=== PATIENT | female | born 1985 | race Caucasian/White ===

== ENCOUNTER → 2018-08-30 08:35 | Outpatient (CLI) | payer OTHER, MEDICAID, SELFPAY ==
--- NOTE | 2018-08-30 | DI.MRI.S_ITS ---
PROCEDURE: MR CERVICAL SPINE WO/W CON INDICATIONS: MULTIPLE SCLEROSIS TECHNIQUE: Noncontrast sagittal T1 spin echo and T2 fast spin echo, sagittal STIR, sagittal PD fast spin echo, foraminal oblique sagittal T2 fast spin echo, axial gradient echo or T2 fast spin echo through the cervical spine. After the administration of contrast, sagittal and axial T1 spin echo with fat saturation through the cervical spine. COMPARISON: [facility], MR, C-SPINE WITHOUT CONTRAST, 02/15/2013, 8:10. [facility], MR, MR THORACIC SPINE WO/W CON, 08/30/2018, 9:34. [facility], MR, MR HEAD/BRAIN WO/W CON, 08/30/2018, 8:52. [facility], MR, C-SPINE WITH&WITHOUT CONTRAST, 01/24/2009, 16:28. FINDINGS: Image quality: Excellent. Alignment and curvature: There is normal bony alignment. Marrow: Marrow demonstrates normal overall signal. Spinal cord: Visualized spinal cord is normal in size, without white matter lesions. No suspicious intramedullary enhancement. No cerebellar tonsillar herniation. Paraspinous soft tissues: No paravertebral masses or suspicious enhancement. No significant disc pathology, central canal narrowing, or neural foraminal narrowing can be seen. IMPRESSION: No white matter lesions are seen. Normal appearing cervical spine. Stable from prior. Dictated by: Jeffrey Saeed M.D. on 08/30/2018 at 9:56 Approved by: Jeffrey Saeed M.D. on 08/30/2018 at 9:57
--- NOTE | 2018-08-30 | DI.MRI.S_ITS ---
PROCEDURE: MR HEAD/BRAIN WO/W CON INDICATIONS: MULTIPLE SCLEROSIS TECHNIQUE: Noncontrast sagittal and axial FLAIR, axial and coronal T2 fast spin echo, axial VIBE, axial gradient echo, axial diffusion and ADC through the brain. After the administration of contrast, axial and coronal VIBE with fat saturation through the brain. COMPARISON: [facility], MR, BRAIN (PITUITARY) W&WO CONTRAS, 01/16/2010, 6:50. [facility], MR, BRAIN WITH AND WITHOUT CONTRAS, 08/24/2011, 7:06. [facility], MR, BRAIN WITH AND WITHOUT CONTRAS, 03/11/2011, 18:27. [facility], MR, MR THORACIC SPINE WO/W CON, 08/30/2018, 9:34. [facility], MR, MR CERVICAL SPINE WO/W CON, 08/30/2018, 9:17. [facility], MR, BRAIN W&WO CONTRAST, 02/15/2013, 8:36. FINDINGS: Image quality: Excellent. CSF spaces: Ventricles are normal in size and shape. Basal cisterns are patent. No extra-axial fluid collections. Brain: Several foci of abnormal T2-weighted hyperintensity can be seen within the periventricular and deep white matter. A few of the periventricular lesions demonstrate a perpendicular orientation to the lateral ventricles, as seen on series 5 image 10 and on series 9 image 15. Juxtacortical white matter lesions are also seen. There is mild involvement of the corpus callosum seen. No definite brainstem lesions are detected. No definite involvement of the posterior fossa can be seen. Compared to 2013, the size and number of the abnormal white matter lesions has clearly increased. On noncontrast T1-weighted imaging, a few of the larger lesions are decreased T1 weighted signal. On postcontrast imaging, no abnormal enhancement can be seen to suggest acute demyelination. No abnormal intracranial enhancement can be seen elsewhere. No intracranial bleeds or mass effects. Hernandez-white matter interface appears intact. Diffusion weighted images show no acute ischemic insults. Brainstem appears normal. Normal intravascular flow voids are present. Skull and face: Calvarial marrow signal is normal. Orbits appear normal. Sinuses: There is focal opacification seen of an air cell within the medial aspect of the left frontal sinus, which is stable compared to the prior examination. The visualized paranasal sinuses otherwise appear clear. No abnormal mastoid air cell fluid can be seen. IMPRESSION: Progression of white matter lesions compared to 2013, which is highly suggestive of progression of multiple sclerosis. No abnormal enhancement can be seen suggest active demyelination at this time, however. Dictated by: Jeffrey Saeed M.D. on 08/30/2018 at 9:46 Approved by: Jeffrey Saeed M.D. on 08/30/2018 at 9:56
--- NOTE | 2018-08-30 | DI.MRI.S_ITS ---
PROCEDURE: MR THORACIC SPINE WO/W CON INDICATIONS: MULTIPLE SCLEROSIS TECHNIQUE: Noncontrast sagittal T1 spin echo and T2 fast spin echo, sagittal STIR, axial T1 and T2 fast spin echo through the thoracic spine. After the administration of contrast, axial and sagittal T1 spin echo with fat saturation through the thoracic spine. COMPARISON: [facility], MR, T-SPINE WITHOUT CONTRAST, 01/18/2008, 19:33. [facility], MR, T-SPINE WITHOUT CONTRAST, 02/15/2013, 7:43. [facility], MR, MR CERVICAL SPINE WO/W CON, 08/30/2018, 9:17. [facility], MR, MR HEAD/BRAIN WO/W CON, 08/30/2018, 8:52. FINDINGS: Image quality: Excellent. Alignment and curvature: There is normal bony alignment. Marrow: Marrow is of normal overall signal. No acute vertebral body compression fractures. Spinal cord: In this patient with this given history, scrutiny is given to white matter lesions in the thoracic spinal cord. None can be seen. Visualized spinal cord is of normal signal and size, without abnormal enhancement. Paraspinous soft tissues: No paravertebral masses or abnormal enhancement. Miscellaneous: Central canal and foramina appear widely patent at all scanned levels. IMPRESSION: No thoracic spinal cord white matter lesions are seen. Normal appearing thoracic spine. Stable from prior. Dictated by: Jeffrey Saeed M.D. on 08/30/2018 at 9:58 Approved by: Jeffrey Saeed M.D. on 08/30/2018 at 9:59
== END ==
PROVIDERS: PCP Ophthalmology; Visit Provider Physician Assistant
DX: G35 Multiple sclerosis (principal)
CPT/HCPCS: 70553; 72156; 72157; A9579

== ENCOUNTER 2018-11-01 12:25 | Emergency (ER) | payer OTHER, MEDICAID, SELFPAY ==
[2018-11-01] VITALS (12 sets, daily range): BP systolic 100–130; BP diastolic 55–79; PULSE 49–70; RESP 12–18; TEMP 37.4; O2SAT 98–100; BMI 19.7
[2018-11-01] MEDS: SODIUM CHLORIDE 0.9% 1,000 ML 1000 ML IV ×2 (12:49→13:51)
[2018-11-01] MEDS: ONDANSETRON 4 MG/2 ML INJ IV ×2 (12:49→17:59)
[2018-11-01 13:07] LABS: Add Manual Diff / Slide Review NO; Basophils Percent Auto 0.1 % (0-2); Hematocrit 43.7 % (36-46); Hemoglobin 14.9 g/dL (12.0-16.0); Lymphocytes Percent Auto 6.7 % (25-40); Mean Corpuscular Hemoglobin 29.7 PG (26-34); Mean Corpuscular Volume 87.3 fL (80-100); Monocytes Percent Auto 0.9 % (3-14); Neutrophils Absolute Auto 6100 /uL (1500-7000); Neutrophils Percent Auto 92.3 % (50-75); Platelet Count 270 X10^3/uL (150-400); Red Blood Cell Count 5.01 X10^6/uL (4.0-5.2); Red Cell Distribution Width 14.2 % (11.6-14.8); White Blood Cell Count 6.6 X10^3/uL (4.5-11.0)
[2018-11-01 13:13] LABS: INR 1.1 (0.9-1.3); Prothrombin Time 13.1 SECONDS (10.1-12.7)
[2018-11-01 13:16] LABS: PTT Partial Thromboplastin Tim 28 SECONDS (26.4-36.2)
[2018-11-01 13:30] LABS: Alanine Aminotransferase 21 IU/L (9-52); Albumin 4.8 g/dL (3.5-5.0); Albumin Globulin Ratio 1.5 (1.0-2.8); Alkaline Phosphatase 55 U/L (38-126); Aspartate Aminotransferase 19 IU/L (14-36); BUN Creatinine Ratio 23.3 (6-22); Bilirubin Total 0.6 mg/dL (0.2-1.3); Blood Urea Nitrogen 14 mg/dL (7-17); Calcium 9.9 mg/dL (8.4-10.2); Carbon Dioxide 21 mmol/L (22-32); Chloride 106 mmol/L (98-107); Estimated Glomerular Filt Rate > 60.0 mL/min (>60); Globulin 3.1 g/dL (1.7-4.1); Glucose 124 mg/dL (70-100); HEMOLYSIS < 15 (0-50); Lipase 47 U/L (23-300); Potassium 3.1 mmol/L (3.4-5.1); Sodium 141 mmol/L (137-145); Total Protein 7.9 g/dL (6.3-8.2)
--- NOTE | 2018-11-01 14:11 | ED_ITS ---
HPI - Nausea/Vomiting/Diarrhea <MARTI Jj - Last Filed: 11/01/18 22:06> General Chief complaint: Nausea/Vomiting/Diarrhea Stated complaint: vomiting x2+ wks, lost 15lbs Time Seen by Provider: 11/01/18 12:40 Source: patient Mode of arrival: ambulatory Limitations: no limitations History of Present Illness HPI Narrative: 33-year-old female with history of MS and celiac disease along with chronic cyclic vomiting that is a former smoker here for complaint of nausea vomiting and generalized abdominal pain, she reports she has had nausea vomiting that has been continuous over the past several weeks. She also reports she has had abdominal pain for the last 3 months. She was seen by surgery for this and was placed on a propane all however she was told to stop the propanolol by her primary care provider. She has also been seen for this by multiple gastroenterologists who she states have not been able to figure out what is wrong with her. She denies any fevers or chills. No urinary symptoms. She does not remember her last bowel movement. Related Data Home Medications Medication Instructions Recorded Confirmed carisoprodol 350 mg PO BID PRN #0 02/16/17 11/01/18 alprazolam 0.25 mg PO BID PRN 11/01/18 11/01/18 eszopiclone 1 mg PO BEDTIME 11/01/18 11/01/18 fluconazole 150 mg PO .ONCE PRN 11/01/18 11/01/18 hydrocodone-acetaminophen 1 tab PO Q4H PRN 11/01/18 11/01/18 propranolol 10 mg PO BID 11/01/18 11/01/18 sertraline 100 mg PO BEDTIME 11/01/18 11/01/18 trazodone 300 mg PO BEDTIME 11/01/18 11/01/18 Previous Rx's Medication Instructions Recorded promethazine 25 mg PO Q4-6H PRN #20 tab 11/01/18 Allergies Allergy/AdvReac Type Severity Reaction Status Date / Time aspirin [ASPIRIN] Allergy Severe THROAT Verified 11/01/18 12:31 SWELLING metoclopramide [From REGLAN] AdvReac Mild AGGITATION/ Verified 11/01/18 12:31 RESTLESSNES S Review of Systems <MARTI Jj - Last Filed: 11/01/18 22:06> Constitutional Denies chills, Denies fever(s), Denies lethargy and Denies weakness Eyes Denies change in vision, Denies eye discharge, Denies irritation and Denies loss of vision ENT Ears, Nose, Mouth, and Throat: Denies change in voice, Denies neck pain and Denies sore throat Cardiovascular Denies chest pain, Denies irregular heart rhythm, Denies lightheadedness, Denies palpitations, Denies dyspnea, Denies dyspnea on exertion and Denies orthopnea Respiratory Denies cough, Denies dyspnea, Denies dyspnea on exertion and Denies wheezing Gastrointestinal Comments: Abdominal pain nausea vomiting Genitourinary Denies hematuria, Denies flank pain, Denies urinary incontinence and Denies urinary urgency Musculoskeletal Denies neck pain Integumentary/Breasts Denies pruritus, Denies erythema, Denies rash and Denies wounds Neurologic Denies confusion, Denies loss of vision and Denies weakness Psychiatric Denies anxiety, Denies confusion, Denies depression, Denies homicidal ideation and Denies suicidal ideation Endocrine Denies palpitations Hematologic/Lymphatic Denies easy bruising Allergic/Immunologic Denies wheezing Exam <MARTI Jj - Last Filed: 11/01/18 22:06> Initial Vital Signs Initial Vital Signs: Vital Signs Temperature 99.3 F 11/01/18 12:28 Pulse Rate 53 L 11/01/18 12:28 Respiratory Rate 14 11/01/18 12:28 Blood Pressure 130/75 11/01/18 12:28 Pulse Oximetry 100 11/01/18 12:28 Const General: cooperative and well developed Nutritional Appearance: well nourished Orientation: alert, awake, oriented x3 and not confused [facility] Mouth: oral mucosae normal and moist mucous membranes Eyes Conjunctivae: conjunctivae normal Sclera: sclerae normal Pupils: PERRL EOM: EOM intact bilaterally Chest Chest: normal inspection of the chest Resp Effort & Inspection: normal respiratory effort, able to speak in complete sentences, no respiratory distress and no use of accessory muscles Auscultation: clear to auscultation bilaterally, no rales, no rhonchi and no wheezes Cardio Rate: regular rate Rhythm: regular rhythm Heart Sounds: no click, no gallops, no murmurs and no rubs GI Inspection: non-distended Palpation: soft, no hepatosplenomegaly, No guarding, No pulsatile mass and tender (Generalized discomfort) Auscultation: normal bowel sounds General: No CVA tenderness Skin General: no rashes or lesions noted, No jaundice and No petechiae Neuro General: alert, oriented x3, gait normal and no focal motor deficits Speech: speech normal <Monse Mendoza DO - Last Filed: 11/02/18 19:48> Initial Vital Signs Initial Vital Signs: Vital Signs Temperature 99.3 F 11/01/18 12:28 Pulse Rate 53 L 11/01/18 12:28 Respiratory Rate 14 11/01/18 12:28 Blood Pressure 130/75 11/01/18 12:28 Pulse Oximetry 100 11/01/18 12:28 Course <MARTI Jj - Last Filed: 11/01/18 22:06> Orders Ordered: Discontinued Medications Diphenhydramine HCl (Benadryl) 25 mg IV NOW ONE Stop: 11/01/18 14:28 Last Admin: 11/01/18 14:44 Dose: 25 mg Hydromorphone HCl (Dilaudid) 0.5 mg IV NOW ONE Stop: 11/01/18 14:28 Last Admin: 11/01/18 14:44 Dose: 0.5 mg Hydromorphone HCl (Dilaudid) 0.5 mg IV NOW ONE Stop: 11/01/18 18:07 Last Admin: 11/01/18 18:11 Dose: 0.5 mg Sodium Chloride (Normal Saline 0.9%) 1,000 mls @ 1,000 mls/hr IV BOLUS ONE Stop: 11/01/18 13:38 Last Infusion: 11/01/18 13:48 Dose: 0 mls/hr Admin: 11/01/18 12:49 Dose: 1,000 mls/hr Sodium Chloride (Normal Saline 0.9%) 1,000 mls @ 1,000 mls/hr IV BOLUS ONE Stop: 11/01/18 14:48 Last Infusion: 11/01/18 15:17 Dose: 0 mls/hr Admin: 11/01/18 13:51 Dose: 1,000 mls/hr Ondansetron HCl (Zofran) 4 mg IV NOW ONE Stop: 11/01/18 12:39 Last Admin: 11/01/18 12:49 Dose: 4 mg Ondansetron HCl (Zofran) 4 mg IV NOW ONE Stop: 11/01/18 17:31 Last Admin: 11/01/18 17:59 Dose: 4 mg Potassium Chloride (Klor-Con M20) 40 meq PO NOW ONE Stop: 11/01/18 14:10 Last Admin: 11/01/18 14:33 Dose: Not Given Potassium Chloride (Klor-Con M20) 20 meq PO NOW ONE Stop: 11/01/18 14:30 Last Admin: 11/01/18 15:11 Dose: 20 meq Prochlorperazine (Compazine) 10 mg IV NOW ONE Stop: 11/01/18 14:28 Last Admin: 11/01/18 14:44 Dose: 10 mg Vital Signs - 8 hr 11/01/18 14:30 11/01/18 15:00 11/01/18 16:00 Pulse Rate 59 L 53 L 54 L Respiratory Rate 13 14 18 Blood Pressure Blood Pressure [Left Arm] 118/72 112/75 105/68 Pulse Oximetry 100 98 99 11/01/18 16:44 11/01/18 17:30 11/01/18 18:23 Pulse Rate 50 L 49 L 58 L Respiratory Rate 17 16 14 Blood Pressure Blood Pressure [Left Arm] 113/75 115/79 100/55 L Pulse Oximetry 100 100 100 11/01/18 18:26 Pulse Rate 70 Respiratory Rate 16 Blood Pressure 115/65 Blood Pressure [Left Arm] Pulse Oximetry 100 <Monse Mendoza DO - Last Filed: 11/02/18 19:48> Orders Ordered: Discontinued Medications Diphenhydramine HCl (Benadryl) 25 mg IV NOW ONE Stop: 11/01/18 14:28 Last Admin: 11/01/18 14:44 Dose: 25 mg Hydromorphone HCl (Dilaudid) 0.5 mg IV NOW ONE Stop: 11/01/18 14:28 Last Admin: 11/01/18 14:44 Dose: 0.5 mg Hydromorphone HCl (Dilaudid) 0.5 mg IV NOW ONE Stop: 11/01/18 18:07 Last Admin: 11/01/18 18:11 Dose: 0.5 mg Sodium Chloride (Normal Saline 0.9%) 1,000 mls @ 1,000 mls/hr IV BOLUS ONE Stop: 11/01/18 13:38 Last Infusion: 11/01/18 13:48 Dose: 0 mls/hr Admin: 11/01/18 12:49 Dose: 1,000 mls/hr Sodium Chloride (Normal Saline 0.9%) 1,000 mls @ 1,000 mls/hr IV BOLUS ONE Stop: 11/01/18 14:48 Last Infusion: 11/01/18 15:17 Dose: 0 mls/hr Admin: 11/01/18 13:51 Dose: 1,000 mls/hr Ondansetron HCl (Zofran) 4 mg IV NOW ONE Stop: 11/01/18 12:39 Last Admin: 11/01/18 12:49 Dose: 4 mg Ondansetron HCl (Zofran) 4 mg IV NOW ONE Stop: 11/01/18 17:31 Last Admin: 11/01/18 17:59 Dose: 4 mg Potassium Chloride (Klor-Con M20) 40 meq PO NOW ONE Stop: 11/01/18 14:10 Last Admin: 11/01/18 14:33 Dose: Not Given Potassium Chloride (Klor-Con M20) 20 meq PO NOW ONE Stop: 11/01/18 14:30 Last Admin: 11/01/18 15:11 Dose: 20 meq Prochlorperazine (Compazine) 10 mg IV NOW ONE Stop: 11/01/18 14:28 Last Admin: 11/01/18 14:44 Dose: 10 mg Vital Signs - 8 hr 11/01/18 14:30 11/01/18 15:00 11/01/18 16:00 Pulse Rate 59 L 53 L 54 L Respiratory Rate 13 14 18 Blood Pressure Blood Pressure [Left Arm] 118/72 112/75 105/68 Pulse Oximetry 100 98 99 11/01/18 16:44 11/01/18 17:30 11/01/18 18:23 Pulse Rate 50 L 49 L 58 L Respiratory Rate 17 16 14 Blood Pressure Blood Pressure [Left Arm] 113/75 115/79 100/55 L Pulse Oximetry 100 100 100 11/01/18 18:26 Pulse Rate 70 Respiratory Rate 16 Blood Pressure 115/65 Blood Pressure [Left Arm] Pulse Oximetry 100 MDM - Nausea/Vomiting/Diarrhea <MARTI Jj - Last Filed: 11/01/18 22:06> Lab Data Result diagrams: 11/01/18 12:58 11/01/18 12:58 Lab Results 11/01/18 11/01/18 11/01/18 Range/Units 12:58 12:58 12:58 WBC 6.6 (4.5-11.0) X10^3/uL RBC 5.01 (4.0-5.2) X10^6/uL Hgb 14.9 (12.0-16.0) g/dL Hct 43.7 (36-46) % MCV 87.3 (80-100) fL MCH 29.7 (26-34) PG MCHC 34.0 (30-36) % RDW 14.2 (11.6-14.8) % Plt Count 270 (150-400) X10^3/uL Neut % (Auto) 92.3 H (50-75) % Lymph % (Auto) 6.7 L (25-40) % [place] % (Auto) 0.9 L (3-14) % Eos % (Auto) 0.0 L (2-4) % Baso % (Auto) 0.1 (0-2) % Neut # (Auto) 6100 (3389-5513) /uL PT 13.1 H (10.1-12.7) SECONDS INR 1.1 (0.9-1.3) APTT 28 (26.4-36.2) SECONDS Sodium 141 (137-145) mmol/L Potassium 3.1 L (3.4-5.1) mmol/L Chloride 106 (98-107) mmol/L Carbon Dioxide 21 L (22-32) mmol/L BUN 14 (7-17) mg/dL Creatinine 0.60 (0.52-1.04) mg/dL Estimated GFR > 60.0 (>60) mL/min BUN/Creatinine Ratio 23.3 H (6-22) Glucose 124 H (70-100) mg/dL Calcium 9.9 (8.4-10.2) mg/dL Total Bilirubin 0.6 (0.2-1.3) mg/dL AST 19 (14-36) IU/L ALT 21 (9-52) IU/L Alkaline Phosphatase 55 (38-126) U/L Total Protein 7.9 (6.3-8.2) g/dL Albumin 4.8 (3.5-5.0) g/dL Globulin 3.1 (1.7-4.1) g/dL Albumin/Globulin Ratio 1.5 (1.0-2.8) Lipase 47 (23-300) U/L Urine RBC (0-5/HPF) Urine WBC (0-5/HPF) Ur Squamous Epith Cells Urine Bacteria (None) Urine Mucus (Negative) Ur Culture Indicated? 11/01/18 Range/Units 14:35 WBC (4.5-11.0) X10^3/uL RBC (4.0-5.2) X10^6/uL Hgb (12.0-16.0) g/dL Hct (36-46) % MCV (80-100) fL MCH (26-34) PG MCHC (30-36) % RDW (11.6-14.8) % Plt Count (150-400) X10^3/uL Neut % (Auto) (50-75) % Lymph % (Auto) (25-40) % [place] % (Auto) (3-14) % Eos % (Auto) (2-4) % Baso % (Auto) (0-2) % Neut # (Auto) (9751-0399) /uL PT (10.1-12.7) SECONDS INR (0.9-1.3) APTT (26.4-36.2) SECONDS Sodium (137-145) mmol/L Potassium (3.4-5.1) mmol/L Chloride (98-107) mmol/L Carbon Dioxide (22-32) mmol/L BUN (7-17) mg/dL Creatinine (0.52-1.04) mg/dL Estimated GFR (>60) mL/min BUN/Creatinine Ratio (6-22) Glucose (70-100) mg/dL Calcium (8.4-10.2) mg/dL Total Bilirubin (0.2-1.3) mg/dL AST (14-36) IU/L ALT (9-52) IU/L Alkaline Phosphatase (38-126) U/L Total Protein (6.3-8.2) g/dL Albumin (3.5-5.0) g/dL Globulin (1.7-4.1) g/dL Albumin/Globulin Ratio (1.0-2.8) Lipase (23-300) U/L Urine RBC 1-5/hpf (0-5/HPF) Urine WBC 0-1/hpf (0-5/HPF) Ur Squamous Epith Cells 5-10 /hpf H Urine Bacteria None seen (None) Urine Mucus 2+ H (Negative) Ur Culture Indicated? Cult not indicated Point of Care Testing Test Results Negative Urine Dip Bedside Urine Glucose Negative Bedside Urine Bilirubin - Negative Bedside Urine Ketone +++ 80 Urine Specific [place] 1.020 Bedside Urine Occult Blood - Negative Bedside Urine pH 7.0 Bedside Urine Protein + 30 Bedside Urine Urobilinogen +/- 1mg Bedside Urine Nitrite - Negative Bedside Urine Leukocytes +/- [address] scan - abdomen: Radiologist's impression: [address] [address] [address] Scan Report Signed Patient: Imani Bowen MR#: [id number] : 1985 Acct:[id number] Age/Sex: 33 / F Date of Service: 11/01/18 Loc: ED Accession Number: [id number] Procedure: CT abdomen pelvis w con Ordering Provider: Vicente Lira PROCEDURE: CT ABDOMEN PELVIS W CON INDICATIONS: Left lower quadrant pain TECHNIQUE: After the administration of oral and intravenous contrast, 5 mm thick sections acquired from the diaphragms to the symphysis. 5 mm thick coronal and sagittal reformats were performed. For radiation dose reduction, the following was used: automated exposure control, adjustment of mA and/or kV according to patient size. COMPARISON: [facility], CT, ABDOMEN/PELVIS WITH CONTRAST, 10/15/2017, 12: 44. [facility], CT, ABDOMEN/PELVIS WITH CONTRAST, 06/14/2017, 8:35. [facility], CT, ABDOMEN/PELVIS WITH CONTRAST, 10/19/2011, 13:59. FINDINGS: Image quality: Diagnostic. ABDOMEN: Lung bases: Lung bases are clear. Heart size is normal. Solid organs: The liver is noted to be prominently hypodense when compared to the spleen. No definite liver lesions are evident. The patient has had a prior cholecystectomy. The spleen, adrenals, and pancreas appear to be within normal limits. The kidneys are unremarkable with the exception of nonobstructing 6 mm calculus within the mid right kidney. Previously seen inferior left renal calculus no longer as evident. No definite left ureteral calculi are evident. No hydronephrosis is appreciated. Peritoneum and bowel: The stomach and duodenum are within normal limits. A few borderline prominent fluid-filled small bowel loops involving the jejunum are present. However, the majority of the small bowel is within normal limits. Moderate thickening of the wall the colon is identified diffusely with relative paucity of stool. The appendix is not clearly seen. There is mild edema within the mesentery surrounding the colon. No free fluid, loculated fluid collection or free air is identified. Nodes and vessels: No retroperitoneal or mesenteric adenopathy. Aorta and inferior vena cava are normal in caliber. Bones: No acute fractures or suspicious osseous lesions are identified. PELVIS: Genitourinary: Bladder wall thickness is normal. The uterus is normal in size. The ovaries also appear to be within normal limits for size. Miscellaneous: No inguinal hernias or adenopathy. No free fluid or loculated fluid collection is evident. Bones: No suspicious bony lesions. No acute pelvic fractures are evident. There mild degenerative changes of the bilateral hips. IMPRESSION: 1. Diffuse thickening of the medial wall of the colon with mild adjacent mesenteric edema. Please correlate clinically for possible colitis. 2. Probable mild jejunal ileus. No bowel obstruction. 3. Hepatic steatosis. 4. Nonobstructing right calculus. No hydronephrosis of either kidney. Dictated by: Suman Peters M.D. on 11/01/2018 at 16:05 Approved by: Suman Peters M.D. on 11/01/2018 at 16:09 [facility] Narrative Medical decision making narrative: CBC was obtained was unremarkable. Chem panel shows mild hypokalemia at 3.1. She was given 20 mEq of potassium chloride orally in the emergency room. CT scan of the abdomen shows some mild thickening of the mesentery and also of the colon wall. Do not appreciate signs of infection at this time as vital signs are stable and white count was negative. I believe this may be more due to chronic issues. She was given Zofran along with Benadryl and Compazine in the emergency room. She was able to tolerate p.o. fluids. Discussed case with Dr. Quintanilla surgery who has seen patient for this in the past and Dr Quintanilla will see patient for this outpatient . Patient is instructed to call her office and schedule follow-up appointment. She is prescribed Phenergan to add to the Zofran that she is taking. Advanced diet as tolerated. Plenty of fluids. For any worsening symptoms return emergency room. Use currently prescribed pain management regimen as needed for discomfort <Monse Terrell Mendoza, - Last Filed: 11/02/18 19:48> Lab Data Lab Results 11/01/18 11/01/18 11/01/18 Range/Units 12:58 12:58 12:58 WBC 6.6 (4.5-11.0) X10^3/uL RBC 5.01 (4.0-5.2) X10^6/uL Hgb 14.9 (12.0-16.0) g/dL Hct 43.7 (36-46) % MCV 87.3 (80-100) fL MCH 29.7 (26-34) PG MCHC 34.0 (30-36) % RDW 14.2 (11.6-14.8) % Plt Count 270 (150-400) X10^3/uL Neut % (Auto) 92.3 H (50-75) % Lymph % (Auto) 6.7 L (25-40) % [place] % (Auto) 0.9 L (3-14) % Eos % (Auto) 0.0 L (2-4) % Baso % (Auto) 0.1 (0-2) % Neut # (Auto) 6100 (0617-9601) /uL PT 13.1 H (10.1-12.7) SECONDS INR 1.1 (0.9-1.3) APTT 28 (26.4-36.2) SECONDS Sodium 141 (137-145) mmol/L Potassium 3.1 L (3.4-5.1) mmol/L Chloride 106 (98-107) mmol/L Carbon Dioxide 21 L (22-32) mmol/L BUN 14 (7-17) mg/dL Creatinine 0.60 (0.52-1.04) mg/dL Estimated GFR > 60.0 (>60) mL/min BUN/Creatinine Ratio 23.3 H (6-22) Glucose 124 H (70-100) mg/dL Calcium 9.9 (8.4-10.2) mg/dL Total Bilirubin 0.6 (0.2-1.3) mg/dL AST 19 (14-36) IU/L ALT 21 (9-52) IU/L Alkaline Phosphatase 55 (38-126) U/L Total Protein 7.9 (6.3-8.2) g/dL Albumin 4.8 (3.5-5.0) g/dL Globulin 3.1 (1.7-4.1) g/dL Albumin/Globulin Ratio 1.5 (1.0-2.8) Lipase 47 (23-300) U/L Urine RBC (0-5/HPF) Urine WBC (0-5/HPF) Ur Squamous Epith Cells Urine Bacteria (None) Urine Mucus (Negative) Ur Culture Indicated? 11/01/18 Range/Units 14:35 WBC (4.5-11.0) X10^3/uL RBC (4.0-5.2) X10^6/uL Hgb (12.0-16.0) g/dL Hct (36-46) % MCV (80-100) fL MCH (26-34) PG MCHC (30-36) % RDW (11.6-14.8) % Plt Count (150-400) X10^3/uL Neut % (Auto) (50-75) % Lymph % (Auto) (25-40) % [place] % (Auto) (3-14) % Eos % (Auto) (2-4) % Baso % (Auto) (0-2) % Neut # (Auto) (5646-3264) /uL PT (10.1-12.7) SECONDS INR (0.9-1.3) APTT (26.4-36.2) SECONDS Sodium (137-145) mmol/L Potassium (3.4-5.1) mmol/L Chloride (98-107) mmol/L Carbon Dioxide (22-32) mmol/L BUN (7-17) mg/dL Creatinine (0.52-1.04) mg/dL Estimated GFR (>60) mL/min BUN/Creatinine Ratio (6-22) Glucose (70-100) mg/dL Calcium (8.4-10.2) mg/dL Total Bilirubin (0.2-1.3) mg/dL AST (14-36) IU/L ALT (9-52) IU/L Alkaline Phosphatase (38-126) U/L Total Protein (6.3-8.2) g/dL Albumin (3.5-5.0) g/dL Globulin (1.7-4.1) g/dL Albumin/Globulin Ratio (1.0-2.8) Lipase (23-300) U/L Urine RBC 1-5/hpf (0-5/HPF) Urine WBC 0-1/hpf (0-5/HPF) Ur Squamous Epith Cells 5-10 /hpf H Urine Bacteria None seen (None) Urine Mucus 2+ H (Negative) Ur Culture Indicated? Cult not indicated Point of Care Testing Test Results Negative Urine Dip Bedside Urine Glucose Negative Bedside Urine Bilirubin - Negative Bedside Urine Ketone +++ 80 Urine Specific [place] 1.020 Bedside Urine Occult Blood - Negative Bedside Urine pH 7.0 Bedside Urine Protein + 30 Bedside Urine Urobilinogen +/- 1mg Bedside Urine Nitrite - Negative Bedside Urine Leukocytes +/- 15 Esterase Discharge Plan Departure Patient Disposition: Home Clinical Impression: Cyclical vomiting syndrome Discharge Date/Time: 11/01/18 18:26 Interventions: ED Discharge Assessment Last Done: 11/01/18 18:26 Instructions: Nausea and Vomiting-Adult Activity Restrictions/Additional Instructions: Laboratory results as show hypokalemia otherwise laboratory results were unremarkable. CT of the abdomen was obtained was negative for any acute findings. Signs and symptoms presents as secondary to cyclic vomiting. Use Zofran as prescribed along with the Phenergan for the nausea vomiting. Advanced diet as tolerated. Use currently prescribed pain management regimen as needed for any discomfort. Call Dr. Quintanilla at her office number to schedule follow-up appointment next week. Follow-up with your primary. For any worsening symptoms return to the emergency room. Prescriptions: New promethazine 25 mg tablet 25 mg PO Q4-6H PRN (Reason: nausea and vomiting) Qty: 20 RF: 0 No Action carisoprodol 350 MG tablet 350 mg PO BID PRN (Reason: spasm) Qty: 0 RF: 0 sertraline 100 mg tablet 100 mg PO BEDTIME RF: 0 hydrocodone-acetaminophen 10-325 mg tablet 1 tab PO Q4H PRN (Reason: pain) RF: 0 alprazolam 0.5 mg tablet 0.25 mg PO BID PRN (Reason: Anxiety) RF: 0 eszopiclone 1 mg tablet 1 mg PO BEDTIME RF: 0 trazodone 100 MG tablet 300 mg PO BEDTIME RF: 0 propranolol 10 mg tablet 10 mg PO BID RF: 0 fluconazole 150 mg tablet 150 mg PO .ONCE PRN (Reason: unknown) RF: 0 Referrals: Sheryl Quintanilla MD [Physician] - Baudilio Bejarano [Primary Care Provider] - <Monse Mendoza DO - Last Filed: 11/02/18 19:48> Cosign ED Attending Cosignature Attestation: I was immediately available in the department for consultation. This documentation has been reviewed and I agree with assessment and plan. Supervised by Monse Mendoza DO
--- NOTE | 2018-11-01 14:28 | DI.CT.S_ITS ---
PROCEDURE: CT ABDOMEN PELVIS W CON INDICATIONS: Left lower quadrant pain TECHNIQUE: After the administration of oral and intravenous contrast, 5 mm thick sections acquired from the diaphragms to the symphysis. 5 mm thick coronal and sagittal reformats were performed. For radiation dose reduction, the following was used: automated exposure control, adjustment of mA and/or kV according to patient size. COMPARISON: [facility], CT, ABDOMEN/PELVIS WITH CONTRAST, 10/15/2017, 12:44. [facility], CT, ABDOMEN/PELVIS WITH CONTRAST, 06/14/2017, 8:35. [facility], CT, ABDOMEN/PELVIS WITH CONTRAST, 10/19/2011, 13:59. FINDINGS: Image quality: Diagnostic. ABDOMEN: Lung bases: Lung bases are clear. Heart size is normal. Solid organs: The liver is noted to be prominently hypodense when compared to the spleen. No definite liver lesions are evident. The patient has had a prior cholecystectomy. The spleen, adrenals, and pancreas appear to be within normal limits. The kidneys are unremarkable with the exception of nonobstructing 6 mm calculus within the mid right kidney. Previously seen inferior left renal calculus no longer as evident. No definite left ureteral calculi are evident. No hydronephrosis is appreciated. Peritoneum and bowel: The stomach and duodenum are within normal limits. A few borderline prominent fluid-filled small bowel loops involving the jejunum are present. However, the majority of the small bowel is within normal limits. Moderate thickening of the wall the colon is identified diffusely with relative paucity of stool. The appendix is not clearly seen. There is mild edema within the mesentery surrounding the colon. No free fluid, loculated fluid collection or free air is identified. Nodes and vessels: No retroperitoneal or mesenteric adenopathy. Aorta and inferior vena cava are normal in caliber. Bones: No acute fractures or suspicious osseous lesions are identified. PELVIS: Genitourinary: Bladder wall thickness is normal. The uterus is normal in size. The ovaries also appear to be within normal limits for size. Miscellaneous: No inguinal hernias or adenopathy. No free fluid or loculated fluid collection is evident. Bones: No suspicious bony lesions. No acute pelvic fractures are evident. There mild degenerative changes of the bilateral hips. IMPRESSION: 1. Diffuse thickening of the medial wall of the colon with mild adjacent mesenteric edema. Please correlate clinically for possible colitis. 2. Probable mild jejunal ileus. No bowel obstruction. 3. Hepatic steatosis. 4. Nonobstructing right calculus. No hydronephrosis of either kidney. Dictated by: Suman Peters M.D. on 11/01/2018 at 16:05 Approved by: Suman Peters M.D. on 11/01/2018 at 16:09
[2018-11-01] MEDS: HYDROMORPHONE 1 MG INJ 0.5 MG IV ×2 (14:44→18:11)
[2018-11-01] MEDS: diphenhydrAMINE 50 MG/ML VIAL 25 MG IV (14:44)
[2018-11-01] MEDS: PROCHLORPERAZINE 10 MG/2 ML VIAL IV (14:44)
[2018-11-01 14:50] LABS: Bacteria Urine None Seen
[2018-11-01 15:01] LABS: Culture Indicated Urine Cult Not Indicated; Mucus Urine 2+ (Negative); RBC Urine 1-5/HPF (0-5/HPF); Squamous Epithelial Cell Urine 5-10 /HPF; WBC Urine 0-1/HPF (0-5/HPF)
[2018-11-01] MEDS: POTASSIUM CHLORIDE 20 MEQ TAB PO (15:11)
== END 2018-11-01 18:26 | disposition home or self-care (01) ==
PROVIDERS: Emergency Medicine; Emergency Provider Nurse Practitioner Family; PCP Ophthalmology
DX: G43.A0 Cyclical vomiting, in migraine, not intractable (principal)
CPT/HCPCS: 74177; 80053; 81003; 81015; 81025; 83690; 85025; 85610; 85730; 96361; 96374; 96375; 96376; 99285; J0780; J1170; J1200; J2405; Q9967

== ENCOUNTER → 2018-11-20 08:10 | Outpatient (CLI) | payer OTHER, MEDICAID, SELFPAY ==
--- NOTE | 2018-11-20 08:12 | DI.RAD.S_ITS ---
PROCEDURE: FL UPPER GI SMALL BOWEL INDICATIONS: Recurrent vomiting COMPARISON: [facility], CT, CT ABDOMEN PELVIS W CON, 11/01/2018, 16:23. [facility], [place], GASTRIC EMPTYING STUDY, 02/07/2018, 8:26. [facility], , UPPER GI AIR CONTRAST WITH KUB, 08/18/2012, 8:08. FINDINGS: KUB: Preprocedural crop ranch hand film shows a normal small bowel gas pattern with generalized moderate colonic obstipation. No suspicious abdominal calcifications. Visualized solid organ contours appear normal in size. No suspicious bony abnormalities. Esophagus: Air-contrast views demonstrate a normal mucosal pattern. On single-contrast views, there is normal peristalsis. No fixed strictures, extrinsic mass effects, or diverticula. No hiatal hernias or elicited gastroesophageal reflux. There is normal transit of a calibrated barium tablet through the esophagus. Stomach: The gastric lumen is normally distensible, and has normal rugal fold thickness. There is debris within the gastric lumen, the patient reported having not eaten after late last night. A recent nuclear medicine gastric emptying study had shown normal gastric emptying. No mucosal masses or ulcers. The pylorus and duodenal bulb have a normal morphology. Small bowel: Duodenal folds appear normal in thickness. There is normal transit time of barium through the small intestine. Small bowel loops appear normal in caliber throughout. Jejunal and ileal folds are smooth and normal in thickness. No strictures, intraluminal masses, or extrinsic mass effects. The terminal ileum is identified and appears normal. IMPRESSION: Gastric debris present, uncertain clinical significance given the report of having eaten late last night. There is a normal gastric emptying study utilizing nuclear medicine technique dated . Esophageal and gastric portion of the study otherwise appear normal. Small bowel follow-through appears normal. Dictated by: Eric Oconnell M.D. on 11/20/2018 at 12:06 Approved by: Eric Oconnell M.D. on 11/20/2018 at 12:08
== END ==
PROVIDERS: PCP Ophthalmology; Visit Provider Surgery
DX: R11.10 Vomiting, unspecified (principal)
CPT/HCPCS: 74245

== ENCOUNTER 2018-12-10 17:02 | Emergency (ER) | payer OTHER, MEDICAID, SELFPAY ==
[2018-12-10 17:25] VITALS: BP 115/74; PULSE 53; RESP 18; TEMP 36.2; O2SAT 100; BMI 21.4
[2018-12-10] MEDS: SODIUM CHLORIDE 0.9% 1,000 ML 1000 ML IV ×2 (17:48→19:02)
[2018-12-10] MEDS: ONDANSETRON 4 MG/2 ML INJ IV (17:48)
--- NOTE | 2018-12-10 18:01 | ED_ITS ---
HPI - Nausea/Vomiting/Diarrhea General Chief complaint: Nausea/Vomiting/Diarrhea Stated complaint: infusion of medication, adverse reactions Time Seen by Provider: 12/10/18 18:00 Source: patient Mode of arrival: ambulatory Limitations: no limitations History of Present Illness HPI Narrative: The patient received an initial injection of Ocrelizumab yesterday for the treatment of MS. She was premedicated with a steroid injection as well as antihistamine injection. She arrives now with multiple emesis over the past day. She has no diarrhea. She has myalgia and arthralgia through the shoulders, and upper extremities. She has severe low back pain. She has abdominal cramps. She has no headache, visual changes or confusion. She denies chest pain or difficulty breathing. I reviewed the medication, the medication is expected to have side effects similar to much of what she has experienced. Side effects were supposed to be diminished by the premedication process. However the patient also has anxiety and cyclic vomiting syndrome. She already has multiple anti medic medications at home, as well as medications for anxiety. She has no fever, chills or dysuria. Related Data Home Medications Medication Instructions Recorded Confirmed carisoprodol 350 mg PO BID PRN #0 02/16/17 11/01/18 alprazolam 0.25 mg PO BID PRN 11/01/18 11/01/18 eszopiclone 1 mg PO BEDTIME 11/01/18 11/01/18 fluconazole 150 mg PO .ONCE PRN 11/01/18 11/01/18 hydrocodone-acetaminophen 1 tab PO Q4H PRN 11/01/18 11/01/18 propranolol 10 mg PO BID 11/01/18 11/01/18 sertraline 100 mg PO BEDTIME 11/01/18 11/01/18 trazodone 300 mg PO BEDTIME 11/01/18 11/01/18 Previous Rx's Medication Instructions Recorded promethazine 25 mg PO Q4-6H PRN #20 tab 11/01/18 Allergies Allergy/AdvReac Type Severity Reaction Status Date / Time aspirin [ASPIRIN] Allergy Severe THROAT Verified 12/10/18 17:24 SWELLING metoclopramide [From REGLAN] AdvReac Mild AGGITATION/ Verified 12/10/18 17:24 RESTLESSNES S Review of Systems Review of Systems ROS Unobtainable: All systems reviewed & are unremarkable except as noted in HPI and below Constitutional Denies chills, Denies fever(s), Denies headache(s), Denies lethargy and Denies weakness Eyes Denies change in vision, Denies eye discharge, Denies irritation and Denies loss of vision ENT Ears, Nose, Mouth, and Throat: Denies change in voice, Denies headache(s), Reports neck pain and Denies sore throat Cardiovascular Denies chest pain, Denies irregular heart rhythm, Denies lightheadedness, Denies palpitations, Denies dyspnea on exertion and Denies orthopnea Respiratory Denies cough, Denies dyspnea on exertion and Denies wheezing Gastrointestinal Gastrointestinal: Reports abdominal pain, Denies change in bowel habits, Denies diarrhea, Reports nausea and Reports vomiting Genitourinary Denies dysuria, Denies flank pain and Denies urinary urgency Musculoskeletal Reports as per HPI, Reports back pain, Reports myalgias, Reports arthralgias, Denies limited range of motion, Reports muscle cramps and Reports neck pain Integumentary/Breasts Denies pruritus, Denies erythema and Denies rash Neurologic Denies confusion, Denies headache(s), Denies loss of vision and Denies weakness Psychiatric Reports anxiety, Denies confusion and Denies depression Endocrine Denies palpitations Hematologic/Lymphatic Denies lymphadenopathy Allergic/Immunologic Denies wheezing PFSH Medical History Anxiety (Acute) Cyclic vomiting syndrome (Acute) Multiple sclerosis (Acute) Surgical History Status post tubal ligation Social History Smoking Status: Former smoker Social History Smoking Status: Former smoker substance use type: marijuana Exam Initial Vital Signs Initial Vital Signs: Vital Signs Temperature 97.1 F L 12/10/18 17:25 Pulse Rate 53 L 12/10/18 17:25 Respiratory Rate 18 12/10/18 17:25 Blood Pressure 115/74 12/10/18 17:25 Pulse Oximetry 100 12/10/18 17:25 Const General: cooperative, well developed, anxious, No ill appearing, No intoxicated appearing and No lethargic Nutritional Appearance: well nourished Orientation: alert, awake, oriented x3 and not confused [facility] Head: normocephalic and atraumatic Face and sinus: sinuses nontender and face symmetric Mouth: oral mucosae normal and moist mucous membranes Throat: tonsils normal and uvula midline Eyes General: appearance normal, both eyes and all related structures Eyelids: eyelids normal Conjunctivae: conjunctivae normal Sclera: sclerae normal Pupils: PERRL EOM: EOM intact bilaterally Neck Neck: normal visual inspection, trachea midline and No lymphadenopathy Lymphatic: No lymphedema Chest Chest: normal inspection of the chest Resp Effort & Inspection: normal respiratory effort, able to speak in complete sentences, no respiratory distress and no use of accessory muscles Auscultation: clear to auscultation bilaterally, no rales, no rhonchi and no wheezes Cardio Rate: regular rate Rhythm: regular rhythm Heart Sounds: no click, no gallops, no murmurs and no rubs Pulses: normal peripheral pulses GI Palpation: soft, no hepatosplenomegaly, No pulsatile mass and tender ( p eriumbilical and epigastric tenderness without guarding or rebound) Auscultation: normal bowel sounds Back/Spine/Pelvis Back: No CVA tenderness and other Thoracic/Lumbar Spine: thoracic and lumbar spine normal to inspection, thoraco- lumbar spasm and lumbar spinal tenderness Sacroiliac Joints: nontender Sacrum: no tenderness Skin General: no rashes or lesions noted, No jaundice and No petechiae Neuro General: alert, oriented x3, gait normal and no focal motor deficits Speech: speech normal Extrem General: full ROM, no clubbing, cyanosis or edema, no pedal edema and no calf tenderness Course Course Narrative: she is improved after hydration. She was given Toradol for the myalgias and back pain, she still complains of back pain. She is sipping water. She is discharged with a 2nd dose of the Zofran. Lorazepam significantly helped her nausea. Her 1st reaction is to never take the medication again. However, there is a lot of emphasis on the initial side effects, and the need to premedicate. The information I have reviewed indicates the side effects should lessen. I asked her to discuss the situation with her doctor, the help of future benefit should be evaluated. It should also be recognize that she has the confusing my read of cyclic vomiting and anxiety along with the listed side effects of this medication. She is discharged home with [place] for back pain times 24 hr. She has an ample supply of antiemetics at home. Orders Ordered: Discontinued Medications Hydrocodone Bitart/Acetaminophen (Vicodin Prepack) 1 bottle MISC SEEINSTR ONE Stop: 12/10/18 20:01 Last Admin: 12/10/18 20:35 Dose: 1 bottle Sodium Chloride (Normal Saline 0.9%) 1,000 mls @ 1,000 mls/hr IV BOLUS ONE Stop: 12/10/18 18:42 Last Infusion: 12/10/18 19:02 Dose: 0 mls/hr Admin: 12/10/18 17:48 Dose: 1,000 mls/hr Sodium Chloride (Normal Saline 0.9%) 1,000 mls @ 1,000 mls/hr IV BOLUS ONE Stop: 12/10/18 19:49 Last Infusion: 12/10/18 20:45 Dose: 0 mls/hr Admin: 12/10/18 19:02 Dose: 1,000 mls/hr Ketorolac Tromethamine (Toradol) 30 mg IV NOW ONE Stop: 12/10/18 18:25 Last Admin: 12/10/18 18:34 Dose: 30 mg Lorazepam (Ativan) 2 mg IV NOW ONE Stop: 12/10/18 18:52 Last Admin: 12/10/18 19:02 Dose: 2 mg Ondansetron HCl (Zofran) 4 mg IV NOW ONE Stop: 12/10/18 17:44 Last Admin: 12/10/18 17:48 Dose: 4 mg Ondansetron HCl (Zofran Odt) 4 mg SL NOW ONE Stop: 12/10/18 20:01 Last Admin: 12/10/18 20:34 Dose: 4 mg Vital Signs - 8 hr 12/10/18 17:25 12/10/18 19:13 Temperature 97.1 F L Pulse Rate 53 L 54 L Respiratory Rate 18 20 Blood Pressure 115/74 Blood Pressure [Left Arm] 119/79 Pulse Oximetry 100 98 MDM - Nausea/Vomiting/Diarrhea Lab Data Result diagrams: 12/10/18 17:35 12/10/18 17:35 Lab Results 12/10/18 12/10/18 12/10/18 Range/Units 17:35 17:35 19:44 WBC 9.4 (4.5-11.0) X10^3/uL RBC 4.87 (4.0-5.2) X10^6/uL Hgb 14.6 (12.0-16.0) g/dL Hct 44.2 (36-46) % MCV 90.7 (80-100) fL MCH 29.9 (26-34) PG MCHC 33.0 (30-36) % RDW 14.6 (11.6-14.8) % Plt Count 175 (150-400) X10^3/uL Neut % (Auto) 94.7 H (50-75) % Lymph % (Auto) 2.8 L (25-40) % [place] % (Auto) 2.2 L (3-14) % Eos % (Auto) 0.0 L (2-4) % Baso % (Auto) 0.3 (0-2) % Neut # (Auto) 8900 H (0892-3605) /uL Lymph # (Auto) 300 L (3085-7170) /uL [place] # (Auto) 200 (0-900) /uL Eos # (Auto) 0 (0-450) /uL Baso # (Auto) 0 (0-100) /uL Sodium 140 (137-145) mmol/L Potassium 3.8 (3.4-5.1) mmol/L Chloride 103 (98-107) mmol/L Carbon Dioxide 24 (22-32) mmol/L BUN 15 (7-17) mg/dL Creatinine 0.60 (0.52-1.04) mg/dL Estimated GFR > 60.0 (>60) mL/min BUN/Creatinine Ratio 25.0 H (6-22) Glucose 124 H (70-100) mg/dL Calcium 9.9 (8.4-10.2) mg/dL Total Bilirubin 0.3 (0.2-1.3) mg/dL AST 24 (14-36) IU/L ALT 11 (9-52) IU/L Alkaline Phosphatase 46 (38-126) U/L Total Protein 8.0 (6.3-8.2) g/dL Albumin 4.8 (3.5-5.0) g/dL Globulin 3.2 (1.7-4.1) g/dL Albumin/Globulin Ratio 1.5 (1.0-2.8) Urine RBC None seen (0-5/HPF) Urine WBC 0-1/hpf (0-5/HPF) Ur Squamous Epith Cells 5-10 /hpf H Amorphous Sediment 1+ Urine Bacteria Occasional (0-1) (None) Urine Mucus 2+ H (Negative) Ur Culture Indicated? Cult not indicated Point of Care Testing Test Results Negative Urine Dip Bedside Urine Glucose Negative Bedside Urine Bilirubin - Negative Bedside Urine Ketone - Negative Urine Specific [place] 1.010 Bedside Urine Occult Blood - Negative Bedside Urine pH 8.5 Bedside Urine Protein +/- 15 Bedside Urine Urobilinogen 1+ 2mg Bedside Urine Nitrite - Negative Bedside Urine Leukocytes - Negative Esterase Discharge Plan Departure Patient Disposition: Home Clinical Impression: Adverse drug reaction Qualifiers: Encounter type: initial encounter Qualified Code(s): T50.905A - Adverse effect of unspecified drugs, medicaments and biological substances, initial encounter Nausea & vomiting Qualifiers: Vomiting type: cyclical vomiting Vomiting Intractability: intractable Qualified Code(s): G43.A1 - Cyclical vomiting, intractable Discharge Date/Time: 12/10/18 20:48 Interventions: ED Discharge Assessment Last Done: 12/10/18 20:48 Instructions: DI for Nausea -- Adult Activity Restrictions/Additional Instructions: used and nausea medications as necessary. Be sure you are drinking plenty of fluids. Use Tylenol or Advil as necessary for pain management, [place] every 6 hr as needed for added pain control. Contact her doctor to arrange follow-up this week. Return to the ER as necessary. Prescriptions: No Action carisoprodol 350 MG tablet 350 mg PO BID PRN (Reason: spasm) Qty: 0 RF: 0 sertraline 100 mg tablet 100 mg PO BEDTIME RF: 0 hydrocodone-acetaminophen 10-325 mg tablet 1 tab PO Q4H PRN (Reason: pain) RF: 0 alprazolam 0.5 mg tablet 0.25 mg PO BID PRN (Reason: Anxiety) RF: 0 eszopiclone 1 mg tablet 1 mg PO BEDTIME RF: 0 trazodone 100 MG tablet 300 mg PO BEDTIME RF: 0 propranolol 10 mg tablet 10 mg PO BID RF: 0 fluconazole 150 mg tablet 150 mg PO .ONCE PRN (Reason: unknown) RF: 0 promethazine 25 mg tablet 25 mg PO Q4-6H PRN (Reason: nausea and vomiting) Qty: 20 RF: 0 Referrals: Baudilio Bejarano [Primary Care Provider] -
[2018-12-10 18:02] LABS: Add Manual Diff / Slide Review NO; Alanine Aminotransferase 11 IU/L (9-52); Albumin 4.8 g/dL (3.5-5.0); Albumin Globulin Ratio 1.5 (1.0-2.8); Alkaline Phosphatase 46 U/L (38-126); Aspartate Aminotransferase 24 IU/L (14-36); Basophils Absolute Auto 0 /uL (0-100); Basophils Percent Auto 0.3 % (0-2); Bilirubin Total 0.3 mg/dL (0.2-1.3); Blood Urea Nitrogen 15 mg/dL (7-17); Calcium 9.9 mg/dL (8.4-10.2); Carbon Dioxide 24 mmol/L (22-32); Chloride 103 mmol/L (98-107); Eosinophils Absolute Auto 0 /uL (0-450); Estimated Glomerular Filt Rate > 60.0 mL/min (>60); Globulin 3.2 g/dL (1.7-4.1); Glucose 124 mg/dL (70-100); HEMOLYSIS 21 (0-50); Hematocrit 44.2 % (36-46); Hemoglobin 14.6 g/dL (12.0-16.0); Lymphocytes Absolute Auto 300 /uL (1100-4500); Lymphocytes Percent Auto 2.8 % (25-40); Mean Corpuscular Hemoglobin 29.9 PG (26-34); Mean Corpuscular Volume 90.7 fL (80-100); Monocytes Absolute Auto 200 /uL (0-900); Monocytes Percent Auto 2.2 % (3-14); Neutrophils Absolute Auto 8900 /uL (1500-7000); Neutrophils Percent Auto 94.7 % (50-75); Platelet Count 175 X10^3/uL (150-400); Potassium 3.8 mmol/L (3.4-5.1); Red Blood Cell Count 4.87 X10^6/uL (4.0-5.2); Red Cell Distribution Width 14.6 % (11.6-14.8); Sodium 140 mmol/L (137-145); White Blood Cell Count 9.4 X10^3/uL (4.5-11.0)
[2018-12-10] MEDS: KETOROLAC 60 MG/2 ML VIAL 30 MG IV (18:34)
[2018-12-10] MEDS: LORazepam 2 MG/ML SYRINGE IV (19:02)
[2018-12-10 19:13] VITALS: BP 119/79; PULSE 54; RESP 20; O2SAT 98
[2018-12-10 19:57] LABS: RBC Urine None Seen (0-5/HPF)
[2018-12-10 20:04] LABS: Amorphous Sediment Urine 1+; Bacteria Urine Occasional (0-1); Culture Indicated Urine Cult Not Indicated; Mucus Urine 2+ (Negative); Squamous Epithelial Cell Urine 5-10 /HPF; WBC Urine 0-1/HPF (0-5/HPF)
[2018-12-10] MEDS: ONDANSETRON 4 MG ODT SL (20:34)
[2018-12-10] MEDS: HYDROCODONE/ACET 5/325 PREPACK 1 BOTTLE MISC (20:35)
[2018-12-10 20:46] VITALS: BP 116/72; PULSE 52; RESP 18; O2SAT 100
== END 2018-12-10 20:48 | disposition home or self-care (01) ==
PROVIDERS: Emergency Medicine; Emergency Provider Emergency Medicine; PCP Ophthalmology
DX: R11.2 Nausea with vomiting, unspecified (principal); T50.905A Adverse effect of unspecified drugs, medicaments and biological substances, initial encounter
CPT/HCPCS: 36591; 80053; 81003; 81015; 81025; 85025; 93005; 96361; 96374; 96375; 96376; 99283; 99284; J1885; J2060; J2405

== ENCOUNTER 2018-12-12 07:46 | Emergency (ER) | payer OTHER, MEDICAID, SELFPAY ==
[2018-12-12 07:56] VITALS: BP 122/83; PULSE 52; RESP 18; TEMP 36.8; O2SAT 97
--- NOTE | 2018-12-12 08:03 | ED_ITS ---
HPI - General Adult General Chief complaint: Abdominal Pain Stated complaint: ALLERGIC REACTION TO MEDS Time Seen by Provider: 12/12/18 07:47 Source: patient Mode of arrival: ambulatory Limitations: no limitations History of Present Illness HPI narrative: Patient is a 33-year-old female who [facility] a couple days ago after having vomiting and lower back pain. She does have a history of MS. She received a new medication through an infusion and thought that she was having an allergic reaction. It was reported by the emergency provider at that time that the symptoms that she was having could be consistent with potential reactions to this medication. The patient also has a history of cyclic vomiting syndrome and also anxiety. It appears she was treated with Toradol and Ativan and was able to hold down fluids. She states that after discharge she has been taking her nausea medications at home. She states that yesterday she did not urinate all day and this morning she woke up with different back pain which she normally does. She also has abdominal pain. Related Data Home Medications Medication Instructions Recorded Confirmed carisoprodol 350 mg PO BID PRN #0 02/16/17 11/01/18 alprazolam 0.25 mg PO BID PRN 11/01/18 11/01/18 eszopiclone 1 mg PO BEDTIME 11/01/18 11/01/18 fluconazole 150 mg PO .ONCE PRN 11/01/18 11/01/18 hydrocodone-acetaminophen 1 tab PO Q4H PRN 11/01/18 11/01/18 propranolol 10 mg PO BID 11/01/18 11/01/18 sertraline 100 mg PO BEDTIME 11/01/18 11/01/18 trazodone 300 mg PO BEDTIME 11/01/18 11/01/18 Previous Rx's Medication Instructions Recorded promethazine 25 mg PO Q4-6H PRN #20 tab 11/01/18 lorazepam [Ativan] 0.5 mg PO BID-TID PRN #7 tab 12/12/18 Allergies Allergy/AdvReac Type Severity Reaction Status Date / Time aspirin [ASPIRIN] Allergy Severe THROAT Verified 12/12/18 07:56 SWELLING metoclopramide [From REGLAN] AdvReac Mild AGGITATION/ Verified 12/12/18 07:56 RESTLESSNES S Review of Systems Constitutional Denies fever(s) and Denies headache(s) ENT Ears, Nose, Mouth, and Throat: Denies dizziness and Denies headache(s) Cardiovascular Denies chest pain and Denies dyspnea Respiratory Denies dyspnea Gastrointestinal Gastrointestinal: Reports abdominal pain, Denies change in stool character, Reports nausea and Reports vomiting Genitourinary Reports dysuria and Denies urinary incontinence Comments: No dysuria but has had decreased urine output Musculoskeletal Denies myalgias and Denies arthralgias Integumentary/Breasts Denies rash Neurologic Denies dizziness and Denies headache(s) Hematologic/Lymphatic Denies easy bleeding and Denies easy bruising PFS Medical History Anxiety (Acute) Cyclic vomiting syndrome (Acute) Multiple sclerosis (Acute) Social History Smoking Status: Former smoker substance use type: marijuana Exam Initial Vital Signs Initial Vital Signs: Vital Signs Temperature 98.2 F 12/12/18 07:56 Pulse Rate 52 L 12/12/18 07:56 Respiratory Rate 18 12/12/18 07:56 Blood Pressure 122/83 12/12/18 07:56 Pulse Oximetry 97 12/12/18 07:56 Const General: cooperative, well developed, well groomed and No acute distress Orientation: alert and awake HENMT Head: normal to inspection and normocephalic Resp Effort & Inspection: normal respiratory effort Auscultation: clear to auscultation bilaterally Cardio Rate: regular rate Rhythm: regular rhythm Pulses: radial pulses present GI Inspection: non-distended Palpation: soft, No firm and tender (Left side abdomen) Back/Spine/Pelvis Back: CVA tenderness (Bilateral) Skin Lesions: no lesions Rashes: no rashes Neuro General: alert, awake and oriented x3 Cognition: normal cognition Speech: speech normal Extrem General: normal to inspection and capillary refill normal Course Orders Ordered: ED Orders 12/12/18 08:15 Complete Blood Count AUTO DIFF Stat Comprehensive Metabolic Panel Stat Lipase Stat 12/12/18 09:00 Urine Microscopic Stat 12/12/18 09:50 Urine Microscopic Stat Discontinued Medications Hydromorphone HCl (Dilaudid) 1 mg IM NOW ONE Stop: 12/12/18 08:46 Last Admin: 12/12/18 08:52 Dose: 1 mg Sodium Chloride (Normal Saline 0.9%) 1,000 mls @ 1,000 mls/hr IV BOLUS ONE Stop: 12/12/18 09:02 Last Admin: 12/12/18 08:34 Dose: 1,000 mls/hr Lorazepam (Ativan) 1 mg IV NOW ONE Stop: 12/12/18 08:04 Last Admin: 12/12/18 08:34 Dose: 1 mg Vital Signs - 8 hr 12/12/18 07:56 12/12/18 08:54 Temperature 98.2 F Pulse Rate 52 L 48 L Respiratory Rate 18 19 Blood Pressure 122/83 Blood Pressure [Right Arm] 144/82 H Pulse Oximetry 97 98 Medical Decision Making Lab Data Lab results reviewed: Yes I reviewed the patient's lab results. Result diagrams: 12/12/18 08:15 12/12/18 08:15 Lab Results 12/12/18 12/12/18 12/12/18 Range/Units 08:15 08:15 09:00 WBC 6.4 (4.5-11.0) X10^3/uL RBC 4.51 (4.0-5.2) X10^6/uL Hgb 13.4 (12.0-16.0) g/dL Hct 40.4 (36-46) % MCV 89.4 (80-100) fL MCH 29.8 (26-34) PG MCHC 33.3 (30-36) % RDW 14.4 (11.6-14.8) % Plt Count 149 L (150-400) X10^3/uL Neut % (Auto) 82.5 H (50-75) % Lymph % (Auto) 9.1 L (25-40) % [place] % (Auto) 8.0 (3-14) % Eos % (Auto) 0.1 L (2-4) % Baso % (Auto) 0.3 (0-2) % Neut # (Auto) 5300 (5224-1665) /uL Lymph # (Auto) 600 L (2187-0304) /uL [place] # (Auto) 500 (0-900) /uL Eos # (Auto) 0 (0-450) /uL Baso # (Auto) 0 (0-100) /uL Sodium 139 (137-145) mmol/L Potassium 3.3 L (3.4-5.1) mmol/L Chloride 106 (98-107) mmol/L Carbon Dioxide 23 (22-32) mmol/L BUN 15 (7-17) mg/dL Creatinine 0.60 (0.52-1.04) mg/dL Estimated GFR > 60.0 (>60) mL/min BUN/Creatinine Ratio 25.0 H (6-22) Glucose 104 H (70-100) mg/dL Calcium 9.5 (8.4-10.2) mg/dL Total Bilirubin 0.8 (0.2-1.3) mg/dL AST 36 (14-36) IU/L ALT 45 (9-52) IU/L Alkaline Phosphatase 44 (38-126) U/L Total Protein 7.1 (6.3-8.2) g/dL Albumin 4.3 (3.5-5.0) g/dL Globulin 2.8 (1.7-4.1) g/dL Albumin/Globulin Ratio 1.5 (1.0-2.8) Lipase 76 (23-300) U/L Urine RBC None seen (0-5/HPF) Urine WBC 1-5/hpf (0-5/HPF) Ur Squamous Epith Cells 5-10 /hpf H Urine Bacteria Few (2-10) H (None) Urine Mucus 2+ H (Negative) Ur Culture Indicated? Culture not indicate Micro UA Comment . Point of Care Testing Test Results Negative Urine Dip Bedside Urine Glucose Negative Bedside Urine Bilirubin - Negative Bedside Urine Ketone - Negative Urine Specific [place] 1.020 Bedside Urine Occult Blood - Negative Bedside Urine pH 6.0 Bedside Urine Protein +/- 15 Bedside Urine Urobilinogen +/- 1mg Bedside Urine Nitrite - Negative Bedside Urine Leukocytes +/- 15 Esterase Point of care testing: Point of Care Testing Test Results Negative Urine Dip Bedside Urine Glucose Negative Bedside Urine Bilirubin - Negative Bedside Urine Ketone - Negative Urine Specific [place] 1.020 Bedside Urine Occult Blood - Negative Bedside Urine pH 6.0 Bedside Urine Protein +/- 15 Bedside Urine Urobilinogen +/- 1mg Bedside Urine Nitrite - Negative Bedside Urine Leukocytes +/- 15 Esterase [facility] Narrative Medical decision making narrative: Patient states she feels better after the medications here in the emergency department. Her labs are unremarkable. Urine shows no signs of infection. She did ask for another dose of Ativan and pain medication. I informed her that I would not provide any more IV pain medication for her. She has an ample amount of nausea medication at home. Will send home with a small amount of Ativan. She has a follow-up with her neurologist tomorrow. Will hold on further workup for now. Patient states that her prescription for Xanax and Klonopin were discontinued. Discharge Plan Departure Patient Disposition: Home Clinical Impression: Nausea & vomiting Qualifiers: Vomiting type: unspecified Vomiting Intractability: non-intractable Qualified Code(s): R11.2 - Nausea with vomiting, unspecified Back pain Qualifiers: Back pain location: back pain in other location Chronicity: acute Qualified Code(s): M54.9 - Dorsalgia, unspecified Instructions: DI for Vomiting -- Adult Activity Restrictions/Additional Instructions: You need to keep your appointment that you have scheduled with your neurologist tomorrow. Continue your nausea medication. Prescriptions: New lorazepam [Ativan] 0.5 mg tablet 0.5 mg PO BID-TID PRN (Reason: anxiety) Qty: 7 RF: 0 No Action carisoprodol 350 MG tablet 350 mg PO BID PRN (Reason: spasm) Qty: 0 RF: 0 sertraline 100 mg tablet 100 mg PO BEDTIME RF: 0 hydrocodone-acetaminophen 10-325 mg tablet 1 tab PO Q4H PRN (Reason: pain) RF: 0 alprazolam 0.5 mg tablet 0.25 mg PO BID PRN (Reason: Anxiety) RF: 0 eszopiclone 1 mg tablet 1 mg PO BEDTIME RF: 0 trazodone 100 MG tablet 300 mg PO BEDTIME RF: 0 propranolol 10 mg tablet 10 mg PO BID RF: 0 fluconazole 150 mg tablet 150 mg PO .ONCE PRN (Reason: unknown) RF: 0 promethazine 25 mg tablet 25 mg PO Q4-6H PRN (Reason: nausea and vomiting) Qty: 20 RF: 0 Referrals: Baudilio Bejarano [Primary Care Provider] -
[2018-12-12 08:29] LABS: Add Manual Diff / Slide Review NO; Basophils Absolute Auto 0 /uL (0-100); Basophils Percent Auto 0.3 % (0-2); Eosinophils Absolute Auto 0 /uL (0-450); Eosinophils Percent Auto 0.1 % (2-4); Hematocrit 40.4 % (36-46); Hemoglobin 13.4 g/dL (12.0-16.0); Lymphocytes Absolute Auto 600 /uL (1100-4500); Lymphocytes Percent Auto 9.1 % (25-40); Mean Corpuscular HGB Conc 33.3 % (30-36); Mean Corpuscular Hemoglobin 29.8 PG (26-34); Mean Corpuscular Volume 89.4 fL (80-100); Monocytes Absolute Auto 500 /uL (0-900); Neutrophils Absolute Auto 5300 /uL (1500-7000); Neutrophils Percent Auto 82.5 % (50-75); Platelet Count 149 X10^3/uL (150-400); Red Blood Cell Count 4.51 X10^6/uL (4.0-5.2); Red Cell Distribution Width 14.4 % (11.6-14.8); White Blood Cell Count 6.4 X10^3/uL (4.5-11.0)
[2018-12-12] MEDS: LORazepam 2 MG/ML SYRINGE 1 MG IV (08:34)
[2018-12-12] MEDS: SODIUM CHLORIDE 0.9% 1,000 ML 1000 ML IV (08:34)
[2018-12-12 08:39] LABS: Alanine Aminotransferase 45 IU/L (9-52); Albumin 4.3 g/dL (3.5-5.0); Albumin Globulin Ratio 1.5 (1.0-2.8); Alkaline Phosphatase 44 U/L (38-126); Aspartate Aminotransferase 36 IU/L (14-36); Bilirubin Total 0.8 mg/dL (0.2-1.3); Blood Urea Nitrogen 15 mg/dL (7-17); Calcium 9.5 mg/dL (8.4-10.2); Carbon Dioxide 23 mmol/L (22-32); Chloride 106 mmol/L (98-107); Estimated Glomerular Filt Rate > 60.0 mL/min (>60); Globulin 2.8 g/dL (1.7-4.1); Glucose 104 mg/dL (70-100); HEMOLYSIS < 15 (0-50); Lipase 76 U/L (23-300); Potassium 3.3 mmol/L (3.4-5.1); Sodium 139 mmol/L (137-145); Total Protein 7.1 g/dL (6.3-8.2)
[2018-12-12] MEDS: HYDROMORPHONE 2 MG INJ 1 MG IM (08:52)
[2018-12-12 08:54] VITALS: BP 144/82; PULSE 48; RESP 19; O2SAT 98
[2018-12-12 09:29] LABS: RBC Urine None Seen (0-5/HPF)
[2018-12-12 09:39] LABS: Bacteria Urine Few (2-10); Mucus Urine 2+ (Negative); Squamous Epithelial Cell Urine 5-10 /HPF; WBC Urine 1-5/HPF (0-5/HPF)
[2018-12-12 10:25] VITALS: BP 125/78; PULSE 55; RESP 18; O2SAT 99
[2018-12-12 10:36] VITALS: BP 125/64; PULSE 52; RESP 16; TEMP 36.3; O2SAT 98
== END 2018-12-12 10:35 | disposition home or self-care (01) ==
PROVIDERS: Emergency Provider Emergency Medicine; PCP Ophthalmology
DX: M54.9 Dorsalgia, unspecified (principal); R11.2 Nausea with vomiting, unspecified
CPT/HCPCS: 36591; 80053; 81003; 81015; 81025; 83690; 85025; 96361; 96372; 96374; 99283; 99284; J1170; J2060

== ENCOUNTER 2019-01-27 11:38 | Emergency (ER) | payer OTHER, MEDICAID, SELFPAY ==
[2019-01-27 11:45] VITALS: BP 107/64; PULSE 60; RESP 18; TEMP 36.4; O2SAT 96
[2019-01-27] MEDS: SODIUM CHLORIDE 0.9% 1,000 ML 1000 ML IV ×2 (11:55→14:07)
[2019-01-27] MEDS: ONDANSETRON 4 MG/2 ML INJ IV ×2 (12:06→12:49)
[2019-01-27] MEDS: KETOROLAC 60 MG/2 ML VIAL 30 MG IV (12:06)
[2019-01-27 12:15] LABS: Add Manual Diff / Slide Review NO; Basophils Absolute Auto 0 /uL (0-100); Basophils Percent Auto 0.2 % (0-2); Eosinophils Absolute Auto 0 /uL (0-450); Eosinophils Percent Auto 0.1 % (2-4); Hematocrit 43.6 % (36-46); Hemoglobin 14.7 g/dL (12.0-16.0); Lymphocytes Absolute Auto 600 /uL (1100-4500); Mean Corpuscular HGB Conc 33.6 % (30-36); Mean Corpuscular Hemoglobin 30.9 PG (26-34); Mean Corpuscular Volume 91.9 fL (80-100); Monocytes Absolute Auto 100 /uL (0-900); Monocytes Percent Auto 1.3 % (3-14); Neutrophils Absolute Auto 7300 /uL (1500-7000); Neutrophils Percent Auto 91.4 % (50-75); Platelet Count 246 X10^3/uL (150-400); Prothrombin Time 12.1 SECONDS (10.1-12.7); Red Blood Cell Count 4.75 X10^6/uL (4.0-5.2); Red Cell Distribution Width 14.3 % (11.6-14.8)
[2019-01-27 12:18] LABS: PTT Partial Thromboplastin Tim 25 SECONDS (26.4-36.2)
[2019-01-27 12:21] LABS: Alanine Aminotransferase 16 IU/L (9-52); Albumin 4.7 g/dL (3.5-5.0); Albumin Globulin Ratio 1.8 (1.0-2.8); Alkaline Phosphatase 59 U/L (38-126); Aspartate Aminotransferase 16 IU/L (14-36); Bilirubin Total 0.3 mg/dL (0.2-1.3); Blood Urea Nitrogen 14 mg/dL (7-17); Calcium 9.8 mg/dL (8.4-10.2); Carbon Dioxide 21 mmol/L (22-32); Chloride 107 mmol/L (98-107); Estimated Glomerular Filt Rate > 60.0 mL/min (>60); Globulin 2.6 g/dL (1.7-4.1); Glucose 180 mg/dL (70-100); HEMOLYSIS < 15 (0-50); Lipase 82 U/L (23-300); Potassium 3.8 mmol/L (3.4-5.1); Sodium 139 mmol/L (137-145); Total Protein 7.3 g/dL (6.3-8.2)
[2019-01-27] MEDS: HYDROMORPHONE 1 MG INJ 0.5 MG IV (12:48)
--- NOTE | 2019-01-27 12:58 | PC.NURSE ---
pt requested pain and nausea meds, reported, noted. pt also requested blankets and oral swab. 4 blankets provided with green swab.
[2019-01-27 13:17] LABS: Lactate (Lactic Acid) 1.3 mmol/L (0.7-2.1)
--- NOTE | 2019-01-27 13:39 | ED.NAVMDI ---
HPI - Nausea/Vomiting/Diarrhea <Monse Cannon, CONTINUOUS IMPROVEMENT DIRECTOR-BC - Last Filed: 01/27/19 16:11> General Chief complaint: Nausea/Vomiting/Diarrhea Stated complaint: VOMITING & NAUSEA Time Seen by Provider: 01/27/19 12:18 Source: patient Mode of arrival: ambulatory Limitations: no limitations History of Present Illness HPI Narrative: Patient is a 33-year-old female who presents with her for chief complaint of back pain, nausea vomiting. she states that she was seen at office that she is unsure of, but knows it is [facility] yesterday and diagnosed with a UTI. She states she has had back pain for several days, since last week. She states that the vomiting started this morning. She was not able to start antibiotics for her UTI and does not know what antibiotic was started. Nursing called the pharmacy, where she states her prescription is waiting to be filled. They do not have any prescriptions on follow-up for the patient. Given her diagnosis of cyclic vomiting syndrome, she has multiple medications at home for nausea and vomiting including Zofran, Phenergan, Ativan. She has not taken anything this morning. She denies any fever. Related Data Home Medications Medication Instructions Recorded Confirmed carisoprodol 350 mg PO BID PRN #0 02/16/17 11/01/18 alprazolam 0.25 mg PO BID PRN 11/01/18 11/01/18 eszopiclone 1 mg PO BEDTIME 11/01/18 11/01/18 fluconazole 150 mg PO .ONCE PRN 11/01/18 11/01/18 hydrocodone-acetaminophen 1 tab PO Q4H PRN 11/01/18 11/01/18 propranolol 10 mg PO BID 11/01/18 11/01/18 sertraline 100 mg PO BEDTIME 11/01/18 11/01/18 trazodone 300 mg PO BEDTIME 11/01/18 11/01/18 Previous Rx's Medication Instructions Recorded promethazine 25 mg PO Q4-6H PRN #20 tab 11/01/18 lorazepam [Ativan] 0.5 mg PO BID-TID PRN #7 tab 12/12/18 Allergies Allergy/AdvReac Type Severity Reaction Status Date / Time aspirin [ASPIRIN] Allergy Severe THROAT Verified 01/27/19 11:49 SWELLING metoclopramide [From REGLAN] AdvReac Mild AGGITATION/ Verified 01/27/19 11:49 RESTLESSNES S Review of Systems <ILAN Blackman - Last Filed: 01/27/19 16:11> Review of Systems GENERAL: Denies chills, fatigue, malaise, fever, sweats. HEENT: Denies sinus pain, ear pain, sore throat, difficulty swallowing, dizziness. RESPIRATORY: Denies dyspnea, cough, wheezing, hemoptysis, sputum. CARDIOVASCULAR: Denies chest pain, palpitations, orthopnea, edema, GASTROINTESTINAL: See HPI : See HPI MUSCULOSKELETAL: denies weakness, joint pain, or bony pain SKIN: Denies rash, skin lesions, or other NEUROLOGIC: Denies weakness, headache, numbness, change in speech, confusion, seizures, incoordination. PSYCHIATRIC: No concerning psychosocial issues. 12 point review of systems is negative except for those stated above PFSH <ILAN Blackman - Last Filed: 01/27/19 16:11> Medical History Celiac disease (Acute) Anxiety (Acute) Cyclic vomiting syndrome (Acute) Multiple sclerosis (Acute) Surgical History Status post tubal ligation Social History (Updated 12/10/18 @ 20:07 by Juan Jose Norwood MD) Smoking Status: Former smoker substance use type: marijuana Social History Smoking Status: Former smoker substance use type: marijuana Exam <ILAN Blackman - Last Filed: 01/27/19 16:11> Narrative Exam Narrative: GENERAL: Chronically ill-appearing female lying on stretcher HEAD: Atraumatic. Normocephalic. No temporal or scalp tenderness. EYES: Pupils equal round and reactive. Extraocular motions intact. No scleral icterus. No injection or drainage. ENT: Nose without bleeding, purulent drainage or septal hematoma. Throat without erythema, tonsillar hypertrophy or exudate. Uvula midline. Airway patent. NECK: Trachea midline. No JVD or lymphadenopathy. Supple, nontender, no meningeal signs. CARDIOVASCULAR: Regular rate and rhythm without murmurs, gallops, or rubs. RESPIRATORY: Clear to auscultation. Breath sounds equal bilaterally. No wheezes, rales, or rhonchi. No cough. No accessory muscle use. No increased respiratory effort. GASTROINTESTINAL: Abdomen soft, non-tender, nondistended. No hepato-splenomegaly, or palpable masses. No guarding. EXTREMITIES: No clubbing, cyanosis, or edema. No joint tenderness, effusion, or edema noted. BACK: Nontender without deformity or crepitance. Flank tenderness on right side. No flank tenderness on left side. NEURO: AOx3. SKIN: No rash or erythema. Initial Vital Signs Initial Vital Signs: Vital Signs Temperature 97.6 F 01/27/19 11:45 Pulse Rate 60 01/27/19 11:45 Respiratory Rate 18 01/27/19 11:45 Blood Pressure 107/64 01/27/19 11:45 Pulse Oximetry 96 01/27/19 11:45 <Monse Mendoza DO - Last Filed: 01/27/19 18:10> Initial Vital Signs Initial Vital Signs: Vital Signs Temperature 97.6 F 01/27/19 11:45 Pulse Rate 60 01/27/19 11:45 Respiratory Rate 18 01/27/19 11:45 Blood Pressure 107/64 01/27/19 11:45 Pulse Oximetry 96 01/27/19 11:45 Course <FRED Blackman-BC - Last Filed: 01/27/19 16:11> Course Narrative: I checked on the patient several times throughout her stay in the emergency department. Orders Ordered: ED Orders 01/27/19 11:56 Complete Blood Count AUTO DIFF Stat Comprehensive Metabolic Panel Stat Lactate (Lactic Acid) Stat Lipase Stat Partial Thromboplastin Time Stat Prothrombin Time INR Stat 01/27/19 13:45 Urine Microscopic Stat Discontinued Medications Diphenhydramine HCl (Benadryl) 25 mg IV NOW ONE Stop: 01/27/19 13:46 Last Admin: 01/27/19 14:07 Dose: 25 mg Hydromorphone HCl (Dilaudid) 0.5 mg IV NOW ONE Stop: 01/27/19 12:41 Last Admin: 01/27/19 12:48 Dose: 0.5 mg Hydromorphone HCl (Dilaudid) 1 mg IV NOW ONE Stop: 01/27/19 14:48 Last Admin: 01/27/19 14:57 Dose: 1 mg Sodium Chloride (Normal Saline 0.9%) 1,000 mls @ 1,000 mls/hr IV BOLUS ONE Stop: 01/27/19 13:01 Last Infusion: 01/27/19 14:06 Dose: 0 mls/hr Admin: 01/27/19 11:55 Dose: 1,000 mls/hr Sodium Chloride (Normal Saline 0.9%) 1,000 mls @ 1,000 mls/hr IV BOLUS ONE Stop: 01/27/19 13:39 Last Infusion: 01/27/19 16:00 Dose: 0 mls/hr Admin: 01/27/19 14:07 Dose: 1,000 mls/hr Ketorolac Tromethamine (Toradol) 30 mg IV NOW ONE Stop: 01/27/19 12:03 Last Admin: 01/27/19 12:06 Dose: 30 mg Lorazepam (Ativan) 1 mg IV PRN PRN PRN Reason: Vomiting Ondansetron HCl (Zofran) 4 mg IV NOW ONE Stop: 01/27/19 11:50 Last Admin: 01/27/19 12:06 Dose: 4 mg Ondansetron HCl (Zofran) 4 mg IV NOW ONE Stop: 01/27/19 12:38 Last Admin: 01/27/19 12:49 Dose: 4 mg Promethazine HCl (Phenadoz) 25 mg [place] NOW ONE Stop: 01/27/19 13:39 Last Admin: 01/27/19 14:14 Dose: Not Given Promethazine HCl (Phenadoz) 25 mg [place] NOW ONE Stop: 01/27/19 14:58 Last Admin: 01/27/19 14:58 Dose: 25 mg Vital Signs - 8 hr 01/27/19 11:45 01/27/19 14:20 01/27/19 14:30 Temperature 97.6 F 98.8 F Pulse Rate 60 51 L Respiratory Rate 18 15 Blood Pressure 107/64 Blood Pressure [Left Arm] 131/77 Pulse Oximetry 96 100 01/27/19 15:45 Temperature Pulse Rate 62 Respiratory Rate 18 Blood Pressure Blood Pressure [Left Arm] 118/72 Pulse Oximetry 98 <Monse Mendoza DO - Last Filed: 01/27/19 18:10> Orders Ordered: ED Orders 01/27/19 11:56 Complete Blood Count AUTO DIFF Stat Comprehensive Metabolic Panel Stat Lactate (Lactic Acid) Stat Lipase Stat Partial Thromboplastin Time Stat Prothrombin Time INR Stat 01/27/19 13:45 Urine Microscopic Stat Discontinued Medications Diphenhydramine HCl (Benadryl) 25 mg IV NOW ONE Stop: 01/27/19 13:46 Last Admin: 01/27/19 14:07 Dose: 25 mg Hydromorphone HCl (Dilaudid) 0.5 mg IV NOW ONE Stop: 01/27/19 12:41 Last Admin: 01/27/19 12:48 Dose: 0.5 mg Hydromorphone HCl (Dilaudid) 1 mg IV NOW ONE Stop: 01/27/19 14:48 Last Admin: 01/27/19 14:57 Dose: 1 mg Sodium Chloride (Normal Saline 0.9%) 1,000 mls @ 1,000 mls/hr IV BOLUS ONE Stop: 01/27/19 13:01 Last Infusion: 01/27/19 14:06 Dose: 0 mls/hr Admin: 01/27/19 11:55 Dose: 1,000 mls/hr Sodium Chloride (Normal Saline 0.9%) 1,000 mls @ 1,000 mls/hr IV BOLUS ONE Stop: 01/27/19 13:39 Last Infusion: 01/27/19 16:00 Dose: 0 mls/hr Admin: 01/27/19 14:07 Dose: 1,000 mls/hr Ketorolac Tromethamine (Toradol) 30 mg IV NOW ONE Stop: 01/27/19 12:03 Last Admin: 01/27/19 12:06 Dose: 30 mg Lorazepam (Ativan) 1 mg IV PRN PRN PRN Reason: Vomiting Ondansetron HCl (Zofran) 4 mg IV NOW ONE Stop: 01/27/19 11:50 Last Admin: 01/27/19 12:06 Dose: 4 mg Ondansetron HCl (Zofran) 4 mg IV NOW ONE Stop: 01/27/19 12:38 Last Admin: 01/27/19 12:49 Dose: 4 mg Promethazine HCl (Phenadoz) 25 mg [place] NOW ONE Stop: 01/27/19 13:39 Last Admin: 01/27/19 14:14 Dose: Not Given Promethazine HCl (Phenadoz) 25 mg [place] NOW ONE Stop: 01/27/19 14:58 Last Admin: 01/27/19 14:58 Dose: 25 mg Vital Signs - 8 hr 01/27/19 11:45 01/27/19 14:20 01/27/19 14:30 Temperature 97.6 F 98.8 F Pulse Rate 60 51 L Respiratory Rate 18 15 Blood Pressure 107/64 Blood Pressure [Left Arm] 131/77 Pulse Oximetry 96 100 01/27/19 15:45 Temperature Pulse Rate 62 Respiratory Rate 18 Blood Pressure Blood Pressure [Left Arm] 118/72 Pulse Oximetry 98 MDM - Nausea/Vomiting/Diarrhea <FRED Blackman- - Last Filed: 01/27/19 16:11> Lab Data Result diagrams: 01/27/19 11:56 01/27/19 11:56 Lab Results 01/27/19 01/27/19 01/27/19 Range/Units 11:56 11:56 11:56 WBC 8.0 (4.5-11.0) X10^3/uL RBC 4.75 (4.0-5.2) X10^6/uL Hgb 14.7 (12.0-16.0) g/dL Hct 43.6 (36-46) % MCV 91.9 (80-100) fL MCH 30.9 (26-34) PG MCHC 33.6 (30-36) % RDW 14.3 (11.6-14.8) % Plt Count 246 (150-400) X10^3/uL Neut % (Auto) 91.4 H (50-75) % Lymph % (Auto) 7.0 L (25-40) % Elmore % (Auto) 1.3 L (3-14) % Eos % (Auto) 0.1 L (2-4) % Baso % (Auto) 0.2 (0-2) % Neut # (Auto) 7300 H (6956-9828) /uL Lymph # (Auto) 600 L (7196-2134) /uL El[place] # (Auto) 100 (0-900) /uL Eos # (Auto) 0 (0-450) /uL Baso # (Auto) 0 (0-100) /uL PT 12.1 (10.1-12.7) SECONDS INR 1.0 (0.9-1.3) APTT 25 L D (26.4-36.2) SECONDS Sodium 139 (137-145) mmol/L Potassium 3.8 (3.4-5.1) mmol/L Chloride 107 (98-107) mmol/L Carbon Dioxide 21 L (22-32) mmol/L BUN 14 (7-17) mg/dL Creatinine 0.70 (0.52-1.04) mg/dL Estimated GFR > 60.0 (>60) mL/min BUN/Creatinine Ratio 20.0 (6-22) Glucose 180 H (70-100) mg/dL Lactate (0.7-2.1) mmol/L Calcium 9.8 (8.4-10.2) mg/dL Total Bilirubin 0.3 (0.2-1.3) mg/dL AST 16 (14-36) IU/L ALT 16 (9-52) IU/L Alkaline Phosphatase 59 (38-126) U/L Total Protein 7.3 (6.3-8.2) g/dL Albumin 4.7 (3.5-5.0) g/dL Globulin 2.6 (1.7-4.1) g/dL Albumin/Globulin Ratio 1.8 (1.0-2.8) Lipase 82 (23-300) U/L Urine RBC (0-5/HPF) Urine WBC (0-5/HPF) Ur Squamous Epith Cells Ur Transition Epith Cell (0-5/HPF) Ur Renal Epithelial Cell Calcium Oxalate Crystal Uric Acid Crystals Triple Phos Crystals Other Crystals Amorphous Sediment Urine Bacteria (None) Hyaline Casts Granular Casts RBC Casts WBC Casts Other Casts Urine Mucus (Negative) Urine Trichomonas Urine Yeast Urine Sperm Ur Culture Indicated? Micro UA Comment 01/27/19 01/27/19 01/27/19 Range/Units 11:56 13:45 13:45 WBC (4.5-11.0) X10^3/uL RBC (4.0-5.2) X10^6/uL Hgb (12.0-16.0) g/dL Hct (36-46) % MCV (80-100) fL MCH (26-34) PG MCHC (30-36) % RDW (11.6-14.8) % Plt Count (150-400) X10^3/uL Neut % (Auto) (50-75) % Lymph % (Auto) (25-40) % [place]more % (Auto) (3-14) % Eos % (Auto) (2-4) % Baso % (Auto) (0-2) % Neut # (Auto) (5602-6531) /uL Lymph # (Auto) (0502-6682) /uL Elmore # (Auto) (0-900) /uL Eos # (Auto) (0-450) /uL Baso # (Auto) (0-100) /uL PT (10.1-12.7) SECONDS INR (0.9-1.3) APTT (26.4-36.2) SECONDS Sodium (137-145) mmol/L Potassium (3.4-5.1) mmol/L Chloride (98-107) mmol/L Carbon Dioxide (22-32) mmol/L BUN (7-17) mg/dL Creatinine (0.52-1.04) mg/dL Estimated GFR (>60) mL/min BUN/Creatinine Ratio (6-22) Glucose (70-100) mg/dL Lactate 1.3 (0.7-2.1) mmol/L Calcium (8.4-10.2) mg/dL Total Bilirubin (0.2-1.3) mg/dL AST (14-36) IU/L ALT (9-52) IU/L Alkaline Phosphatase (38-126) U/L Total Protein (6.3-8.2) g/dL Albumin (3.5-5.0) g/dL Globulin (1.7-4.1) g/dL Albumin/Globulin Ratio (1.0-2.8) Lipase (23-300) U/L Urine RBC 0-1/hpf Cancelled (0-5/HPF) Urine WBC 0-1/hpf Cancelled (0-5/HPF) Ur Squamous Epith Cells Cancelled Ur Transition Epith Cell 0-1/hpf Cancelled (0-5/HPF) Ur Renal Epithelial Cell Cancelled Calcium Oxalate Crystal Cancelled Uric Acid Crystals Cancelled Triple Phos Crystals Cancelled Other Crystals Cancelled Amorphous Sediment Cancelled Urine Bacteria None seen Cancelled (None) Hyaline Casts Cancelled Granular Casts Cancelled RBC Casts Cancelled WBC Casts Cancelled Other Casts Cancelled Urine Mucus 1+ H Cancelled (Negative) Urine Trichomonas Cancelled Urine Yeast Cancelled Urine Sperm Cancelled Ur Culture Indicated? Culture not indicate Cancelled Micro UA Comment Cancelled Urine Dip Bedside Urine Glucose Negative Bedside Urine Bilirubin - Negative Bedside Urine Ketone ++ 40 Urine Specific [place] 1.020 Bedside Urine Occult Blood - Negative Bedside Urine pH 7.0 Bedside Urine Protein - Negative Bedside Urine Urobilinogen +/- 1mg Bedside Urine Nitrite - Negative Bedside Urine Leukocytes - Negative Esterase MDM Narrative Medical decision making narrative: The patient is a 33-year-old female who presents with a chief complaint of back pain, vomiting and nausea. She was diagnosed with a UTI yesterday, but not started on antibiotics as she cannot pick them up. Her UA here illustrate no UTI, which is interesting as she has not had any of her antibiotics. She does not have an elevated white blood cell count has a normal lactate. I believe that her nausea vomiting is related to her chronic cyclic vomiting rather than pyelonephritis as she feared. She was treated with antiemetics as well as pain medication the emergency department. She was received 2 L of IV fluid was able to tolerate a p.o. challenge. I discussed with her that she needs to follow up with primary care provider soon as possible. I offered her further antiemetic prescriptions, but the patient declined stating she has everything at home. Discussed coming back to emergency department for any acute concerns including inability keep down fluids. Patient and have no questions or concerns upon discharge. <Monse Mendoza, DO - Last Filed: 01/27/19 18:10> Lab Data Lab Results 01/27/19 01/27/19 01/27/19 Range/Units 11:56 11:56 11:56 WBC 8.0 (4.5-11.0) X10^3/uL RBC 4.75 (4.0-5.2) X10^6/uL Hgb 14.7 (12.0-16.0) g/dL Hct 43.6 (36-46) % MCV 91.9 (80-100) fL MCH 30.9 (26-34) PG MCHC 33.6 (30-36) % RDW 14.3 (11.6-14.8) % Plt Count 246 (150-400) X10^3/uL Neut % (Auto) 91.4 H (50-75) % Lymph % (Auto) 7.0 L (25-40) % [place] % (Auto) 1.3 L (3-14) % Eos % (Auto) 0.1 L (2-4) % Baso % (Auto) 0.2 (0-2) % Neut # (Auto) 7300 H (7403-0854) /uL Lymph # (Auto) 600 L (5405-5066) /uL [place] # (Auto) 100 (0-900) /uL Eos # (Auto) 0 (0-450) /uL Baso # (Auto) 0 (0-100) /uL PT 12.1 (10.1-12.7) SECONDS INR 1.0 (0.9-1.3) APTT 25 L D (26.4-36.2) SECONDS Sodium 139 (137-145) mmol/L Potassium 3.8 (3.4-5.1) mmol/L Chloride 107 (98-107) mmol/L Carbon Dioxide 21 L (22-32) mmol/L BUN 14 (7-17) mg/dL Creatinine 0.70 (0.52-1.04) mg/dL Estimated GFR > 60.0 (>60) mL/min BUN/Creatinine Ratio 20.0 (6-22) Glucose 180 H (70-100) mg/dL Lactate (0.7-2.1) mmol/L Calcium 9.8 (8.4-10.2) mg/dL Total Bilirubin 0.3 (0.2-1.3) mg/dL AST 16 (14-36) IU/L ALT 16 (9-52) IU/L Alkaline Phosphatase 59 (38-126) U/L Total Protein 7.3 (6.3-8.2) g/dL Albumin 4.7 (3.5-5.0) g/dL Globulin 2.6 (1.7-4.1) g/dL Albumin/Globulin Ratio 1.8 (1.0-2.8) Lipase 82 (23-300) U/L Urine RBC (0-5/HPF) Urine WBC (0-5/HPF) Ur Squamous Epith Cells Ur Transition Epith Cell (0-5/HPF) Ur Renal Epithelial Cell Calcium Oxalate Crystal Uric Acid Crystals Triple Phos Crystals Other Crystals Amorphous Sediment Urine Bacteria (None) Hyaline Casts Granular Casts RBC Casts WBC Casts Other Casts Urine Mucus (Negative) Urine Trichomonas Urine Yeast Urine Sperm Ur Culture Indicated? Micro UA Comment 01/27/19 01/27/19 01/27/19 Range/Units 11:56 13:45 13:45 WBC (4.5-11.0) X10^3/uL RBC (4.0-5.2) X10^6/uL Hgb (12.0-16.0) g/dL Hct (36-46) % MCV (80-100) fL MCH (26-34) PG MCHC (30-36) % RDW (11.6-14.8) % Plt Count (150-400) X10^3/uL Neut % (Auto) (50-75) % Lymph % (Auto) (25-40) % [place] % (Auto) (3-14) % Eos % (Auto) (2-4) % Baso % (Auto) (0-2) % Neut # (Auto) (3054-6255) /uL Lymph # (Auto) (8638-4592) /uL [place] # (Auto) (0-900) /uL Eos # (Auto) (0-450) /uL Baso # (Auto) (0-100) /uL PT (10.1-12.7) SECONDS INR (0.9-1.3) APTT (26.4-36.2) SECONDS Sodium (137-145) mmol/L Potassium (3.4-5.1) mmol/L Chloride (98-107) mmol/L Carbon Dioxide (22-32) mmol/L BUN (7-17) mg/dL Creatinine (0.52-1.04) mg/dL Estimated GFR (>60) mL/min BUN/Creatinine Ratio (6-22) Glucose (70-100) mg/dL Lactate 1.3 (0.7-2.1) mmol/L Calcium (8.4-10.2) mg/dL Total Bilirubin (0.2-1.3) mg/dL AST (14-36) IU/L ALT (9-52) IU/L Alkaline Phosphatase (38-126) U/L Total Protein (6.3-8.2) g/dL Albumin (3.5-5.0) g/dL Globulin (1.7-4.1) g/dL Albumin/Globulin Ratio (1.0-2.8) Lipase (23-300) U/L Urine RBC 0-1/hpf Cancelled (0-5/HPF) Urine WBC 0-1/hpf Cancelled (0-5/HPF) Ur Squamous Epith Cells Cancelled Ur Transition Epith Cell 0-1/hpf Cancelled (0-5/HPF) Ur Renal Epithelial Cell Cancelled Calcium Oxalate Crystal Cancelled Uric Acid Crystals Cancelled Triple Phos Crystals Cancelled Other Crystals Cancelled Amorphous Sediment Cancelled Urine Bacteria None seen Cancelled (None) Hyaline Casts Cancelled Granular Casts Cancelled RBC Casts Cancelled WBC Casts Cancelled Other Casts Cancelled Urine Mucus 1+ H Cancelled (Negative) Urine Trichomonas Cancelled Urine Yeast Cancelled Urine Sperm Cancelled Ur Culture Indicated? Culture not indicate Cancelled Micro UA Comment Cancelled Urine Dip Bedside Urine Glucose Negative Bedside Urine Bilirubin - Negative Bedside Urine Ketone ++ 40 Urine Specific [place] 1.020 Bedside Urine Occult Blood - Negative Bedside Urine pH 7.0 Bedside Urine Protein - Negative Bedside Urine Urobilinogen +/- 1mg Bedside Urine Nitrite - Negative Bedside Urine Leukocytes - Negative Esterase Discharge Plan Departure Patient Disposition: Home Clinical Impression: Nausea & vomiting Qualifiers: Vomiting type: cyclical vomiting Vomiting Intractability: non-intractable Qualified Code(s): G43.A0 - Cyclical vomiting, not intractable Discharge Date/Time: 01/27/19 16:12 Interventions: ED Discharge Assessment Last Done: 01/27/19 16:11 Instructions: DI for Nausea -- Adult, DI for Vomiting -- Adult Activity Restrictions/Additional Instructions: Today we gave you 2 L of IV fluid in the emergency department as well as several doses of Zofran, a few doses of pain medication and rectal Phenergan. The rest Phenergan suppository seemed to work well when given with Benadryl. Please put fluids and rest. Please follow up with her primary care provider the next few days. Please come back to department for any acute concerns including inability keep down fluids despite nausea medications. Prescriptions: No Action carisoprodol 350 MG tablet 350 mg PO BID PRN (Reason: spasm) Qty: 0 RF: 0 sertraline 100 mg tablet 100 mg PO BEDTIME RF: 0 hydrocodone-acetaminophen 10-325 mg tablet 1 tab PO Q4H PRN (Reason: pain) RF: 0 alprazolam 0.5 mg tablet 0.25 mg PO BID PRN (Reason: Anxiety) RF: 0 eszopiclone 1 mg tablet 1 mg PO BEDTIME RF: 0 trazodone 100 MG tablet 300 mg PO BEDTIME RF: 0 propranolol 10 mg tablet 10 mg PO BID RF: 0 fluconazole 150 mg tablet 150 mg PO .ONCE PRN (Reason: unknown) RF: 0 promethazine 25 mg tablet 25 mg PO Q4-6H PRN (Reason: nausea and vomiting) Qty: 20 RF: 0 lorazepam [Ativan] 0.5 mg tablet 0.5 mg PO BID-TID PRN (Reason: anxiety) Qty: 7 RF: 0 Referrals: Baudilio Bejarano [Primary Care Provider] - <Monse Mendoza DO - Last Filed: 01/27/19 18:10> Cosign ED Attending Cosignature Attestation: I was immediately available in the department for consultation. This documentation has been reviewed and I agree with assessment and plan. Supervised by Monse Mendoza DO
--- NOTE | 2019-01-27 13:43 | ED_ITS ---
HPI - Nausea/Vomiting/Diarrhea <Monse Cannon, PROFESSOR OF JOURNALISM-BC - Last Filed: 01/27/19 16:11> General Chief complaint: Nausea/Vomiting/Diarrhea Stated complaint: VOMITING & NAUSEA Time Seen by Provider: 01/27/19 12:18 Source: patient Mode of arrival: ambulatory Limitations: no limitations History of Present Illness HPI Narrative: Patient is a 33-year-old female who presents with her for chief complaint of back pain, nausea vomiting. she states that she was seen at office that she is unsure of, but knows it is [facility] yesterday and diagnosed with a UTI. She states she has had back pain for several days, since last week. She states that the vomiting started this morning. She was not able to start antibiotics for her UTI and does not know what antibiotic was started. Nursing called the pharmacy, where she states her prescription is waiting to be filled. They do not have any prescriptions on follow-up for the patient. Given her diagnosis of cyclic vomiting syndrome, she has multiple medications at home for nausea and vomiting including Zofran, Phenergan, Ativan. She has not taken anything this morning. She denies any fever. Related Data Home Medications Medication Instructions Recorded Confirmed carisoprodol 350 mg PO BID PRN #0 02/16/17 11/01/18 alprazolam 0.25 mg PO BID PRN 11/01/18 11/01/18 eszopiclone 1 mg PO BEDTIME 11/01/18 11/01/18 fluconazole 150 mg PO .ONCE PRN 11/01/18 11/01/18 hydrocodone-acetaminophen 1 tab PO Q4H PRN 11/01/18 11/01/18 propranolol 10 mg PO BID 11/01/18 11/01/18 sertraline 100 mg PO BEDTIME 11/01/18 11/01/18 trazodone 300 mg PO BEDTIME 11/01/18 11/01/18 Previous Rx's Medication Instructions Recorded promethazine 25 mg PO Q4-6H PRN #20 tab 11/01/18 lorazepam [Ativan] 0.5 mg PO BID-TID PRN #7 tab 12/12/18 Allergies Allergy/AdvReac Type Severity Reaction Status Date / Time aspirin [ASPIRIN] Allergy Severe THROAT Verified 01/27/19 11:49 SWELLING metoclopramide [From REGLAN] AdvReac Mild AGGITATION/ Verified 01/27/19 11:49 RESTLESSNES S Review of Systems <ILAN Blackman - Last Filed: 01/27/19 16:11> Review of Systems GENERAL: Denies chills, fatigue, malaise, fever, sweats. HEENT: Denies sinus pain, ear pain, sore throat, difficulty swallowing, di zziness. RESPIRATORY: Denies dyspnea, cough, wheezing, hemoptysis, sputum. CARDIOVASCULAR: Denies chest pain, palpitations, orthopnea, edema, GASTROINTESTINAL: See HPI : See HPI MUSCULOSKELETAL: denies weakness, joint pain, or bony pain SKIN: Denies rash, skin lesions, or other NEUROLOGIC: Denies weakness, headache, numbness, change in speech, confusion, seizures, incoordination. PSYCHIATRIC: No concerning psychosocial issues. 12 point review of systems is negative except for those stated above PFSH <ILAN Blackman - Last Filed: 01/27/19 16:11> Medical History Celiac disease (Acute) Anxiety (Acute) Cyclic vomiting syndrome (Acute) Multiple sclerosis (Acute) Surgical History Status post tubal ligation Social History (Updated 12/10/18 @ 20:07 by Juan Jose Norwood MD) Smoking Status: Former smoker substance use type: marijuana Social History Smoking Status: Former smoker substance use type: marijuana Exam <ILAN Blackman - Last Filed: 01/27/19 16:11> Narrative Exam Narrative: GENERAL: Chronically ill-appearing female lying on stretcher HEAD: Atraumatic. Normocephalic. No temporal or scalp tenderness. EYES: Pupils equal round and reactive. Extraocular motions intact. No scleral icterus. No injection or drainage. ENT: Nose without bleeding, purulent drainage or septal hematoma. Throat without erythema, tonsillar hypertrophy or exudate. Uvula midline. Airway patent. NECK: Trachea midline. No JVD or lymphadenopathy. Supple, nontender, no meningeal signs. CARDIOVASCULAR: Regular rate and rhythm without murmurs, gallops, or rubs. RESPIRATORY: Clear to auscultation. Breath sounds equal bilaterally. No wheezes, rales, or rhonchi. No cough. No accessory muscle use. No increased respiratory effort. GASTROINTESTINAL: Abdomen soft, non-tender, nondistended. No hepato- splenomegaly, or palpable masses. No guarding. EXTREMITIES: No clubbing, cyanosis, or edema. No joint tenderness, effusion, or edema noted. BACK: Nontender without deformity or crepitance. Flank tenderness on right side. No flank tenderness on left side. NEURO: AOx3. SKIN: No rash or erythema. Initial Vital Signs Initial Vital Signs: Vital Signs Temperature 97.6 F 01/27/19 11:45 Pulse Rate 60 01/27/19 11:45 Respiratory Rate 18 01/27/19 11:45 Blood Pressure 107/64 01/27/19 11:45 Pulse Oximetry 96 01/27/19 11:45 <Monse Mendoza DO - Last Filed: 01/27/19 18:10> Initial Vital Signs Initial Vital Signs: Vital Signs Temperature 97.6 F 01/27/19 11:45 Pulse Rate 60 01/27/19 11:45 Respiratory Rate 18 01/27/19 11:45 Blood Pressure 107/64 01/27/19 11:45 Pulse Oximetry 96 01/27/19 11:45 Course <FRED Blackman-BC - Last Filed: 01/27/19 16:11> Course Narrative: I checked on the patient several times throughout her stay in the emergency department. Orders Ordered: ED Orders 01/27/19 11:56 Complete Blood Count AUTO DIFF Stat Comprehensive Metabolic Panel Stat Lactate (Lactic Acid) Stat Lipase Stat Partial Thromboplastin Time Stat Prothrombin Time INR Stat 01/27/19 13:45 Urine Microscopic Stat Discontinued Medications Diphenhydramine HCl (Benadryl) 25 mg IV NOW ONE Stop: 01/27/19 13:46 Last Admin: 01/27/19 14:07 Dose: 25 mg Hydromorphone HCl (Dilaudid) 0.5 mg IV NOW ONE Stop: 01/27/19 12:41 Last Admin: 01/27/19 12:48 Dose: 0.5 mg Hydromorphone HCl (Dilaudid) 1 mg IV NOW ONE Stop: 01/27/19 14:48 Last Admin: 01/27/19 14:57 Dose: 1 mg Sodium Chloride (Normal Saline 0.9%) 1,000 mls @ 1,000 mls/hr IV BOLUS ONE Stop: 01/27/19 13:01 Last Infusion: 01/27/19 14:06 Dose: 0 mls/hr Admin: 01/27/19 11:55 Dose: 1,000 mls/hr Sodium Chloride (Normal Saline 0.9%) 1,000 mls @ 1,000 mls/hr IV BOLUS ONE Stop: 01/27/19 13:39 Last Infusion: 01/27/19 16:00 Dose: 0 mls/hr Admin: 01/27/19 14:07 Dose: 1,000 mls/hr Ketorolac Tromethamine (Toradol) 30 mg IV NOW ONE Stop: 01/27/19 12:03 Last Admin: 01/27/19 12:06 Dose: 30 mg Lorazepam (Ativan) 1 mg IV PRN PRN PRN Reason: Vomiting Ondansetron HCl (Zofran) 4 mg IV NOW ONE Stop: 01/27/19 11:50 Last Admin: 01/27/19 12:06 Dose: 4 mg Ondansetron HCl (Zofran) 4 mg IV NOW ONE Stop: 01/27/19 12:38 Last Admin: 01/27/19 12:49 Dose: 4 mg Promethazine HCl (Phenadoz) 25 mg [place] NOW ONE Stop: 01/27/19 13:39 Last Admin: 01/27/19 14:14 Dose: Not Given Promethazine HCl (Phenadoz) 25 mg [place] NOW ONE Stop: 01/27/19 14:58 Last Admin: 01/27/19 14:58 Dose: 25 mg Vital Signs - 8 hr 01/27/19 11:45 01/27/19 14:20 01/27/19 14:30 Temperature 97.6 F 98.8 F Pulse Rate 60 51 L Respiratory Rate 18 15 Blood Pressure 107/64 Blood Pressure [Left Arm] 131/77 Pulse Oximetry 96 100 01/27/19 15:45 Temperature Pulse Rate 62 Respiratory Rate 18 Blood Pressure Blood Pressure [Left Arm] 118/72 Pulse Oximetry 98 <Monse Mendoza DO - Last Filed: 01/27/19 18:10> Orders Ordered: ED Orders 01/27/19 11:56 Complete Blood Count AUTO DIFF Stat Comprehensive Metabolic Panel Stat Lactate (Lactic Acid) Stat Lipase Stat Partial Thromboplastin Time Stat Prothrombin Time INR Stat 01/27/19 13:45 Urine Microscopic Stat Discontinued Medications Diphenhydramine HCl (Benadryl) 25 mg IV NOW ONE Stop: 01/27/19 13:46 Last Admin: 01/27/19 14:07 Dose: 25 mg Hydromorphone HCl (Dilaudid) 0.5 mg IV NOW ONE Stop: 01/27/19 12:41 Last Admin: 01/27/19 12:48 Dose: 0.5 mg Hydromorphone HCl (Dilaudid) 1 mg IV NOW ONE Stop: 01/27/19 14:48 Last Admin: 01/27/19 14:57 Dose: 1 mg Sodium Chloride (Normal Saline 0.9%) 1,000 mls @ 1,000 mls/hr IV BOLUS ONE Stop: 01/27/19 13:01 Last Infusion: 01/27/19 14:06 Dose: 0 mls/hr Admin: 01/27/19 11:55 Dose: 1,000 mls/hr Sodium Chloride (Normal Saline 0.9%) 1,000 mls @ 1,000 mls/hr IV BOLUS ONE Stop: 01/27/19 13:39 Last Infusion: 01/27/19 16:00 Dose: 0 mls/hr Admin: 01/27/19 14:07 Dose: 1,000 mls/hr Ketorolac Tromethamine (Toradol) 30 mg IV NOW ONE Stop: 01/27/19 12:03 Last Admin: 01/27/19 12:06 Dose: 30 mg Lorazepam (Ativan) 1 mg IV PRN PRN PRN Reason: Vomiting Ondansetron HCl (Zofran) 4 mg IV NOW ONE Stop: 01/27/19 11:50 Last Admin: 01/27/19 12:06 Dose: 4 mg Ondansetron HCl (Zofran) 4 mg IV NOW ONE Stop: 01/27/19 12:38 Last Admin: 01/27/19 12:49 Dose: 4 mg Promethazine HCl (Phenadoz) 25 mg [place] NOW ONE Stop: 01/27/19 13:39 Last Admin: 01/27/19 14:14 Dose: Not Given Promethazine HCl (Phenadoz) 25 mg [place] NOW ONE Stop: 01/27/19 14:58 Last Admin: 01/27/19 14:58 Dose: 25 mg Vital Signs - 8 hr 01/27/19 11:45 01/27/19 14:20 01/27/19 14:30 Temperature 97.6 F 98.8 F Pulse Rate 60 51 L Respiratory Rate 18 15 Blood Pressure 107/64 Blood Pressure [Left Arm] 131/77 Pulse Oximetry 96 100 01/27/19 15:45 Temperature Pulse Rate 62 Respiratory Rate 18 Blood Pressure Blood Pressure [Left Arm] 118/72 Pulse Oximetry 98 MDM - Nausea/Vomiting/Diarrhea <FRED Blackman- - Last Filed: 01/27/19 16:11> Lab Data Result diagrams: 01/27/19 11:56 01/27/19 11:56 Lab Results 01/27/19 01/27/19 01/27/19 Range/Units 11:56 11:56 11:56 WBC 8.0 (4.5-11.0) X10^3/uL RBC 4.75 (4.0-5.2) X10^6/uL Hgb 14.7 (12.0-16.0) g/dL Hct 43.6 (36-46) % MCV 91.9 (80-100) fL MCH 30.9 (26-34) PG MCHC 33.6 (30-36) % RDW 14.3 (11.6-14.8) % Plt Count 246 (150-400) X10^3/uL Neut % (Auto) 91.4 H (50-75) % Lymph % (Auto) 7.0 L (25-40) % [place] % (Auto) 1.3 L (3-14) % Eos % (Auto) 0.1 L (2-4) % Baso % (Auto) 0.2 (0-2) % Neut # (Auto) 7300 H (7818-0759) /uL Lymph # (Auto) 600 L (9606-9988) /uL [place] # (Auto) 100 (0-900) /uL Eos # (Auto) 0 (0-450) /uL Baso # (Auto) 0 (0-100) /uL PT 12.1 (10.1-12.7) SECONDS INR 1.0 (0.9-1.3) APTT 25 L D (26.4-36.2) SECONDS Sodium 139 (137-145) mmol/L Potassium 3.8 (3.4-5.1) mmol/L Chloride 107 (98-107) mmol/L Carbon Dioxide 21 L (22-32) mmol/L BUN 14 (7-17) mg/dL Creatinine 0.70 (0.52-1.04) mg/dL Estimated GFR > 60.0 (>60) mL/min BUN/Creatinine Ratio 20.0 (6-22) Glucose 180 H (70-100) mg/dL Lactate (0.7-2.1) mmol/L Calcium 9.8 (8.4-10.2) mg/dL Total Bilirubin 0.3 (0.2-1.3) mg/dL AST 16 (14-36) IU/L ALT 16 (9-52) IU/L Alkaline Phosphatase 59 (38-126) U/L Total Protein 7.3 (6.3-8.2) g/dL Albumin 4.7 (3.5-5.0) g/dL Globulin 2.6 (1.7-4.1) g/dL Albumin/Globulin Ratio 1.8 (1.0-2.8) Lipase 82 (23-300) U/L Urine RBC (0-5/HPF) Urine WBC (0-5/HPF) Ur Squamous Epith Cells Ur Transition Epith Cell (0-5/HPF) Ur Renal Epithelial Cell Calcium Oxalate Crystal Uric Acid Crystals Triple Phos Crystals Other Crystals Amorphous Sediment Urine Bacteria (None) Hyaline Casts Granular Casts RBC Casts WBC Casts Other Casts Urine Mucus (Negative) Urine Trichomonas Urine Yeast Urine Sperm Ur Culture Indicated? Micro UA Comment 01/27/19 01/27/19 01/27/19 Range/Units 11:56 13:45 13:45 WBC (4.5-11.0) X10^3/uL RBC (4.0-5.2) X10^6/uL Hgb (12.0-16.0) g/dL Hct (36-46) % MCV (80-100) fL MCH (26-34) PG MCHC (30-36) % RDW (11.6-14.8) % Plt Count (150-400) X10^3/uL Neut % (Auto) (50-75) % Lymph % (Auto) (25-40) % Seminole % (Auto) (3-14) % Eos % (Auto) (2-4) % Baso % (Auto) (0-2) % Neut # (Auto) (8824-1953) /uL Lymph # (Auto) (1081-8939) /uL [place]inole # (Auto) (0-900) /uL Eos # (Auto) (0-450) /uL Baso # (Auto) (0-100) /uL PT (10.1-12.7) SECONDS INR (0.9-1.3) APTT (26.4-36.2) SECONDS Sodium (137-145) mmol/L Potassium (3.4-5.1) mmol/L Chloride (98-107) mmol/L Carbon Dioxide (22-32) mmol/L BUN (7-17) mg/dL Creatinine (0.52-1.04) mg/dL Estimated GFR (>60) mL/min BUN/Creatinine Ratio (6-22) Glucose (70-100) mg/dL Lactate 1.3 (0.7-2.1) mmol/L Calcium (8.4-10.2) mg/dL Total Bilirubin (0.2-1.3) mg/dL AST (14-36) IU/L ALT (9-52) IU/L Alkaline Phosphatase (38-126) U/L Total Protein (6.3-8.2) g/dL Albumin (3.5-5.0) g/dL Globulin (1.7-4.1) g/dL Albumin/Globulin Ratio (1.0-2.8) Lipase (23-300) U/L Urine RBC 0-1/hpf Cancelled (0-5/HPF) Urine WBC 0-1/hpf Cancelled (0-5/HPF) Ur Squamous Epith Cells Cancelled Ur Transition Epith Cell 0-1/hpf Cancelled (0-5/HPF) Ur Renal Epithelial Cell Cancelled Calcium Oxalate Crystal Cancelled Uric Acid Crystals Cancelled Triple Phos Crystals Cancelled Other Crystals Cancelled Amorphous Sediment Cancelled Urine Bacteria None seen Cancelled (None) Hyaline Casts Cancelled Granular Casts Cancelled RBC Casts Cancelled WBC Casts Cancelled Other Casts Cancelled Urine Mucus 1+ H Cancelled (Negative) Urine Trichomonas Cancelled Urine Yeast Cancelled Urine Sperm Cancelled Ur Culture Indicated? Culture not indicate Cancelled Micro UA Comment Cancelled Urine Dip Bedside Urine Glucose Negative Bedside Urine Bilirubin - Negative Bedside Urine Ketone ++ 40 Urine Specific Varney 1.020 Bedside Urine Occult Blood - Negative Bedside Urine pH 7.0 Bedside Urine Protein - Negative Bedside Urine Urobilinogen +/- 1mg Bedside Urine Nitrite - Negative Bedside Urine Leukocytes - Negative Esterase MDM Narrative Medical decision making narrative: The patient is a 33-year-old female who presents with a chief complaint of back pain, vomiting and nausea. She was diagnosed with a UTI yesterday, but not started on antibiotics as she cannot pick them up. Her UA here illustrate no UTI, which is interesting as she has not had any of her antibiotics. She does not have an elevated white blood cell count has a normal lactate. I believe that her nausea vomiting is related to her chronic cyclic vomiting rather than pyelonephritis as she feared. She was treated with antiemetics as well as pain medication the emergency department. She was received 2 L of IV fluid was able to tolerate a p.o. challenge. I discussed with her that she needs to follow up with primary care provider soon as possible. I offered her further antiemetic prescriptions, but the patient de clined stating she has everything at home. Discussed coming back to emergency department for any acute concerns including inability keep down fluids. Patient and have no questions or concerns upon discharge. <Monse Mendoza, DO - Last Filed: 01/27/19 18:10> Lab Data Lab Results 01/27/19 01/27/19 01/27/19 Range/Units 11:56 11:56 11:56 WBC 8.0 (4.5-11.0) X10^3/uL RBC 4.75 (4.0-5.2) X10^6/uL Hgb 14.7 (12.0-16.0) g/dL Hct 43.6 (36-46) % MCV 91.9 (80-100) fL MCH 30.9 (26-34) PG MCHC 33.6 (30-36) % RDW 14.3 (11.6-14.8) % Plt Count 246 (150-400) X10^3/uL Neut % (Auto) 91.4 H (50-75) % Lymph % (Auto) 7.0 L (25-40) % [place] % (Auto) 1.3 L (3-14) % Eos % (Auto) 0.1 L (2-4) % Baso % (Auto) 0.2 (0-2) % Neut # (Auto) 7300 H (1783-7333) /uL Lymph # (Auto) 600 L (0392-0817) /uL [place] # (Auto) 100 (0-900) /uL Eos # (Auto) 0 (0-450) /uL Baso # (Auto) 0 (0-100) /uL PT 12.1 (10.1-12.7) SECONDS INR 1.0 (0.9-1.3) APTT 25 L D (26.4-36.2) SECONDS Sodium 139 (137-145) mmol/L Potassium 3.8 (3.4-5.1) mmol/L Chloride 107 (98-107) mmol/L Carbon Dioxide 21 L (22-32) mmol/L BUN 14 (7-17) mg/dL Creatinine 0.70 (0.52-1.04) mg/dL Estimated GFR > 60.0 (>60) mL/min BUN/Creatinine Ratio 20.0 (6-22) Glucose 180 H (70-100) mg/dL Lactate (0.7-2.1) mmol/L Calcium 9.8 (8.4-10.2) mg/dL Total Bilirubin 0.3 (0.2-1.3) mg/dL AST 16 (14-36) IU/L ALT 16 (9-52) IU/L Alkaline Phosphatase 59 (38-126) U/L Total Protein 7.3 (6.3-8.2) g/dL Albumin 4.7 (3.5-5.0) g/dL Globulin 2.6 (1.7-4.1) g/dL Albumin/Globulin Ratio 1.8 (1.0-2.8) Lipase 82 (23-300) U/L Urine RBC (0-5/HPF) Urine WBC (0-5/HPF) Ur Squamous Epith Cells Ur Transition Epith Cell (0-5/HPF) Ur Renal Epithelial Cell Calcium Oxalate Crystal Uric Acid Crystals Triple Phos Crystals Other Crystals Amorphous Sediment Urine Bacteria (None) Hyaline Casts Granular Casts RBC Casts WBC Casts Other Casts Urine Mucus (Negative) Urine Trichomonas Urine Yeast Urine Sperm Ur Culture Indicated? Micro UA Comment 01/27/19 01/27/19 01/27/19 Range/Units 11:56 13:45 13:45 WBC (4.5-11.0) X10^3/uL RBC (4.0-5.2) X10^6/uL Hgb (12.0-16.0) g/dL Hct (36-46) % MCV (80-100) fL MCH (26-34) PG MCHC (30-36) % RDW (11.6-14.8) % Plt Count (150-400) X10^3/uL Neut % (Auto) (50-75) % Lymph % (Auto) (25-40) % [place] % (Auto) (3-14) % Eos % (Auto) (2-4) % Baso % (Auto) (0-2) % Neut # (Auto) (5544-2703) /uL Lymph # (Auto) (8364-4794) /uL [place] # (Auto) (0-900) /uL Eos # (Auto) (0-450) /uL Baso # (Auto) (0-100) /uL PT (10.1-12.7) SECONDS INR (0.9-1.3) APTT (26.4-36.2) SECONDS Sodium (137-145) mmol/L Potassium (3.4-5.1) mmol/L Chloride (98-107) mmol/L Carbon Dioxide (22-32) mmol/L BUN (7-17) mg/dL Creatinine (0.52-1.04) mg/dL Estimated GFR (>60) mL/min BUN/Creatinine Ratio (6-22) Glucose (70-100) mg/dL Lactate 1.3 (0.7-2.1) mmol/L Calcium (8.4-10.2) mg/dL Total Bilirubin (0.2-1.3) mg/dL AST (14-36) IU/L ALT (9-52) IU/L Alkaline Phosphatase (38-126) U/L Total Protein (6.3-8.2) g/dL Albumin (3.5-5.0) g/dL Globulin (1.7-4.1) g/dL Albumin/Globulin Ratio (1.0-2.8) Lipase (23-300) U/L Urine RBC 0-1/hpf Cancelled (0-5/HPF) Urine WBC 0-1/hpf Cancelled (0-5/HPF) Ur Squamous Epith Cells Cancelled Ur Transition Epith Cell 0-1/hpf Cancelled (0-5/HPF) Ur Renal Epithelial Cell Cancelled Calcium Oxalate Crystal Cancelled Uric Acid Crystals Cancelled Triple Phos Crystals Cancelled Other Crystals Cancelled Amorphous Sediment Cancelled Urine Bacteria None seen Cancelled (None) Hyaline Casts Cancelled Granular Casts Cancelled RBC Casts Cancelled WBC Casts Cancelled Other Casts Cancelled Urine Mucus 1+ H Cancelled (Negative) Urine Trichomonas Cancelled Urine Yeast Cancelled Urine Sperm Cancelled Ur Culture Indicated? Culture not indicate Cancelled Micro UA Comment Cancelled Urine Dip Bedside Urine Glucose Negative Bedside Urine Bilirubin - Negative Bedside Urine Ketone ++ 40 Urine Specific Varney 1.020 Bedside Urine Occult Blood - Negative Bedside Urine pH 7.0 Bedside Urine Protein - Negative Bedside Urine Urobilinogen +/- 1mg Bedside Urine Nitrite - Negative Bedside Urine Leukocytes - Negative Esterase Discharge Plan Departure Patient Disposition: Home Clinical Impression: Nausea & vomiting Qualifiers: Vomiting type: cyclical vomiting Vomiting Intractability: non-intractable Qualified Code(s): G43.A0 - Cyclical vomiting, not intractable Discharge Date/Time: 01/27/19 16:12 Interventions: ED Discharge Assessment Last Done: 01/27/19 16:11 Instructions: DI for Nausea -- Adult, DI for Vomiting -- Adult Activity Restrictions/Additional Instructions: Today we gave you 2 L of IV fluid in the emergency department as well as several doses of Zofran, a few doses of pain medication and rectal Phenergan. The rest Phenergan suppository seemed to work well when given with Benadryl. Please put fluids and rest. Please follow up with her primary care provider the next few days. Please come back to department for any acute concerns including inability keep down fluids despite nausea medications. Prescriptions: No Action carisoprodol 350 MG tablet 350 mg PO BID PRN (Reason: spasm) Qty: 0 RF: 0 sertraline 100 mg tablet 100 mg PO BEDTIME RF: 0 hydrocodone-acetaminophen 10-325 mg tablet 1 tab PO Q4H PRN (Reason: pain) RF: 0 alprazolam 0.5 mg tablet 0.25 mg PO BID PRN (Reason: Anxiety) RF: 0 eszopiclone 1 mg tablet 1 mg PO BEDTIME RF: 0 trazodone 100 MG tablet 300 mg PO BEDTIME RF: 0 propranolol 10 mg tablet 10 mg PO BID RF: 0 fluconazole 150 mg tablet 150 mg PO .ONCE PRN (Reason: unknown) RF: 0 promethazine 25 mg tablet 25 mg PO Q4-6H PRN (Reason: nausea and vomiting) Qty: 20 RF: 0 lorazepam [Ativan] 0.5 mg tablet 0.5 mg PO BID-TID PRN (Reason: anxiety) Qty: 7 RF: 0 Referrals: Baudilio Bejarano [Primary Care Provider] - <Monse Mendoza DO - Last Filed: 01/27/19 18:10> Cosign ED Attending Cosignature Attestation: I was immediately available in the department for consultation. This documentation has been reviewed and I agree with assessment and plan. Supervised by Monse Mendoza DO
[2019-01-27 14:07] LABS: Bacteria Urine None Seen
[2019-01-27] MEDS: diphenhydrAMINE 50 MG/ML VIAL 25 MG IV (14:07)
[2019-01-27 14:20] VITALS: BP 131/77; PULSE 51; RESP 15; O2SAT 100
[2019-01-27 14:30] VITALS: TEMP 37.1
[2019-01-27 14:35] LABS: Mucus Urine 1+ (Negative); RBC Urine 0-1/HPF (0-5/HPF); Transitional Epi Cells Urine 0-1/HPF (0-5/HPF); WBC Urine 0-1/HPF (0-5/HPF)
[2019-01-27] MEDS: HYDROMORPHONE 1 MG INJ IV (14:57)
[2019-01-27] MEDS: PROMETHAZINE 25 MG SUPP PR (14:58)
--- NOTE | 2019-01-27 15:41 | PC.NURSE ---
pt states feeling better requesting ice chips, provided.
[2019-01-27 15:45] VITALS: BP 118/72; PULSE 62; RESP 18; O2SAT 98
== END 2019-01-27 16:12 | disposition home or self-care (01) ==
PROVIDERS: Emergency Medicine; Emergency Provider Nurse Practitioner Family; PCP Ophthalmology
DX: G43.A0 Cyclical vomiting, in migraine, not intractable (principal)
CPT/HCPCS: 36591; 80053; 81003; 81015; 83605; 83690; 85025; 85610; 85730; 96361; 96374; 96375; 96376; 99283; 99284; J1170; J1200; J1885; J2405

== ENCOUNTER 2019-01-29 17:38 | Emergency (ER) | payer OTHER, MEDICAID, SELFPAY ==
[2019-01-29 17:46] VITALS: BP 140/79; PULSE 46; RESP 22; O2SAT 96
--- NOTE | 2019-01-29 17:46 | DI.CT.S_ITS ---
PROCEDURE: CT HEAD/BRAIN WO CON INDICATIONS: Right-sided weakness TECHNIQUE: Noncontrast 4.5 mm thick angled axial sections acquired from the foramen magnum to the vertex, with coronal and sagittal reformats. For radiation dose reduction, the following was used: automated exposure control, adjustment of mA and/or kV according to patient size. COMPARISON: [facility], CR, XR CHEST 1V, 01/29/2019, 17:51. [facility], CT, HEAD WITHOUT CONTRAST, 09/12/2009, 7:01. [facility], MR, BRAIN (PITUITARY) W&WO CONTRAS, 01/16/2010, 6:50. [facility], MR, MR HEAD/BRAIN WO/W CON, 08/30/2018, 8:52. FINDINGS: Image quality: Excellent. CSF spaces: Basal cisterns are patent. No extra-axial fluid collections. Ventricles are normal in size and shape. Brain: No midline shift. No intracranial masses or hemorrhage. Hernandez-white matter interface is normal. Skull and face: Calvarium and visualized facial bones are intact, without suspicious lesions. Sinuses: Visualized sinuses and mastoids are clear. IMPRESSION: No acute intracranial hemorrhage. Note: Case discussed by telephone with Dr. Hurt at 1804 hrs. [place] time on January 29, 2019. Dictated by: Jeffrey Saeed M.D. on 01/29/2019 at 17:03 Approved by: Jeffrey Saeed M.D. on 01/29/2019 at 17:05
--- NOTE | 2019-01-29 17:46 | DI.RAD.S_ITS ---
PROCEDURE: XR CHEST 1V INDICATIONS: Right-sided chest pain TECHNIQUE: One view of the chest was acquired. COMPARISON: [facility], CT, PE STUDY (CTA CHEST), 02/12/2017, 9:13. [facility], CR, CHEST 2 VIEW, 03/20/2009, 11:36. [facility], CR, CHEST 1 VIEW, 11/04/2010, 10:27. [facility], , CHEST 1 VIEW, 02/12/2017, 8:37. FINDINGS: Surgical changes and devices: Cholecystectomy clips are seen. Lungs and pleura: Lungs are clear. No pleural effusions or pneumothorax. Mediastinum: Mediastinal contours appear normal. Heart size is normal. Bones and chest wall: No suspicious bony lesions. Overlying soft tissues appear unremarkable. IMPRESSION: Portable chest within normal limits. Dictated by: Jeffrey Saeed M.D. on 01/29/2019 at 17:05 Approved by: Jeffrey Saeed M.D. on 01/29/2019 at 17:06
[2019-01-29 18:00] VITALS: BP 132/87; PULSE 53; RESP 15; O2SAT 99
[2019-01-29 18:01] LABS: Add Manual Diff / Slide Review NO; Basophils Absolute Auto 0 /uL (0-100); Basophils Percent Auto 0.3 % (0-2); Eosinophils Absolute Auto 0 /uL (0-450); Eosinophils Percent Auto 0.1 % (2-4); Hematocrit 42.3 % (36-46); Lymphocytes Absolute Auto 1000 /uL (1100-4500); Lymphocytes Percent Auto 13.2 % (25-40); Mean Corpuscular Hemoglobin 30.1 PG (26-34); Mean Corpuscular Volume 91.2 fL (80-100); Monocytes Absolute Auto 600 /uL (0-900); Monocytes Percent Auto 7.6 % (3-14); Neutrophils Absolute Auto 6000 /uL (1500-7000); Neutrophils Percent Auto 78.8 % (50-75); Platelet Count 175 X10^3/uL (150-400); Red Blood Cell Count 4.64 X10^6/uL (4.0-5.2); Red Cell Distribution Width 14.3 % (11.6-14.8); White Blood Cell Count 7.5 X10^3/uL (4.5-11.0)
[2019-01-29 18:06] LABS: INR 1.1 (0.9-1.3); Prothrombin Time 12.3 SECONDS (10.1-12.7)
[2019-01-29 18:09] LABS: PTT Partial Thromboplastin Tim 30 SECONDS (26.4-36.2)
[2019-01-29 18:12] LABS: BUN Creatinine Ratio 21.7 (6-22); Blood Urea Nitrogen 13 mg/dL (7-17); Calcium 9.6 mg/dL (8.4-10.2); Carbon Dioxide 24 mmol/L (22-32); Chloride 103 mmol/L (98-107); Estimated Glomerular Filt Rate > 60.0 mL/min (>60); Glucose 91 mg/dL (70-100); HEMOLYSIS < 15 (0-50); Potassium 3.2 mmol/L (3.4-5.1); Sodium 137 mmol/L (137-145)
[2019-01-29 18:23] LABS: Pregnancy Test Serum,Qual Negative (Negative)
[2019-01-29] MEDS: KETOROLAC 60 MG/2 ML VIAL 15 MG IV (18:28)
[2019-01-29] MEDS: methylPREDNISolone 125 MG/2 ML VIAL IV (18:29)
[2019-01-29 19:12] VITALS: BP 136/85; PULSE 43; RESP 12; O2SAT 96
--- NOTE | 2019-01-29 20:29 | ED.NEUROSD ---
HPI - Neuro Symptoms/Deficit General Chief Complaint: Neuro Symptoms/Deficit Stated Complaint: numbness all over Time Seen by Provider: 01/29/19 17:44 Source: patient and family Mode of arrival: ambulatory Limitations: no limitations History of Present Illness HPI Narrative: 33-year-old female former smoker with history of multiple sclerosis presents with a chief complaint severe right-sided rib pain after a chiropractic procedure earlier today. She had a manipulation for rib and went home feeling much better but not long after getting home patient developed severe, worsening right-sided rib pain and some numbness and tingling in her right arm. She was evaluated immediately upon arrival and due to BEFAST and lee scoring the patient was activated as a code stroke. Her pain is worse when she moves and improves with rest. She denies any other focal neurologic findings such as blurred vision, trouble with speech or extremity weakness Onset (ago): minute(s) Severity: moderate Quality: tingling Relieving factors: none Related Data Home Medications Medication Instructions Recorded Confirmed carisoprodol 350 mg PO BID PRN #0 02/16/17 01/29/19 alprazolam 0.25 mg PO BID PRN 11/01/18 11/01/18 eszopiclone 1 mg PO BEDTIME 11/01/18 01/29/19 fluconazole 150 mg PO .ONCE PRN 11/01/18 01/29/19 hydrocodone-acetaminophen 1 tab PO Q4H PRN 11/01/18 01/29/19 propranolol 10 mg PO BID 11/01/18 11/01/18 sertraline mg PO BEDTIME 11/01/18 11/01/18 trazodone 300 mg PO BEDTIME 11/01/18 01/29/19 clonidine HCl 0.1 mg PO DAILY 01/29/19 01/29/19 lactulose [Constulose] 01/29/19 rizatriptan 01/29/19 Previous Rx's Medication Instructions Recorded promethazine 25 mg PO Q4-6H PRN #20 tab 11/01/18 lorazepam [Ativan] 0.5 mg PO BID-TID PRN #7 tab 12/12/18 Allergies Allergy/AdvReac Type Severity Reaction Status Date / Time aspirin [ASPIRIN] Allergy Severe THROAT Verified 01/27/19 11:49 SWELLING metoclopramide [From REGLAN] AdvReac Mild AGGITATION/ Verified 01/27/19 11:49 RESTLESSNES S Review of Systems Constitutional Denies chills, Denies fever(s), Denies lethargy and Denies weakness Eyes Denies change in vision, Denies eye discharge, Denies irritation and Denies loss of vision ENT Ears, Nose, Mouth, and Throat: Denies change in voice, Denies neck pain and Denies sore throat Cardiovascular Reports chest pain, Denies irregular heart rhythm, Denies lightheadedness, Denies palpitations, Denies dyspnea, Denies dyspnea on exertion and Denies orthopnea Respiratory Denies cough, Denies dyspnea, Denies dyspnea on exertion and Denies wheezing Gastrointestinal Gastrointestinal: Denies abdominal pain, Denies change in bowel habits, Denies diarrhea, Denies nausea and Denies vomiting Genitourinary Denies hematuria, Denies flank pain, Denies urinary incontinence and Denies urinary urgency Musculoskeletal Denies neck pain and Reports tingling Integumentary/Breasts Denies pruritus, Denies erythema, Denies rash and Denies wounds Neurologic Denies confusion, Denies loss of vision, Reports tingling, Reports paresthesias and Denies weakness Psychiatric Denies anxiety, Denies confusion, Denies depression, Denies homicidal ideation and Denies suicidal ideation Endocrine Denies palpitations Hematologic/Lymphatic Denies easy bruising Allergic/Immunologic Denies wheezing PFSH Medical History Anxiety (Acute) Celiac disease (Acute) Cyclic vomiting syndrome (Acute) Multiple sclerosis (Acute) Surgical History Status post tubal ligation Social History Smoking Status: Former smoker substance use type: marijuana Social History Smoking Status: Former smoker substance use type: marijuana Exam Narrative Exam Narrative: GENERAL: 33-year-old female appears chronically ill, she is quite thin, obviously uncomfortable and clutching her right-sided ribs. HEAD: Atraumatic. Normocephalic. No temporal or scalp tenderness. EYES: Pupils equal round and reactive. Extraocular motions intact. No scleral icterus. No injection or drainage. ENT: Nose without bleeding, purulent drainage or septal hematoma. Throat without erythema, tonsillar hypertrophy or exudate. Uvula midline. Airway patent. NECK: Trachea midline. No JVD or lymphadenopathy. Supple, nontender, no meningeal signs. CARDIOVASCULAR: Regular rate and rhythm without murmurs, gallops, or rubs. right-sided mid level ribs, quite tender to palpation, no crepitance RESPIRATORY: Clear to auscultation. Breath sounds equal bilaterally. No wheezes, rales, or rhonchi. GASTROINTESTINAL: Abdomen soft, non-tender, nondistended. No hepato-splenomegaly, or palpable masses. No guarding. EXTREMITIES: No clubbing, cyanosis, or edema. No joint tenderness, effusion, or edema noted. BACK: Nontender without deformity or crepitance. No flank tenderness. NEURO: AOx3. SKIN: No rash or erythema. Initial Vital Signs Initial Vital Signs: Vital Signs Pulse Rate 46 L 01/29/19 17:46 Respiratory Rate 22 01/29/19 17:46 Blood Pressure 140/79 01/29/19 17:46 Pulse Oximetry 96 01/29/19 17:46 Scores NIH Stroke Scale Level of Conciousness: Alert, keenly responsive Ask month/age: Answers both questions correctly. Open/close eyes, close hand: Performs both tasks correctly Best gaze horizontal: Normal Visual miller: No visual loss Facial palsy: Normal symetrical movement Left arm drift: No drift for full 10 sec Right arm drift: No drift for full 10 sec Left leg drift: No drift for full 10 sec Right leg drift: No drift for full 10 sec Limb ataxia: Absent Sensory on face/arms/legs: Mild to moderate sensory loss, can tell touch Best language: No aphasia, normal Dysarthria: Normal Extinction or inattention: No abnormality Total NIH Stroke scale score: 1 Course Orders Ordered: Discontinued Medications Ketorolac Tromethamine (Toradol) 15 mg IV NOW ONE Stop: 01/29/19 18:16 Last Admin: 01/29/19 18:28 Dose: 15 mg Methylprednisolone (Solu-Medrol 125 Mg Vial) 125 mg IV NOW ONE Stop: 01/29/19 18:16 Last Admin: 01/29/19 18:29 Dose: 125 mg Vital Signs - 8 hr 01/29/19 17:46 01/29/19 18:00 04/08/19 19:12 Pulse Rate 46 L 53 L 43 L Respiratory Rate 22 15 12 Blood Pressure [Right Arm] 140/79 132/87 136/85 Pulse Oximetry 96 99 96 MDM - Neuro Symptoms/Deficit Medical Records Attestation: I reviewed the patient's medical records. Lab Data Attestation: I reviewed the patient's lab results. Result diagrams: 01/29/19 17:58 01/29/19 17:58 Lab Results 01/29/19 01/29/19 01/29/19 Range/Units 17:58 17:58 17:58 WBC 7.5 (4.5-11.0) X10^3/uL RBC 4.64 (4.0-5.2) X10^6/uL Hgb 14.0 (12.0-16.0) g/dL Hct 42.3 (36-46) % MCV 91.2 (80-100) fL MCH 30.1 (26-34) PG MCHC 33.0 (30-36) % RDW 14.3 (11.6-14.8) % Plt Count 175 (150-400) X10^3/uL Neut % (Auto) 78.8 H (50-75) % Lymph % (Auto) 13.2 L (25-40) % [place] % (Auto) 7.6 (3-14) % Eos % (Auto) 0.1 L (2-4) % Baso % (Auto) 0.3 (0-2) % Neut # (Auto) 6000 (9637-0423) /uL Lymph # (Auto) 1000 L (0275-8778) /uL [place] # (Auto) 600 (0-900) /uL Eos # (Auto) 0 (0-450) /uL Baso # (Auto) 0 (0-100) /uL PT 12.3 (10.1-12.7) SECONDS INR 1.1 (0.9-1.3) APTT 30 D (26.4-36.2) SECONDS Sodium 137 (137-145) mmol/L Potassium 3.2 L (3.4-5.1) mmol/L Chloride 103 (98-107) mmol/L Carbon Dioxide 24 (22-32) mmol/L BUN 13 (7-17) mg/dL Creatinine 0.60 (0.52-1.04) mg/dL Estimated GFR > 60.0 (>60) mL/min BUN/Creatinine Ratio 21.7 (6-22) Glucose 91 (70-100) mg/dL Calcium 9.6 (8.4-10.2) mg/dL Serum , Qual (Negative) 01/29/19 Range/Units 17:58 WBC (4.5-11.0) X10^3/uL RBC (4.0-5.2) X10^6/uL Hgb (12.0-16.0) g/dL Hct (36-46) % MCV (80-100) fL MCH (26-34) PG MCHC (30-36) % RDW (11.6-14.8) % Plt Count (150-400) X10^3/uL Neut % (Auto) (50-75) % Lymph % (Auto) (25-40) % [place] % (Auto) (3-14) % Eos % (Auto) (2-4) % Baso % (Auto) (0-2) % Neut # (Auto) (8465-3085) /uL Lymph # (Auto) (2094-2844) /uL [place] # (Auto) (0-900) /uL Eos # (Auto) (0-450) /uL Baso # (Auto) (0-100) /uL PT (10.1-12.7) SECONDS INR (0.9-1.3) APTT (26.4-36.2) SECONDS Sodium (137-145) mmol/L Potassium (3.4-5.1) mmol/L Chloride (98-107) mmol/L Carbon Dioxide (22-32) mmol/L BUN (7-17) mg/dL Creatinine (0.52-1.04) mg/dL Estimated GFR (>60) mL/min BUN/Creatinine Ratio (6-22) Glucose (70-100) mg/dL Calcium (8.4-10.2) mg/dL Serum , Qual Negative (Negative) Imaging Data CT scan - head: Radiologist's impression: Chart Viewer Diagnostics DATE TYPE STATUS AUTHOR Hx 01/29/19 17:46 Jeffrey Saeed 01/29/19 17:46 Jeffrey Saeed 11/20/18 08:12 Anish,Eric 11/01/18 14:28 Suman Peters 11/01/18 12:25 08/30/18 00:00 Katja Saeede 08/30/18 00:00 Jeffrey Saeed 08/30/18 00:00 Jeffrey Saeed Karol L 33, F0 1985 DEP ER, ED.LOC - Main ED Neuro Symptoms/Deficit Search Chart THROAT SWELLING AGGITATION/RESTLESSNESS ONSET 06/10/11 01/14/14 01/14/14 01/15/15 01/15/15 03/01/16 03/24/16 01/29/19 19:12 Imani Bowen 33 F 1985 [place] [address] CT Scan Report Signed Patient: Imani Bowen LMR#: [id number] : 1985Acct:[id number] Age/Sex: 33 / FDate of Service: 01/29/19 Loc: ED Accession Number: [id number] Procedure: CT head/brain wo con Ordering Provider: Dorian Hurt D.O. PROCEDURE: CT HEAD/BRAIN WO CON INDICATIONS: Right-sided weakness TECHNIQUE: Noncontrast 4.5 mm thick angled axial sections acquired from the foramen magnum to the vertex, with coronal and sagittal reformats. For radiation dose reduction, the following was used: automated exposure control, adjustment of mA and/or kV according to patient size. COMPARISON: [facility], CR, XR CHEST 1V, 01/29/2019, 17:51. [facility], CT, HEAD WITHOUT CONTRAST, 09/12/2009, 7:01. [facility], MR, BRAIN (PITUITARY) W&WO CONTRAS, 01/16/2010, 6:50. [facility], MR, MR HEAD/BRAIN WO/W CON, 08/30/2018, 8:52. FINDINGS: Image quality: Excellent. CSF spaces: Basal cisterns are patent. No extra-axial fluid collections. Ventricles are normal in size and shape. Brain: No midline shift. No intracranial masses or hemorrhage. Hernandez-white matter interface is normal. Skull and face: Calvarium and visualized facial bones are intact, without suspicious lesions. Sinuses: Visualized sinuses and mastoids are clear. IMPRESSION: No acute intracranial hemorrhage. Note: Case discussed by telephone with Dr. Hurt at 1804 hrs. [place] time on January 29, 2019. Dictated by: Jeffrey Saeed M.D. on 01/29/2019 at 17:03 Approved by: Jeffrey Saeed M.D. on 01/29/2019 at 17:05 [facility] Narrative Medical decision making narrative: Multiple etiologies for patient's symptoms considered including: [Musculoskeletal pain, spasming verses stroke versus dissection] Patient's symptoms improved or duration of stay with above-stated therapies. Findings and discharge diagnosis discussed with patient/family followed by verbalization of understanding Return precautions discussed with patient/family whom verbalize understanding. Discharge Plan Departure Patient Disposition: Left Against Medical Advice Clinical Impression: Left against medical advice Discharge Date/Time: 01/29/19 20:30 Interventions: ED Discharge Assessment Last Done: 01/29/19 21:21 Prescriptions: No Action carisoprodol 350 MG tablet 350 mg PO BID PRN (Reason: spasm) Qty: 0 RF: 0 sertraline 100 mg tablet PO BEDTIME RF: 0 hydrocodone-acetaminophen 10-325 mg tablet 1 tab PO Q4H PRN (Reason: pain) RF: 0 alprazolam 0.5 mg tablet 0.25 mg PO BID PRN (Reason: Anxiety) RF: 0 eszopiclone 1 mg tablet 1 mg PO BEDTIME RF: 0 trazodone 100 MG tablet 300 mg PO BEDTIME RF: 0 propranolol 10 mg tablet 10 mg PO BID RF: 0 fluconazole 150 mg tablet 150 mg PO .ONCE PRN (Reason: unknown) RF: 0 promethazine 25 mg tablet 25 mg PO Q4-6H PRN (Reason: nausea and vomiting) Qty: 20 RF: 0 lorazepam [Ativan] 0.5 mg tablet 0.5 mg PO BID-TID PRN (Reason: anxiety) Qty: 7 RF: 0 clonidine HCl 0.1 mg tablet 0.1 mg PO DAILY RF: 0 rizatriptan 5 mg tablet RF: 0 lactulose [Constulose] 10 gram/15 mL solution RF: 0 Stand Alone Forms: Against Medical Advice
== END 2019-01-29 20:30 | disposition left against medical advice (07) ==
PROVIDERS: Emergency Medicine; Emergency Provider Emergency Medicine; PCP Ophthalmology
DX: R07.81 Pleurodynia (principal); R20.0 Anesthesia of skin
CPT/HCPCS: 36415; 36591; 70450; 71045; 80048; 84703; 85025; 85610; 85730; 93005; 93010; 96374; 96375; 99283; 99284; J1885; J2930

== ENCOUNTER → 2019-03-19 10:01 | Outpatient (CLI) | payer OTHER, MEDICAID, SELFPAY ==
[2019-03-19 10:23] LABS: Add Manual Diff / Slide Review NO; Basophils Absolute Auto 0 /uL (0-100); Basophils Percent Auto 0.2 % (0-2); Eosinophils Absolute Auto 100 /uL (0-450); Hemoglobin 15.1 g/dL (12.0-16.0); Lymphocytes Absolute Auto 600 /uL (1100-4500); Lymphocytes Percent Auto 7.8 % (25-40); Mean Corpuscular HGB Conc 33.5 % (30-36); Mean Corpuscular Hemoglobin 30.6 PG (26-34); Mean Corpuscular Volume 91.4 fL (80-100); Monocytes Absolute Auto 300 /uL (0-900); Monocytes Percent Auto 3.4 % (3-14); Neutrophils Absolute Auto 6600 /uL (1500-7000); Neutrophils Percent Auto 87.6 % (50-75); Platelet Count 181 X10^3/uL (150-400); Red Blood Cell Count 4.92 X10^6/uL (4.0-5.2); White Blood Cell Count 7.5 X10^3/uL (4.5-11.0)
[2019-03-19 10:57] LABS: Albumin 4.3 g/dL (3.5-5.0); Albumin Globulin Ratio 1.5 (1.0-2.8); Alkaline Phosphatase 58 U/L (38-126); Aspartate Aminotransferase 17 IU/L (14-36); BUN Creatinine Ratio 18.3 (6-22); Bilirubin Total 0.4 mg/dL (0.2-1.3); Blood Urea Nitrogen 11 mg/dL (7-17); Calcium 9.5 mg/dL (8.4-10.2); Carbon Dioxide 26 mmol/L (22-32); Chloride 104 mmol/L (98-107); Cholesterol 194 mg/dL (140-199); Estimated Glomerular Filt Rate > 60.0 mL/min (>60); Globulin 2.9 g/dL (1.7-4.1); Glucose 128 mg/dL (70-100); HDL Cholesterol 71 mg/dL (40-60); HEMOLYSIS < 15 (0-50); LDL Cholesterol Calculated 108 mg/dL (<100); Lipase 89 U/L (23-300); Potassium 4.7 mmol/L (3.4-5.1); Sodium 137 mmol/L (137-145); Total Protein 7.2 g/dL (6.3-8.2); Triglycerides 74 mg/dL (35-150)
[2019-03-19 11:03] LABS: Alanine Aminotransferase < 6 IU/L (9-52)
[2019-03-19 11:46] LABS: HEMOLYSIS < 15 (0-50); Iron 37 ug/dL (37-170)
[2019-03-19 11:57] LABS: Percent Iron Saturation 13 % (15-50); Total Iron Binding Capacity 293 ug/dL (265-497); Transferrin 238 mg/dL (206-381)
[2019-03-19 12:18] LABS: TSH w/ Reflex to FT4 0.92 uIU/mL (0.47-4.68)
== END ==
PROVIDERS: PCP Ophthalmology; Visit Provider Ophthalmology
DX: G43.A0 Cyclical vomiting, in migraine, not intractable (principal); Z13.220 Encounter for screening for lipoid disorders
CPT/HCPCS: 36415; 80053; 80061; 83540; 83550; 83690; 84443; 85025

== ENCOUNTER → 2019-04-16 12:02 | Outpatient (CLI) | payer OTHER, MEDICAID, SELFPAY ==
--- NOTE | 2019-04-16 | DI.MRI.S_ITS ---
PROCEDURE: MR HEAD/BRAIN WO/W CON INDICATIONS: Multiple sclerosis TECHNIQUE: Noncontrast sagittal and axial FLAIR, axial and coronal T2 fast spin echo, axial VIBE, axial gradient echo, axial diffusion and ADC through the brain. After the administration of contrast, axial and coronal VIBE with fat saturation through the brain. COMPARISON: [facility], MR, MR HEAD/BRAIN WO/W CON, 08/30/2018, 8:52. [facility], MR, BRAIN W&WO CONTRAST, 02/15/2013, 8:36. FINDINGS: Image quality: Excellent. CSF spaces: Ventricles are normal in size and shape. Basal cisterns are patent. No extra-axial fluid collections. Brain: No intracranial bleeds or mass effects. Hernandez-white matter interface appears intact. No suspicious white matter lesions. No abnormal intracranial enhancement. Diffusion weighted images show no acute ischemic insults. Brainstem appears normal. Normal intravascular flow voids are present. There are several scattered small foci of elevated flair signal as has been previously the case best seen in the centrum semiovale on the right. No new lesions have developed, no contrast enhancement is associated. Skull and face: Calvarial marrow signal is normal. Orbits appear normal. Sinuses: Sinuses and mastoids are clear. IMPRESSION: Stable several small foci of elevated flair signal consistent with underlying multiple sclerosis, slightly greater on the right than the left and without waistline joiner overlock time. Dictated by: Eric Oconnell M.D. on 04/16/2019 at 14:00 Approved by: Eric Oconnell M.D. on 04/16/2019 at 14:02
== END ==
PROVIDERS: PCP Ophthalmology; Visit Provider Psychiatry & Neurology Neurology
DX: G35 Multiple sclerosis (principal)
CPT/HCPCS: 70553; A9579

== ENCOUNTER → 2019-06-01 16:39 | Outpatient (CLI) | payer OTHER, MEDICAID, SELFPAY ==
--- NOTE | 2019-06-01 16:41 | DI.MRI.S_ITS ---
PROCEDURE: MR CERVICAL SPINE WO CON INDICATIONS: MULTIPLE SCLEROSIS. BILATERAL HAND WEAKNESS LEFT GREATER THAN RIGHT TECHNIQUE: Noncontrast sagittal T1 spin echo and T2 fast spin echo, sagittal STIR, sagittal proton density foraminal oblique sagittal T2 fast spin echo, and axial gradient echo or T2 fast spin echo through the cervical spine. COMPARISON: [facility], MR, C-SPINE WITH&WITHOUT CONTRAST, 01/24/2009, 16:28. [facility], MR, MR CERVICAL SPINE WO/W CON, 08/30/2018, 9:17. [facility], MR, C-SPINE WITHOUT CONTRAST, 02/15/2013, 8:10. FINDINGS: Image quality: Excellent. Alignment and Curvature: There is straightening of the normal cervical lordosis. Bone Marrow: Marrow demonstrates normal overall signal. Spinal Cord: Visualized spinal cord has normal size and signal. No cerebellar tonsillar herniation. Paraspinous Soft Tissues: No paravertebral masses. Prevertebral soft tissues are normal in thickness. C2-C3: Normal appearance. C3-C4: Normal appearance. C4-C5: Normal appearance. C5-C6: The disc height and disk signal are well-preserved. A mild degree of generalized disc osteophyte complex is seen. No significant neural foraminal or central canal narrowing can be seen. C6-C7: The disc height and disk signal are well-preserved. A mild degree of generalized disc osteophyte complex is seen. No significant neural foraminal or central canal narrowing can be seen. C7-T1: Normal appearance. IMPRESSION: No white matter lesions are seen. Mild degenerative changes are seen at C5-C6 and C6-C7. Dictated by: Jeffrey Saeed M.D. on 06/01/2019 at 17:14 Approved by: Jeffrey Saeed M.D. on 06/01/2019 at 17:17
== END ==
PROVIDERS: PCP Ophthalmology; Visit Provider Psychiatry & Neurology Neurology
DX: M47.812 Spondylosis without myelopathy or radiculopathy, cervical region (principal); G35 Multiple sclerosis; R53.1 Weakness
CPT/HCPCS: 72141

== ENCOUNTER 2019-07-24 08:15 | Outpatient (RCR) | payer MEDICARE, OTHER, MEDICAID, SELFPAY ==
--- NOTE | 2019-06-07 11:03 | PT.OIE ---
Current Diagnoses Multiple sclerosis (06/07/19) Past Medical History (Last Reviewed 01/30/19 @ 06:21 by Rakan Duenas DO) Anxiety (Acute) Celiac disease (Acute) Cyclic vomiting syndrome (Acute) Multiple sclerosis (Acute) Past Surgical History (Last Reviewed 01/30/19 @ 06:21 by Rakan Duenas DO) Status post tubal ligation Provider Visit Care Team Role Provider Type Baudilio Bejarano Primary Care Provider Non-Staff Specialty: Medical Address: [facility], [address], [address] Email: Priscilla Amaral MD Attending Provider Non-Staff Specialty: Neurology Address: [address] [place] [address], [id number] Email: Physical Therapy Initial Evaluation PT-OP-A Visit Information Start: 06/07/19 08:50 Freq: Status: Active Protocol: Document 06/07/19 08:10 (Rec: 06/07/19 09:00 [email or web address]) Out-Patient Physical Therapy Visit Information Visit Information Visit Type Initial Evaluation Visit Start Time 08:10 Visit Stop Time 08:50 Total Visit Minutes 40 Visit Number 1 Number of STUDENT SERVICES REP Visits 0 Evaluation Information Evaluation Date 06/07/19 Precautions Precautions Pt has MS PT-OP-B Current Condition Start: 06/07/19 08:50 Freq: Status: Active Protocol: Document 06/07/19 08:10 HH (Rec: 06/07/19 09:00 [email or web address]) Current Condition History of Current Condition Onset Date 18 years ago Current Complaints Multiple Sclerosis, generalized weakness, decreased balance, falls History of Current Condition Pt presents to clinic with dx of MS since 18 years ago. Pt c /o worsening weakness on her hands and legs for the past 2 years. She tends to drop things from her hands around 2 times /day and buckling episodes on her legs 2 times a week, along with thobbing pain in both hands and sharp pain on upper thighs. Pt reports there's no warning signs/ triggers for these symptoms. But these impairments limit her ability to work and cause safety issues. Pt used to fall very often due to her leg weakness during stairs so she has to avoid them if possible. Pt is currently unable to sit/ stand >10 mins and lift >10 lbs due to her ongoing pain and weakness. She explained heat pad/ hot tub tends to manage her thigh pain pretty well. Pt also had MRI recently which showed negative findings for spinal lesion. She also stated her activity level is not that high with just daily walking. Prior Treatments and Tests MRI on T/S and L/S negative for spnial lesion. Treatment Goals Patient/Caregiver Goals 1. Be able to sit/ stand 10 mins without discomfort 2. Able to lift >10 lbs objects 3. To strengthen her legs so she could negotiate stairs again. 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 PT-OP-C Subjective Start: 06/07/19 08:50 Freq: Status: Active Protocol: Document 06/07/19 08:10 HH (Rec: 06/07/19 11:02 [email or web address]) OP-PT Subjective Patient Comments Patient Comments I want to get stronger with proper guidelines OP-PT Pain Assessment Location B upper thigh Pain Location Details 9 Scale Used Numeric (1 - 10) Description Burning Sharp Frequency Occasional Other Pain Aggravating Factors unknown Pain Alleviating Factors Heat PT-OP-D Balance Start: 06/07/19 08:50 Freq: Status: Active Protocol: Document 06/07/19 08:10 HH (Rec: 06/07/19 11:02 [email or web address]) Balance Tests Single Limb Standing Single Limb- Right >30 s Single Limb- Left > 30s PT-OP-H Neuro Start: 06/07/19 08:50 Freq: Status: Active Protocol: Document 06/07/19 08:10 HH (Rec: 06/07/19 11:02 HH [email or web address]) Deep Tendon Reflex & Clonus Assessment Deep Tendon Reflex Bilateral Achilles Deep Tendon Reflex 2+ Normal Bilateral Patellar Deep Tendon Reflex 2+ Normal PT-OP-K Range of Motion Start: 06/07/19 08:50 Freq: Status: Active Protocol: Document 06/07/19 08:10 HH (Rec: 06/07/19 11:02 [email or web address]) Shoulder Goniometric Range of Motion Shoulder Right Active Shoulder ROM WFL Yes Left Active Shoulder ROM WFL Yes Hip Goniometric Range of Motion Hip Right Active Hip ROM WFL Yes Left Active Hip ROM WFL Yes Knee Goniometric Range of Motion Knee Right Knee ROM WFL Yes Left Knee ROM WFL Yes PT-OP-L Special Tests Start: 06/07/19 08:50 Freq: Status: Active Protocol: Document 06/07/19 08:10 HH (Rec: 06/07/19 11:03 [email or web address]) Special Tests Other Special Tests Special Tests single leg squat R = from 19 inches table; L = from 19 inches table PT-OP-M Strength Start: 06/07/19 08:50 Freq: Status: Active Protocol: Document 06/07/19 08:10 HH (Rec: 06/07/19 11:02 [email or web address]) Shoulder Strength Shoulder Manual Muscle Testing Left Flexion 5 Normal Extension 5 Normal Abduction (C5) 5 Normal Adduction 5 Normal Right Flexion 4- Good- Extension 4 Good Abduction (C5) 4- Good- Adduction 4 Good Hand Activities Leader/Pinch Strength Hand Dominance Hand Dominance Right Hand Strength Right Activities Leader (lbs) 30 Left Activities Leader (lbs) 60 Hip Strength Hip Manual Muscle Testing Right Flexion (L2) 4+ Good+ Extension (S1) 4+ Good+ Abduction 4 Good Adduction 4+ Good+ Left Flexion (L2) 5 Normal Extension (S1) 5 Normal Abduction 5 Normal Adduction 5 Normal Knee Strength Knee Manual Muscle Testing Left Flexion (S2) 5 Normal Extension (L3) 5 Normal Right Flexion (S2) 4 Good Extension (L3) 4 Good PT-OP-T Assessment and Plan Start: 06/07/19 08:50 Freq: Status: Active Protocol: Document 06/07/19 08:10 HH (Rec: 06/07/19 11:02 [email or web address]) Physical Therapy Assessment Rehab Potential Rehabilitation Potential Excellent Evaluation Complexity Number of Personal Factors/Comorbidities 3 or More Number of Body Systems Impaired 3 Clinical Presentation at Evaluation Stable Impairments Impairments Activity Tolerance Balance Functional Activities Functional Mobility Pain Posture ROM Sensation Soft Tissue Mobility Strength Transfers Goals HEP Impairment pt does not have an exercise routine Book Salesman Goal (LTG) Pt will actively comply to HEP 4x/week to improve overall her functional mobility and strength. LTG Duration 10 weeks stair climbing Impairment Pt is unable to climb stair due to weakness Book Salesman Goal (LTG) Pt will be able to climb stairs at her house in a daily basis to improve home mobility. 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 to hand picker 5 lbs of weight without discomfort on her back STG Duration 5 weeks Senior Care Goal (LTG) Pt will be improve her overall R shoulder and RLE strength by 1 MMT grade to be able to hand picker 5 lbs of weight without discomfort on her back LTG Duration 10 weeks activity tolerance Impairment pt is unable to stand/ sit >10 mins without discomfort Short Term Goal (STG) pt will be able to stand/ sit > 10 mins in one position without discomfort to improve quality of life STG Duration 5 weeks Senior Care Goal (LTG) pt will be able to stand/ sit > 20 mins in one position without discomfort to improve quality of life LTG Duration 10 weeks Assessment Summary Assessment Pt is a low complexity with dx of MS since 18 years ago. Upon assessment, pt does not present any mobility deficits for both UEs and LEs but there 's noticeable decreased strength on R side of the body . Her strength of R UE and R LE are generally 4-/5 (MMT) and her R investigator welfare strength (30 lbs) is almost half of her L ( 60lbs). Pt also demonstrates excessive lateral movements during single leg stance on either side which indicates her limited static and dynamic trunk stability. Due to her MS, pt will benefit from skilled therapy to maintainence program for strength and mobility, balance and trunk stability training for falls prevention, and overall endurance training program to improve her functional strength and quality of life. Physical Therapy Plan Frequency and Duration Frequency of Treatment 2x/Week Duration of Treatment 10 Plan of Care Start Date 06/07/19 Plan of Care End Date 08/22/19 Therapeutic Interventions Therapeutic Interventions Balance Training Coordination Training Gait Training Home Exercise Program Joint Mobilizations Manual Therapy Neuromuscular Re-education Patient/Caregiver Education Self-Care/Home Management Soft Tissue Mobilization Taping Therapeutic Activities Therapeutic Exercises Modalities Cold Pack/Ice Massage Electric Stimulation Hot Packs Infrared Therapy Traction- Mechanical Ultrasound Next Visit Focus/Plan Next Note Type Treatment Note Next Visit Plan Provide HEP with images start gentle strengthening for B UEs and LEs static and dynamic balance for trunk stability single leg stance heat pad for B upper thighs.
--- NOTE | 2019-06-07 11:03 | PT.OPPOC ---
Current Diagnoses Multiple sclerosis (06/07/19) Provider Visit Care Team Role Provider Type Baudilio Bejarano Primary Care Provider Non-Staff Specialty: Medical Address: [address], [place], [address] Email: Priscilla Amaral MD Attending Provider Non-Staff Specialty: Neurology Address: [address] [place] [address], [id number] Email: Plan Of Care PT-OP-T Assessment and Plan Start: 06/07/19 08:50 Freq: Status: Active Protocol: Document 06/07/19 08:10 (Rec: 06/07/19 11:02 [email or web address]) Physical Therapy Assessment Rehab Potential Rehabilitation Potential Excellent Evaluation Complexity Number of Personal Factors/Comorbidities 3 or More Number of Body Systems Impaired 3 Clinical Presentation at Evaluation Stable Impairments Impairments Activity Tolerance Balance Functional Activities Functional Mobility Pain Posture ROM Sensation Soft Tissue Mobility Strength Transfers Goals HEP Impairment pt does not have an exercise routine Care Home Goal (LTG) Pt will actively comply to HEP 4x/week to improve overall her functional mobility and strength. LTG Duration 10 weeks stair climbing Impairment Pt is unable to climb stair due to weakness Equipment Washer Goal (LTG) Pt will be able to climb stairs at her house in a daily basis to improve home mobility. 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 to hot die picker 5 lbs of weight without discomfort on her back STG Duration 5 weeks Equipment Washer Goal (LTG) Pt will be improve her overall R shoulder and RLE strength by 1 MMT grade to be able to hot die picker 5 lbs of weight without discomfort on her back LTG Duration 10 weeks activity tolerance Impairment pt is unable to stand/ sit >10 mins without discomfort Short Term Goal (STG) pt will be able to stand/ sit > 10 mins in one position without discomfort to improve quality of life STG Duration 5 weeks Care Home Goal (LTG) pt will be able to stand/ sit > 20 mins in one position without discomfort to improve quality of life LTG Duration 10 weeks Assessment Summary Assessment Pt is a low complexity with dx of MS since 18 years ago. Upon assessment, pt does not present any mobility deficits for both UEs and LEs but there 's noticeable decreased strength on R side of the body . Her strength of R UE and R LE are generally 4-/5 (MMT) and her R manager part strength (30 lbs) is almost half of her L ( 60lbs). Pt also demonstrates excessive lateral movements during single leg stance on either side which indicates her limited static and dynamic trunk stability. Due to her MS, pt will benefit from skilled therapy to maintainence program for strength and mobility, balance and trunk stability training for falls prevention, and overall endurance training program to improve her functional strength and quality of life. Physical Therapy Plan Frequency and Duration Frequency of Treatment 2x/Week Duration of Treatment 10 Plan of Care Start Date 06/07/19 Plan of Care End Date 08/22/19 Therapeutic Interventions Therapeutic Interventions Balance Training Coordination Training Gait Training Home Exercise Program Joint Mobilizations Manual Therapy Neuromuscular Re-education Patient/Caregiver Education Self-Care/Home Management Soft Tissue Mobilization Taping Therapeutic Activities Therapeutic Exercises Modalities Cold Pack/Ice Massage Electric Stimulation Hot Packs Infrared Therapy Traction- Mechanical Ultrasound Next Visit Focus/Plan Next Note Type Treatment Note Next Visit Plan Provide HEP with images start gentle strengthening for B UEs and LEs static and dynamic balance for trunk stability single leg stance heat pad for B upper thighs. Plan of Care Dates Plan of Care Start Date 06/07/19 Plan of Care End Date 08/22/19 Please Sign and Return: I have reviewed this Plan of Care and certify that the skilled therapy services above are required to meet the patient?s needs. Physician Signature Date Printed Name and Credentials Clinical Instructor Signature Printed Name and Credentials
--- NOTE | 2019-06-13 17:43 | PT.OTN ---
Current Diagnoses Multiple sclerosis (06/13/19) Physical Therapy Treatment Note PT-OP-A Visit Information Start: 06/07/19 08:50 Freq: Status: Active Protocol: Document 06/13/19 13:00 HH (Rec: 06/13/19 17:43 HH [email or web address]) Out-Patient Physical Therapy Visit Information Visit Information Visit Type Treatment Note Visit Start Time 13:00 Visit Stop Time 13:45 Total Visit Minutes 45 Visit Number 1 Number of BICYCLE DESIGNER Visits 0 PT-OP-B Current Condition Start: 06/07/19 08:50 Freq: Status: Active Protocol: Document 06/07/19 08:10 HH (Rec: 06/07/19 09:00 HH [email or web address]) Current Condition History of Current Condition Onset Date 18 years ago Current Complaints Multiple Sclerosis, generalized weakness, decreased balance, falls History of Current Condition Pt presents to clinic with dx of MS since 18 years ago. Pt c /o worsening weakness on her hands and legs for the past 2 years. She tends to drop things from her hands around 2 times /day and buckling episodes on her legs 2 times a week, along with thobbing pain in both hands and sharp pain on upper thighs. Pt reports there's no warning signs/ triggers for these symptoms. But these impairments limit her ability to work and cause safety issues. Pt used to fall very often due to her leg weakness during stairs so she has to avoid them if possible. Pt is currently unable to sit/ stand >10 mins and lift >10 lbs due to her ongoing pain and weakness. She explained heat pad/ hot tub tends to manage her thigh pain pretty well. Pt also had MRI recently which showed negative findings for spinal lesion. She also stated her activity level is not that high with just daily walking. Prior Treatments and Tests MRI on T/S and L/S negative for spnial lesion. Treatment Goals Patient/Caregiver Goals 1. Be able to sit/ stand 10 mins without discomfort 2. Able to lift >10 lbs objects 3. To strengthen her legs so she could negotiate stairs again. 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 Im quite tired and has poor balance that i almost fell at home. PT-OP-D Balance Start: 06/07/19 08:50 Freq: Status: Active Protocol: Document 06/07/19 08:10 HH (Rec: 06/07/19 11:02 HH [email or web address]) Balance Tests Single Limb Standing Single Limb- Right >30 s Single Limb- Left > 30s PT-OP-H Neuro Start: 06/07/19 08:50 Freq: Status: Active Protocol: Document 06/07/19 08:10 HH (Rec: 06/07/19 11:02 HH [email or web address]) Deep Tendon Reflex & Clonus Assessment Deep Tendon Reflex Bilateral Achilles Deep Tendon Reflex 2+ Normal Bilateral Patellar Deep Tendon Reflex 2+ Normal PT-OP-K Range of Motion Start: 06/07/19 08:50 Freq: Status: Active Protocol: Document 06/07/19 08:10 HH (Rec: 06/07/19 11:02 HH [email or web address]) Shoulder Goniometric Range of Motion Shoulder Right Active Shoulder ROM WFL Yes Left Active Shoulder ROM WFL Yes Hip Goniometric Range of Motion Hip Right Active Hip ROM WFL Yes Left Active Hip ROM WFL Yes Knee Goniometric Range of Motion Knee Right Knee ROM WFL Yes Left Knee ROM WFL Yes PT-OP-L Special Tests Start: 06/07/19 08:50 Freq: Status: Active Protocol: Document 06/07/19 08:10 HH (Rec: 06/07/19 11:03 HH [email or web address]) Special Tests Other Special Tests Special Tests single leg squat R = from 19 inches table; L = from 19 inches table PT-OP-M Strength Start: 06/07/19 08:50 Freq: Status: Active Protocol: Document 06/07/19 08:10 HH (Rec: 06/07/19 11:02 HH [email or web address]) Shoulder Strength Shoulder Manual Muscle Testing Left Flexion 5 Normal Extension 5 Normal Abduction (C5) 5 Normal Adduction 5 Normal Right Flexion 4- Good- Extension 4 Good Abduction (C5) 4- Good- Adduction 4 Good Hand Programming Equipment Operator/Pinch Strength Hand Dominance Hand Dominance Right Hand Strength Right Programming Equipment Operator (lbs) 30 Left Programming Equipment Operator (lbs) 60 Hip Strength Hip Manual Muscle Testing Right Flexion (L2) 4+ Good+ Extension (S1) 4+ Good+ Abduction 4 Good Adduction 4+ Good+ Left Flexion (L2) 5 Normal Extension (S1) 5 Normal Abduction 5 Normal Adduction 5 Normal Knee Strength Knee Manual Muscle Testing Left Flexion (S2) 5 Normal Extension (L3) 5 Normal Right Flexion (S2) 4 Good Extension (L3) 4 Good PT-OP-Q Treatments Start: 06/07/19 08:50 Freq: Status: Active Protocol: Document 06/13/19 13:00 (Rec: 06/13/19 17:43 [email or web address]) Cardio Equipment Upper Body Ergometer (UBE) Duration (Minutes) 5 Seat Position 5 Other 30 secs forward and backward Bicycle (Upright) Duration (Minutes) 5 Resistance 2 Seat Position 5 Gym Equipment Shuttle Recovery squat Details bilateral squat Resistance 50# Shuttle Recovery Platform Stable unilateral squat Details cues on eccentric control Resistance 25# Shuttle Recovery Platform Stable Therapeutic Exercises Standing Exercises squat Side bilateral Equipment Used with 4 inch box underneath L foot Reps/Minutes 8 x3 Comments cues on WB through R LE Neuro Re-Education Treatment Balance Activities ball catch and throw Details with 1 lateral step alternatively Reps/Duration 11 mins single leg stance Details with ball catch and throw Surface GL Reps/Duration 10 mins Comments ground level > green foam > blue foam PT-OP-T Assessment and Plan Start: 06/07/19 08:50 Freq: Status: Active Protocol: Document 06/13/19 13:00 (Rec: 06/13/19 17:43 [email or web address]) Physical Therapy Assessment Goals HEP Impairment pt does not have an exercise routine Marketer Goal (LTG) Pt will actively comply to HEP 4x/week to improve overall her functional mobility and strength. LTG Duration 10 weeks stair climbing Impairment Pt is unable to climb stair due to weakness Marketer Goal (LTG) Pt will be able to climb stairs at her house in a daily basis to improve home mobility. 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 to pickler helper 5 lbs of weight without discomfort on her back STG Duration 5 weeks Intermediate Goal (LTG) Pt will be improve her overall R shoulder and RLE strength by 1 MMT grade to be able to pickler helper 5 lbs of weight without discomfort on her back LTG Duration 10 weeks activity tolerance Impairment pt is unable to stand/ sit >10 mins without discomfort Short Term Goal (STG) pt will be able to stand/ sit > 10 mins in one position without discomfort to improve quality of life STG Duration 5 weeks Intermediate Goal (LTG) pt will be able to stand/ sit > 20 mins in one position without discomfort to improve quality of life LTG Duration 10 weeks Assessment Summary Assessment First tx session for PT. Focused on finding her baseline for activity tolerance. Noticeable decreased single leg dynamic balance on R and decreased fine motor control for ball catching. Pt did get slight fatigue after leg press and sit to stand. Denies discomfort. Physical Therapy Plan Next Visit Focus/Plan Next Note Type Treatment Note Next Visit Plan assess pt's tolerance after last visit. cont ROM as supa static and dynamic balance with single leg leg press single leg/ double leg strengthening
--- NOTE | 2019-06-28 09:03 | PT.OTN ---
Current Diagnoses Multiple sclerosis (06/28/19) Physical Therapy Treatment Note PT-OP-A Visit Information Start: 06/07/19 08:50 Freq: Status: Active Protocol: Document 06/28/19 08:18 HH (Rec: 06/28/19 09:03 HH [email or web address]) Out-Patient Physical Therapy Visit Information Visit Information Visit Type Treatment Note Visit Start Time 08:18 Visit Stop Time 09:00 Total Visit Minutes 42 Visit Number 2 Number of MANAGEMENT AIDE Visits 0 PT-OP-B Current Condition Start: 06/07/19 08:50 Freq: Status: Active Protocol: Document 06/07/19 08:10 HH (Rec: 06/07/19 09:00 HH [email or web address]) Current Condition History of Current Condition Onset Date 18 years ago Current Complaints Multiple Sclerosis, generalized weakness, decreased balance, falls History of Current Condition Pt presents to clinic with dx of MS since 18 years ago. Pt c /o worsening weakness on her hands and legs for the past 2 years. She tends to drop things from her hands around 2 times /day and buckling episodes on her legs 2 times a week, along with thobbing pain in both hands and sharp pain on upper thighs. Pt reports there's no warning signs/ triggers for these symptoms. But these impairments limit her ability to work and cause safety issues. Pt used to fall very often due to her leg weakness during stairs so she has to avoid them if possible. Pt is currently unable to sit/ stand >10 mins and lift >10 lbs due to her ongoing pain and weakness. She explained heat pad/ hot tub tends to manage her thigh pain pretty well. Pt also had MRI recently which showed negative findings for spinal lesion. She also stated her activity level is not that high with just daily walking. Prior Treatments and Tests MRI on T/S and L/S negative for spnial lesion. Treatment Goals Patient/Caregiver Goals 1. Be able to sit/ stand 10 mins without discomfort 2. Able to lift >10 lbs objects 3. To strengthen her legs so she could negotiate stairs again. 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 It was very hot out there and my legs were very painful and i was not able to walk. But i am recovered now. PT-OP-D Balance Start: 06/07/19 08:50 Freq: Status: Active Protocol: Document 06/07/19 08:10 HH (Rec: 06/07/19 11:02 [email or web address]) Balance Tests Single Limb Standing Single Limb- Right >30 s Single Limb- Left > 30s PT-OP-H Neuro Start: 06/07/19 08:50 Freq: Status: Active Protocol: Document 06/07/19 08:10 HH (Rec: 06/07/19 11:02 [email or web address]) Deep Tendon Reflex & Clonus Assessment Deep Tendon Reflex Bilateral Achilles Deep Tendon Reflex 2+ Normal Bilateral Patellar Deep Tendon Reflex 2+ Normal PT-OP-K Range of Motion Start: 06/07/19 08:50 Freq: Status: Active Protocol: Document 06/07/19 08:10 HH (Rec: 06/07/19 11:02 [email or web address]) Shoulder Goniometric Range of Motion Shoulder Right Active Shoulder ROM WFL Yes Left Active Shoulder ROM WFL Yes Hip Goniometric Range of Motion Hip Right Active Hip ROM WFL Yes Left Active Hip ROM WFL Yes Knee Goniometric Range of Motion Knee Right Knee ROM WFL Yes Left Knee ROM WFL Yes PT-OP-L Special Tests Start: 06/07/19 08:50 Freq: Status: Active Protocol: Document 06/07/19 08:10 HH (Rec: 06/07/19 11:03 [email or web address]) Special Tests Other Special Tests Special Tests single leg squat R = from 19 inches table; L = from 19 inches table PT-OP-M Strength Start: 06/07/19 08:50 Freq: Status: Active Protocol: Document 06/07/19 08:10 HH (Rec: 06/07/19 11:02 [email or web address]) Shoulder Strength Shoulder Manual Muscle Testing Left Flexion 5 Normal Extension 5 Normal Abduction (C5) 5 Normal Adduction 5 Normal Right Flexion 4- Good- Extension 4 Good Abduction (C5) 4- Good- Adduction 4 Good Hand Maintenance Mechanic Supervisor/Pinch Strength Hand Dominance Hand Dominance Right Hand Strength Right Maintenance Mechanic Supervisor (lbs) 30 Left Maintenance Mechanic Supervisor (lbs) 60 Hip Strength Hip Manual Muscle Testing Right Flexion (L2) 4+ Good+ Extension (S1) 4+ Good+ Abduction 4 Good Adduction 4+ Good+ Left Flexion (L2) 5 Normal Extension (S1) 5 Normal Abduction 5 Normal Adduction 5 Normal Knee Strength Knee Manual Muscle Testing Left Flexion (S2) 5 Normal Extension (L3) 5 Normal Right Flexion (S2) 4 Good Extension (L3) 4 Good PT-OP-Q Treatments Start: 06/07/19 08:50 Freq: Status: Active Protocol: Document 06/28/19 08:18 (Rec: 06/28/19 09:03 [email or web address]) Cardio Equipment Upper Body Ergometer (UBE) Duration (Minutes) 5 Seat Position 5 Other 30 secs forward and backward Bicycle (Upright) Duration (Minutes) 5 Resistance 2 Seat Position 5 Gym Equipment Shuttle Recovery squat Details bilateral squat Resistance #75 Shuttle Recovery Platform Stable Reps/Time 8 x2 unilateral squat Details cues on eccentric control Resistance # 50 Shuttle Recovery Platform Stable Reps/Time 8 x2 Shuttle Balance red Details WBOS and stagger stance Reps/Duration 8 mins Therapeutic Exercises Standing Exercises squat Standing Exercise Name stagger stance Side bilateral Reps/Minutes 8 x3 Comments cues on WB through R LE Neuro Re-Education Treatment Balance Activities stagger stance Details with ball catch and throw Reps/Duration 4 mins ball catch and throw Details with 1 lateral step alternatively Reps/Duration 4 mins single leg stance Details with ball catch and throw Surface GL Reps/Duration 6 mins Comments ground level > green foam > blue foam PT-OP-T Assessment and Plan Start: 06/07/19 08:50 Freq: Status: Active Protocol: Document 06/28/19 08:18 (Rec: 06/28/19 09:03 [email or web address]) Physical Therapy Assessment Goals HEP Impairment pt does not have an exercise routine Flowers Salesperson Goal (LTG) Pt will actively comply to HEP 4x/week to improve overall her functional mobility and strength. LTG Duration 10 weeks stair climbing Impairment Pt is unable to climb stair due to weakness Fpc Goal (LTG) Pt will be able to climb stairs at her house in a daily basis to improve home mobility. 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 to cotton picker 5 lbs of weight without discomfort on her back STG Duration 5 weeks Flowers Salesperson Goal (LTG) Pt will be improve her overall R shoulder and RLE strength by 1 MMT grade to be able to cotton picker 5 lbs of weight without discomfort on her back LTG Duration 10 weeks activity tolerance Impairment pt is unable to stand/ sit >10 mins without discomfort Short Term Goal (STG) pt will be able to stand/ sit > 10 mins in one position without discomfort to improve quality of life STG Duration 5 weeks Flowers Salesperson Goal (LTG) pt will be able to stand/ sit > 20 mins in one position without discomfort to improve quality of life LTG Duration 10 weeks Assessment Summary Assessment Focused on general LE strengthening and balance training. Pt has difficulty balancing in stagger stance position. Educated her to do stagger stance squat at home 50x a day. Physical Therapy Plan Next Visit Focus/Plan Next Note Type Treatment Note Next Visit Plan assess pt's tolerance after last visit. cont ROM as supa static and dynamic balance with single leg leg press single leg/ double leg strengthening
--- NOTE | 2019-07-03 09:08 | PT.OTN ---
Current Diagnoses Multiple sclerosis (07/03/19) Physical Therapy Treatment Note PT-OP-A Visit Information Start: 06/07/19 08:50 Freq: Status: Active Protocol: Document 07/03/19 08:17 HH (Rec: 07/03/19 09:08 HH [email or web address]) Out-Patient Physical Therapy Visit Information Visit Information Visit Type Treatment Note Visit Start Time 08:17 Visit Stop Time 09:00 Total Visit Minutes 43 Visit Number 01/07 Number of DINING ROOM BUSSER Visits 0 PT-OP-B Current Condition Start: 06/07/19 08:50 Freq: Status: Active Protocol: Document 06/07/19 08:10 HH (Rec: 06/07/19 09:00 HH [email or web address]) Current Condition History of Current Condition Onset Date 18 years ago Current Complaints Multiple Sclerosis, generalized weakness, decreased balance, falls History of Current Condition Pt presents to clinic with dx of MS since 18 years ago. Pt c /o worsening weakness on her hands and legs for the past 2 years. She tends to drop things from her hands around 2 times /day and buckling episodes on her legs 2 times a week, along with thobbing pain in both hands and sharp pain on upper thighs. Pt reports there's no warning signs/ triggers for these symptoms. But these impairments limit her ability to work and cause safety issues. Pt used to fall very often due to her leg weakness during stairs so she has to avoid them if possible. Pt is currently unable to sit/ stand >10 mins and lift >10 lbs due to her ongoing pain and weakness. She explained heat pad/ hot tub tends to manage her thigh pain pretty well. Pt also had MRI recently which showed negative findings for spinal lesion. She also stated her activity level is not that high with just daily walking. Prior Treatments and Tests MRI on T/S and L/S negative for spnial lesion. Treatment Goals Patient/Caregiver Goals 1. Be able to sit/ stand 10 mins without discomfort 2. Able to lift >10 lbs objects 3. To strengthen her legs so she could negotiate stairs again. 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 Char been doing my squats and single leg stance. PT-OP-D Balance Start: 06/07/19 08:50 Freq: Status: Active Protocol: Document 06/07/19 08:10 HH (Rec: 06/07/19 11:02 [email or web address]) Balance Tests Single Limb Standing Single Limb- Right >30 s Single Limb- Left > 30s PT-OP-H Neuro Start: 06/07/19 08:50 Freq: Status: Active Protocol: Document 06/07/19 08:10 HH (Rec: 06/07/19 11:02 [email or web address]) Deep Tendon Reflex & Clonus Assessment Deep Tendon Reflex Bilateral Achilles Deep Tendon Reflex 2+ Normal Bilateral Patellar Deep Tendon Reflex 2+ Normal PT-OP-K Range of Motion Start: 06/07/19 08:50 Freq: Status: Active Protocol: Document 06/07/19 08:10 HH (Rec: 06/07/19 11:02 [email or web address]) Shoulder Goniometric Range of Motion Shoulder Right Active Shoulder ROM WFL Yes Left Active Shoulder ROM WFL Yes Hip Goniometric Range of Motion Hip Right Active Hip ROM WFL Yes Left Active Hip ROM WFL Yes Knee Goniometric Range of Motion Knee Right Knee ROM WFL Yes Left Knee ROM WFL Yes PT-OP-L Special Tests Start: 06/07/19 08:50 Freq: Status: Active Protocol: Document 06/07/19 08:10 HH (Rec: 06/07/19 11:03 HH [email or web address]) Special Tests Other Special Tests Special Tests single leg squat R = from 19 inches table; L = from 19 inches table PT-OP-M Strength Start: 06/07/19 08:50 Freq: Status: Active Protocol: Document 06/07/19 08:10 HH (Rec: 06/07/19 11:02 HH [email or web address]) Shoulder Strength Shoulder Manual Muscle Testing Left Flexion 5 Normal Extension 5 Normal Abduction (C5) 5 Normal Adduction 5 Normal Right Flexion 4- Good- Extension 4 Good Abduction (C5) 4- Good- Adduction 4 Good Hand Cash Application Representative/Pinch Strength Hand Dominance Hand Dominance Right Hand Strength Right Cash Application Representative (lbs) 30 Left Cash Application Representative (lbs) 60 Hip Strength Hip Manual Muscle Testing Right Flexion (L2) 4+ Good+ Extension (S1) 4+ Good+ Abduction 4 Good Adduction 4+ Good+ Left Flexion (L2) 5 Normal Extension (S1) 5 Normal Abduction 5 Normal Adduction 5 Normal Knee Strength Knee Manual Muscle Testing Left Flexion (S2) 5 Normal Extension (L3) 5 Normal Right Flexion (S2) 4 Good Extension (L3) 4 Good PT-OP-Q Treatments Start: 06/07/19 08:50 Freq: Status: Active Protocol: Document 07/03/19 08:17 (Rec: 07/03/19 09:08 [email or web address]) Cardio Equipment Upper Body Ergometer (UBE) Duration (Minutes) 5 Seat Position 5 Other 30 secs forward and backward Recumbent Stepper (Sci-Fit) Duration (Minutes) 5 Resistance 1 Gym Equipment Shuttle Recovery squat Details bilateral squat Resistance #75 Shuttle Recovery Platform Stable Reps/Time 12 x2 unilateral squat Details cues on eccentric control Resistance # 50 Shuttle Recovery Platform Stable Reps/Time #50 on L, #75 on R, 8-12 reps Therapeutic Exercises Standing Exercises side walk Side bilateral Reps/Minutes =4 lbs weight Comments 4 rounds within bars crab walk Side bilateral Equipment Used yellow band Reps/Minutes 4 rounds within bars high knee walk Side bilateral Equipment Used =4 lbs weight Reps/Minutes 5 rounds within bars Neuro Re-Education Treatment Balance Activities star excursion Equipment cones, 4lbs ankle weight Reps/Duration 5 mins stagger stance Details with ball catch and throw Reps/Duration 4 mins single leg stance Details with ball catch and throw Surface GL Reps/Duration 6 mins Comments with 4 lbs weight PT-OP-T Assessment and Plan Start: 06/07/19 08:50 Freq: Status: Active Protocol: Document 07/03/19 08:17 (Rec: 07/03/19 09:08 [email or web address]) Physical Therapy Assessment Goals HEP Impairment pt does not have an exercise routine Manager Front Office Goal (LTG) Pt will actively comply to HEP 4x/week to improve overall her functional mobility and strength. LTG Duration 10 weeks stair climbing Impairment Pt is unable to climb stair due to weakness Manager Front Office Goal (LTG) Pt will be able to climb stairs at her house in a daily basis to improve home mobility. 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 to pickle pumper 5 lbs of weight without discomfort on her back STG Duration 5 weeks Snf Goal (LTG) Pt will be improve her overall R shoulder and RLE strength by 1 MMT grade to be able to pickle pumper 5 lbs of weight without discomfort on her back LTG Duration 10 weeks activity tolerance Impairment pt is unable to stand/ sit >10 mins without discomfort Short Term Goal (STG) pt will be able to stand/ sit > 10 mins in one position without discomfort to improve quality of life STG Duration 5 weeks Manager Front Office Goal (LTG) pt will be able to stand/ sit > 20 mins in one position without discomfort to improve quality of life LTG Duration 10 weeks Assessment Summary Assessment Pt supa tx well. Cont to feel fatigue easily on RLE during leg press. Focused on single leg balance with ankle weight today. Pt reports she feels pretty good for the workout Physical Therapy Plan Next Visit Focus/Plan Next Note Type Treatment Note Next Visit Plan assess pt's tolerance after last visit. cont ROM as supa static and dynamic balance with single leg leg press single leg/ double leg strengthening with ankle weight, trunk stability.
--- NOTE | 2019-07-05 12:07 | PT.OTN ---
Current Diagnoses Multiple sclerosis (07/05/19) Physical Therapy Treatment Note PT-OP-A Visit Information Start: 06/07/19 08:50 Freq: Status: Active Protocol: Document 07/05/19 08:18 HH (Rec: 07/05/19 12:07 HH [email or web address]) Out-Patient Physical Therapy Visit Information Visit Information Visit Type Treatment Note Visit Start Time 08:18 Visit Stop Time 09:00 Total Visit Minutes 42 Visit Number 03/09 Number of INSURANCE ACCOUNT ASSISTANT Visits 0 PT-OP-B Current Condition Start: 06/07/19 08:50 Freq: Status: Active Protocol: Document 06/07/19 08:10 HH (Rec: 06/07/19 09:00 HH [email or web address]) Current Condition History of Current Condition Onset Date 18 years ago Current Complaints Multiple Sclerosis, generalized weakness, decreased balance, falls History of Current Condition Pt presents to clinic with dx of MS since 18 years ago. Pt c /o worsening weakness on her hands and legs for the past 2 years. She tends to drop things from her hands around 2 times /day and buckling episodes on her legs 2 times a week, along with thobbing pain in both hands and sharp pain on upper thighs. Pt reports there's no warning signs/ triggers for these symptoms. But these impairments limit her ability to work and cause safety issues. Pt used to fall very often due to her leg weakness during stairs so she has to avoid them if possible. Pt is currently unable to sit/ stand >10 mins and lift >10 lbs due to her ongoing pain and weakness. She explained heat pad/ hot tub tends to manage her thigh pain pretty well. Pt also had MRI recently which showed negative findings for spinal lesion. She also stated her activity level is not that high with just daily walking. Prior Treatments and Tests MRI on T/S and L/S negative for spnial lesion. Treatment Goals Patient/Caregiver Goals 1. Be able to sit/ stand 10 mins without discomfort 2. Able to lift >10 lbs objects 3. To strengthen her legs so she could negotiate stairs again. 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 Patient Reported Progress Improving PT-OP-D Balance Start: 06/07/19 08:50 Freq: Status: Active Protocol: Document 06/07/19 08:10 HH (Rec: 06/07/19 11:02 HH [email or web address]) Balance Tests Single Limb Standing Single Limb- Right >30 s Single Limb- Left > 30s PT-OP-H Neuro Start: 06/07/19 08:50 Freq: Status: Active Protocol: Document 06/07/19 08:10 HH (Rec: 06/07/19 11:02 HH [email or web address]) Deep Tendon Reflex & Clonus Assessment Deep Tendon Reflex Bilateral Achilles Deep Tendon Reflex 2+ Normal Bilateral Patellar Deep Tendon Reflex 2+ Normal PT-OP-K Range of Motion Start: 06/07/19 08:50 Freq: Status: Active Protocol: Document 06/07/19 08:10 HH (Rec: 06/07/19 11:02 HH [email or web address]) Shoulder Goniometric Range of Motion Shoulder Right Active Shoulder ROM WFL Yes Left Active Shoulder ROM WFL Yes Hip Goniometric Range of Motion Hip Right Active Hip ROM WFL Yes Left Active Hip ROM WFL Yes Knee Goniometric Range of Motion Knee Right Knee ROM WFL Yes Left Knee ROM WFL Yes PT-OP-L Special Tests Start: 06/07/19 08:50 Freq: Status: Active Protocol: Document 06/07/19 08:10 HH (Rec: 06/07/19 11:03 HH [email or web address]) Special Tests Other Special Tests Special Tests single leg squat R = from 19 inches table; L = from 19 inches table PT-OP-M Strength Start: 06/07/19 08:50 Freq: Status: Active Protocol: Document 06/07/19 08:10 HH (Rec: 06/07/19 11:02 HH [email or web address]) Shoulder Strength Shoulder Manual Muscle Testing Left Flexion 5 Normal Extension 5 Normal Abduction (C5) 5 Normal Adduction 5 Normal Right Flexion 4- Good- Extension 4 Good Abduction (C5) 4- Good- Adduction 4 Good Hand Make Up Man/Pinch Strength Hand Dominance Hand Dominance Right Hand Strength Right Make Up Man (lbs) 30 Left Make Up Man (lbs) 60 Hip Strength Hip Manual Muscle Testing Right Flexion (L2) 4+ Good+ Extension (S1) 4+ Good+ Abduction 4 Good Adduction 4+ Good+ Left Flexion (L2) 5 Normal Extension (S1) 5 Normal Abduction 5 Normal Adduction 5 Normal Knee Strength Knee Manual Muscle Testing Left Flexion (S2) 5 Normal Extension (L3) 5 Normal Right Flexion (S2) 4 Good Extension (L3) 4 Good PT-OP-Q Treatments Start: 06/07/19 08:50 Freq: Status: Active Protocol: Document 07/05/19 08:18 HH (Rec: 07/05/19 12:07 [email or web address]) Cardio Equipment Upper Body Ergometer (UBE) Duration (Minutes) 5 Seat Position 5 Other 30 secs forward and backward Elliptical Duration (Minutes) 5 Resistance 2 Gym Equipment Shuttle Recovery squat Details bilateral squat Resistance 87# Shuttle Recovery Platform Stable Reps/Time 12 x2 unilateral squat Details cues on eccentric control Resistance # 50 Shuttle Recovery Platform Stable Reps/Time #62 on L, #75 on R, 8-12 reps Therapeutic Exercises Supine Exercises bridge with theraball Side bilateral Equipment Used red therapy ball Reps/Minutes 10 x3 Comments cues on hip hinge Prone Exercises prone ext with alt arm lift Side bilateral Equipment Used red therapy ball Reps/Minutes 8 x2 Comments cues on neutral spine Standing Exercises weighted ball catch Side bilateral Equipment Used 1 lb ball Reps/Minutes 10 x 4 Comments self catch to focus on gripping strength side walk Side bilateral Equipment Used yellow band at knees Comments 4 rounds within bars Neuro Re-Education Treatment Balance Activities RDL Details cone touch with hands Surface ground level Equipment cones Reps/Duration 5 mins Comments cues on back leg extension single leg stance Details with ball catch and throw Surface GL Reps/Duration 6 mins PT-OP-T Assessment and Plan Start: 06/07/19 08:50 Freq: Status: Active Protocol: Document 07/05/19 08:18 HH (Rec: 07/05/19 12:07 [email or web address]) Physical Therapy Assessment Goals HEP Impairment pt does not have an exercise routine Detention Goal (LTG) Pt will actively comply to HEP 4x/week to improve overall her functional mobility and strength. LTG Duration 10 weeks stair climbing Impairment Pt is unable to climb stair due to weakness Detention Goal (LTG) Pt will be able to climb stairs at her house in a daily basis to improve home mobility. 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 to bead picker 5 lbs of weight without discomfort on her back STG Duration 5 weeks Weblogic Administrator Goal (LTG) Pt will be improve her overall R shoulder and RLE strength by 1 MMT grade to be able to bead picker 5 lbs of weight without discomfort on her back LTG Duration 10 weeks activity tolerance Impairment pt is unable to stand/ sit >10 mins without discomfort Short Term Goal (STG) pt will be able to stand/ sit > 10 mins in one position without discomfort to improve quality of life STG Duration 5 weeks Detention Goal (LTG) pt will be able to stand/ sit > 20 mins in one position without discomfort to improve quality of life LTG Duration 10 weeks Assessment Summary Assessment pt cont to improve activity tolerance, single leg balance and leg strength. she noticed that her R arm and R leg tend to fatigue faster in general. Physical Therapy Plan Next Visit Focus/Plan Next Note Type Treatment Note Next Visit Plan assess pt's tolerance after last visit. static and dynamic balance with single leg leg press single leg/ double leg strengthening with ankle weight, trunk stability. gripping strength ex
--- NOTE | 2019-07-10 12:10 | PT.OTN ---
Current Diagnoses Multiple sclerosis (07/10/19) Physical Therapy Treatment Note PT-OP-A Visit Information Start: 06/07/19 08:50 Freq: Status: Active Protocol: Document 07/10/19 08:17 HH (Rec: 07/10/19 12:09 HH [email or web address]) Out-Patient Physical Therapy Visit Information Visit Information Visit Type Treatment Note Visit Start Time 08:17 Visit Stop Time 09:00 Total Visit Minutes 43 Visit Number 04/09 Number of PORCELAIN FINISH SPRAYER Visits 0 PT-OP-B Current Condition Start: 06/07/19 08:50 Freq: Status: Active Protocol: Document 06/07/19 08:10 HH (Rec: 06/07/19 09:00 HH [email or web address]) Current Condition History of Current Condition Onset Date 18 years ago Current Complaints Multiple Sclerosis, generalized weakness, decreased balance, falls History of Current Condition Pt presents to clinic with dx of MS since 18 years ago. Pt c /o worsening weakness on her hands and legs for the past 2 years. She tends to drop things from her hands around 2 times /day and buckling episodes on her legs 2 times a week, along with thobbing pain in both hands and sharp pain on upper thighs. Pt reports there's no warning signs/ triggers for these symptoms. But these impairments limit her ability to work and cause safety issues. Pt used to fall very often due to her leg weakness during stairs so she has to avoid them if possible. Pt is currently unable to sit/ stand >10 mins and lift >10 lbs due to her ongoing pain and weakness. She explained heat pad/ hot tub tends to manage her thigh pain pretty well. Pt also had MRI recently which showed negative findings for spinal lesion. She also stated her activity level is not that high with just daily walking. Prior Treatments and Tests MRI on T/S and L/S negative for spnial lesion. Treatment Goals Patient/Caregiver Goals 1. Be able to sit/ stand 10 mins without discomfort 2. Able to lift >10 lbs objects 3. To strengthen her legs so she could negotiate stairs again. 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 I think I used my back too much while doing briding from last visit. But vasu been walking more everyday around 1-3 miles. PT-OP-D Balance Start: 06/07/19 08:50 Freq: Status: Active Protocol: Document 06/07/19 08:10 HH (Rec: 06/07/19 11:02 [email or web address]) Balance Tests Single Limb Standing Single Limb- Right >30 s Single Limb- Left > 30s PT-OP-H Neuro Start: 06/07/19 08:50 Freq: Status: Active Protocol: Document 06/07/19 08:10 HH (Rec: 06/07/19 11:02 [email or web address]) Deep Tendon Reflex & Clonus Assessment Deep Tendon Reflex Bilateral Achilles Deep Tendon Reflex 2+ Normal Bilateral Patellar Deep Tendon Reflex 2+ Normal PT-OP-K Range of Motion Start: 06/07/19 08:50 Freq: Status: Active Protocol: Document 06/07/19 08:10 HH (Rec: 06/07/19 11:02 [email or web address]) Shoulder Goniometric Range of Motion Shoulder Right Active Shoulder ROM WFL Yes Left Active Shoulder ROM WFL Yes Hip Goniometric Range of Motion Hip Right Active Hip ROM WFL Yes Left Active Hip ROM WFL Yes Knee Goniometric Range of Motion Knee Right Knee ROM WFL Yes Left Knee ROM WFL Yes PT-OP-L Special Tests Start: 06/07/19 08:50 Freq: Status: Active Protocol: Document 06/07/19 08:10 HH (Rec: 06/07/19 11:03 [email or web address]) Special Tests Other Special Tests Special Tests single leg squat R = from 19 inches table; L = from 19 inches table PT-OP-M Strength Start: 06/07/19 08:50 Freq: Status: Active Protocol: Document 06/07/19 08:10 HH (Rec: 06/07/19 11:02 [email or web address]) Shoulder Strength Shoulder Manual Muscle Testing Left Flexion 5 Normal Extension 5 Normal Abduction (C5) 5 Normal Adduction 5 Normal Right Flexion 4- Good- Extension 4 Good Abduction (C5) 4- Good- Adduction 4 Good Hand Motor Setter/Pinch Strength Hand Dominance Hand Dominance Right Hand Strength Right Motor Setter (lbs) 30 Left Motor Setter (lbs) 60 Hip Strength Hip Manual Muscle Testing Right Flexion (L2) 4+ Good+ Extension (S1) 4+ Good+ Abduction 4 Good Adduction 4+ Good+ Left Flexion (L2) 5 Normal Extension (S1) 5 Normal Abduction 5 Normal Adduction 5 Normal Knee Strength Knee Manual Muscle Testing Left Flexion (S2) 5 Normal Extension (L3) 5 Normal Right Flexion (S2) 4 Good Extension (L3) 4 Good PT-OP-Q Treatments Start: 06/07/19 08:50 Freq: Status: Active Protocol: Document 07/10/19 08:17 (Rec: 07/10/19 12:09 [email or web address]) Cardio Equipment Recumbent Stepper (Sci-Fit) Duration (Minutes) 5 Resistance 1 Treadmill Duration (Minutes) 10 Speed 2.0 Gym Equipment Shuttle Recovery squat Details bilateral squat Resistance 87# Shuttle Recovery Platform Stable Reps/Time 12 x2 unilateral squat Details cues on eccentric control Resistance # 50 Shuttle Recovery Platform Stable Reps/Time #62 on L, #75 on R, 8-12 reps Therapeutic Exercises Supine Exercises supine bridge Supine Exercise Name on table Side bilateral Reps/Minutes 15 x 2 Comments cues on neutral spine without back extension Standing Exercises SLS with weight ball around the world Side bilateral Equipment Used 3lbs ball Reps/Minutes 10 x 2 Comments on SLS with ball circule weighted ball catch Side bilateral Equipment Used 3lb ball Reps/Minutes 10 x 4 Comments self catch to focus on gripping strength Neuro Re-Education Treatment Balance Activities RDL Details cone touch with hands Surface ground level Equipment cones Reps/Duration 5 mins Comments cues on back leg extension stagger stance Details with ball catch and throw Reps/Duration 4 mins ball catch and throw Details eye hand coordination Surface ground level Equipment 2 tennis ball Reps/Duration 5 mins Comments alternate ball pass single leg stance Details with ball catch and throw Surface GL Reps/Duration 8 mins Comments 3lbs ball PT-OP-T Assessment and Plan Start: 06/07/19 08:50 Freq: Status: Active Protocol: Document 07/10/19 08:17 (Rec: 07/10/19 12:09 [email or web address]) Physical Therapy Assessment Goals HEP Impairment pt does not have an exercise routine Advertising Executive Goal (LTG) Pt will actively comply to HEP 4x/week to improve overall her functional mobility and strength. LTG Duration 10 weeks stair climbing Impairment Pt is unable to climb stair due to weakness Advertising Executive Goal (LTG) Pt will be able to climb stairs at her house in a daily basis to improve home mobility. 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 to pickling machine operator 5 lbs of weight without discomfort on her back STG Duration 5 weeks Advertising Executive Goal (LTG) Pt will be improve her overall R shoulder and RLE strength by 1 MMT grade to be able to pickling machine operator 5 lbs of weight without discomfort on her back LTG Duration 10 weeks activity tolerance Impairment pt is unable to stand/ sit >10 mins without discomfort Short Term Goal (STG) pt will be able to stand/ sit > 10 mins in one position without discomfort to improve quality of life STG Duration 5 weeks Advertising Executive Goal (LTG) pt will be able to stand/ sit > 20 mins in one position without discomfort to improve quality of life LTG Duration 10 weeks Assessment Summary Assessment Pt reports increased soreness from last visit and took 3 days to recover. Today focused on SL balance primarily. Pt noticed her balance has improved and seems to be better with multitasking while SLS. Pt also has improved eye hand coordination as well. Physical Therapy Plan Next Visit Focus/Plan Next Note Type Treatment Note Next Visit Plan assess pt's tolerance after last visit. eye hand coordination trunk strengthening static and dynamic balance with single leg leg press single leg/ double leg strengthening with ankle weight, trunk stability. gripping strength ex
--- NOTE | 2019-07-12 09:56 | PT.OTN ---
Current Diagnoses Multiple sclerosis (07/12/19) Physical Therapy Treatment Note PT-OP-A Visit Information Start: 06/07/19 08:50 Freq: Status: Active Protocol: Document 07/12/19 08:18 HH (Rec: 07/12/19 09:56 HH [email or web address]) Out-Patient Physical Therapy Visit Information Visit Information Visit Type Treatment Note Visit Start Time 08:18 Visit Stop Time 09:00 Total Visit Minutes 42 Visit Number 05/09 Number of BRICK AND TILE MAKING MACHINE OPERATOR Visits 0 PT-OP-B Current Condition Start: 06/07/19 08:50 Freq: Status: Active Protocol: Document 06/07/19 08:10 HH (Rec: 06/07/19 09:00 HH [email or web address]) Current Condition History of Current Condition Onset Date 18 years ago Current Complaints Multiple Sclerosis, generalized weakness, decreased balance, falls History of Current Condition Pt presents to clinic with dx of MS since 18 years ago. Pt c /o worsening weakness on her hands and legs for the past 2 years. She tends to drop things from her hands around 2 times /day and buckling episodes on her legs 2 times a week, along with thobbing pain in both hands and sharp pain on upper thighs. Pt reports there's no warning signs/ triggers for these symptoms. But these impairments limit her ability to work and cause safety issues. Pt used to fall very often due to her leg weakness during stairs so she has to avoid them if possible. Pt is currently unable to sit/ stand >10 mins and lift >10 lbs due to her ongoing pain and weakness. She explained heat pad/ hot tub tends to manage her thigh pain pretty well. Pt also had MRI recently which showed negative findings for spinal lesion. She also stated her activity level is not that high with just daily walking. Prior Treatments and Tests MRI on T/S and L/S negative for spnial lesion. Treatment Goals Patient/Caregiver Goals 1. Be able to sit/ stand 10 mins without discomfort 2. Able to lift >10 lbs objects 3. To strengthen her legs so she could negotiate stairs again. 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 Patient Reported Progress Improving PT-OP-D Balance Start: 06/07/19 08:50 Freq: Status: Active Protocol: Document 06/07/19 08:10 HH (Rec: 06/07/19 11:02 HH [email or web address]) Balance Tests Single Limb Standing Single Limb- Right >30 s Single Limb- Left > 30s PT-OP-H Neuro Start: 06/07/19 08:50 Freq: Status: Active Protocol: Document 06/07/19 08:10 HH (Rec: 06/07/19 11:02 HH [email or web address]) Deep Tendon Reflex & Clonus Assessment Deep Tendon Reflex Bilateral Achilles Deep Tendon Reflex 2+ Normal Bilateral Patellar Deep Tendon Reflex 2+ Normal PT-OP-K Range of Motion Start: 06/07/19 08:50 Freq: Status: Active Protocol: Document 06/07/19 08:10 HH (Rec: 06/07/19 11:02 HH [email or web address]) Shoulder Goniometric Range of Motion Shoulder Right Active Shoulder ROM WFL Yes Left Active Shoulder ROM WFL Yes Hip Goniometric Range of Motion Hip Right Active Hip ROM WFL Yes Left Active Hip ROM WFL Yes Knee Goniometric Range of Motion Knee Right Knee ROM WFL Yes Left Knee ROM WFL Yes PT-OP-L Special Tests Start: 06/07/19 08:50 Freq: Status: Active Protocol: Document 06/07/19 08:10 HH (Rec: 06/07/19 11:03 HH [email or web address]) Special Tests Other Special Tests Special Tests single leg squat R = from 19 inches table; L = from 19 inches table PT-OP-M Strength Start: 06/07/19 08:50 Freq: Status: Active Protocol: Document 06/07/19 08:10 HH (Rec: 06/07/19 11:02 HH [email or web address]) Shoulder Strength Shoulder Manual Muscle Testing Left Flexion 5 Normal Extension 5 Normal Abduction (C5) 5 Normal Adduction 5 Normal Right Flexion 4- Good- Extension 4 Good Abduction (C5) 4- Good- Adduction 4 Good Hand Lobbyist/Pinch Strength Hand Dominance Hand Dominance Right Hand Strength Right Lobbyist (lbs) 30 Left Lobbyist (lbs) 60 Hip Strength Hip Manual Muscle Testing Right Flexion (L2) 4+ Good+ Extension (S1) 4+ Good+ Abduction 4 Good Adduction 4+ Good+ Left Flexion (L2) 5 Normal Extension (S1) 5 Normal Abduction 5 Normal Adduction 5 Normal Knee Strength Knee Manual Muscle Testing Left Flexion (S2) 5 Normal Extension (L3) 5 Normal Right Flexion (S2) 4 Good Extension (L3) 4 Good PT-OP-Q Treatments Start: 06/07/19 08:50 Freq: Status: Active Protocol: Document 07/12/19 08:18 HH (Rec: 07/12/19 09:56 [email or web address]) Cardio Equipment Upper Body Ergometer (UBE) Duration (Minutes) 5 RPM 80 Other 30 secs forward and backward Treadmill Duration (Minutes) 9 Speed 2.3 Gym Equipment Shuttle Recovery squat Details bilateral squat Resistance 87# Shuttle Recovery Platform Stable Reps/Time 12 x1 unilateral squat Details cues on eccentric control Resistance #75 Shuttle Recovery Platform Stable Reps/Time 8-12 reps x2 Therapeutic Exercises Standing Exercises step down Side bilateral Equipment Used 4' step Reps/Minutes 10 x 4 Comments cues on eccentric control slider Standing Exercise Name lateral slide Side bilateral Equipment Used slider Reps/Minutes 10x 4 Comments cues on hip hinge and weight standing LE SLS with weight ball around the world Side bilateral Equipment Used 3.5 lbs ball Reps/Minutes 5 x 4 Comments on SLS with ball circule weighted ball catch Side bilateral Equipment Used 3lb ball Reps/Minutes 10 x 4 Comments self catch to focus on gripping strength Neuro Re-Education Treatment Balance Activities RDL Details cone touch with hands Surface ground level Equipment cones Reps/Duration 5 mins Comments cues on back leg extension ball catch and throw Details eye hand coordination Surface ground level Equipment 2 tennis ball Reps/Duration 5 mins Comments alternate ball pass single leg stance Details with ball catch and throw Surface GL Reps/Duration 3 mins Comments 3lbs ball PT-OP-T Assessment and Plan Start: 06/07/19 08:50 Freq: Status: Active Protocol: Document 07/12/19 08:18 HH (Rec: 09/19/19 09:56 [email or web address]) Physical Therapy Assessment Goals HEP Impairment pt does not have an exercise routine Dental Scheduling Coordinator Goal (LTG) Pt will actively comply to HEP 4x/week to improve overall her functional mobility and strength. LTG Duration 10 weeks stair climbing Impairment Pt is unable to climb stair due to weakness Senior Living Goal (LTG) Pt will be able to climb stairs at her house in a daily basis to improve home mobility. 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 5 lbs of weight without discomfort on her back STG Duration 5 weeks Dental Scheduling Coordinator Goal (LTG) Pt will be improve her overall R shoulder and RLE strength by 1 MMT grade to be able to pickup driver 5 lbs of weight without discomfort on her back LTG Duration 10 weeks activity tolerance Impairment pt is unable to stand/ sit >10 mins without discomfort Short Term Goal (STG) pt will be able to stand/ sit > 10 mins in one position without discomfort to improve quality of life STG Duration 5 weeks Dental Scheduling Coordinator Goal (LTG) pt will be able to stand/ sit > 20 mins in one position without discomfort to improve quality of life LTG Duration 10 weeks Assessment Summary Assessment Pt cont to progress on single leg dynamic balance and reactive balance. Pt was able to maintain SLS during RDL 75% of the time. Physical Therapy Plan Next Visit Focus/Plan Next Note Type Treatment Note Next Visit Plan assess pt's tolerance after last visit. step/down single leg strengthening eye hand coordination trunk strengthening static and dynamic balance with single leg leg press single leg/ double leg strengthening with ankle weight, trunk stability. gripping strength ex
--- NOTE | 2019-07-24 09:03 | PT.OTN ---
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 Pt c /o worsening weakness on her hands and legs for the past 2 years. She tends to drop things from her hands around 2 times /day and buckling episodes on her legs 2 times a week, along with thobbing pain in both hands and sharp pain on upper thighs. Pt reports there's no warning signs/ triggers for these symptoms. But these impairments limit her ability to work and cause safety issues. Pt used to fall very often due to her leg weakness during stairs so she has to avoid them if possible. Pt is currently unable to sit/ stand >10 mins and lift >10 lbs due to her ongoing pain and weakness. She explained heat pad/ hot tub tends to manage her thigh pain pretty well. Pt also had MRI recently which showed negative findings for spinal lesion. She also stated her activity level is not that high with just daily walking. Prior Treatments and Tests MRI on T/S and L/S negative for spnial lesion. Treatment Goals Patient/Caregiver Goals 1. Be able to sit/ stand 10 mins without discomfort 2. Able to lift >10 lbs objects 3. To strengthen her legs so she could negotiate stairs again. Prior Functional Status Baseline Function- ADL's Independent Baseline Function- Mobility Independent Current Functional Impairments (Reported) Functional Limitations- Mobility/Gait Pt avoid stairs now due to her sporadic buckling episodes unable to stand/ sit in one position >10 mins unable to lift > 10lbs Personal Factors Other Personal Factors That May Effect depression Therapy/Recovery bruise easily previous falls MS [employer] previous seizures PT-OP-C Subjective Start: 06/07/19 08:50 Freq: Status: Active Protocol: Document 07/24/19 08:20 HH (Rec: 07/24/19 09:03 [email or web address]) OP-PT Subjective Patient Comments Patient Comments I felt pretty good after last visit except i had a flare up last tuesday and tuesday that i was unable to use my leg. But overall vasu been doing my hEP. Patient Reported Progress Improving PT-OP-D Balance Start: 06/07/19 08:50 Freq: Status: Active Protocol: Document 06/07/19 08:10 HH (Rec: 06/07/19 11:02 HH [email or web address]) Balance Tests Single Limb Standing Single Limb- Right >30 s Single Limb- Left > 30s PT-OP-H Neuro Start: 06/07/19 08:50 Freq: Status: Active Protocol: Document 06/07/19 08:10 HH (Rec: 06/07/19 11:02 [email or web address]) Deep Tendon Reflex & Clonus Assessment Deep Tendon Reflex Bilateral Achilles Deep Tendon Reflex 2+ Normal Bilateral Patellar Deep Tendon Reflex 2+ Normal PT-OP-K Range of Motion Start: 06/07/19 08:50 Freq: Status: Active Protocol: Document 06/07/19 08:10 HH (Rec: 06/07/19 11:02 [email or web address]) Shoulder Goniometric Range of Motion Shoulder Right Active Shoulder ROM WFL Yes Left Active Shoulder ROM WFL Yes Hip Goniometric Range of Motion Hip Right Active Hip ROM WFL Yes Left Active Hip ROM WFL Yes Knee Goniometric Range of Motion Knee Right Knee ROM WFL Yes Left Knee ROM WFL Yes PT-OP-L Special Tests Start: 06/07/19 08:50 Freq: Status: Active Protocol: Document 06/07/19 08:10 HH (Rec: 06/07/19 11:03 HH [email or web address]) Special Tests Other Special Tests Special Tests single leg squat R = from 19 inches table; L = from 19 inches table PT-OP-M Strength Start: 06/07/19 08:50 Freq: Status: Active Protocol: Document 06/07/19 08:10 HH (Rec: 06/07/19 11:02 HH [email or web address]) Shoulder Strength Shoulder Manual Muscle Testing Left Flexion 5 Normal Extension 5 Normal Abduction (C5) 5 Normal Adduction 5 Normal Right Flexion 4- Good- Extension 4 Good Abduction (C5) 4- Good- Adduction 4 Good Hand Hairspring I Inspector/Pinch Strength Hand Dominance Hand Dominance Right Hand Strength Right Hairspring I Inspector (lbs) 30 Left Hairspring I Inspector (lbs) 60 Hip Strength Hip Manual Muscle Testing Right Flexion (L2) 4+ Good+ Extension (S1) 4+ Good+ Abduction 4 Good Adduction 4+ Good+ Left Flexion (L2) 5 Normal Extension (S1) 5 Normal Abduction 5 Normal Adduction 5 Normal Knee Strength Knee Manual Muscle Testing Left Flexion (S2) 5 Normal Extension (L3) 5 Normal Right Flexion (S2) 4 Good Extension (L3) 4 Good PT-OP-Q Treatments Start: 06/07/19 08:50 Freq: Status: Active Protocol: Document 07/24/19 08:20 (Rec: 07/24/19 09:03 [email or web address]) Cardio Equipment Elliptical Duration (Minutes) 5 Resistance 5 Gym Equipment Shuttle Recovery unilateral squat Details cues on eccentric control Resistance #87 Shuttle Recovery Platform Stable Reps/Time R = 8 reps x3, L= 12reps x3 Shuttle Balance blue Details ball catch and throw in stagger stance Reps/Duration 8 mins Comments followed by perturbation by therapist Therapeutic Exercises Sitting Exercises seated trunk extension Sitting Exercise Name seated trunk extension with inhalation and exhalation Side bilateral Equipment Used curved chair Reps/Minutes 10 x2 Standing Exercises SLS with weight ball around the world Side bilateral Equipment Used 3.5 lbs ball Reps/Minutes 8 x 3 Comments on SLS with ball circule weighted ball catch Side bilateral Equipment Used 3.3 lb ball Reps/Minutes 10 x 4 Comments self catch to focus on gripping strength Neuro Re-Education Treatment Balance Activities ball catch and throw Details eye hand coordination with SLS Surface ground level Equipment 2 tennis ball Reps/Duration 5 mins Comments alternate ball pass single leg stance Details with ball catch and throw Surface GL Reps/Duration 3 mins Comments 3lbs ball PT-OP-T Assessment and Plan Start: 06/07/19 08:50 Freq: Status: Active Protocol: Document 07/24/19 08:20 HH (Rec: 07/24/19 09:03 [email or web address]) Physical Therapy Assessment Goals HEP Impairment pt does not have an exercise routine Repeater Operator Goal (LTG) Pt will actively comply to HEP 4x/week to improve overall her functional mobility and strength. LTG Duration 10 weeks stair climbing Impairment Pt is unable to climb stair due to weakness Correction Goal (LTG) Pt will be able to climb stairs at her house in a daily basis to improve home mobility. 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 to berry picker 5 lbs of weight without discomfort on her back STG Duration 5 weeks Correction Goal (LTG) Pt will be improve her overall R shoulder and RLE strength by 1 MMT grade to be able to berry picker 5 lbs of weight without discomfort on her back LTG Duration 10 weeks activity tolerance Impairment pt is unable to stand/ sit >10 mins without discomfort Short Term Goal (STG) pt will be able to stand/ sit > 10 mins in one position without discomfort to improve quality of life STG Duration 5 weeks Correction Goal (LTG) pt will be able to stand/ sit > 20 mins in one position without discomfort to improve quality of life LTG Duration 10 weeks Assessment Summary Assessment Pt's balance cont to improve. Pt has reduced excessive weight shift and movements from ankles and hip during SLS and ball catching activities. Added balance board with perturbation for reactive balance. Her unilateral squat is up to 87# for 8-12 reps. Physical Therapy Plan Next Visit Focus/Plan Next Note Type Treatment Note Next Visit Plan assess pt's tolerance after last visit. step/down single leg strengthening eye hand coordination trunk strengthening static and dynamic balance with single leg leg press single leg/ double leg strengthening with ankle weight, trunk stability. gripping strength ex
--- NOTE | 2019-08-14 16:07 | PT-IP ANOTE ---
PT called to cancel appt for a few weeks due to admission to for severe abdominal pain (07/29). Attempt to reach out pt via phone today but unsuccessful.
--- NOTE | 2019-08-23 17:13 | PT-IP ANOTE ---
Pt no show this morning. Attempt to reach out to her via phone but unsuccessful. Left VM and remind her next appt for 08/29 830am
--- NOTE | 2019-08-28 16:55 | PT.OPDS ---
Current Diagnoses Multiple sclerosis (07/24/19) Visit Care Team Role Provider Type Baudilio Bejarano Primary Care Provider Non-Staff Specialty: Medical Address: [address], [place], [address] Email: Priscilla Amaral MD Attending Provider Non-Staff Specialty: Neurology Address: [address] [place] [address], [place], [address] Email: Visit Number Visit Number 06/09 Discharge Summary PT-OP-B Current Condition Start: 06/07/19 08:50 Freq: Status: Active Protocol: Document 06/07/19 08:10 (Rec: 06/07/19 09:00 [email or web address]) Current Condition History of Current Condition Onset Date 18 years ago Current Complaints Multiple Sclerosis, generalized weakness, decreased balance, falls History of Current Condition Pt presents to clinic with dx of MS since 18 years ago. Pt c /o worsening weakness on her hands and legs for the past 2 years. She tends to drop things from her hands around 2 times /day and buckling episodes on her legs 2 times a week, along with thobbing pain in both hands and sharp pain on upper thighs. Pt reports there's no warning signs/ triggers for these symptoms. But these impairments limit her ability to work and cause safety issues. Pt used to fall very often due to her leg weakness during stairs so she has to avoid them if possible. Pt is currently unable to sit/ stand >10 mins and lift >10 lbs due to her ongoing pain and weakness. She explained heat pad/ hot tub tends to manage her thigh pain pretty well. Pt also had MRI recently which showed negative findings for spinal lesion. She also stated her activity level is not that high with just daily walking. Prior Treatments and Tests MRI on T/S and L/S negative for spnial lesion. Treatment Goals Patient/Caregiver Goals 1. Be able to sit/ stand 10 mins without discomfort 2. Able to lift >10 lbs objects 3. To strengthen her legs so she could negotiate stairs again. 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 But overall vasu been doing my hEP. Patient Reported Progress Improving PT-OP-D Balance Start: 06/07/19 08:50 Freq: Status: Active Protocol: Document 06/07/19 08:10 HH (Rec: 06/07/19 11:02 HH [email or web address]) Balance Tests Single Limb Standing Single Limb- Right >30 s Single Limb- Left > 30s PT-OP-H Neuro Start: 06/07/19 08:50 Freq: Status: Active Protocol: Document 06/07/19 08:10 HH (Rec: 06/07/19 11:02 HH [email or web address]) Deep Tendon Reflex & Clonus Assessment Deep Tendon Reflex Bilateral Achilles Deep Tendon Reflex 2+ Normal Bilateral Patellar Deep Tendon Reflex 2+ Normal PT-OP-K Range of Motion Start: 06/07/19 08:50 Freq: Status: Active Protocol: Document 06/07/19 08:10 HH (Rec: 06/07/19 11:02 HH [email or web address]) Shoulder Goniometric Range of Motion Shoulder Right Active Shoulder ROM WFL Yes Left Active Shoulder ROM WFL Yes Hip Goniometric Range of Motion Hip Right Active Hip ROM WFL Yes Left Active Hip ROM WFL Yes Knee Goniometric Range of Motion Knee Right Knee ROM WFL Yes Left Knee ROM WFL Yes PT-OP-L Special Tests Start: 06/07/19 08:50 Freq: Status: Active Protocol: Document 06/07/19 08:10 HH (Rec: 06/07/19 11:03 HH [email or web address]) Special Tests Other Special Tests Special Tests single leg squat R = from 19 inches table; L = from 19 inches table PT-OP-M Strength Start: 06/07/19 08:50 Freq: Status: Active Protocol: Document 06/07/19 08:10 HH (Rec: 06/07/19 11:02 [email or web address]) Shoulder Strength Shoulder Manual Muscle Testing Left Flexion 5 Normal Extension 5 Normal Abduction (C5) 5 Normal Adduction 5 Normal Right Flexion 4- Good- Extension 4 Good Abduction (C5) 4- Good- Adduction 4 Good Hand Air Cargo Specialist/Pinch Strength Hand Dominance Hand Dominance Right Hand Strength Right Air Cargo Specialist (lbs) 30 Left Air Cargo Specialist (lbs) 60 Hip Strength Hip Manual Muscle Testing Right Flexion (L2) 4+ Good+ Extension (S1) 4+ Good+ Abduction 4 Good Adduction 4+ Good+ Left Flexion (L2) 5 Normal Extension (S1) 5 Normal Abduction 5 Normal Adduction 5 Normal Knee Strength Knee Manual Muscle Testing Left Flexion (S2) 5 Normal Extension (L3) 5 Normal Right Flexion (S2) 4 Good Extension (L3) 4 Good PT-OP-T Assessment and Plan Start: 06/07/19 08:50 Freq: Status: Active Protocol: Document 08/28/19 16:54 (Rec: 08/28/19 16:55 [email or web address]) Physical Therapy Plan Discharge Physical Therapy Discharge Reasons No Longer Attending PT Discharge Comments Per admin, Imani called today and she is still extremely sick and in/out of the ER routinely. Also, her son is in 3x/wk counseling for suicidal tendencies. We are cancelling therapy for now, and she intends to restart as soon as it is feasible.
== END 2019-07-25 12:43 ==
LOC: PHYS 08:15
PROVIDERS: PCP Ophthalmology; Visit Provider Psychiatry & Neurology Neurology
DX: G35 Multiple sclerosis (principal)
CPT/HCPCS: 97110; 97112; 97161; 97530

== ENCOUNTER 2019-07-29 10:26 | Emergency (ER) | payer MEDICARE, MEDICAID, SELFPAY ==
[2019-07-29] VITALS (11 sets, daily range): BP systolic 113–142; BP diastolic 74–85; PULSE 44–59; RESP 11–18; TEMP 36.9; O2SAT 49–100; BMI 21.4
[2019-07-29 10:59] LABS: Add Manual Diff / Slide Review NO; Basophils Absolute Auto 0 /uL (0-100); Basophils Percent Auto 0.2 % (0-2); Eosinophils Absolute Auto 0 /uL (0-450); Hematocrit 40.5 % (36-46); Hemoglobin 13.6 g/dL (12.0-16.0); Lymphocytes Absolute Auto 500 /uL (1100-4500); Lymphocytes Percent Auto 6.5 % (25-40); Mean Corpuscular HGB Conc 33.7 % (30-36); Mean Corpuscular Hemoglobin 30.8 PG (26-34); Mean Corpuscular Volume 91.4 fL (80-100); Monocytes Absolute Auto 200 /uL (0-900); Monocytes Percent Auto 2.9 % (3-14); Neutrophils Absolute Auto 7100 /uL (1500-7000); Neutrophils Percent Auto 90.4 % (50-75); Platelet Count 160 X10^3/uL (150-400); Red Blood Cell Count 4.43 X10^6/uL (4.0-5.2); White Blood Cell Count 7.8 X10^3/uL (4.5-11.0)
--- NOTE | 2019-07-29 11:01 | ED.ABDPAIN ---
HPI - Abdominal Pain General Chief Complaint: Abdominal Pain Stated Complaint: Chest pain for one week Time Seen by Provider: 07/29/19 10:29 Source: patient and family Mode of arrival: Ambulatory Limitations: no limitations History of Present Illness HPI narrative: Patient comes emergency department complaining of worsening epigastric pain for the last week. Patient states that initially, the pain was the only symptom. She has not had any fevers or chills. no nausea vomiting until yesterday, and patient states that at that she vomited all night. She states she still feels little bit nauseated. Patient states, however, that the bouts of nausea are not unusual for her, and that she has an episode of the nausea about every couple months. However, she states she has not had pain like this since her gallbladder was taken out 4 years ago. Patient denies any known history of pancreatitis. She states she has not been drinking alcohol. Patient has a history of MS, which she states is dormant, and for which she takes no medications. Patient states that the that, she is healthy, except for some history of depression. Patient denies any chest pain, shortness breath, or cough. She denies any dysuria. She has some mild back pain, which she thinks is due to the vomiting. No other complaints at this time. Related Data Home Medications Medication Instructions Recorded Confirmed carisoprodol 350 mg PO BID PRN #0 02/16/17 01/29/19 alprazolam 0.25 mg PO BID PRN 11/01/18 11/01/18 eszopiclone 1 mg PO BEDTIME 11/01/18 01/29/19 fluconazole 150 mg PO .ONCE PRN 11/01/18 01/29/19 hydrocodone-acetaminophen 1 tab PO Q4H PRN 11/01/18 01/29/19 propranolol 10 mg PO BID 11/01/18 11/01/18 sertraline mg PO BEDTIME 11/01/18 11/01/18 trazodone 300 mg PO BEDTIME 11/01/18 01/29/19 clonidine HCl 0.1 mg PO DAILY 01/29/19 01/29/19 lactulose [Constulose] 01/29/19 rizatriptan 01/29/19 Previous Rx's Medication Instructions Recorded promethazine 25 mg PO Q4-6H PRN #20 tab 11/01/18 lorazepam [Ativan] 0.5 mg PO BID-TID PRN #7 tab 12/12/18 hydrocodone-acetaminophen [Eldon] 1 tab PO Q4H PRN #10 tab 07/29/19 ondansetron 4 mg PO Q8H PRN #14 tab 07/29/19 pantoprazole [Protonix] 40 mg PO DAILY #30 tab 07/29/19 Allergies Allergy/AdvReac Type Severity Reaction Status Date / Time aspirin [ASPIRIN] Allergy Severe THROAT Verified 07/29/19 10:36 SWELLING metoclopramide [From REGLAN] AdvReac Mild AGGITATION/ Verified 07/29/19 10:36 RESTLESSNES S Review of Systems Constitutional Constitutional: Denies chills, Denies fatigue, Denies fever(s), Denies frequent falls, Denies lethargy and Denies weakness Eyes Eyes: Denies change in vision, Denies eye discharge, Denies irritation and Denies loss of vision ENT Ears, Nose, Mouth, and Throat: Denies change in voice, Denies dizziness, Denies neck pain, Denies sore throat and Denies throat swelling Cardiovascular Cardiovascular: Denies chest pain, Denies irregular heart rhythm, Denies lightheadedness, Denies palpitations, Denies dyspnea, Denies dyspnea on exertion and Denies orthopnea Respiratory Respiratory: Denies cough, Denies dyspnea, Denies dyspnea on exertion and Denies wheezing Gastrointestinal Gastrointestinal: Reports abdominal pain, Denies change in bowel habits, Denies diarrhea, Denies nausea and Denies vomiting Genitourinary Genitourinary: Denies hematuria, Denies flank pain, Denies urinary incontinence and Denies urinary urgency Musculoskeletal Musculoskeletal: Denies back pain, Denies muscle weakness, Denies neck pain, Denies numbness and Denies tingling Integumentary/Breasts Skin/Breast: Denies pruritus, Denies erythema, Denies rash and Denies wounds Neurologic Neurologic: Denies behavioral changes, Denies confusion, Denies dizziness, Denies frequent falls, Denies loss of vision, Denies numbness, Denies tingling and Denies weakness Psychiatric Psychiatric: Denies anxiety, Denies behavioral changes, Denies confusion, Denies depression, Denies homicidal ideation and Denies suicidal ideation Endocrine Endocrine: Denies fatigue, Denies flushing and Denies palpitations Hematologic/Lymphatic Hematologic/Lymphatic: Denies easy bruising Allergic/Immunologic Allergic/Immunologic: Denies urticaria, Denies throat swelling and Denies wheezing [facility] Medical History Anxiety (Acute) Celiac disease (Acute) Cyclic vomiting syndrome (Acute) Multiple sclerosis (Acute) Surgical History Status post tubal ligation Social History Smoking Status: Former smoker substance use type: marijuana Social History Smoking Status: Former smoker substance use type: marijuana Exam Initial Vital Signs Initial Vital Signs: Vital Signs Temperature 98.5 F 07/29/19 10:29 Pulse Rate 59 L 07/29/19 10:29 Respiratory Rate 16 07/29/19 10:29 Blood Pressure 127/85 07/29/19 10:29 Pulse Oximetry 100 07/29/19 10:29 Const General: cooperative and well developed Nutritional Appearance: well nourished Orientation: alert, awake, oriented x3 and not confused HENMT Head: normocephalic and atraumatic Ears: external ears normal and TM's normal bilaterally Nose: external nose normal and No nasal discharge Face and sinus: sinuses nontender, face symmetric, no sinus tenderness and No dry mucous membranes Mouth: oral mucosae normal and moist mucous membranes Teeth and gingiva: dentition normal Throat: tonsils normal and uvula midline Eyes General: appearance normal, both eyes and all related structures Eyelids: eyelids normal Conjunctivae: conjunctivae normal Sclera: sclerae normal Pupils: PERRL EOM: EOM intact bilaterally Neck Neck: normal visual inspection, trachea midline, No lymphadenopathy, No midline deformity and No JVD Lymphatic: No lymphedema Chest Chest: normal inspection of the chest Resp Effort & Inspection: normal respiratory effort, able to speak in complete sentences, no respiratory distress and no use of accessory muscles Auscultation: clear to auscultation bilaterally, no rales, no rhonchi and no wheezes Cardio Rate: regular rate Rhythm: regular rhythm Heart Sounds: no click, no gallops, no murmurs and no rubs Pulses: normal peripheral pulses GI Inspection: non-distended Palpation: soft, no hepatosplenomegaly, No guarding, No pulsatile mass and tender (Moderate, epigastric and right upper quadrant.) Back/Spine/Pelvis Back: No CVA tenderness Cervical Spine: cervical ROM normal and No pain with cervical ROM Thoracic/Lumbar Spine: thoracic and lumbar spine normal to inspection Skin General: no rashes or lesions noted, No jaundice and No petechiae Neuro General: alert, oriented x3, gait normal and no focal motor deficits Speech: speech normal Extrem General: full ROM, no clubbing, cyanosis or edema, no pedal edema and no calf tenderness Psych Appearance: well kempt Mental Status: mental status grossly normal Attitude: cooperative Thought Content: normal and suicidality Judgment: judgment good Course Course Course Narrative: Patient was treated symptomatically with IV fluids, Zofran, and Dilaudid. She was worked up with laboratory studies and urinalysis, which were unremarkable. The patient then underwent CT scan of the abdomen and pelvis, which showed a renal stone, a thickened gastric wall, and a mildly enlarged common bile duct without evidence of stone. The patient's liver function tests and lipase were normal, as with her white blood cell count I did not find an acute causing her symptoms. I did not suspect a possible gastritis or ulcer, based on the gastric wall thickening. On re-evaluation, after symptomatic treatment as above, and with Protonix and GI cocktail, the patient was found to be feeling much better. She stated specifically that the GI cocktail had alleviated a lot of her discomfort. I have discussed with the patient that it may be time for her to get another endoscopy. Her last 1 was 2 years ago, for similar symptoms, and she states that at that time, they did not find anything specifically wrong. The patient was given a prescription for Prilosec as an outpatient. I have also given her a prescription for Vicodin and for viscous lidocaine to mix with Maalox at home, as a GI cocktail has been very helpful for her here in the emergency department. We have discussed home management of symptoms, as well as the usual indications for return. Orders Ordered: ED Orders 07/29/19 10:33 EKG-12 Lead Stat 07/29/19 10:45 Complete Blood Count AUTO DIFF Stat Comprehensive Metabolic Panel Stat Lipase Stat Partial Thromboplastin Time Stat Prothrombin Time INR Stat 07/29/19 13:03 CT abdomen pelvis w con Stat Discontinued Medications Al Hydrox/Mg Hydrox/Simethicone 20 ml/ Lidocaine HCl 15 ml 0 ml PO NOW ONE Stop: 07/29/19 13:11 Last Admin: 07/29/19 13:14 Dose: 35 ml Documented by: JEREMIAH Hydromorphone HCl (Dilaudid) 1 mg IV NOW ONE Stop: 07/29/19 11:08 Last Admin: 07/29/19 11:41 Dose: 1 mg Documented by: MARICHUY Hydromorphone HCl (Dilaudid) 1 mg IV NOW ONE Stop: 07/29/19 13:04 Last Admin: 07/29/19 13:14 Dose: 1 mg Documented by: JEREMIAH Hydromorphone HCl (Dilaudid) 1 mg IV NOW ONE Stop: 07/29/19 14:51 Last Admin: 07/29/19 14:56 Dose: 1 mg Documented by: MARICHUY Sodium Chloride (Normal Saline 0.9%) 1,000 mls @ 1,000 mls/hr IV BOLUS ONE Stop: 07/29/19 12:39 Last Infusion: 07/29/19 13:01 Dose: 0 mls/hr Documented by: Admin: 07/29/19 11:41 Dose: 1,000 mls/hr Documented by: MARICHUY Ondansetron HCl (Zofran) 4 mg IV NOW ONE Stop: 07/29/19 11:08 Last Admin: 07/29/19 11:41 Dose: 4 mg Documented by: MARICHUY Pantoprazole Sodium (Protonix) 40 mg IV NOW ONE Stop: 07/29/19 11:12 Last Admin: 07/29/19 11:41 Dose: 40 mg Documented by: MARICHUY Vital Signs Vital signs: Vital Signs - 8 hr 07/29/19 10:29 07/29/19 11:32 07/29/19 12:51 Temperature 98.5 F Pulse Rate 59 L 46 L 44 L Respiratory Rate 16 18 Blood Pressure 127/85 Blood Pressure [Left Arm] 132/83 115/77 Pulse Oximetry 100 100 98 07/29/19 13:30 07/29/19 14:03 Temperature Pulse Rate 57 L 49 L Respiratory Rate 16 Blood Pressure Blood Pressure [Left Arm] 113/75 115/83 Pulse Oximetry 98 98 MDM - Abdominal Pain Medical Records Attestation: I reviewed the patient's medical records. Lab Data Attestation: I reviewed the patient's lab results. Result diagrams: 07/29/19 10:45 07/29/19 10:45 Labs: Lab Results 07/29/19 07/29/19 07/29/19 Range/Units 10:45 10:45 10:45 WBC 7.8 (4.5-11.0) X10^3/uL RBC 4.43 (4.0-5.2) X10^6/uL Hgb 13.6 (12.0-16.0) g/dL Hct 40.5 (36-46) % MCV 91.4 (80-100) fL MCH 30.8 (26-34) PG MCHC 33.7 (30-36) % RDW 14.0 (11.6-14.8) % Plt Count 160 (150-400) X10^3/uL Neut % (Auto) 90.4 H (50-75) % Lymph % (Auto) 6.5 L (25-40) % [place] % (Auto) 2.9 L (3-14) % Eos % (Auto) 0.0 L (2-4) % Baso % (Auto) 0.2 (0-2) % Neut # (Auto) 7100 H (7052-6766) /uL Lymph # (Auto) 500 L (1024-1162) /uL [place] # (Auto) 200 (0-900) /uL Eos # (Auto) 0 (0-450) /uL Baso # (Auto) 0 (0-100) /uL PT 12.3 (10.1-12.7) SECONDS INR 1.1 (0.9-1.3) APTT 32 D (26.4-36.2) SECONDS Sodium 141 (137-145) mmol/L Potassium 3.6 (3.4-5.1) mmol/L Chloride 105 (98-107) mmol/L Carbon Dioxide 27 (22-32) mmol/L BUN 12 (7-17) mg/dL Creatinine 0.60 (0.52-1.04) mg/dL Estimated GFR > 60.0 (>60) mL/min BUN/Creatinine Ratio 20.0 (6-22) Glucose 114 H (70-100) mg/dL Calcium 9.5 (8.4-10.2) mg/dL Total Bilirubin 0.6 (0.2-1.3) mg/dL AST 27 (14-36) IU/L ALT 24 (9-52) IU/L Alkaline Phosphatase 50 (38-126) U/L Total Protein 6.8 (6.3-8.2) g/dL Albumin 4.2 (3.5-5.0) g/dL Globulin 2.6 (1.7-4.1) g/dL Albumin/Globulin Ratio 1.6 (1.0-2.8) Lipase 31 (23-300) U/L Point of care testing: Point of Care Testing Test Results Negative Urine Dip Bedside Urine Glucose Negative Bedside Urine Bilirubin - Negative Bedside Urine Ketone - Negative Urine Specific [place] 1.010 Bedside Urine Occult Blood - Negative Bedside Urine pH 8.0 Bedside Urine Protein + 30 Bedside Urine Urobilinogen +/- 1mg Bedside Urine Nitrite - Negative Bedside Urine Leukocytes - Negative Esterase Imaging Data CT scan - abdomen: Radiologist's impression: PROCEDURE: CT ABDOMEN PELVIS W CON INDICATIONS: abdominal pain TECHNIQUE: After the administration of oral and intravenous contrast, 5 mm thick sections acquired from the diaphragms to the symphysis. 5 mm thick coronal and sagittal reformats were performed. For radiation dose reduction, the following was used: automated exposure control, adjustment of mA and/or kV according to patient size. COMPARISON: [facility], CT, CT ABDOMEN PELVIS W CON, 11/01/2018, 16:23. [facility], CT, ABDOMEN WITH CONTRAST, 02/15/2017, 17:28. [facility], CT, ABDOMEN/PELVIS WITH CONTRAST, 12/12/2011, 19:33. FINDINGS: Image quality: Diagnostic. ABDOMEN: Lung bases: There may be a trace right-sided pleural effusion. Mild posterior costophrenic angle atelectasis on the right is present. Heart size is normal. Solid organs: The liver is noted to be hypodense when compared to the spleen. The patient has had a prior cholecystectomy. The common bile duct is prominent in size and may be within normal limits given the patient's history of a previous cholecystectomy. The common bile duct measures 9-10 mm in diameter on the current exam (previously measuring up to approximately 5 mm in diameter on the prior exam. The spleen and adrenals are unremarkable. The pancreas is within normal limits. The main pancreatic duct is not enlarged. There is a nonobstructing mid right renal calculus. There is no hydronephrosis or cystic or solid renal lesion. Peritoneum and bowel: There may be a small hiatal hernia. Mild thickening of the wall of the stomach is present which may be exaggerated by incomplete distention. Multiple fluid-filled small bowel loops are identified. However, these bowel loops are not significantly dilated. The colon appears to be within normal limits. No significant free fluid is present within the abdomen. There is no loculated fluid collection. Nodes and vessels: No retroperitoneal or mesenteric adenopathy. Aorta and inferior vena cava are normal in caliber. Bones: No acute fractures suspicious osseous lesion is evident. PELVIS: Genitourinary: Bladder wall thickness is normal. The uterus and ovaries are not adequately evaluated, but do not appear to be enlarged. Miscellaneous: No inguinal hernias or adenopathy. A small amount of free fluid is seen within the pelvis. There is no loculated fluid collection or free air. Bones: No suspicious bony lesions. No acute pelvic fractures are identified. IMPRESSION: 1. Nonspecific interval enlargement of the common bile duct. If the patient's liver function tests are elevated, MRCP may be helpful to evaluate for possible choledocholithiasis. 2. Hepatic steatosis. 3. Nonobstructing right renal calculus. No hydronephrosis. 4. Gastric wall thickening probably is related to the incomplete distention. However, clinical correlation to exclude gastritis is recommended. There may be a small hiatal hernia. 5. Trace right-sided pleural effusion and associated atelectasis. 6. Minimal free fluid within the pelvis. No drainable or loculated fluid collections. The Dictated by: Suman Peters M.D. on 07/29/2019 at 13:15 Approved by: Suman Peters M.D. on 07/29/2019 at 13:20 ECG Data Attestation: I personally reviewed and interpreted this ECG as follows: (See below) Interpretation: Twelve lead EKG performed July 29, 2019 at 10:33 a.m., as follows: Regular ventricular rhythm with rate of 47 beats per minute IA interval 124 millisecond QRS duration 90 millisecond QTC interval 429 millisecond No ectopy Significant ST T wave changes Interpretation: Sinus bradycardia; no signs of acute ischemia; borderline EKG as interpreted by ED MD. Discharge Plan Departure Patient Disposition: Home Clinical Impression: Gastritis Qualifiers: Gastritis type: unspecified gastritis Chronicity: acute Gastritis bleeding: without bleeding Qualified Code(s): K29.00 - Acute gastritis without bleeding Abdominal pain Qualifiers: Abdominal location: epigastric Qualified Code(s): R10.13 - Epigastric pain Discharge Date/Time: 07/29/19 15:23 Instructions: DI for Abdominal Pain-Adult Activity Restrictions/Additional Instructions: Your labs look good. Your CT scan shows a stone in your kidney that is not passing, and is not likely to be the cause of your pain. There is some thickening of the wall of your stomach, which could indicate inflammation. It is possible that you could have an ulcer, as well. This does not show up well on CT scan, and would need to be diagnosed by endoscopy. You will be referred to Gastroenterology and surgery to discuss having this done. The remnant of your bile duct, which formally connected to your gallbladder, is slightly enlarged, but this is a nonspecific finding. Your liver function tests are normal, which makes the likelihood of stones blocking the duct less likely. Except for the pain medications, your prescriptions have been electronically transmitted to [facility] pharmacy in [place]. Prescriptions: New pantoprazole [Protonix] 40 mg tablet,delayed release (DR/EC) 40 mg PO DAILY Qty: 30 RF: 0 ondansetron 4 mg tablet,disintegrating 4 mg PO Q8H PRN (Reason: nausea and vomiting) Qty: 14 RF: 0 hydrocodone-acetaminophen [Eldon] 5-325 mg tablet 1 tab PO Q4H PRN (Reason: pain) Qty: 10 RF: 0 No Action carisoprodol 350 MG tablet 350 mg PO BID PRN (Reason: spasm) Qty: 0 RF: 0 sertraline 100 mg tablet PO BEDTIME RF: 0 hydrocodone-acetaminophen 10-325 mg tablet 1 tab PO Q4H PRN (Reason: pain) RF: 0 alprazolam 0.5 mg tablet 0.25 mg PO BID PRN (Reason: Anxiety) RF: 0 eszopiclone 1 mg tablet 1 mg PO BEDTIME RF: 0 trazodone 100 MG tablet 300 mg PO BEDTIME RF: 0 propranolol 10 mg tablet 10 mg PO BID RF: 0 fluconazole 150 mg tablet 150 mg PO .ONCE PRN (Reason: unknown) RF: 0 promethazine 25 mg tablet 25 mg PO Q4-6H PRN (Reason: nausea and vomiting) Qty: 20 RF: 0 lorazepam [Ativan] 0.5 mg tablet 0.5 mg PO BID-TID PRN (Reason: anxiety) Qty: 7 RF: 0 clonidine HCl 0.1 mg tablet 0.1 mg PO DAILY RF: 0 rizatriptan 5 mg tablet RF: 0 lactulose [Constulose] 10 gram/15 mL solution RF: 0 Referrals: [facility] Gastroenterology [Provider Group] Baudilio Bejarano [Primary Care Provider] -
[2019-07-29 11:05] LABS: INR 1.1 (0.9-1.3); Prothrombin Time 12.3 SECONDS (10.1-12.7)
[2019-07-29 11:08] LABS: PTT Partial Thromboplastin Tim 32 SECONDS (26.4-36.2)
[2019-07-29 11:10] LABS: Alanine Aminotransferase 24 IU/L (9-52); Albumin 4.2 g/dL (3.5-5.0); Albumin Globulin Ratio 1.6 (1.0-2.8); Alkaline Phosphatase 50 U/L (38-126); Aspartate Aminotransferase 27 IU/L (14-36); Bilirubin Total 0.6 mg/dL (0.2-1.3); Blood Urea Nitrogen 12 mg/dL (7-17); Calcium 9.5 mg/dL (8.4-10.2); Carbon Dioxide 27 mmol/L (22-32); Chloride 105 mmol/L (98-107); Estimated Glomerular Filt Rate > 60.0 mL/min (>60); Globulin 2.6 g/dL (1.7-4.1); Glucose 114 mg/dL (70-100); HEMOLYSIS < 15 (0-50); Lipase 31 U/L (23-300); Potassium 3.6 mmol/L (3.4-5.1); Sodium 141 mmol/L (137-145); Total Protein 6.8 g/dL (6.3-8.2)
[2019-07-29] MEDS: SODIUM CHLORIDE 0.9% 1,000 ML 1000 ML IV (11:41)
[2019-07-29] MEDS: HYDROMORPHONE 1 MG INJ IV ×3 (11:41→14:56)
[2019-07-29] MEDS: PANTOPRAZOLE 40 MG VIAL IV (11:41)
[2019-07-29] MEDS: ONDANSETRON 4 MG/2 ML INJ IV (11:41)
--- NOTE | 2019-07-29 13:03 | DI.CT.S_ITS ---
PROCEDURE: CT ABDOMEN PELVIS W CON INDICATIONS: abdominal pain TECHNIQUE: After the administration of oral and intravenous contrast, 5 mm thick sections acquired from the diaphragms to the symphysis. 5 mm thick coronal and sagittal reformats were performed. For radiation dose reduction, the following was used: automated exposure control, adjustment of mA and/or kV according to patient size. COMPARISON: [facility], CT, CT ABDOMEN PELVIS W CON, 11/01/2018, 16:23. [facility], CT, ABDOMEN WITH CONTRAST, 02/15/2017, 17:28. [facility], CT, ABDOMEN/PELVIS WITH CONTRAST, 12/12/2011, 19:33. FINDINGS: Image quality: Diagnostic. ABDOMEN: Lung bases: There may be a trace right-sided pleural effusion. Mild posterior costophrenic angle atelectasis on the right is present. Heart size is normal. Solid organs: The liver is noted to be hypodense when compared to the spleen. The patient has had a prior cholecystectomy. The common bile duct is prominent in size and may be within normal limits given the patient's history of a previous cholecystectomy. The common bile duct measures 9-10 mm in diameter on the current exam (previously measuring up to approximately 5 mm in diameter on the prior exam. The spleen and adrenals are unremarkable. The pancreas is within normal limits. The main pancreatic duct is not enlarged. There is a nonobstructing mid right renal calculus. There is no hydronephrosis or cystic or solid renal lesion. Peritoneum and bowel: There may be a small hiatal hernia. Mild thickening of the wall of the stomach is present which may be exaggerated by incomplete distention. Multiple fluid-filled small bowel loops are identified. However, these bowel loops are not significantly dilated. The colon appears to be within normal limits. No significant free fluid is present within the abdomen. There is no loculated fluid collection. Nodes and vessels: No retroperitoneal or mesenteric adenopathy. Aorta and inferior vena cava are normal in caliber. Bones: No acute fractures suspicious osseous lesion is evident. PELVIS: Genitourinary: Bladder wall thickness is normal. The uterus and ovaries are not adequately evaluated, but do not appear to be enlarged. Miscellaneous: No inguinal hernias or adenopathy. A small amount of free fluid is seen within the pelvis. There is no loculated fluid collection or free air. Bones: No suspicious bony lesions. No acute pelvic fractures are identified. IMPRESSION: 1. Nonspecific interval enlargement of the common bile duct. If the patient's liver function tests are elevated, MRCP may be helpful to evaluate for possible choledocholithiasis. 2. Hepatic steatosis. 3. Nonobstructing right renal calculus. No hydronephrosis. 4. Gastric wall thickening probably is related to the incomplete distention. However, clinical correlation to exclude gastritis is recommended. There may be a small hiatal hernia. 5. Trace right-sided pleural effusion and associated atelectasis. 6. Minimal free fluid within the pelvis. No drainable or loculated fluid collections. The Dictated by: Suman Peters M.D. on 07/29/2019 at 13:15 Approved by: Suman Peters M.D. on 07/29/2019 at 13:20
[2019-07-29] MEDS: MAG HYDROX/ALUMINUM/SIMETH SUS 20 ML, LIDOCAINE VISCOUS 2% 15 ML PO (13:14)
== END 2019-07-29 15:23 | disposition home or self-care (01) ==
PROVIDERS: Emergency Provider Emergency Medicine; PCP Ophthalmology
DX: K29.00 Acute gastritis without bleeding (principal); R10.13 Epigastric pain; R00.1 Bradycardia, unspecified; R11.2 Nausea with vomiting, unspecified
CPT/HCPCS: 36415; 74177; 80053; 81003; 81025; 83690; 85025; 85610; 85730; 93005; 96361; 96374; 96375; 96376; 99284; 99285; C9113; J1170; J2405; Q9967

== ENCOUNTER 2019-08-17 08:30 | Outpatient (RCR) | payer MEDICARE, OTHER, MEDICAID, SELFPAY ==
--- NOTE | 2019-07-17 10:48 | OT.OP.EVAL ---
Visit Care Team Role Provider Type Baudilio Bejarano Primary Care Provider Non-Staff Specialty: Medical Address: [facility] [address], [place], [address] Email: Priscilla Amaral MD Attending Provider Non-Staff Specialty: Neurology Address: [address] [place] [address], [place], [address] Email: Occupational Therapy Initial Evaluation OT Outpatient Adult Evaluation Start: 07/17/19 09:34 Freq: Status: Active Protocol: Document 07/13/19 15:30 AMS (Rec: 07/17/19 10:30 AMS [email or web address]) General Information Visit Start Time 12:30 Visit Stop Time 13:18 Total Visit Minutes 48 Plan of Care Dates 07/13/19-10/05/19 Insurance Information [employer] - Adult Treatment Setting Outpatient Care Note Type Initial Evaluation Referring Physician Priscilla Amaral MD Reason for Referral Multiple sclerosis; L hand weakness/spasticity LE Identification Confirmed Yes: Photo ID Identification Confirmed By Patient Patient Concerns Dropping items frequently Medical History [facility] Health History Form completed by patient; placed in paper chart. Significant for back pain; bruising easily; depression; dizziness; falls; headaches; multiple sclerosis; neck pain; seizures; surgery; vision problems. Social history (+) for smoking. Imani reports being diagnosed with MS at the age of 18; she reported that she has been dealing with Celiac Vomiting Syndrome for the past 3 years for which she has been recently referred to [facility] d/t symptoms are unmanageable. Imani reports frequently dropping things, R worse than the L. Therapist also reviewed PT chart notes. MR Head/Brain WO/W CON 04/16/19 = Stable several small foci of elevated flair signal consistent with underlying multiple sclerosis, slightly greater on the right than the left and without bladder changer time. History of Therapy Receiving outpatient PT 2 x per week. Sees chiropractor and drug and alcohol counsellor. Both are addressing her R sided neck pain. Current Therapy/Therapies See above Social History Patient reports inability to work currently; symptoms are not manageable. Therapy Pain Assessment Lower Back Intensity 7 Scale Used Numeric (1 - 10) Posterior Neck Intensity 7 Scale Used Numeric (1 - 10) B upper thigh Intensity 9 Scale Used Numeric (1 - 10) IADLs Comments Impaired Tightness Summary of Tightness (-) intrinsic tightness noted in digits bilaterally Muscle Testing Left Hook And Eye Sewing Machine Operator Dynamometer II 60.0 Lateral Pinch Strength (lbs) 12.0 Palmar Pinch Strength (lbs) 11.2 Tip Pinch Strength (lbs) 9.2 Comments Average Performance L Hook And Eye Sewing Machine Operator Strength Women 35-39 = 66.3 +/ - 11.7# (within 1 SD below) Average Performance L Lateral Pinch Strength Women 35-39= 16 .0 +/- 2.7# (> 1 SD below) Average Performance L 3-jaw Pinch Strength Women 35-39= 17 .1 +/- 3.4# (> 1 SD below) Average Performance L Tip Pinch Strength Women 35-39= 11 .9 +/- 2.4# (> 1 SD below) Right Hook And Eye Sewing Machine Operator Dynamometer II 30.0 Lateral Pinch Strength (lbs) 9.3 Palmar Pinch Strength (lbs) 5.3 Tip Pinch Strength (lbs) 7.8 Comments Average Performance R Hook And Eye Sewing Machine Operator Strength Women 35-39 = 74.1 +/ - 10.8# (> 3 SD below) Average Performance R Lateral Pinch Strength Women 35-39= 16 .6 +/- 2.0# (> 3 SD below) Average Performance R 3-jaw Pinch Strength Women 35-39= 17 .5 +/- 4.2# (> 2 SD below) Average Performance R Tip Pinch Strength Women 35-39= 11 .6 +/- 2.5# (>1 SD below) Neurological Assessment - Adult Comments [id number] Impairment noted w/ R and L with EC. (+) Ability to execute finger opposition bilaterally with eyes open. Increased concentration required w/ execution of finger opposition bilaterally with eyes closed; however, able to execute. Slight impairment relative to orientation to midline; minor shift to right noted on this date. Peripheral Nerve Sensation Inconsistent w/ nerve symptom presentation relative to distal L UE. Denied identification of triggers. Denied association w/ sleep/ sleeping posture. Goals Treatment Eval charge only permitted w/ insurance. Short Term Goals 1. 4/[address] 2. 4/5 MMT R wrist UD. 3. 4/[address] 4. 4/5 MMT L wrist UD. Computer Operations Technician Goals 1. Imani will be modified independent with distal UE home exercise program utilizing written and visual instructions provided by therapist. 2. Based on verbal report, Imani will present with increased confidence in her ability to manipulate objects in the home; this will be evidenced by Imani's denial of dropping items for over a 5 minute period 5 out of 7 per days of the week. Assessment/Plan Patient Response Good Rehabilitation Potential Good Impairments Identified ADLs,Coordination/Dexterity, Functional Activities,Motor Function,Pain,Weakness, Recreational Activities, Meaningful Activities, Spasticity,Motor Planning Treatment Assessment Patient is a 34 year-old R hand dominant female referred to outpatient OT by neurologist, Priscilla Amaral MD, secondary to multiple sclerosis/hand weakness. PMH: Significant for back pain; bruising easily; depression; dizziness; falls; headaches; multiple sclerosis; neck pain; seizures; surgery; vision problems. Patient concerns: Frequently dropping of items; impacting day-to-day life Evaluation findings: Right hand dominant female; weakness ; decreased activity tolerance ; decreased R distal UE strength; decreased orientation to midline/slight midline shift relative to UEs; decreased kinesthetic UE awareness; frustration/ decreased tolerance relative to object manipulation; (+) use of visual feedback to support object manipulation bilaterally; and decreased success/ability to complete functional tasks d/t frequent dropping of items. Outpatient OT is recommended to address these areas in order to maximize Imani's success with active participation in meaningful activities in day-to-day life; recommend addressing Imani's confidence and success w/ object manipulation given that is one of her main concerns at this time. Home Exercise Program Instructed to complete in-hand manipulation activity while seated unilaterally --> then bilaterally while watching television or another task. Reviewed with Patient Goals,Progress Being Made,Home Exercise Program Patient Understanding Good Comment 12 weeks Treatment Frequency Once a Week Therapeutic Contents Active Range of Motion, Adaptive Equipment Education, Client Education,Cognitive Skills Development,Functional Activities,Home Exercise Program,Joint Protection, Manual Therapy,Education, Neurodevelopment Treatment, Neuromuscular Re-Education, Self-Care,Stretching/ Flexibility Activities, Therapeutic Activities, Therapeutic Exercises, Modalities,Sensory Re- education Modalities As Needed,As Prescribed Types of Modalities Contrast Bath,E-Stim, Functional Stimulation (FES),T .E.N. Stimulation,TENS Placement/Application, Ultrasound Patient Instruction Home Exercise Program,Plan of Care,Questions/Concerns,Other Patient Recommendations Continue with Current Program, Advance per Rehabilitation Protocol
--- NOTE | 2019-07-25 11:53 | OT.OP.TRT ---
Visit Care Team Role Provider Type Baudilio Bjearano Primary Care Provider Non-Staff Specialty: Medical Address: [facility] [address], [place], [address] Email: Priscilla Amaral MD Attending Provider Non-Staff Specialty: Neurology Address: [address] [place] [address], [place], [address] Email: Occupational Therapy Treatment Note OT Outpatient Treatment Note - Adult Start: 07/17/19 09:34 Freq: Status: Active Protocol: Document 07/25/19 10:21 AMS (Rec: 07/25/19 11:52 AMS [email or web address]) OT Outpatient Adult Treatment Note Session Time Visit Start Time 08:30 Visit Stop Time 09:18 Total Visit Minutes 48 Visit Information Plan of Care Dates 07/13/19-10/05/19 Insurance Information [employer] - Adult Setting Treatment Setting Outpatient Care Visit Type Note Type Treatment Note General Information General Information Patient is a 34 year-old R hand dominant female referred to outpatient OT by neurologist, Priscilla Amaral MD, secondary to multiple sclerosis/hand weakness. PMH: Significant for back pain; bruising easily; depression; dizziness; falls; headaches; multiple sclerosis; neck pain; seizures; surgery; vision problems. - Subjective Identification Type Name Identification Reconciled With Medical Record Observations I will have to try and call [facility] again. They still haven't called me yet in re: scheduling appt for Celiac Vomiting Syndrome. I dropped a plate this morning when I was washing it per Imani. I am able to catch the balls with Olman during PT and I am focusing somewhere else. Chief Complaint(s) Restricts Additional Areas of Concern Dropping items frequently Patient/Caregiver Compliance with Home Good Exercise Program - Objective Objective Measurements Please refer to below for progress towards meeting established OT goals. Short Term Goals 1. 4/[address] 2. 4/5 MMT R wrist UD. 3. 4/[address] 4. 4/5 MMT L wrist UD. 5. Will average 12.0# of force or more with right little pinch. 6. Will average 9.1# of force or more with right 3-jaw pinch. Marketing Production Coordinator Goals 1. Imani will be modified independent with distal UE home exercise program utilizing written and visual instructions provided by therapist. 2. Based on verbal report, Imani will present with increased confidence in her ability to manipulate objects in the home; this will be evidenced by Imani's denial of dropping items for over a 5 minute period 5 out of 7 per days of the week. - Treatment 1 Descriptor Joint protection education relative to thumb/functional grasp patterns with avoidance of positions of deformity. Complexity Upgraded Exercises 4 Descriptor Bimanual coordination Complexity Upgraded 3 Descriptor Hand strengthening exercises. Little, tip, 3-jaw pinches, digit extension. 3x15 reps. Complexity Upgraded 2 Descriptor Resistant clothespins (1# to 8 # resistance) 3-jaw grasp Side Both Body Position Seated Complexity Upgraded 1 Descriptor Home Exercise Program. Initiated hand strengthening program; provided with firm blue theraputty for home use. Instructed in little, 3-jaw, and tip pinch finger strengthening exercises. Instructed in gross finger extensor strengthening exercise. Imani denied need for written and/or visual instructions. Instructed in bimanual UE coordination exercise w/ specific use of proposal editor/ smaller ball to increase difficulty. Imani denied questions re: all exercises. - Assessment Patient Response to Treatment Good Rehab Potential Good Impairments Identified ADLs,Coordination/Dexterity, Functional Activities,Motor Function,Pain,Weakness, Recreational Activities, Meaningful Activities, Spasticity,Stiffness,Motor Planning,Eye-Hand Coordination Assessment of Improvement Advanced HEP on this treatment date; denied h/o education re : joint protection principles of hand(s). Increased focus for tip-to-tip motor planning/ motor coordination bilaterally . Tendency towards lateral positioning of 2nd digit pads w/ (-) IP joint flexion bilaterally. Discussed use of rhythm to assist w/ motor planning. Recommend advancing exercises as tolerated; address distal UE strength/ coordination/kinesthetic awareness/motor planning/ object manipulation abilities. Home Exercise Program Please refer to treatment section of note for specific details. Reviewed with Patient/Caregiver Goals,Progress Being Made,Home Exercise Program Patient/Caregiver Understanding Good - Plan Therapy Recommendations Continue with Current Program, Advance per Rehabilitation Protocol
--- NOTE | 2019-08-03 09:32 | OT.OP.TRT ---
Visit Care Team Role Provider Type Baudilio Bejarano Primary Care Provider Non-Staff Specialty: Medical Address: [facility] [address], [place], [address] Email: Priscilla Amaral MD Attending Provider Non-Staff Specialty: Neurology Address: [address] [place] [address], [place], [address] Email: Occupational Therapy Treatment Note OT Outpatient Treatment Note - Adult Start: 07/17/19 09:34 Freq: Status: Active Protocol: Document 08/03/19 08:31 AMS (Rec: 08/03/19 09:32 AMS [email or web address]) OT Outpatient Adult Treatment Note Session Time Visit Start Time 08:30 Visit Stop Time 09:18 Total Visit Minutes 48 Visit Information Plan of Care Dates 07/13/19-10/05/19 Insurance Information [employer] - Adult Setting Treatment Setting Outpatient Care Visit Type Note Type Treatment Note General Information General Information Patient is a 34 year-old R hand dominant female referred to outpatient OT by neurologist, Priscilla Amaral MD, secondary to multiple sclerosis/hand weakness. PMH: Significant for back pain; bruising easily; depression; dizziness; falls; headaches; multiple sclerosis; neck pain; seizures; surgery; vision problems. - Subjective Identification Type Name Identification Reconciled With Medical Record Observations I had to go into the hospital on Tuesday and get fluids. They did a CAT scan and found a kidney stone, a hernia and fluid around my lung. They are checking if I have a bacterial stomach cancer. I have an appointment at [facility] on Tuesday per Imani. Additional Areas of Concern Dropping items frequently Patient/Caregiver Compliance with Home Fair Exercise Program Comments d/t illness - Objective Objective Measurements Please refer to below for progress towards meeting established OT goals. Short Term Goals 1. 4/[address] 2. 4/5 MMT R wrist UD. 3. 4/[address] 4. 4/5 MMT L wrist UD. 5. Will average 12.0# of force or more with right little pinch. 6. Will average 9.1# of force or more with right 3-jaw pinch. 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 Imani will be modified independent with distal UE home exercise program utilizing written and visual instructions provided by therapist. 2. Based on verbal report, Imani will present with increased confidence in her ability to manipulate objects in the home; this will be evidenced by Imani's denial of dropping items for over a 5 minute period 5 out of 7 per days of the week. - Treatment 1 Descriptor Joint protection education relative to thumb/functional grasp patterns with avoidance of positions of deformity. Exercises 6 Descriptor Oppositional Digit Strengthening Side Both Body Position Sitting Sets 3 Repetitions 8 Complexity Upgraded 5 Descriptor Grasp/Eye-Hand Coordination Side Both Body Position Sitting Sets 3 Repetitions 10 Resistance 4.4# Complexity Upgraded 4 Descriptor Bimanual coordination 3 Descriptor Hand strengthening exercises. Little, tip, 3-jaw pinches, digit extension. 3x15 reps. Complexity Upgraded 2 Descriptor Resistant clothespins (1# to 8 # resistance) 3-jaw grasp Side Both Body Position Seated 1 Descriptor Home Exercise Program. Recommended continuing with digit/hand strengthening theraputty exercises utilizing provided resistant theraputty . Recommended continuing w/ eye-hand coordination/bimanual coordination activities as previously directed. In addition, discussed functional meaningful activities to address motor planning/ coordination (e.g., discussed keyboarding and crotchet) Imani denied questions re: all exercises. Complexity Upgraded - Assessment Patient Response to Treatment Good Rehab Potential Good Impairments Identified ADLs,Coordination/Dexterity, Functional Activities,Motor Function,Pain,Weakness, Recreational Activities, Meaningful Activities, Spasticity,Stiffness,Motor Planning,Eye-Hand Coordination Assessment of Improvement Given recent illness, treatment session modified to seated exercises only. In addition, education was completed re: low impact/ seated meaningful activities d /t illness to continue to address motor coordination/ motor planning. Recommend advancing exercises as tolerated; address distal UE strength/coordination/ kinesthetic awareness/motor planning/object manipulation abilities. Home Exercise Program Please refer to treatment section of note for specific details. Reviewed with Patient/Caregiver Goals,Progress Being Made,Home Exercise Program Patient/Caregiver Understanding Good - Plan Therapy Recommendations Continue with Current Program, Advance per Rehabilitation Protocol
--- NOTE | 2019-08-17 09:27 | OT.OP.TRT ---
Visit Care Team Role Provider Type Baudilio Bejarano Primary Care Provider Non-Staff Specialty: Medical Address: [facility] [address], [place], [address] Email: Priscilla Amaral MD Attending Provider Non-Staff Specialty: Neurology Address: [address] [place] [address], [id number] Email: Occupational Therapy Treatment Note OT Outpatient Treatment Note - Adult Start: 07/17/19 09:34 Freq: Status: Active Protocol: Document 08/17/19 09:19 AMS (Rec: 08/17/19 09:27 AMS [email or web address]) OT Outpatient Adult Treatment Note Session Time Visit Start Time 08:30 Visit Stop Time 09:19 Total Visit Minutes 49 Visit Information Plan of Care Dates 07/13/19-10/05/19 Insurance Information [employer] - Adult Setting Treatment Setting Outpatient Care Visit Type Note Type Treatment Note General Information General Information Patient is a 34 year-old R hand dominant female referred to outpatient OT by neurologist, Priscilla Amaral MD, secondary to multiple sclerosis/hand weakness. PMH: Significant for back pain; bruising easily; depression; dizziness; falls; headaches; multiple sclerosis; neck pain; seizures; surgery; vision problems. - Subjective Identification Type Name Identification Reconciled With Medical Record Observations She said that the entire lining of my stomach is red from inflammation. She took biopsies and I am waiting for the results. She said it wasn' t stomach cancer per Imani. Additional Areas of Concern Dropping items frequently Patient/Caregiver Compliance with Home Excellent Exercise Program - Objective Objective Measurements Stereognosis intact bilaterally. Able to correctly identify 5/5 items bilaterally. Keyboarding WFL per patient report without visual feedback/as single task . Please refer to below for progress towards meeting established OT goals. Short Term Goals 1. 4/[address] 2. 4/5 MMT R wrist UD. 3. 4/[address] 4. 4/5 MMT L wrist UD. 5. Will average 12.0# of force or more with right victoria pinch. 6. Will average 9.1# of force or more with right 3-jaw pinch. Long-Term Goals 1. Imani will be modified independent with distal UE home exercise program utilizing written and visual instructions provided by therapist. 2. Based on verbal report, Imani will present with increased confidence in her ability to manipulate objects in the home; this will be evidenced by Imani's denial of dropping items for over a 5 minute period 5 out of 7 per days of the week. - Exercises 6 Descriptor Flex bar (blue, red) Wrist flex, ext Forearm pronation w/ focus on cna per diem Side Both Body Position Sitting Sets 3 Repetitions 10 5 Descriptor Eye-Hand Coordination Metronome 60-72 bpm Side Both Body Position Sitting 4 Descriptor Bimanual coordination UEB x 5 min (forwards and backwards seated); metronome work 2 Descriptor Resistant clothespins (1# to 8 # resistance) 3-jaw grasp Side Both Body Position Seated 1 Descriptor Home Exercise Program. Recommended continuing with digit/hand strengthening theraputty exercises utilizing provided resistant theraputty . Recommended continuing w/ eye-hand coordination/bimanual coordination activities as previously directed w/ addition of metronome. Recommended divided attention work w/ keyboarding. Imani denied questions re: all exercises. Complexity Upgraded - Assessment Patient Response to Treatment Good Rehab Potential Good Impairments Identified ADLs,Coordination/Dexterity, Functional Activities,Motor Function,Pain,Weakness, Recreational Activities, Meaningful Activities, Spasticity,Stiffness,Motor Planning,Eye-Hand Coordination Assessment of Improvement Stereognosis intact bilaterally. Increased difficulty observed w/ eye- hand coordination activity w/ addition of metronome component. Discussed recommended progression to 3 sets of 15 reps with exercises as able to advance; recommend advancing to closed kinetic chain exercises as tolerated. Will progress these exercises as more knowledge is obtained re: management of stomach/ vomiting as directed by Tajik specialist's care. Advanced HEP. Recommend advancing exercises as tolerated; address distal UE strength/coordination/ kinesthetic awareness/motor planning/object manipulation abilities. Home Exercise Program Please refer to treatment section of note for specific details. Reviewed with Patient/Caregiver Goals,Progress Being Made,Home Exercise Program Patient/Caregiver Understanding Good - Plan Therapy Recommendations Continue with Current Program, Advance per Rehabilitation Protocol
--- NOTE | 2019-08-29 09:05 | OT.OP.TRT ---
Visit Care Team Role Provider Type Baudilio Bejarano Primary Care Provider Non-Staff Specialty: Medical Address: [facility] [address], [place], [address] Email: Priscilla Amaral MD Attending Provider Non-Staff Specialty: Neurology Address: [address] [place] [address], [address] Email: Occupational Therapy Treatment Note OT Outpatient Treatment Note - Adult Start: 07/17/19 09:34 Freq: Status: Active Protocol: Document 08/29/19 08:58 AMS (Rec: 08/29/19 09:04 AMS [email or web address]) OT Outpatient Adult Treatment Note Visit Information Plan of Care Dates 07/13/19-10/05/19 Insurance Information [employer] - Adult Setting Treatment Setting Outpatient Care Visit Type Note Type Administrative Note General Information General Information Patient is a 34 year-old R hand dominant female referred to outpatient OT by neurologist, Priscilla Amaral MD, secondary to multiple sclerosis/hand weakness. PMH: Significant for back pain; bruising easily; depression; dizziness; falls; headaches; multiple sclerosis; neck pain; seizures; surgery; vision problems. 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 Recommend that therapist follow-up via telephone. - - - -
--- NOTE | 2019-10-15 09:54 | OT.OP.DC ---
Visit Care Team Role Provider Type Baudilio Bejarano Primary Care Provider Non-Staff Address: [facility] [address] , [place] [id number], [place], [address] Email: Priscilla Amaral MD Attending Provider Non-Staff Address: [address] [place] [address], [address] Email: OT Outpatient OT Outpatient Adult Evaluation Start: 07/17/19 09:34 Freq: Status: Active Protocol: Document 07/13/19 15:30 AMS (Rec: 07/17/19 10:30 AMS [email or web address]) General Information Session Time Visit Start Time 12:30 Visit Stop Time 13:18 Total Visit Minutes 48 Visit Information Plan of Care Dates 07/13/19-10/05/19 Insurance Information [employer] - Adult Setting Treatment Setting Outpatient Care Visit Type Note Type Initial Evaluation Referral Referring Physician Priscilla Amaral MD Reason for Referral Multiple sclerosis; L hand weakness/spasticity LE Identification Identification Confirmed Yes: Photo ID Identification Confirmed By Patient Patient Patient Concerns Dropping items frequently Medical Information Medical History [facility] History Form completed by patient; placed in paper chart. Significant for back pain; bruising easily; depression; dizziness; falls; headaches; multiple sclerosis; neck pain; seizures; surgery; vision problems. Social history (+) for smoking. Imani reports being diagnosed with MS at the age of 18; she reported that she has been dealing with Celiac Vomiting Syndrome for the past 3 years for which she has been recently referred to [facility] d/t symptoms are unmanageable. Imani reports frequently dropping things, R worse than the L. Therapist also reviewed PT chart notes. MR Head/Brain WO/W CON 04/16/19 = Stable several small foci of elevated flair signal consistent with underlying multiple sclerosis, slightly greater on the right than the left and without cell changer time. Previous Therapy History of Therapy Receiving outpatient PT 2 x per week. 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 Both are addressing her R sided neck pain. Current Therapy/Therapies See above Social Information Social History Patient reports inability to work currently; symptoms are not manageable. Therapy Pain Assessment Location Lower Back Intensity 7 Scale Used Numeric (1 - 10) Posterior Neck Intensity 7 Scale Used Numeric (1 - 10) B upper thigh Intensity 9 Scale Used Numeric (1 - 10) IADLs Overall Function Comments Impaired Tightness Tightness Summary of Tightness (-) intrinsic tightness noted in digits bilaterally Muscle Testing Mold Tooler/Hand Strength Left Mold Tooler Dynamometer II 60.0 Lateral Pinch Strength (lbs) 12.0 Palmar Pinch Strength (lbs) 11.2 Tip Pinch Strength (lbs) 9.2 Comments Average Performance L Mold Tooler Strength Women 35-39 = 66.3 +/ - 11.7# (within 1 SD below) Average Performance L Lateral Pinch Strength Women 35-39= 16 .0 +/- 2.7# (> 1 SD below) Average Performance L 3-jaw Pinch Strength Women 35-39= 17 .1 +/- 3.4# (> 1 SD below) Average Performance L Tip Pinch Strength Women 35-39= 11 .9 +/- 2.4# (> 1 SD below) Right Mold Tooler Dynamometer II 30.0 Lateral Pinch Strength (lbs) 9.3 Palmar Pinch Strength (lbs) 5.3 Tip Pinch Strength (lbs) 7.8 Comments Average Performance R Mold Tooler Strength Women 35-39 = 74.1 +/ - 10.8# (> 3 SD below) Average Performance R Lateral Pinch Strength Women 35-39= 16 .6 +/- 2.0# (> 3 SD below) Average Performance R 3-jaw Pinch Strength Women 35-39= 17 .5 +/- 4.2# (> 2 SD below) Average Performance R Tip Pinch Strength Women 35-39= 11 .6 +/- 2.5# (>1 SD below) Neurological Assessment - Adult Coordination Comments [id number] Impairment noted w/ R and L with EC. (+) Ability to execute finger opposition bilaterally with eyes open. Increased concentration required w/ execution of finger opposition bilaterally with eyes closed; however, able to execute. Slight impairment relative to orientation to midline; minor shift to right noted on this date. Peripheral Nerve Sensation Peripheral Nerve Sensation Inconsistent w/ nerve symptom presentation relative to distal L UE. Denied identification of triggers. Denied association w/ sleep/ sleeping posture. Goals Treatment Treatment Eval charge only permitted w/ insurance. Short Term Goals Short Term Goals 1. 4/[address] 2. 4/5 MMT R wrist UD. 3. 4/[address] 4. 4/5 MMT L wrist UD. Senior Living Goals [employer] Goals 1. Imani will be modified independent with distal UE home exercise program utilizing written and visual instructions provided by therapist. 2. Based on verbal report, Imani will present with increased confidence in her ability to manipulate objects in the home; this will be evidenced by Imani's denial of dropping items for over a 5 minute period 5 out of 7 per days of the week. Assessment/Plan Assessment Patient Response Good Rehabilitation Potential Good Impairments Identified ADLs,Coordination/Dexterity, Functional Activities,Motor Function,Pain,Weakness, Recreational Activities, Meaningful Activities, Spasticity,Motor Planning Treatment Assessment Patient is a 34 year-old R hand dominant female referred to outpatient OT by neurologist, Priscilla Amaral MD, secondary to multiple sclerosis/hand weakness. PMH: Significant for back pain; bruising easily; depression; dizziness; falls; headaches; multiple sclerosis; neck pain; seizures; surgery; vision problems. Patient concerns: Frequently dropping of items; impacting day-to-day life Evaluation findings: Right hand dominant female; weakness ; decreased activity tolerance ; decreased R distal UE strength; decreased orientation to midline/slight midline shift relative to UEs; decreased kinesthetic UE awareness; frustration/ decreased tolerance relative to object manipulation; (+) use of visual feedback to support object manipulation bilaterally; and decreased success/ability to complete functional tasks d/t frequent dropping of items. Outpatient OT is recommended to address these areas in order to maximize Imani's success with active participation in meaningful activities in day-to-day life; recommend addressing Imani's confidence and success w/ object manipulation given that is one of her main concerns at this time. Home Exercise Program Instructed to complete in-hand manipulation activity while seated unilaterally --> then bilaterally while watching television or another task. Reviewed with Patient Goals,Progress Being Made,Home Exercise Program Patient Understanding Good Plan Comment 12 weeks Treatment Frequency Once a Week Therapeutic Contents Active Range of Motion, Adaptive Equipment Education, Client Education,Cognitive Skills Development,Functional Activities,Home Exercise Program,Joint Protection, Manual Therapy,Education, Neurodevelopment Treatment, Neuromuscular Re-Education, Self-Care,Stretching/ Flexibility Activities, Therapeutic Activities, Therapeutic Exercises, Modalities,Sensory Re- education Modalities As Needed,As Prescribed Types of Modalities Contrast Bath,E-Stim, Functional Stimulation (FES),T .E.N. Stimulation,TENS Placement/Application, Ultrasound Patient Instruction Home Exercise Program,Plan of Care,Questions/Concerns,Other Patient Recommendations Continue with Current Program, Advance per Rehabilitation Protocol Sensory Assessment Sensory Profile2 Functional Wrist/Hand Scan Hand Side OT Outpatient Muscle Testing Start: 07/17/19 09:34 Freq: Status: Active Protocol: Document 08/17/19 09:19 AMS (Rec: 08/17/19 09:27 AMS [email or web address]) Wrist Strength Wrist Manual Muscle Testing Left Flexion (C7) 4 Good Extension (C6) 4+ Good+ Ulnar Deviation 4- Good- Radial Deviation 4- Good- Right Flexion (C7) 4 Good Extension (C6) 4 Good Ulnar Deviation 3+ Fair+ Radial Deviation 3+ Fair+ Mold Tooler/Hand Strength Mold Tooler/Hand Strength Left Mold Tooler Dynamometer II 60.0 Lateral Pinch Strengh (lbs) 12.0 Palmar Pinch Strength (lbs) 11.2 Tip Pinch Strength (lbs) 9.2 Comments Average Performance L Mold Tooler Strength Women 35-39 = 66.3 +/ - 11.7# (within 1 SD below) Average Performance L Lateral Pinch Strength Women 35-39= 16 .0 +/- 2.7# (> 1 SD below) Average Performance L 3-jaw Pinch Strength Women 35-39= 17 .1 +/- 3.4# (> 1 SD below) Average Performance L Tip Pinch Strength Women 35-39= 11 .9 +/- 2.4# (> 1 SD below) Right Mold Tooler Dynamometer II 30.0 Lateral Pinch Strengh (lbs) 9.3 Palmar Pinch Strength (lbs) 5.3 Tip Pinch Strength (lbs) 7.8 Comments Average Performance R Mold Tooler Strength Women 35-39 = 74.1 +/ - 10.8# (> 3 SD below) Average Performance R Lateral Pinch Strength Women 35-39= 16 .6 +/- 2.0# (> 3 SD below) Average Performance R 3-jaw Pinch Strength Women 35-39= 17 .5 +/- 4.2# (> 2 SD below) Average Performance R Tip Pinch Strength Women 35-39= 11 .6 +/- 2.5# (>1 SD below) OT Outpatient Treatment Note - Adult Start: 07/17/19 09:34 Freq: Status: Active Protocol: Document 10/15/19 09:50 AMS (Rec: 10/15/19 09:54 AMS [email or web address]) OT Outpatient Adult Treatment Note Visit Information Plan of Care Dates 07/13/19-10/05/19 Insurance Information [employer] - Adult Setting Treatment Setting Outpatient Care Visit Type Note Type Discharge Summary General Information General Information Patient is a 34 year-old R hand dominant female referred to outpatient OT by neurologist, Priscilla Amaral MD, secondary to multiple sclerosis/hand weakness. PMH: Significant for back pain; bruising easily; depression; dizziness; falls; headaches; multiple sclerosis; neck pain; seizures; surgery; vision problems. - Subjective Observations Imani has not been seen by outpatient OT since 08/17/19. Thus, recommend d/c from outpatient OT at this time and re-evaluate as deemed appropriate by referring physician. - Objective Short Term Goals D/C all goals as of 10/15/19 1. 4/[address] 2. 4/5 MMT R wrist UD. 3. 4/[address] 4. 4/5 MMT L wrist UD. 5. Will average 12.0# of force or more with right victoria pinch. 6. Will average 9.1# of force or more with right 3-jaw pinch. Senior Living Goals D/C all goals as of 10/15/19 1. Imani will be modified independent with distal UE home exercise program utilizing written and visual instructions provided by therapist. 2. Based on verbal report, Imani will present with increased confidence in her ability to manipulate objects in the home; this will be evidenced by Imani's denial of dropping items for over a 5 minute period 5 out of 7 per days of the week. - - Assessment Assessment of Improvement Imani has not been seen by outpatient OT since 08/17/19. Given that OT plan of care on 10/05/19 and patient has not been for > 30+ days it is recommended that Imani be d/c at this time. Recommend that OT re-evaluates for as deemed appropriate by referring physician. - Plan Therapy Recommendations Discharge from Occupational Therapy
== END 2019-10-22 13:33 ==
LOC: OT 08:30
PROVIDERS: PCP Ophthalmology; Visit Provider Psychiatry & Neurology Neurology
DX: G35 Multiple sclerosis (principal)
CPT/HCPCS: 97110; 97112; 97165; 97530

== ENCOUNTER 2019-08-31 14:32 | Emergency (ER) | payer MEDICARE, MEDICAID, SELFPAY ==
[2019-08-31 14:37] VITALS: BP 121/82; PULSE 97; RESP 16; TEMP 37; O2SAT 97
--- NOTE | 2019-08-31 14:40 | DI.RAD.S_ITS ---
PROCEDURE: XR FINGER LT MIN 2V INDICATIONS: cut by saw TECHNIQUE: AP hand, 2 views of the first finger(s) acquired. COMPARISON: None. FINDINGS: Bones: No fractures or dislocations. No suspicious bony lesions. Soft tissues: No suspicious soft tissue calcifications. No radiopaque foreign body. IMPRESSION: No fracture or radiopaque foreign body. Dictated by: Olga Rodriguez M.D. on 08/31/2019 at 15:08 Approved by: Olga Rodriguez M.D. on 08/31/2019 at 15:08
[2019-08-31] MEDS: LIDOCAINE/PRILOCAINE 5 GM TOP (15:49)
[2019-08-31] MEDS: IBUPROFEN 400 MG TABLET PO (15:50)
[2019-08-31] MEDS: ACETAMINOPHEN 325 MG TABLET 650 MG PO (15:50)
[2019-08-31] MEDS: LIDO 1%/SOD BICARB 8.4% (10ML) 10 ML SYRINGE INJ (15:51)
[2019-08-31] MEDS: TET,DIPH,PERTUSS(ACELL),VAC/PF 0.5 ML SYRINGE IM (15:51)
[2019-08-31] MEDS: BACITRACIN OINT 0.9 GM PCKT 1 APPLIC TOP (15:51)
--- NOTE | 2019-08-31 16:10 | ED_ITS ---
HPI - Wound/Laceration General Chief Complaint: Wound/Laceration Stated Complaint: left hand injury with saw Time Seen by Provider: 08/31/19 14:50 Source: patient Mode of arrival: Ambulatory Limitations: no limitations History of Present Illness HPI narrative: Patient is a 34-year-old female who presents with left thumb injury. She was making [employer] ornaments when his she cut her thumb. She has no numbness or tingling no decreased range of motion she is unsure when her last tetanus was. Onset (ago): hour(s) Related Data Home Medications Medication Instructions Recorded Confirmed carisoprodol 350 mg PO BID PRN #0 02/16/17 01/29/19 alprazolam 0.25 mg PO BID PRN 11/01/18 11/01/18 eszopiclone 1 mg PO BEDTIME 11/01/18 01/29/19 fluconazole 150 mg PO .ONCE PRN 11/01/18 01/29/19 hydrocodone-acetaminophen 1 tab PO Q4H PRN 11/01/18 01/29/19 propranolol 10 mg PO BID 11/01/18 11/01/18 sertraline mg PO BEDTIME 11/01/18 11/01/18 trazodone 300 mg PO BEDTIME 11/01/18 01/29/19 clonidine HCl 0.1 mg PO DAILY 01/29/19 01/29/19 lactulose [Constulose] 01/29/19 rizatriptan 01/29/19 Previous Rx's Medication Instructions Recorded promethazine 25 mg PO Q4-6H PRN #20 tab 11/01/18 lorazepam [Ativan] 0.5 mg PO BID-TID PRN #7 tab 12/12/18 hydrocodone-acetaminophen [[place]] 1 tab PO Q4H PRN #10 tab 07/29/19 ondansetron 4 mg PO Q8H PRN #14 tab 07/29/19 pantoprazole [Protonix] 40 mg PO DAILY #30 tab 07/29/19 Allergies Allergy/AdvReac Type Severity Reaction Status Date / Time aspirin [ASPIRIN] Allergy Severe THROAT Verified 08/31/19 14:39 SWELLING metoclopramide [From REGLAN] AdvReac Mild AGGITATION/ Verified 08/31/19 14:39 RESTLESSNES S Review of Systems Review of Systems Narrative: GENERAL: Denies chills,fever HEENT: Denies throat pain RESPIRATORY: Denies dyspnea, cough, wheezing CARDIOVASCULAR: Denies chest pain, palpitations GASTROINTESTINAL: Denies nausea, vomiting MUSCULOSKELETAL: Denies extremity pain, injury SKIN: See HPI NEUROLOGIC: Denies weakness, dizziness, headache, numbness 8 point review of systems is negative except for those stated above and HPI Patient History Medical History Anxiety (Acute) Celiac disease (Acute) Cyclic vomiting syndrome (Acute) Multiple sclerosis (Acute) Surgical History Status post tubal ligation Social History Smoking Status: Current every day smoker substance use type: marijuana tobacco type: cigarettes alcohol intake frequency: 0-2 drinks per day Substance Use Type: does not use and other Exam Initial Vital Signs Initial Vital Signs: Vital Signs Temperature 98.6 F 08/31/19 14:37 Pulse Rate 97 H 08/31/19 14:37 Respiratory Rate 16 08/31/19 14:37 Blood Pressure 121/82 08/31/19 14:37 Pulse Oximetry 97 08/31/19 14:37 GENERAL: Well-appearing, well-nourished and in no acute distress. CARDIOVASCULAR: peripheral pulses in tact, cap refill <2 sec RESPIRATORY: No respiratory distress, speaks in full sentences without difficulty EXTREMITIES: Normal range of motion, no clubbing or edema. Neurovascularly intact NEUROLOGICAL: Cranial nerves II through XII grossly intact. Normal gait and speech. SKIN: Left thumb laceration 1 cm superficial, no good skin approximation small gap. Fever here if Course Orders Ordered: ED Orders 08/31/19 14:40 XR finger LT min 2V Stat Discontinued Medications Acetaminophen (Tylenol) 650 mg PO NOW ONE Stop: 08/31/19 15:26 Last Admin: 08/31/19 15:50 Dose: 650 mg Documented by: JILLIAN Bacitracin (Bacitracin) 1 applic TOP NOW ONE Stop: 08/31/19 15:26 Last Admin: 08/31/19 15:51 Dose: 1 applic Documented by: JILLIAN Diphtheria/Tetanus/Acell Pertussis (Adacel) 0.5 ml IM .ONCE ONE Stop: 08/31/19 15:26 Last Admin: 08/31/19 15:51 Dose: 0.5 ml Documented by: JILLIAN Ibuprofen (Advil) 400 mg PO NOW ONE Stop: 08/31/19 15:26 Last Admin: 08/31/19 15:50 Dose: 400 mg Documented by: JILLIAN Lidocaine/Prilocaine (Lidocaine-Prilocaine Cream) 5 gm TOP NOW ONE Stop: 08/31/19 15:37 Last Admin: 08/31/19 15:49 Dose: 5 gm Documented by: JILLIAN Lidocaine/Sodium Bicarbonate (Buffered Lidocaine 10 Ml Syr) 10 ml INJ NOW ONE Stop: 08/31/19 15:26 Last Admin: 08/31/19 15:51 Dose: 10 ml Documented by: JILLIAN Vital Signs Vital signs: Vital Signs - 8 hr 08/31/19 14:37 08/31/19 16:20 Temperature 98.6 F Pulse Rate 97 H 89 Respiratory Rate 16 18 Blood Pressure 121/82 121/83 Pulse Oximetry 97 98 Discharge Plan Departure Patient Disposition: Home Clinical Impression: Laceration of left thumb Qualifiers: Encounter type: initial encounter Damage to nail status: without damage Foreign body presence: without foreign body Qualified Code(s): S61.012A - Laceration without foreign body of left thumb without damage to nail, initial encounter Discharge Date/Time: 08/31/19 16:20 Instructions: DI for Minor Laceration Activity Restrictions/Additional Instructions: *You have been diagnosed with left thumb laceration *What to do: Likely your laceration did not require sutures. Keep dressing on for about 24 hours then may keep clean and dry with soap and water. Apply clean dressing daily *Continue to take medications as directed Tylenol or Motrin as directed if needed for pain *Follow up with your primary care provider in 2-3 days *Return to ER if you should have redness, pus, swelling or any new, worsening or concerning symptoms Prescriptions: No Action carisoprodol 350 MG tablet 350 mg PO BID PRN (Reason: spasm) Qty: 0 RF: 0 sertraline 100 mg tablet PO BEDTIME RF: 0 hydrocodone-acetaminophen 10-325 mg tablet 1 tab PO Q4H PRN (Reason: pain) RF: 0 alprazolam 0.5 mg tablet 0.25 mg PO BID PRN (Reason: Anxiety) RF: 0 eszopiclone 1 mg tablet 1 mg PO BEDTIME RF: 0 trazodone 100 MG tablet 300 mg PO BEDTIME RF: 0 propranolol 10 mg tablet 10 mg PO BID RF: 0 fluconazole 150 mg tablet 150 mg PO .ONCE PRN (Reason: unknown) RF: 0 promethazine 25 mg tablet 25 mg PO Q4-6H PRN (Reason: nausea and vomiting) Qty: 20 RF: 0 lorazepam [Ativan] 0.5 mg tablet 0.5 mg PO BID-TID PRN (Reason: anxiety) Qty: 7 RF: 0 clonidine HCl 0.1 mg tablet 0.1 mg PO DAILY RF: 0 rizatriptan 5 mg tablet RF: 0 lactulose [Constulose] 10 gram/15 mL solution RF: 0 pantoprazole [Protonix] 40 mg tablet,delayed release (DR/EC) 40 mg PO DAILY Qty: 30 RF: 0 ondansetron 4 mg tablet,disintegrating 4 mg PO Q8H PRN (Reason: nausea and vomiting) Qty: 14 RF: 0 hydrocodone-acetaminophen [[place]] 5-325 mg tablet 1 tab PO Q4H PRN (Reason: pain) Qty: 10 RF: 0 Referrals: Baudilio Bejarano [Primary Care Provider] -
[2019-08-31 16:20] VITALS: BP 121/83; PULSE 89; RESP 18; O2SAT 98
== END 2019-08-31 16:20 | disposition home or self-care (01) ==
PROVIDERS: Emergency Provider Emergency Medicine; PCP Ophthalmology
DX: S61.012A Laceration without foreign body of left thumb without damage to nail, initial encounter (principal); W26.9XXA Contact with unspecified sharp object(s), initial encounter; Z23 Encounter for immunization
CPT/HCPCS: 73140; 90471; 99283; 90715

== ENCOUNTER → 2019-11-14 10:58 | Outpatient (CLI) | payer MEDICARE, MEDICAID, SELFPAY ==
--- NOTE | 2019-11-14 | DI.MRI.S_ITS ---
PROCEDURE: MR HEAD/BRAIN WO/W CON INDICATIONS: MULTIPLE SCLEROSIS TECHNIQUE: Noncontrast sagittal and axial FLAIR, axial and coronal T2 fast spin echo, axial VIBE, axial gradient echo, axial diffusion and ADC through the brain. After the administration of contrast, axial and coronal VIBE with fat saturation through the brain. COMPARISON: [facility], MR, MR HEAD/BRAIN WO/W CON, 08/30/2018, 8:52. [facility], MR, BRAIN W&WO CONTRAST, 02/15/2013, 8:36. [facility], MR, BRAIN WITH AND WITHOUT CONTRAS, 08/24/2011, 7:06. [facility], MR, BRAIN WITH AND WITHOUT CONTRAS, 03/11/2011, 18:27. [facility], MR, BRAIN (PITUITARY) W&WO CONTRAS, 01/16/2010, 6:50. [facility], CT, CT HEAD/BRAIN WO CON, 01/29/2019, 17:51. [facility], MR, MR HEAD/BRAIN WO/W CON, 04/16/2019, 12:11. FINDINGS: Image quality: Excellent. CSF spaces: Ventricles are normal in size and shape. Basal cisterns are patent. No extra-axial fluid collections. Brain: There is abnormal T2 hyperintense white matter foci can be seen within the periventricular and deep white matter. Several of the periventricular lesions demonstrate a perpendicular orientation to the lateral ventricles. There is involvement of the corpus callosum. No definite involvement of the brainstem or the cerebellum can be seen. No significant change can be seen with compared recent prior examinations. No abnormal enhancement can be seen. No intracranial bleeds or mass effects. Hernandez-white matter interface appears intact. No abnormal intracranial enhancement. Diffusion weighted images show no acute ischemic insults. Brainstem appears normal. Normal intravascular flow voids are present. Skull and face: Calvarial marrow signal is normal. Orbits appear normal. Sinuses: Moderate mucosal thickening is seen within the maxillary sinuses, left worse than right. Mild mucosal thickening is seen within the ethmoid air cells. A likely mucous retention cyst can be seen within the left frontal sinus, as on series 7 image 10. Minimal mastoid air cell fluid can be seen, left prominent than right. IMPRESSION: Stable T2 hyperintense white matter lesions are seen, which are consistent with the given history of multiple sclerosis. No abnormal enhancement is seen. Dictated by: Jeffrey Saeed M.D. on 11/14/2019 at 11:05 Approved by: Jeffrey Saeed M.D. on 11/14/2019 at 11:09
== END ==
PROVIDERS: PCP Ophthalmology; Visit Provider Psychiatry & Neurology Neurology
DX: G35 Multiple sclerosis (principal)
CPT/HCPCS: 70553; A9579

== ENCOUNTER 2019-12-01 05:46 | Emergency (ER) | payer MEDICARE, MEDICAID, SELFPAY ==
[2019-12-01] VITALS (7 sets, daily range): BP systolic 116–146; BP diastolic 77–84; PULSE 56–73; RESP 15–18; TEMP 36.6–36.7; O2SAT 100; BMI 21.1
[2019-12-01] MEDS: ONDANSETRON 8 MG in SODIUM CHLORIDE 0.9% 50 ML 216 ML IV (06:11)
[2019-12-01] MEDS: SODIUM CHLORIDE 0.9% 1,000 ML 1000 ML IV ×2 (06:12→07:38)
[2019-12-01] MEDS: diphenhydrAMINE 50 MG/ML VIAL 25 MG IV ×2 (06:12→08:00)
--- NOTE | 2019-12-01 06:13 | ED_ITS ---
HPI - Nausea/Vomiting/Diarrhea <Avi Bravo MD - Last Filed: 12/05/19 15:12> General Chief complaint: Nausea/Vomiting/Diarrhea Stated complaint: nausea/pain/feels like passing out Time Seen by Provider: 12/01/19 06:02 History of Present Illness HPI Narrative: CC: cyclical vomiting HPI: The patient is a 34-year-old female with a history of cyclical vomiting, multiple sclerosis anxiety and celiac disease with chronic pain. The patient states that she started vomiting at 12:00 p.m. midnight. She has vomited numerous times and has been unable to keep anything down since starting. She denies any diarrhea. She has had no significant abdominal cramps but just pain from the vomiting. Her emesis has been bilious in nature without hematemesis or coffee-ground emesis. She denies any fever chills chest pain shortness of breath cough palpitations but has had sweats with a mild headache and dizziness. She has a chronic persistent low back ache. She has had no hematemesis coffee- ground emesis diarrhea melena or hematochezia. She denies any urinary symptoms such as dysuria hematuria pyuria or frequency. She has had a tubal ablation and has not had a menstrual period for the last 12 years. Related Data Home Medications Medication Instructions Recorded Confirmed carisoprodol 350 mg PO BID PRN #0 02/16/17 01/29/19 alprazolam 0.25 mg PO BID PRN 11/01/18 11/01/18 eszopiclone 1 mg PO BEDTIME 11/01/18 01/29/19 fluconazole 150 mg PO .ONCE PRN 11/01/18 01/29/19 hydrocodone-acetaminophen 1 tab PO Q4H PRN 11/01/18 01/29/19 propranolol 10 mg PO BID 11/01/18 11/01/18 sertraline mg PO BEDTIME 11/01/18 11/01/18 trazodone 300 mg PO BEDTIME 11/01/18 01/29/19 clonidine HCl 0.1 mg PO DAILY 01/29/19 01/29/19 lactulose [Constulose] 01/29/19 rizatriptan 01/29/19 Previous Rx's Medication Instructions Recorded promethazine 25 mg PO Q4-6H PRN #20 tab 11/01/18 lorazepam [Ativan] 0.5 mg PO BID-TID PRN #7 tab 12/12/18 hydrocodone-acetaminophen [[place]] 1 tab PO Q4H PRN #10 tab 07/29/19 ondansetron 4 mg PO Q8H PRN #14 tab 07/29/19 pantoprazole [Protonix] 40 mg PO DAILY #30 tab 07/29/19 Allergies Allergy/AdvReac Type Severity Reaction Status Date / Time aspirin [ASPIRIN] Allergy Severe THROAT Verified 08/31/19 14:39 SWELLING metoclopramide [From REGLAN] AdvReac Mild AGGITATION/ Verified 08/31/19 14:39 RESTLESSNES S Review of Systems <Avi Bravo MD - Last Filed: 12/05/19 15:12> Review of Systems ROS Unobtainable: All systems reviewed & are unremarkable except as noted in HPI and below Patient History <Avi Bravo MD - Last Filed: 12/05/19 15:12> Medical History Anxiety (Acute) Celiac disease (Acute) Chronic narcotic use (Acute) Cyclic vomiting syndrome (Acute) Multiple sclerosis (Acute) Surgical History Status post tubal ligation Social History Smoking Status: Current every day smoker substance use type: marijuana Smoking Status: Current every day smoker tobacco type: cigarettes alcohol intake frequency: 0-2 drinks per day Substance Use Type: does not use and other Exam <Avi Bravo MD - Last Filed: 12/05/19 15:12> Narrative Exam Narrative: PHYSICAL EXAM: CONSTITUTIONAL: Awake, Alert, Oriented, Coherent, Cooperative in mild distress. The patient has not actually vomited in my presence. The patient looks disheveled pale thin and chronically ill and uncomfortable. HEAD: AT/NC EENT: PERRL, FROM of eyes, no discharge, no nystagmus Oral mucosa is moist and pink, posterior pharynx is without erythema or exudate. NECK: Supple, no obvious JVD, Trachea is midline without stridor, SPINE: No gross deformity, diffuse tenderness of the cervical, thoracic, lumbar and sacral spine on palpation.. Mild bilateral costovertebral angle tenderness. THORAX: No deformity, retractions, chest wall tenderness, subcutaneous air or crepitice. LUNGS: Clear with symmetrical breath sounds without respiratory distress HEART: Normal heart tones, regular rhythm and rate without murmur. ABDOMEN: Soft, non-tender, normal bowel sounds without guarding, rebound, rigidity or palpable mass . EXTREMITIES: No edema, cyanosis, deformity or tenderness. SKIN: No rash, bruising, petechiae or purpura. NEURO: Awake, alert, oriented, conversive, cranial nerves II-XII are symmetrical and normal, moves all 4 extremities Initial Vital Signs Initial Vital Signs: Vital Signs Temperature 97.9 F 12/01/19 05:55 Pulse Rate 66 12/01/19 05:55 Respiratory Rate 15 12/01/19 05:55 Blood Pressure 135/84 12/01/19 05:55 Pulse Oximetry 100 12/01/19 05:55 <Courtney Morrissey MD - Last Filed: 12/01/19 10:06> Initial Vital Signs Initial Vital Signs: Vital Signs Temperature 97.9 F 12/01/19 05:55 Pulse Rate 66 12/01/19 05:55 Respiratory Rate 15 12/01/19 05:55 Blood Pressure 135/84 12/01/19 05:55 Pulse Oximetry 100 12/01/19 05:55 Course <Avi Bravo MD - Last Filed: 12/05/19 15:12> Course Course Narrative: 0623: The patient has a history of cyclical vomiting, multiple sclerosis, anxiety, celiac disease. 8 mg of Zofran has been ordered for the patient as well as 2 L of fluid to rehydrate her. She was also administered 25 mg of Benadryl IV. The patient states that she is in constant pain and discomfort in takes Vicodin for pain. She has been unable to take her pain medicine because of the persistent vomiting. She will be administered 4 mg of morphine IV. 0715: report given to Dr. Morrissey will follow-up with the patient and assume management. Orders Ordered: Discontinued Medications Hydrocodone Bitart/Acetaminophen ([place] 10/325) 1 tab PO NOW ONE Stop: 12/01/19 09:02 Last Admin: 12/01/19 10:10 Dose: 1 tab Documented by: MARICHUY Diphenhydramine HCl (Benadryl) 25 mg IV NOW ONE Stop: 12/01/19 06:01 Last Admin: 12/01/19 06:12 Dose: 25 mg Documented by: CHELY Diphenhydramine HCl (Benadryl) 25 mg IV NOW ONE Stop: 12/01/19 07:46 Last Admin: 12/01/19 08:00 Dose: 25 mg Documented by: MARICHUY Haloperidol (Haldol) 2 mg IV NOW ONE Stop: 12/01/19 07:46 Last Admin: 12/01/19 07:57 Dose: 2 mg Documented by: MARICHUY Hydromorphone HCl (Dilaudid) 1 mg IV NOW ONE Stop: 12/01/19 07:46 Last Admin: 12/01/19 10:01 Dose: Not Given Documented by: MARICHUY Hydromorphone HCl (Dilaudid) 1 mg IV Q3H PRN PRN Reason: Pain, Moderate (4-6) Last Admin: 12/01/19 07:55 Dose: 1 mg Documented by: MARICHUY Sodium Chloride (Normal Saline 0.9%) 1,000 mls @ 1,000 mls/hr IV BOLUS ONE Stop: 12/01/19 06:59 Last Infusion: 12/01/19 07:35 Dose: 0 mls/hr Documented by: Admin: 12/01/19 06:12 Dose: 1,000 mls/hr Documented by: CHELY Ondansetron HCl 8 mg/ Sodium (Chloride) 54 mls @ 216 mls/hr IV NOW ONE Stop: 12/01/19 06:01 Last Infusion: 12/01/19 06:26 Dose: 0 mls/hr Documented by: Admin: 12/01/19 06:11 Dose: 216 mls/hr Documented by: CHELY Sodium Chloride (Normal Saline 0.9%) 1,000 mls @ 1,000 mls/hr IV BOLUS ONE Stop: 12/01/19 08:35 Last Infusion: 12/01/19 08:48 Dose: 0 mls/hr Documented by: Admin: 12/01/19 07:38 Dose: 1,000 mls/hr Documented by: MARICHUY Sodium Chloride (Normal Saline 0.9%) 1,000 mls @ 1,000 mls/hr IV BOLUS ONE Stop: 12/01/19 08:44 Last Admin: 12/01/19 10:01 Dose: Not Given Documented by: MARICHUY Morphine Sulfate (Morphine) 4 mg IV NOW ONE Stop: 12/01/19 06:26 Last Admin: 12/01/19 06:31 Dose: 4 mg Documented by: CHELY Vital Signs Vital signs: Vital Signs - 8 hr 12/01/19 05:55 12/01/19 07:00 12/01/19 07:39 Temperature 97.9 F Pulse Rate 66 56 L 63 Respiratory Rate 15 16 18 Blood Pressure 135/84 Blood Pressure [Left Arm] 121/82 128/81 Pulse Oximetry 100 100 100 12/01/19 07:40 12/01/19 08:12 12/01/19 08:30 Temperature 98.0 F Pulse Rate 63 73 Respiratory Rate 18 16 Blood Pressure Blood Pressure [Left Arm] 146/77 H 116/77 Pulse Oximetry 100 100 12/01/19 09:49 Temperature Pulse Rate Respiratory Rate 18 Blood Pressure Blood Pressure [Left Arm] 117/81 Pulse Oximetry <Courtney Morrissey MD - Last Filed: 12/01/19 10:06> Course Course Narrative: 8:00 transfer of care from Dr. Bravo. Patient is examined independently. After an initial L of fluid in 8 mg of Zofran along with 4 mg of IV morphine she is still significantly nauseated and finding that her back pain is slightly better but her abdominal pain and leg cramping has not been influenced at all. Abdomen was examined, mild tenderness without rebound or guarding, no indication of a surgical abdomen at this time. With further questioning she takes 80 mg of hydrocodone daily and has not been able to keep any narcotics down for 48 hours. Clearly in addition to her cyclical vomiting narcotic withdrawal is influencing her pain as well. Mucous membranes are quite dry suspect she will likely need 3 L of fluid before she is able to void spontaneously. Discussed options and treatments have been effective for her in the past. Will give her mg of IV Dilaudid to deal with the withdrawal component, 2nd and possibly 3rd L of fluid along with another 25 mg of Benadryl prior to 2 mg of Haldol to help the cyclic vomiting symptoms. Orders Ordered: Discontinued Medications Hydrocodone Bitart/Acetaminophen ([place] 10/325) 1 tab PO NOW ONE Stop: 12/01/19 09:02 Last Admin: 12/01/19 10:10 Dose: 1 tab Documented by: MARICHUY Diphenhydramine HCl (Benadryl) 25 mg IV NOW ONE Stop: 12/01/19 06:01 Last Admin: 12/01/19 06:12 Dose: 25 mg Documented by: CHELY Diphenhydramine HCl (Benadryl) 25 mg IV NOW ONE Stop: 12/01/19 07:46 Last Admin: 12/01/19 08:00 Dose: 25 mg Documented by: MARICHUY Haloperidol (Haldol) 2 mg IV NOW ONE Stop: 12/01/19 07:46 Last Admin: 12/01/19 07:57 Dose: 2 mg Documented by: MARICHUY Hydromorphone HCl (Dilaudid) 1 mg IV NOW ONE Stop: 12/01/19 07:46 Last Admin: 12/01/19 10:01 Dose: Not Given Documented by: MARICHUY Hydromorphone HCl (Dilaudid) 1 mg IV Q3H PRN PRN Reason: Pain, Moderate (4-6) Last Admin: 12/01/19 07:55 Dose: 1 mg Documented by: MARICHUY Sodium Chloride (Normal Saline 0.9%) 1,000 mls @ 1,000 mls/hr IV BOLUS ONE Stop: 12/01/19 06:59 Last Infusion: 12/01/19 07:35 Dose: 0 mls/hr Documented by: Admin: 12/01/19 06:12 Dose: 1,000 mls/hr Documented by: CHELY Ondansetron HCl 8 mg/ Sodium (Chloride) 54 mls @ 216 mls/hr IV NOW ONE Stop: 12/01/19 06:01 Last Infusion: 12/01/19 06:26 Dose: 0 mls/hr Documented by: Admin: 12/01/19 06:11 Dose: 216 mls/hr Documented by: CHELY Sodium Chloride (Normal Saline 0.9%) 1,000 mls @ 1,000 mls/hr IV BOLUS ONE Stop: 12/01/19 08:35 Last Infusion: 12/01/19 08:48 Dose: 0 mls/hr Documented by: Admin: 12/01/19 07:38 Dose: 1,000 mls/hr Documented by: MARICHUY Sodium Chloride (Normal Saline 0.9%) 1,000 mls @ 1,000 mls/hr IV BOLUS ONE Stop: 12/01/19 08:44 Last Admin: 12/01/19 10:01 Dose: Not Given Documented by: MARICHUY Morphine Sulfate (Morphine) 4 mg IV NOW ONE Stop: 12/01/19 06:26 Last Admin: 12/01/19 06:31 Dose: 4 mg Documented by: CHELY Vital Signs Vital signs: Vital Signs - 8 hr 12/01/19 05:55 12/01/19 07:00 12/01/19 07:39 Temperature 97.9 F Pulse Rate 66 56 L 63 Respiratory Rate 15 16 18 Blood Pressure 135/84 Blood Pressure [Left Arm] 121/82 128/81 Pulse Oximetry 100 100 100 12/01/19 07:40 12/01/19 08:12 12/01/19 08:30 Temperature 98.0 F Pulse Rate 63 73 Respiratory Rate 18 16 Blood Pressure Blood Pressure [Left Arm] 146/77 H 116/77 Pulse Oximetry 100 100 12/01/19 09:49 Temperature Pulse Rate Respiratory Rate 18 Blood Pressure Blood Pressure [Left Arm] 117/81 Pulse Oximetry MDM - Nausea/Vomiting/Diarrhea <Avi Bravo MD - Last Filed: 12/05/19 15:12> Lab Data Result diagrams: 12/01/19 06:00 12/01/19 06:00 Labs: Lab Results 12/01/19 12/01/19 12/01/19 Range/Units 06:00 06:00 06:00 WBC 9.9 (4.5-11.0) X10^3/uL RBC 5.24 H (4.0-5.2) X10^6/uL Hgb 16.4 H (12.0-16.0) g/dL Hct 47.8 H (36-46) % MCV 91.2 (80-100) fL MCH 31.3 (26-34) PG MCHC 34.3 (30-36) % RDW 13.4 (11.6-14.8) % Plt Count 302 (150-400) X10^3/uL Neut % (Auto) 87.0 H (50-75) % Lymph % (Auto) 9.6 L (25-40) % Bacon % (Auto) 2.4 L (3-14) % Eos % (Auto) 0.5 L (2-4) % Baso % (Auto) 0.5 (0-2) % Neut # (Auto) 8600 H (0548-3127) /uL Lymph # (Auto) 900 L (5184-2739) /uL Bacon # (Auto) 200 (0-900) /uL Eos # (Auto) 0 (0-450) /uL Baso # (Auto) 100 (0-100) /uL Sodium 141 (137-145) mmol/L Potassium 4.2 (3.4-5.1) mmol/L Chloride 104 (98-107) mmol/L Carbon Dioxide 22 (22-32) mmol/L BUN 13 (7-17) mg/dL Creatinine 0.70 (0.52-1.04) mg/dL Estimated GFR > 60.0 (>60) mL/min BUN/Creatinine Ratio 18.6 (6-22) Glucose 131 H (70-100) mg/dL Calcium 10.1 (8.4-10.2) mg/dL Total Bilirubin 0.6 (0.2-1.3) mg/dL AST 33 (14-36) IU/L ALT 21 (<35) IU/L Alkaline Phosphatase 78 (38-126) U/L Total Protein 9.0 H (6.3-8.2) g/dL Albumin 5.3 H (3.5-5.0) g/dL Globulin 3.7 (1.7-4.1) g/dL Albumin/Globulin Ratio 1.4 (1.0-2.8) Lipase 60 (23-300) U/L Urine Dip Bedside Urine Glucose Negative Bedside Urine Bilirubin - Negative Bedside Urine Ketone +++ 80 Urine Specific [place] 1.015 Bedside Urine Occult Blood - Negative Bedside Urine pH 7.0 Bedside Urine Protein +/- 15 Bedside Urine Urobilinogen - Negative Bedside Urine Nitrite - Negative Bedside Urine Leukocytes - Negative Esterase <Courtney Morrissey MD - Last Filed: 12/01/19 10:06> Medical Records Attestation: I reviewed the patient's medical records. Lab Data Attestation: I reviewed the patient's lab results. Labs: Lab Results 12/01/19 12/01/19 12/01/19 Range/Units 06:00 06:00 06:00 WBC 9.9 (4.5-11.0) X10^3/uL RBC 5.24 H (4.0-5.2) X10^6/uL Hgb 16.4 H (12.0-16.0) g/dL Hct 47.8 H (36-46) % MCV 91.2 (80-100) fL MCH 31.3 (26-34) PG MCHC 34.3 (30-36) % RDW 13.4 (11.6-14.8) % Plt Count 302 (150-400) X10^3/uL Neut % (Auto) 87.0 H (50-75) % Lymph % (Auto) 9.6 L (25-40) % Bacon % (Auto) 2.4 L (3-14) % Eos % (Auto) 0.5 L (2-4) % Baso % (Auto) 0.5 (0-2) % Neut # (Auto) 8600 H (1439-9828) /uL Lymph # (Auto) 900 L (3610-0721) /uL Bacon # (Auto) 200 (0-900) /uL Eos # (Auto) 0 (0-450) /uL Baso # (Auto) 100 (0-100) /uL Sodium 141 (137-145) mmol/L Potassium 4.2 (3.4-5.1) mmol/L Chloride 104 (98-107) mmol/L Carbon Dioxide 22 (22-32) mmol/L BUN 13 (7-17) mg/dL Creatinine 0.70 (0.52-1.04) mg/dL Estimated GFR > 60.0 (>60) mL/min BUN/Creatinine Ratio 18.6 (6-22) Glucose 131 H (70-100) mg/dL Calcium 10.1 (8.4-10.2) mg/dL Total Bilirubin 0.6 (0.2-1.3) mg/dL AST 33 (14-36) IU/L ALT 21 (<35) IU/L Alkaline Phosphatase 78 (38-126) U/L Total Protein 9.0 H (6.3-8.2) g/dL Albumin 5.3 H (3.5-5.0) g/dL Globulin 3.7 (1.7-4.1) g/dL Albumin/Globulin Ratio 1.4 (1.0-2.8) Lipase 60 (23-300) U/L Urine Dip Bedside Urine Glucose Negative Bedside Urine Bilirubin - Negative Bedside Urine Ketone +++ 80 Urine Specific [place] 1.015 Bedside Urine Occult Blood - Negative Bedside Urine pH 7.0 Bedside Urine Protein +/- 15 Bedside Urine Urobilinogen - Negative Bedside Urine Nitrite - Negative Bedside Urine Leukocytes - Negative Esterase Labs are most consistent with mild dehydration and no evidence of infection or pancreatitis ECG Data Attestation: I personally reviewed and interpreted this ECG as follows: Interpretation: Bradycardic sinus rhythm at a rate of 50 Normal axis no acute ischemic changes QTC is 483 MDM Narrative Medical decision making narrative: Long history of cyclic vomiting currently exacerbated by withdrawal from her chronic daily opioid use. Feeling significantly better at this time. Able to drink water. Make sure that she is also able to keep some juice down. Have her try a 10 mg Vicodin to make sure that also stays down his this is the medication she has available to her at home. She has all of the anti nausea medications including suppositories available to her at home and will need any additional refills. She is safe for home discharge at this time Discharge Plan Departure Patient Disposition: Home Clinical Impression: Cyclic vomiting syndrome, Chronic, continuous use of opioids Discharge Date/Time: 12/01/19 10:23 Instructions: DI for Vomiting -- Adult Activity Restrictions/Additional Instructions: Thank you for coming in today. Am sorry that you vomiting is gotten out of control. Please do continue to use all of the medication you have at home and return to your usual medication regimen There is no evidence of infection or surgical complications in your belly. I do suspect that not taking your usual hydrocodone for 48 hours is exacerbating the current vomiting episode. If you feel that you're getting worse please return. I wish you well Prescriptions: No Action carisoprodol 350 MG tablet 350 mg PO BID PRN (Reason: spasm) Qty: 0 RF: 0 sertraline 100 mg tablet PO BEDTIME RF: 0 hydrocodone-acetaminophen 10-325 mg tablet 1 tab PO Q4H PRN (Reason: pain) RF: 0 alprazolam 0.5 mg tablet 0.25 mg PO BID PRN (Reason: Anxiety) RF: 0 eszopiclone 1 mg tablet 1 mg PO BEDTIME RF: 0 trazodone 100 MG tablet 300 mg PO BEDTIME RF: 0 propranolol 10 mg tablet 10 mg PO BID RF: 0 fluconazole 150 mg tablet 150 mg PO .ONCE PRN (Reason: unknown) RF: 0 promethazine 25 mg tablet 25 mg PO Q4-6H PRN (Reason: nausea and vomiting) Qty: 20 RF: 0 lorazepam [Ativan] 0.5 mg tablet 0.5 mg PO BID-TID PRN (Reason: anxiety) Qty: 7 RF: 0 clonidine HCl 0.1 mg tablet 0.1 mg PO DAILY RF: 0 rizatriptan 5 mg tablet RF: 0 lactulose [Constulose] 10 gram/15 mL solution RF: 0 pantoprazole [Protonix] 40 mg tablet,delayed release (DR/EC) 40 mg PO DAILY Qty: 30 RF: 0 ondansetron 4 mg tablet,disintegrating 4 mg PO Q8H PRN (Reason: nausea and vomiting) Qty: 14 RF: 0 hydrocodone-acetaminophen [[place]] 5-325 mg tablet 1 tab PO Q4H PRN (Reason: pain) Qty: 10 RF: 0 Referrals: Baudilio Bejarano [Primary Care Provider] -
[2019-12-01 06:22] LABS: Add Manual Diff / Slide Review NO; Basophils Absolute Auto 100 /uL (0-100); Basophils Percent Auto 0.5 % (0-2); Eosinophils Absolute Auto 0 /uL (0-450); Eosinophils Percent Auto 0.5 % (2-4); Hematocrit 47.8 % (36-46); Hemoglobin 16.4 g/dL (12.0-16.0); Lymphocytes Absolute Auto 900 /uL (1100-4500); Lymphocytes Percent Auto 9.6 % (25-40); Mean Corpuscular HGB Conc 34.3 % (30-36); Mean Corpuscular Hemoglobin 31.3 PG (26-34); Mean Corpuscular Volume 91.2 fL (80-100); Monocytes Absolute Auto 200 /uL (0-900); Monocytes Percent Auto 2.4 % (3-14); Neutrophils Absolute Auto 8600 /uL (1500-7000); Platelet Count 302 X10^3/uL (150-400); Red Blood Cell Count 5.24 X10^6/uL (4.0-5.2); Red Cell Distribution Width 13.4 % (11.6-14.8); White Blood Cell Count 9.9 X10^3/uL (4.5-11.0)
[2019-12-01 06:28] LABS: Alanine Aminotransferase 21 IU/L (<35); Albumin 5.3 g/dL (3.5-5.0); Albumin Globulin Ratio 1.4 (1.0-2.8); Alkaline Phosphatase 78 U/L (38-126); Aspartate Aminotransferase 33 IU/L (14-36); BUN Creatinine Ratio 18.6 (6-22); Bilirubin Total 0.6 mg/dL (0.2-1.3); Blood Urea Nitrogen 13 mg/dL (7-17); Calcium 10.1 mg/dL (8.4-10.2); Carbon Dioxide 22 mmol/L (22-32); Chloride 104 mmol/L (98-107); Estimated Glomerular Filt Rate > 60.0 mL/min (>60); Globulin 3.7 g/dL (1.7-4.1); Glucose 131 mg/dL (70-100); HEMOLYSIS < 15 (0-50); Potassium 4.2 mmol/L (3.4-5.1); Sodium 141 mmol/L (137-145)
[2019-12-01] MEDS: MORPHINE 4 MG/ML INJ IV (06:31)
[2019-12-01 06:47] LABS: Lipase 60 U/L (23-300)
[2019-12-01] MEDS: HYDROMORPHONE 2 MG INJ 1 MG IV (07:55)
[2019-12-01] MEDS: HALOPERIDOL 5 MG/ML VIAL 2 MG IV (07:57)
[2019-12-01] MEDS: HYDROCODONE/ACET 10/325 TABLET 1 TAB PO (10:10)
== END 2019-12-01 10:23 | disposition home or self-care (01) ==
PROVIDERS: Emergency Medicine; Emergency Provider Emergency Medicine; PCP Ophthalmology
DX: R11.15 Cyclical vomiting syndrome unrelated to migraine (principal); F11.90 Opioid use, unspecified, uncomplicated; R00.1 Bradycardia, unspecified
CPT/HCPCS: 36415; 80053; 81003; 83690; 85025; 93005; 96361; 96374; 96375; 96376; 99284; J1170; J1200; J1630; J2270; J2405

== ENCOUNTER → 2021-01-08 08:22 | Outpatient (CLI) | payer MEDICARE, MEDICAID, SELFPAY ==
--- NOTE | 2021-01-08 | DI.MRI.S_ITS ---
PROCEDURE: MR HEAD/BRAIN WO/W CON INDICATIONS: MULTIPLE SCLEROSIS TECHNIQUE: Noncontrast axial T1 spin echo, axial T2 fast spin echo, sagittal and axial FLAIR, coronal T2 fast spin echo, axial gradient echo, axial diffusion and ADC through the brain. After the administration of contrast, axial and coronal 3D VIBE or T1 spin echo with fat saturation through the brain. COMPARISON: [facility], MR, MR HEAD/BRAIN WO/W CON, 11/14/2019, 11:02. [facility], MR, BRAIN W&WO CONTRAST, 02/15/2013, 8:36. [facility], MR, MR HEAD/BRAIN WO/W CON, 08/30/2018, 8:52. [facility], MR, MR HEAD/BRAIN WO/W CON, 04/16/2019, 12:11. FINDINGS: Image quality: Excellent. CSF Spaces: Basal cisterns are patent. No extra-axial fluid collections. Ventricles are normal in size and shape. Brain: No midline shift. No intracranial bleeds or masses. Multiple foci of increased T2 signal noted and corpus callosal periventricular, subcortical and juxtacortical white matter compatible history of multiple sclerosis. Multiple sclerosis plaques are stable in size, contour and number compared to November 14, 2019. No new multiple sclerosis plaques identified. No abnormal intracranial enhancement. The brainstem appears normal. Diffusion-weighted images demonstrate no acute ischemic insults. No chronic ischemic insults. Normal intravascular flow voids are present. Skull and face: Calvarial marrow is normal in signal. Orbits appear normal. Sinuses: Mucous retention cyst versus polyp noted in the left frontal sinus recess is stable. The mastoids appear clear. IMPRESSION: 1. Multiple T2 hyperintense white matter lesions are stable in size, contour number compared to November 14, 2019. Lesions are compatible with reported history of multiple sclerosis. 2. No suspicious postcontrast enhancement. Dictated by: Laura Ya MD, PhD on 01/08/2021 at 10:41 Approved by: Laura Ya MD, PhD on 01/08/2021 at 11:11
--- NOTE | 2021-01-08 | DI.MRI.S_ITS ---
PROCEDURE: MR CERVICAL SPINE WO/W CON INDICATIONS: MULTIPLE SCLEROSIS TECHNIQUE: Noncontrast sagittal T1 spin echo and T2 fast spin echo, sagittal STIR, sagittal PD fast spin echo, foraminal oblique sagittal T2 fast spin echo, axial gradient echo or T2 fast spin echo through the cervical spine. After the administration of contrast, sagittal and axial T1 spin echo with fat saturation through the cervical spine. COMPARISON: [facility], MR, MR CERVICAL SPINE WO CON, 06/01/2019, 17:13. [facility], MR, MR CERVICAL SPINE WO/W CON, 08/30/2018, 9:17. FINDINGS: Image quality: Mildly degraded by patient motion artifact. Alignment and curvature: There is normal bony alignment. Marrow: Marrow demonstrates normal overall signal. Spinal cord: Visualized spinal cord is normal in size, without white matter lesions. No suspicious intramedullary enhancement. No cerebellar tonsillar herniation. Paraspinous soft tissues: No paravertebral masses or suspicious enhancement. C2-C3: Normal appearance. C3-C4: Normal appearance. C4-C5: Normal appearance. C5-C6: Loss of disc signal. Mild, diffuse disc bulge. Small central disc protrusion. Minimal narrowing of the central canal. No neural foraminal narrowing. No neural compression. C6-C7: Loss of disc signal. Minimal, diffuse disc bulge. No central stenosis. No neural foraminal narrowing. No neural compression. C7-T1: Normal appearance. IMPRESSION: 1. Stable examination compared to June 01, 2019 with no MRI evidence of cervical or upper thoracic spinal cord multiple sclerosis involvement. 2. No suspicious postcontrast enhancement. 3. Mild C5-C6 and C6-C7 degenerative disc changes. Dictated by: Laura Ya MD, PhD on 01/08/2021 at 11:19 Approved by: Laura Ya MD, PhD on 01/08/2021 at 11:47
== END ==
PROVIDERS: PCP Nurse Practitioner Family; Referring Provider Nurse Practitioner Family; Visit Provider Psychiatry & Neurology Neurology
DX: G35 Multiple sclerosis (principal); M47.812 Spondylosis without myelopathy or radiculopathy, cervical region
CPT/HCPCS: 70553; 72156

== ENCOUNTER 2021-02-16 15:32 | Emergency (ER) | payer MEDICARE, MEDICAID, SELFPAY ==
[2021-02-16] VITALS (8 sets, daily range): BP systolic 98–115; BP diastolic 71–79; PULSE 49–66; RESP 14–26; TEMP 36.5; O2SAT 88–100; BMI 24.9
--- NOTE | 2021-02-16 15:40 | ED.NAVMDI ---
HPI - Nausea/Vomiting/Diarrhea <Lu Montiel, DO - Last Filed: 02/19/21 02:03> General Chief complaint: Nausea/Vomiting/Diarrhea Stated complaint: VOMITING DEHYDRATION BACK IS KILLING ME Time Seen by Provider: 02/16/21 15:39 Source: patient Mode of arrival: Ambulatory Limitations: no limitations History of Present Illness HPI Narrative: Patient is a 28-year-old female who has cyclic vomiting history of multiple sclerosis anxiety, chronic in presenting with vomiting since yesterday. She says she has not urinated since yesterday. She has diffuse all-over abdominal pain. No fever or chills. She admits to using marijuana regularly. She says that she has every anti nausea medication possible at home but nothing works in unless intravenous. MD complaint: nausea, vomiting and abdominal pain Description of Vomiting: bilious Description of Diarrhea: none Related Data Home Medications Medication Instructions Recorded Confirmed carisoprodol 350 mg PO BID PRN #0 02/16/17 01/29/19 alprazolam 0.25 mg PO BID PRN 11/01/18 11/01/18 eszopiclone 1 mg PO BEDTIME 11/01/18 01/29/19 fluconazole 150 mg PO .ONCE PRN 11/01/18 01/29/19 hydrocodone-acetaminophen 1 tab PO Q4H PRN 11/01/18 01/29/19 propranolol 10 mg PO BID 11/01/18 11/01/18 sertraline mg PO BEDTIME 11/01/18 11/01/18 trazodone 300 mg PO BEDTIME 11/01/18 01/29/19 clonidine HCl 0.1 mg PO DAILY 01/29/19 01/29/19 lactulose [Constulose] 01/29/19 rizatriptan 01/29/19 Previous Rx's Medication Instructions Recorded promethazine 25 mg PO Q4-6H PRN #20 tab 11/01/18 lorazepam [Ativan] 0.5 mg PO BID-TID PRN #7 tab 12/12/18 hydrocodone-acetaminophen [Henrietta] 1 tab PO Q4H PRN #10 tab 07/29/19 ondansetron 4 mg PO Q8H PRN #14 tab 07/29/19 pantoprazole [Protonix] 40 mg PO DAILY #30 tab 07/29/19 Allergies Allergy/AdvReac Type Severity Reaction Status Date / Time aspirin [ASPIRIN] Allergy Severe THROAT Verified 08/31/19 14:39 SWELLING metoclopramide [From REGLAN] AdvReac Mild AGGITATION/ Verified 08/31/19 14:39 RESTLESSNES S Review of Systems <Lu Montiel DO - Last Filed: 02/19/21 02:03> Review of Systems Narrative: GENERAL: Denies chills, fatigue, malaise, fever, sweats, travel HEENT: Denies sinus pain, ear pain, sore throat, difficulty swallowing, neck pain RESPIRATORY: Denies dyspnea, cough, wheezing, hemoptysis, sputum. CARDIOVASCULAR: Denies chest pain, palpitations, orthopnea, edema GASTROINTESTINAL: See HPI : Denies dysuria, frequency, incontinence, hematuria, urinary retention, flank pain. MUSCULOSKELETAL: Denies weakness, joint pain, or bony pain SKIN: No rash, no erythema, no pruritus NEUROLOGIC: Denies weakness, dizziness, headache, numbness, change in speech, confusion PSYCHIATRIC: No concerning psychosocial issues. 12 point review of systems is negative except for those stated above and HPI Patient History <Lu Montiel DO - Last Filed: 02/19/21 02:03> Medical History (Updated 02/16/21 @ 18:35 by Dorian Hurt DO) Anxiety Celiac disease Chronic narcotic use Cyclic vomiting syndrome Multiple sclerosis Surgical History Status post tubal ligation Social History Smoking Status: Current every day smoker substance use type: marijuana Smoking Status: Current every day smoker tobacco type: cigarettes alcohol intake frequency: 0-2 drinks per day Substance Use Type: does not use and other Exam <Lu Montiel DO - Last Filed: 02/19/21 02:03> Initial Vital Signs Initial Vital Signs: Vital Signs Pulse Rate 52 L 02/16/21 15:36 Blood Pressure 113/73 02/16/21 15:36 Pulse Oximetry 98 02/16/21 15:36 GENERAL: Alert 36-year-old female appears to not feel and in no acute distress. HEENT: Head atraumatic,EOMI, pupils reactive, face symmetric, moist mucous membranes CARDIOVASCULAR: Regular rate and rhythm without murmurs, rubs or gallops. RESPIRATORY: Breath sounds equal bilaterally, no wheezes rales or rhonchi. ABDOMEN: Soft, diffusely tender no guarding or rebound EXTREMITIES: Normal range of motion, no clubbing or edema. Neurovascularly intact NEUROLOGICAL: Alert and oriented x4.Normal gait and speech. SKIN: Warm, dry, no laceration, no petechiae, no rashes or lesions. <Dorian Hurt DO - Last Filed: 02/16/21 18:36> Initial Vital Signs Initial Vital Signs: Vital Signs Pulse Rate 52 L 02/16/21 15:36 Blood Pressure 113/73 02/16/21 15:36 Pulse Oximetry 98 02/16/21 15:36 Course <Lu Montiel DO - Last Filed: 02/19/21 02:03> Orders Ordered: Discontinued Medications Diphenhydramine HCl (Diphenhydramine 50 Mg/Ml Vial) 25 mg IV NOW ONE Stop: 02/16/21 16:23 Last Admin: 02/16/21 16:29 Dose: 25 mg Documented by: YRIS Haloperidol (Haloperidol 5 Mg/Ml Vial) 2 mg IV NOW ONE Stop: 02/16/21 16:24 Last Admin: 02/16/21 16:30 Dose: 2 mg Documented by: YRIS Sodium Chloride (Normal Saline 0.9%) 1,000 mls @ 1,000 mls/hr IV BOLUS ONE Stop: 02/16/21 16:43 Last Infusion: 02/16/21 17:29 Dose: 0 mls/hr Documented by: Admin: 02/16/21 16:00 Dose: 1,000 mls/hr Documented by: YRIS Sodium Chloride (Normal Saline 0.9%) 1,000 mls @ 1,000 mls/hr IV BOLUS ONE Stop: 02/16/21 18:14 Last Infusion: 02/16/21 18:30 Dose: 0 mls/hr Documented by: Admin: 02/16/21 17:26 Dose: 1,000 mls/hr Documented by: YRIS Ondansetron HCl (Ondansetron 4 Mg/2 Ml Inj) 4 mg IV NOW ONE Stop: 02/16/21 15:45 Last Admin: 02/16/21 15:59 Dose: 4 mg Documented by: YRIS Pantoprazole Sodium (Pantoprazole 40 Mg Vial) 40 mg IV NOW ONE Stop: 02/16/21 15:45 Last Admin: 02/16/21 16:00 Dose: 40 mg Documented by: YRIS Vital Signs Vital signs: Vital Signs - 8 hr 02/16/21 15:36 02/16/21 15:38 02/16/21 16:00 Temperature 97.7 F Pulse Rate 52 L 55 L 54 L Respiratory Rate 16 Blood Pressure 113/73 113/73 108/79 Pulse Oximetry 98 99 99 02/16/21 16:30 02/16/21 17:00 02/16/21 17:32 Temperature Pulse Rate 55 L 49 L 66 Respiratory Rate 26 H 22 Blood Pressure 115/79 105/73 Pulse Oximetry 94 99 88 L 02/16/21 18:00 Temperature Pulse Rate 57 L Respiratory Rate Blood Pressure Pulse Oximetry 100 <Dorian Hurt DO - Last Filed: 02/16/21 18:36> Orders Ordered: Discontinued Medications Diphenhydramine HCl (Diphenhydramine 50 Mg/Ml Vial) 25 mg IV NOW ONE Stop: 02/16/21 16:23 Last Admin: 02/16/21 16:29 Dose: 25 mg Documented by: YRIS Haloperidol (Haloperidol 5 Mg/Ml Vial) 2 mg IV NOW ONE Stop: 02/16/21 16:24 Last Admin: 02/16/21 16:30 Dose: 2 mg Documented by: YRIS Sodium Chloride (Normal Saline 0.9%) 1,000 mls @ 1,000 mls/hr IV BOLUS ONE Stop: 02/16/21 16:43 Last Infusion: 02/16/21 17:29 Dose: 0 mls/hr Documented by: Admin: 02/16/21 16:00 Dose: 1,000 mls/hr Documented by: YRIS Sodium Chloride (Normal Saline 0.9%) 1,000 mls @ 1,000 mls/hr IV BOLUS ONE Stop: 02/16/21 18:14 Last Infusion: 02/16/21 18:30 Dose: 0 mls/hr Documented by: Admin: 02/16/21 17:26 Dose: 1,000 mls/hr Documented by: YRIS Ondansetron HCl (Ondansetron 4 Mg/2 Ml Inj) 4 mg IV NOW ONE Stop: 02/16/21 15:45 Last Admin: 02/16/21 15:59 Dose: 4 mg Documented by: YRIS Pantoprazole Sodium (Pantoprazole 40 Mg Vial) 40 mg IV NOW ONE Stop: 02/16/21 15:45 Last Admin: 02/16/21 16:00 Dose: 40 mg Documented by: YRIS Vital Signs Vital signs: Vital Signs - 8 hr 02/16/21 15:36 02/16/21 15:38 02/16/21 16:00 Temperature 97.7 F Pulse Rate 52 L 55 L 54 L Respiratory Rate 16 Blood Pressure 113/73 113/73 108/79 Pulse Oximetry 98 99 99 02/16/21 16:30 02/16/21 17:00 02/16/21 17:32 Temperature Pulse Rate 55 L 49 L 66 Respiratory Rate 26 H 22 Blood Pressure 115/79 105/73 Pulse Oximetry 94 99 88 L 02/16/21 18:00 Temperature Pulse Rate 57 L Respiratory Rate Blood Pressure Pulse Oximetry 100 MDM - Nausea/Vomiting/Diarrhea <Lu Montiel, - Last Filed: 02/19/21 02:03> Lab Data Result diagrams: 02/16/21 15:40 02/16/21 15:40 Labs: Lab Results 02/16/21 02/16/21 02/16/21 Range/Units 15:40 15:40 17:48 WBC 20.4 H (4.5-11.0) X10^3/uL RBC 5.30 H (4.0-5.2) X10^6/uL Hgb 15.7 (12.0-16.0) g/dL Hct 47.8 H (36-46) % MCV 90.3 (80-100) fL MCH 29.6 (26-34) PG MCHC 32.8 (30-36) % RDW 13.5 (11.6-14.8) % Plt Count 245 (150-400) X10^3/uL Neut % (Auto) 94.0 H (50-75) % Lymph % (Auto) 2.6 L (25-40) % [place] % (Auto) 3.0 (3-14) % Eos % (Auto) 0.0 L (2-4) % Baso % (Auto) 0.4 (0-2) % Neut # (Auto) 10150 H (0107-0619) /uL Lymph # (Auto) 500 L (9636-6461) /uL [place] # (Auto) 600 (0-900) /uL Eos # (Auto) 0 (0-450) /uL Baso # (Auto) 100 (0-100) /uL Sodium 144 (137-145) mmol/L Potassium 4.0 (3.4-5.1) mmol/L Chloride 107 (98-107) mmol/L Carbon Dioxide 21 L (22-32) mmol/L BUN 19 H (7-17) mg/dL Creatinine 0.93 (0.52-1.04) mg/dL Estimated GFR > 60.0 (>60) mL/min BUN/Creatinine Ratio 20.4 (6-22) Glucose 137 H (70-100) mg/dL Calcium 10.5 H (8.4-10.2) mg/dL Total Bilirubin 0.6 (0.2-1.3) mg/dL AST 23 (14-36) IU/L ALT 14 (<35) IU/L Alkaline Phosphatase 68 (38-126) U/L Total Protein 8.5 H (6.3-8.2) g/dL Albumin 5.3 H (3.5-5.0) g/dL Globulin 3.2 (1.7-4.1) g/dL Albumin/Globulin Ratio 1.7 (1.0-2.8) Lipase 37 (23-300) U/L Urine RBC 0-1/hpf (0-5/HPF) Urine WBC 1-5/hpf (0-5/HPF) Ur Squamous Epith Cells 5-10 /hpf H (0-5/HPF) Urine Bacteria Occasional (0-1) (None) Hyaline Casts 1-5/lpf (None) Urine Mucus 1+ H (Negative) Ur Culture Indicated? Cult not indicated Urine Dip Bedside Urine Glucose Negative Bedside Urine Bilirubin - Negative Bedside Urine Ketone + 15 Urine Specific [place] 1.025 Bedside Urine Occult Blood - Negative Bedside Urine pH 6.0 Bedside Urine Protein ++ 100 Bedside Urine Urobilinogen - Negative Bedside Urine Nitrite - Negative Bedside Urine Leukocytes - Negative Esterase <Dorian Hurt DO - Last Filed: 02/16/21 18:36> Lab Data Attestation: I reviewed the patient's lab results. Labs: Lab Results 02/16/21 02/16/21 02/16/21 Range/Units 15:40 15:40 17:48 WBC 20.4 H (4.5-11.0) X10^3/uL RBC 5.30 H (4.0-5.2) X10^6/uL Hgb 15.7 (12.0-16.0) g/dL Hct 47.8 H (36-46) % MCV 90.3 (80-100) fL MCH 29.6 (26-34) PG MCHC 32.8 (30-36) % RDW 13.5 (11.6-14.8) % Plt Count 245 (150-400) X10^3/uL Neut % (Auto) 94.0 H (50-75) % Lymph % (Auto) 2.6 L (25-40) % [place] % (Auto) 3.0 (3-14) % Eos % (Auto) 0.0 L (2-4) % Baso % (Auto) 0.4 (0-2) % Neut # (Auto) 63129 H (4076-1227) /uL Lymph # (Auto) 500 L (9151-1167) /uL [place] # (Auto) 600 (0-900) /uL Eos # (Auto) 0 (0-450) /uL Baso # (Auto) 100 (0-100) /uL Sodium 144 (137-145) mmol/L Potassium 4.0 (3.4-5.1) mmol/L Chloride 107 (98-107) mmol/L Carbon Dioxide 21 L (22-32) mmol/L BUN 19 H (7-17) mg/dL Creatinine 0.93 (0.52-1.04) mg/dL Estimated GFR > 60.0 (>60) mL/min BUN/Creatinine Ratio 20.4 (6-22) Glucose 137 H (70-100) mg/dL Calcium 10.5 H (8.4-10.2) mg/dL Total Bilirubin 0.6 (0.2-1.3) mg/dL AST 23 (14-36) IU/L ALT 14 (<35) IU/L Alkaline Phosphatase 68 (38-126) U/L Total Protein 8.5 H (6.3-8.2) g/dL Albumin 5.3 H (3.5-5.0) g/dL Globulin 3.2 (1.7-4.1) g/dL Albumin/Globulin Ratio 1.7 (1.0-2.8) Lipase 37 (23-300) U/L Urine RBC 0-1/hpf (0-5/HPF) Urine WBC 1-5/hpf (0-5/HPF) Ur Squamous Epith Cells 5-10 /hpf H (0-5/HPF) Urine Bacteria Occasional (0-1) (None) Hyaline Casts 1-5/lpf (None) Urine Mucus 1+ H (Negative) Ur Culture Indicated? Cult not indicated Urine Dip Bedside Urine Glucose Negative Bedside Urine Bilirubin - Negative Bedside Urine Ketone + 15 Urine Specific [place] 1.025 Bedside Urine Occult Blood - Negative Bedside Urine pH 6.0 Bedside Urine Protein ++ 100 Bedside Urine Urobilinogen - Negative Bedside Urine Nitrite - Negative Bedside Urine Leukocytes - Negative Esterase MDM Narrative Medical decision making narrative: Dr hurt: Received turned over from Dr. Montiel reviewed patient's history and physical and labs. She does have a leukocytosis however feel this is a stress reaction/demargination secondary to all of the vomiting. She felt better after the IV medications. I feel we can hold on further radiologic studies for now. She has nausea medication at home per her report. She was given return precautions. Expressed understanding and agreement. Discharge Plan Departure Patient Disposition: Home Clinical Impression: Nausea and vomiting Instructions: DI for Nausea -- Adult, DI for Vomiting -- Adult Activity Restrictions/Additional Instructions: Continue all of your medications as directed. Use your nausea medication that you have at home as needed. Contact your primary provider for follow-up. Return to the emergency department for any new or worsening symptoms Prescriptions: No Action carisoprodol 350 MG tablet 350 mg PO BID PRN (Reason: spasm) Qty: 0 RF: 0 sertraline 100 mg tablet PO BEDTIME RF: 0 hydrocodone-acetaminophen 10-325 mg tablet 1 tab PO Q4H PRN (Reason: pain) RF: 0 alprazolam 0.5 mg tablet 0.25 mg PO BID PRN (Reason: Anxiety) RF: 0 eszopiclone 1 mg tablet 1 mg PO BEDTIME RF: 0 trazodone 100 MG tablet 300 mg PO BEDTIME RF: 0 propranolol 10 mg tablet 10 mg PO BID RF: 0 fluconazole 150 mg tablet 150 mg PO .ONCE PRN (Reason: unknown) RF: 0 promethazine 25 mg tablet 25 mg PO Q4-6H PRN (Reason: nausea and vomiting) Qty: 20 RF: 0 lorazepam [Ativan] 0.5 mg tablet 0.5 mg PO BID-TID PRN (Reason: anxiety) Qty: 7 RF: 0 clonidine HCl 0.1 mg tablet 0.1 mg PO DAILY RF: 0 rizatriptan 5 mg tablet RF: 0 lactulose [Constulose] 10 gram/15 mL solution RF: 0 pantoprazole [Protonix] 40 mg tablet,delayed release (DR/EC) 40 mg PO DAILY Qty: 30 RF: 0 ondansetron 4 mg tablet,disintegrating 4 mg PO Q8H PRN (Reason: nausea and vomiting) Qty: 14 RF: 0 hydrocodone-acetaminophen [Henri[place]] 5-325 mg tablet 1 tab PO Q4H PRN (Reason: pain) Qty: 10 RF: 0 Referrals: Laura Mcgarry, MARTI, [employer]GER-[facility] [Primary Care Provider] -
[2021-02-16] MEDS: ONDANSETRON 4 MG/2 ML INJ IV (15:59)
[2021-02-16] MEDS: SODIUM CHLORIDE 0.9% 1,000 ML 1000 ML IV ×2 (16:00→17:26)
[2021-02-16] MEDS: PANTOPRAZOLE 40 MG VIAL IV (16:00)
[2021-02-16 16:13] LABS: Add Manual Diff / Slide Review NO; Basophils Absolute Auto 100 /uL (0-100); Basophils Percent Auto 0.4 % (0-2); Eosinophils Absolute Auto 0 /uL (0-450); Hematocrit 47.8 % (36-46); Hemoglobin 15.7 g/dL (12.0-16.0); Lymphocytes Absolute Auto 500 /uL (1100-4500); Lymphocytes Percent Auto 2.6 % (25-40); Mean Corpuscular HGB Conc 32.8 % (30-36); Mean Corpuscular Hemoglobin 29.6 PG (26-34); Mean Corpuscular Volume 90.3 fL (80-100); Monocytes Absolute Auto 600 /uL (0-900); Neutrophils Absolute Auto 19100 /uL (1500-7000); Platelet Count 245 X10^3/uL (150-400); Red Cell Distribution Width 13.5 % (11.6-14.8); White Blood Cell Count 20.4 X10^3/uL (4.5-11.0)
[2021-02-16 16:28] LABS: Alanine Aminotransferase 14 IU/L (<35); Albumin 5.3 g/dL (3.5-5.0); Albumin Globulin Ratio 1.7 (1.0-2.8); Alkaline Phosphatase 68 U/L (38-126); Aspartate Aminotransferase 23 IU/L (14-36); BUN Creatinine Ratio 20.4 (6-22); Bilirubin Total 0.6 mg/dL (0.2-1.3); Blood Urea Nitrogen 19 mg/dL (7-17); Calcium 10.5 mg/dL (8.4-10.2); Carbon Dioxide 21 mmol/L (22-32); Chloride 107 mmol/L (98-107); Estimated Glomerular Filt Rate > 60.0 mL/min (>60); Globulin 3.2 g/dL (1.7-4.1); Glucose 137 mg/dL (70-100); HEMOLYSIS < 15 (0-50); Lipase 37 U/L (23-300); Sodium 144 mmol/L (137-145); Total Protein 8.5 g/dL (6.3-8.2)
[2021-02-16] MEDS: diphenhydrAMINE 50 MG/ML VIAL 25 MG IV (16:29)
[2021-02-16] MEDS: HALOPERIDOL 5 MG/ML VIAL 2 MG IV (16:30)
[2021-02-16 18:26] LABS: Bacteria Urine Occasional (0-1); Culture Indicated Urine Cult Not Indicated; Hyaline Casts Urine 1-5/LPF; Mucus Urine 1+ (Negative); RBC Urine 0-1/HPF (0-5/HPF); Squamous Epithelial Cell Urine 5-10 /HPF (0-5/HPF); WBC Urine 1-5/HPF (0-5/HPF)
== END 2021-02-16 18:49 | disposition home or self-care (01) ==
PROVIDERS: Emergency Medicine; Emergency Provider Emergency Medicine; PCP Nurse Practitioner Family
DX: R11.2 Nausea with vomiting, unspecified (principal); R10.9 Unspecified abdominal pain
CPT/HCPCS: 36415; 80053; 81003; 81015; 83690; 85025; 93005; 96361; 96374; 96375; 99284; C9113; J1200; J1630; J2405

== ENCOUNTER 2021-07-14 01:27 | Emergency (ER) | payer MEDICARE, MEDICAID, SELFPAY ==
[2021-07-14 01:30] VITALS: BP 107/74; PULSE 88; RESP 16; TEMP 36.7; O2SAT 98; BMI 23.9
--- NOTE | 2021-07-14 01:48 | ED_ITS ---
HPI - Nausea/Vomiting/Diarrhea General Chief complaint: Nausea/Vomiting/Diarrhea Stated complaint: vomiting two days, fell in bathtub/back pain Time Seen by Provider: 07/14/21 01:45 Source: patient Mode of arrival: Ambulatory Limitations: no limitations History of Present Illness HPI Narrative: Patient is a 36-year-old female who has history of multiple sclerosis, anxiety, history of cyclic vomiting presenting today with nausea vomiting and abdominal pain ongoing since yesterday. She says that she is unable to keep anything down. She in fell in the bathroom hitting her thoracic area on her back. She denies hitting her head when she fell no loss consciousness. She denies any numbness or tingling in her arms. She is complaining of low buttock pain more on the left than the right. She feels like she has numbness and tingling down both legs as well. No changes in bowel or bladder habits. She has not had any fever or chills. She does use marijuana regularly. Related Data Home Medications Medication Instructions Recorded Confirmed carisoprodol 350 mg tablet 350 mg PO BID PRN #0 02/16/17 01/29/19 alprazolam 0.5 mg tablet 0.25 mg PO BID PRN 11/01/18 11/01/18 eszopiclone 1 mg tablet 1 mg PO BEDTIME 11/01/18 01/29/19 fluconazole 150 mg tablet 150 mg PO .ONCE PRN 11/01/18 01/29/19 hydrocodone 10 mg-acetaminophen 1 tab PO Q4H PRN 11/01/18 01/29/19 325 mg tablet propranolol 10 mg tablet 10 mg PO BID 11/01/18 11/01/18 sertraline 100 mg tablet mg PO BEDTIME 11/01/18 11/01/18 trazodone 100 mg tablet 300 mg PO BEDTIME 11/01/18 01/29/19 clonidine HCl 0.1 mg tablet 0.1 mg PO DAILY 01/29/19 01/29/19 lactulose 10 gram/15 mL oral 01/29/19 solution rizatriptan 5 mg tablet 01/29/19 Previous Rx's Medication Instructions Recorded promethazine 25 mg tablet 25 mg PO Q4-6H PRN #20 tab 11/01/18 lorazepam 0.5 mg tablet (Ativan) 0.5 mg PO BID-TID PRN #7 tab 12/12/18 hydrocodone 5 mg-acetaminophen 325 1 tab PO Q4H PRN #10 tab 07/29/19 mg tablet ([place]) ondansetron 4 mg disintegrating 4 mg PO Q8H PRN #14 tab 07/29/19 tablet pantoprazole 40 mg tablet,delayed 40 mg PO DAILY #30 tab 07/29/19 release (Protonix) ondansetron 4 mg disintegrating 4 mg PO Q8H PRN #10 tab 07/14/21 tablet Allergies Allergy/AdvReac Type Severity Reaction Status Date / Time aspirin [ASPIRIN] Allergy Severe THROAT Verified 08/31/19 14:39 SWELLING metoclopramide [From REGLAN] AdvReac Mild AGGITATION/ Verified 08/31/19 14:39 RESTLESSNES S Review of Systems Review of Systems Narrative: GENERAL: Denies chills, fatigue, malaise, fever, sweats, travel HEENT: Denies sinus pain, ear pain, sore throat, difficulty swallowing, neck pain RESPIRATORY: Denies dyspnea, cough, wheezing, hemoptysis, sputum. CARDIOVASCULAR: Denies chest pain, palpitations, orthopnea, edema GASTROINTESTINAL: See HPI : Denies dysuria, frequency, incontinence, hematuria, urinary retention, flank pain. MUSCULOSKELETAL: See HPI SKIN: No rash, no erythema, no pruritus NEUROLOGIC: Denies weakness, dizziness, headache, numbness, change in speech, co nfusion PSYCHIATRIC: No concerning psychosocial issues. 12 point review of systems is negative except for those stated above and HPI Patient History Medical History (Updated 07/14/21 @ 05:28 by Lu Montiel DO) Anxiety Celiac disease Chronic narcotic use Cyclic vomiting syndrome Multiple sclerosis Surgical History Status post tubal ligation Social History Smoking Status: Current every day smoker substance use type: marijuana Smoking Status: Current every day smoker tobacco type: cigarettes alcohol intake frequency: 0-2 drinks per day Substance Use Type: does not use and other Exam Initial Vital Signs Initial Vital Signs: Vital Signs Temperature 98.1 F 07/14/21 01:30 Pulse Rate 88 07/14/21 01:30 Respiratory Rate 16 07/14/21 01:30 Blood Pressure 107/74 07/14/21 01:30 Pulse Oximetry 98 07/14/21 01:30 GENERAL: Alert 36-year-old female appears uncomfortable HEENT: Head atraumatic,EOMI, pupils reactive, face symmetric, moist mucous membranes CARDIOVASCULAR: Regular rate and rhythm without murmurs, rubs or gallops. RESPIRATORY: Breath sounds equal bilaterally, no wheezes rales or rhonchi. ABDOMEN: Soft, nontender. Normoactive bowel sounds all 4 quadrants. No guarding or rebound. BACK: Mid thoracic pain no lumbar pain but tender in buttock regions and bilateral lateral lumbar areas : No CVA tenderness EXTREMITIES: Normal range of motion, no clubbing or edema. Neurovascularly intact NEUROLOGICAL: Alert and oriented x4.Normal gait and speech. Cranial nerves II through XII grossly intact. SKIN: Warm, dry, no laceration, no petechiae, no rashes or lesions. Course Orders Ordered: ED Orders 07/14/21 01:58 XR thoracic spine 3V Stat 07/14/21 02:07 Complete Blood Count AUTO DIFF Stat Comprehensive Metabolic Panel Stat Lipase Stat 07/14/21 05:18 Urine Drug Screen, Rapid Stat 07/14/21 05:28 Urine Microscopic Stat Discontinued Medications Diphenhydramine HCl (Diphenhydramine 50 Mg/Ml Vial) 50 mg IV NOW ONE Stop: 07/14/21 03:21 Last Admin: 07/14/21 03:29 Dose: 50 mg Documented by: KAROL Haloperidol (Haloperidol 5 Mg/Ml Vial) 2 mg IV NOW ONE Stop: 07/14/21 03:21 Last Admin: 07/14/21 03:29 Dose: 2 mg Documented by: KAROL Hydromorphone HCl (Hydromorphone 0.5 Mg Inj) 0.5 mg IV NOW ONE Stop: 07/14/21 03:56 Last Admin: 07/14/21 03:58 Dose: 0.5 mg Documented by: KAROL Hydromorphone HCl (Hydromorphone 0.5 Mg Inj) 0.5 mg IV NOW ONE Stop: 07/14/21 03:56 Sodium Chloride (Normal Saline 0.9%) 1,000 mls @ 1,000 mls/hr IV CONT RICARDO Last Infusion: 07/14/21 03:53 Dose: 0 mls/hr Documented by: Admin: 07/14/21 02:30 Dose: 1,000 mls/hr Documented by: NAM Sodium Chloride (Normal Saline 0.9%) 1,000 mls @ 1,000 mls/hr IV BOLUS ONE Stop: 07/14/21 04:19 Last Infusion: 07/14/21 05:51 Dose: 0 mls/hr Documented by: Admin: 07/14/21 03:58 Dose: 1,000 mls/hr Documented by: KAROL Morphine Sulfate (Morphine 2 Mg/Ml Inj) 2 mg IV NOW ONE Stop: 07/14/21 01:59 Last Admin: 07/14/21 02:30 Dose: 2 mg Documented by: NAM Ondansetron HCl (Ondansetron 4 Mg/2 Ml Inj) 4 mg IV NOW ONE Stop: 07/14/21 01:59 Last Admin: 07/14/21 02:30 Dose: 4 mg Documented by: NAM Ondansetron HCl (Ondansetron 4 Mg Odt Prepack) 1 bottle MISC SEEINSTR ONE Stop: 07/14/21 04:55 Last Admin: 07/14/21 05:51 Dose: 1 bottle Documented by: NAM Pantoprazole Sodium (Pantoprazole 40 Mg Vial) 40 mg IV NOW ONE Stop: 07/14/21 01:59 Last Admin: 07/14/21 02:30 Dose: 40 mg Documented by: NAM Vital Signs Vital signs: Vital Signs - 8 hr 07/14/21 01:30 Temperature 98.1 F Pulse Rate 88 Respiratory Rate 16 Blood Pressure 107/74 Pulse Oximetry 98 MDM - Nausea/Vomiting/Diarrhea Lab Data Result diagrams: 07/14/21 02:07 07/14/21 02:07 Labs: Lab Results 07/14/21 07/14/21 07/14/21 Range/Units 02:07 02:07 05:18 WBC 11.1 H (4.5-11.0) X10^3/uL RBC 4.83 (4.0-5.2) X10^6/uL Hgb 14.4 (12.0-16.0) g/dL Hct 43.3 (36-46) % MCV 89.6 (80-100) fL MCH 29.9 (26-34) PG MCHC 33.4 (30-36) % RDW 13.4 (11.6-14.8) % Plt Count 196 (150-400) X10^3/uL Neut % (Auto) 86.0 H (50-75) % Lymph % (Auto) 6.8 L (25-40) % White % (Auto) 7.1 (3-14) % Eos % (Auto) 0.0 L (2-4) % Baso % (Auto) 0.1 (0-2) % Neut # (Auto) 9500 H (7751-6116) /uL Lymph # (Auto) 800 L (7442-0163) /uL White # (Auto) 800 (0-900) /uL Eos # (Auto) 0 (0-450) /uL Baso # (Auto) 0 (0-100) /uL Sodium 141 (137-145) mmol/L Potassium 3.5 (3.4-5.1) mmol/L Chloride 104 (98-107) mmol/L Carbon Dioxide 24 (22-32) mmol/L BUN 15 (7-17) mg/dL Creatinine 0.81 (0.52-1.04) mg/dL Estimated GFR > 60.0 (>60) mL/min BUN/Creatinine Ratio 18.5 (6-22) Glucose 128 H (70-100) mg/dL Calcium 10.1 (8.4-10.2) mg/dL Total Bilirubin 0.5 (0.2-1.3) mg/dL AST 25 (14-36) IU/L ALT 21 (<35) IU/L Alkaline Phosphatase 54 (38-126) U/L Total Protein 8.2 (6.3-8.2) g/dL Albumin 5.2 H (3.5-5.0) g/dL Globulin 3.0 (1.7-4.1) g/dL Albumin/Globulin Ratio 1.7 (1.0-2.8) Lipase 37 (23-300) U/L Urine RBC (0-5/HPF) Urine WBC (0-5/HPF) Ur Squamous Epith Cells (0-5/HPF) Urine Bacteria (None) Urine Mucus (Negative) Ur Culture Indicated? U Opiates 300ng/mL cut Positive H (Negative) Ur Oxycodone Screen Positive H (Negative) Urine Methadone Screen Negative (Negative) Ur Barbiturates Screen Negative (Negative) U Tricyclic Antidepress Negative (Negative) Ur Phencyclidine Scrn Negative (Negative) Ur Amphetamines Screen Negative (Negative) U Methamphetamines Scrn Negative (Negative) Ur MDMA Scrn (Ecstasy) Negative (Negative) U Benzodiazepines Scrn Positive H (Negative) Urine Cocaine Screen Negative (Negative) U Marijuana (THC) Screen Positive H (Negative) 07/14/21 Range/Units 05:18 WBC (4.5-11.0) X10^3/uL RBC (4.0-5.2) X10^6/uL Hgb (12.0-16.0) g/dL Hct (36-46) % MCV (80-100) fL MCH (26-34) PG MCHC (30-36) % RDW (11.6-14.8) % Plt Count (150-400) X10^3/uL Neut % (Auto) (50-75) % Lymph % (Auto) (25-40) % White % (Auto) (3-14) % Eos % (Auto) (2-4) % Baso % (Auto) (0-2) % Neut # (Auto) (1674-7673) /uL Lymph # (Auto) (3313-5274) /uL White # (Auto) (0-900) /uL Eos # (Auto) (0-450) /uL Baso # (Auto) (0-100) /uL Sodium (137-145) mmol/L Potassium (3.4-5.1) mmol/L Chloride (98-107) mmol/L Carbon Dioxide (22-32) mmol/L BUN (7-17) mg/dL Creatinine (0.52-1.04) mg/dL Estimated GFR (>60) mL/min BUN/Creatinine Ratio (6-22) Glucose (70-100) mg/dL Calcium (8.4-10.2) mg/dL Total Bilirubin (0.2-1.3) mg/dL AST (14-36) IU/L ALT (<35) IU/L Alkaline Phosphatase (38-126) U/L Total Protein (6.3-8.2) g/dL Albumin (3.5-5.0) g/dL Globulin (1.7-4.1) g/dL Albumin/Globulin Ratio (1.0-2.8) Lipase (23-300) U/L Urine RBC 1-5/hpf (0-5/HPF) Urine WBC None seen (0-5/HPF) Ur Squamous Epith Cells 1-5 /hpf (0-5/HPF) Urine Bacteria Few (2-10) H (None) Urine Mucus 2+ H (Negative) Ur Culture Indicated? Cult not indicated U Opiates 300ng/mL cut (Negative) Ur Oxycodone Screen (Negative) Urine Methadone Screen (Negative) Ur Barbiturates Screen (Negative) U Tricyclic Antidepress (Negative) Ur Phencyclidine Scrn (Negative) Ur Amphetamines Screen (Negative) U Methamphetamines Scrn (Negative) Ur MDMA Scrn (Ecstasy) (Negative) U Benzodiazepines Scrn (Negative) Urine Cocaine Screen (Negative) U Marijuana (THC) Screen (Negative) Point of Care Testing Test Results Negative Urine Dip Bedside Urine Glucose Negative Bedside Urine Bilirubin - Negative Bedside Urine Ketone +/- 5 Urine Specific [place] 1.015 Bedside Urine Occult Blood +/- Bedside Urine pH 8.0 Bedside Urine Protein + 30 Bedside Urine Urobilinogen - Negative Bedside Urine Nitrite - Negative Bedside Urine Leukocytes - Negative Esterase Imaging Data XR thoracic: Radiologist's Impression: The preliminary report: No acute fracture or dislocation MDM Narrative Medical decision making narrative: The patient is still having pain after morphine and Haldol, but she is no longer nauseated. Abdomen is reexamined overall remains soft. She seems to be having bilateral sciatic pain not necessarily abdominal pain. She is given dilaudid which seems to help more with her pain. Abdomen continues to remain soft she is no longer vomiting. Blood work is overall reassuring no significant dehydration. At this time she feels ready in able to go home. At this time I do not suspect any cord compression from her thoracic injury. X- ray is negative. She is not tender in her lumbar spine. She has no changes in bowel or bladder habits. Discharge Plan Departure Patient Disposition: Home Clinical Impression: Contusion of thoracic spine Nausea and vomiting Qualifiers: Vomiting type: unspecified Vomiting Intractability: non-intractable Qualified Code(s): R11.2 - Nausea with vomiting, unspecified Acute back pain with sciatica Qualifiers: Laterality: unspecified laterality Qualified Code(s): M54.40 - Lumbago with sciatica, unspecified side Instructions: DI for Vomiting -- Adult Activity Restrictions/Additional Instructions: *You have been diagnosed with nausea and vomiting *What to do: Increase fluid intake as tolerated. Recommend Gatorade Gatorade like substance. *Continue to take medications as directed Zofran 4 mg every hours if needed for nausea or vomiting--> SENT TO [facility] *Follow up with your primary care provider in 2-3 days *Return to ER if you should have persistent vomiting, increased abdominal pain fever, or any new, worsening or concerning symptoms Prescriptions: New ondansetron 4 mg tablet,disintegrating 4 mg PO Q8H PRN (Reason: nausea and vomiting) Qty: 10 RF: 0 No Action carisoprodol 350 MG tablet 350 mg PO BID PRN (Reason: spasm) Qty: 0 RF: 0 sertraline 100 mg tablet PO BEDTIME RF: 0 hydrocodone-acetaminophen 10-325 mg tablet 1 tab PO Q4H PRN (Reason: pain) RF: 0 alprazolam 0.5 mg tablet 0.25 mg PO BID PRN (Reason: Anxiety) RF: 0 eszopiclone 1 mg tablet 1 mg PO BEDTIME RF: 0 trazodone 100 MG tablet 300 mg PO BEDTIME RF: 0 propranolol 10 mg tablet 10 mg PO BID RF: 0 fluconazole 150 mg tablet 150 mg PO .ONCE PRN (Reason: unknown) RF: 0 promethazine 25 mg tablet 25 mg PO Q4-6H PRN (Reason: nausea and vomiting) Qty: 20 RF: 0 lorazepam [Ativan] 0.5 mg tablet 0.5 mg PO BID-TID PRN (Reason: anxiety) Qty: 7 RF: 0 clonidine HCl 0.1 mg tablet 0.1 mg PO DAILY RF: 0 rizatriptan 5 mg tablet RF: 0 lactulose [Constulose] 10 gram/15 mL solution RF: 0 pantoprazole [Protonix] 40 mg tablet,delayed release (DR/EC) 40 mg PO DAILY Qty: 30 RF: 0 ondansetron 4 mg tablet,disintegrating 4 mg PO Q8H PRN (Reason: nausea and vomiting) Qty: 14 RF: 0 hydrocodone-acetaminophen [Enterprise] 5-325 mg tablet 1 tab PO Q4H PRN (Reason: pain) Qty: 10 RF: 0 Referrals: Laura Mcgarry, MARTI, [employer] [Primary Care Provider] -
--- NOTE | 2021-07-14 01:58 | DI.RAD.S_ITS ---
PROCEDURE: XR THORACIC SPINE 3V INDICATIONS: fall pain mid thoracic TECHNIQUE: 3 views of the thoracic spine were acquired. COMPARISON: [facility], , XR T-SPINE/L-SPINE, 05/04/1998, 13:41. MR THORACIC SPINE WO/W CON, 08/30/2018, 9:34. FINDINGS: Bones: No fractures or dislocations. No suspicious bony lesions. 12 pairs of ribs are noted, and appear intact where visualized. Soft tissues: No paravertebral stripe thickening. IMPRESSION: No acute abnormalities. No significant discrepancy with the spreader operator automatic radiology preliminary report. Dictated by: Olga Rodriguez M.D. on 07/14/2021 at 8:30 Approved by: Olga Rodriguez M.D. on 07/14/2021 at 8:49
[2021-07-14 02:13] LABS: Add Manual Diff / Slide Review NO; Basophils Absolute Auto 0 /uL (0-100); Basophils Percent Auto 0.1 % (0-2); Eosinophils Absolute Auto 0 /uL (0-450); Hematocrit 43.3 % (36-46); Hemoglobin 14.4 g/dL (12.0-16.0); Lymphocytes Absolute Auto 800 /uL (1100-4500); Lymphocytes Percent Auto 6.8 % (25-40); Mean Corpuscular HGB Conc 33.4 % (30-36); Mean Corpuscular Hemoglobin 29.9 PG (26-34); Mean Corpuscular Volume 89.6 fL (80-100); Monocytes Absolute Auto 800 /uL (0-900); Monocytes Percent Auto 7.1 % (3-14); Neutrophils Absolute Auto 9500 /uL (1500-7000); Platelet Count 196 X10^3/uL (150-400); Red Blood Cell Count 4.83 X10^6/uL (4.0-5.2); Red Cell Distribution Width 13.4 % (11.6-14.8); White Blood Cell Count 11.1 X10^3/uL (4.5-11.0)
[2021-07-14 02:24] LABS: Albumin 5.2 g/dL (3.5-5.0); Albumin Globulin Ratio 1.7 (1.0-2.8); Alkaline Phosphatase 54 U/L (38-126); Aspartate Aminotransferase 25 IU/L (14-36); BUN Creatinine Ratio 18.5 (6-22); Bilirubin Total 0.5 mg/dL (0.2-1.3); Blood Urea Nitrogen 15 mg/dL (7-17); Calcium 10.1 mg/dL (8.4-10.2); Carbon Dioxide 24 mmol/L (22-32); Chloride 104 mmol/L (98-107); Estimated Glomerular Filt Rate > 60.0 mL/min (>60); Glucose 128 mg/dL (70-100); HEMOLYSIS < 15 (0-50); Lipase 37 U/L (23-300); Potassium 3.5 mmol/L (3.4-5.1); Sodium 141 mmol/L (137-145); Total Protein 8.2 g/dL (6.3-8.2)
[2021-07-14] MEDS: ONDANSETRON 4 MG/2 ML INJ IV (02:30)
[2021-07-14] MEDS: PANTOPRAZOLE 40 MG VIAL IV (02:30)
[2021-07-14] MEDS: SODIUM CHLORIDE 0.9% 1,000 ML 1000 ML IV ×2 (02:30→03:58)
[2021-07-14] MEDS: MORPHINE 2 MG/ML INJ IV (02:30)
[2021-07-14 02:32] LABS: Alanine Aminotransferase 21 IU/L (<35)
[2021-07-14] MEDS: diphenhydrAMINE 50 MG/ML VIAL IV (03:29)
[2021-07-14] MEDS: HALOPERIDOL 5 MG/ML VIAL 2 MG IV (03:29)
[2021-07-14] MEDS: HYDROMORPHONE 0.5 MG INJ IV (03:58)
[2021-07-14 05:26] LABS: UR Morphine/Opiate cutoff 300 Positive (Negative); Ur Creatinine Normal (Normal); Ur Specific Gravity Normal (Normal); Urine Amphetamines Negative (Negative); Urine Barbiturates Negative (Negative); Urine Benzodiazepines Positive (Negative); Urine Cocaine Negative (Negative); Urine MDMA Negative (Negative); Urine Methadone Negative (Negative); Urine Methamphetamines Negative (Negative); Urine Oxycodone Positive (Negative); Urine Phencyclidine Negative (Negative); Urine Tetrahydrocannabinol Positive (Negative); Urine Tricyclic Antidepressant Negative (Negative); Urine pH Normal (Normal)
[2021-07-14] MEDS: ONDANSETRON 4 MG ODT PREPACK 1 BOTTLE MISC (05:51)
[2021-07-14 05:55] LABS: Bacteria Urine Few (2-10); RBC Urine 1-5/HPF (0-5/HPF); Squamous Epithelial Cell Urine 1-5 /HPF (0-5/HPF)
[2021-07-14 05:56] LABS: Mucus Urine 2+ (Negative); WBC Urine None Seen (0-5/HPF)
[2021-07-14 05:57] LABS: Culture Indicated Urine Cult Not Indicated
== END 2021-07-14 05:59 | disposition home or self-care (01) ==
PROVIDERS: Emergency Provider Emergency Medicine; PCP Nurse Practitioner Family
DX: S20.229A Contusion of unspecified back wall of thorax, initial encounter (principal); R11.2 Nausea with vomiting, unspecified; M54.40 Lumbago with sciatica, unspecified side; M54.6 Pain in thoracic spine
CPT/HCPCS: 36415; 72072; 80053; 80305; 81003; 81015; 81025; 83690; 85025; 96361; 96374; 96375; 99284; C9113; J1170; J1200; J1630; J2270; J2405

== ENCOUNTER 2021-08-24 03:21 | Emergency (ER) | payer MEDICARE, MEDICAID, SELFPAY ==
[2021-08-24] VITALS (7 sets, daily range): BP systolic 106–123; BP diastolic 74; PULSE 48–68; RESP 18–20; TEMP 36.6; O2SAT 95–97; BMI 22.1
--- NOTE | 2021-08-24 03:45 | ED.GENADULT ---
HPI - General Adult General Chief complaint: Nausea/Vomiting/Diarrhea Stated complaint: vomiting x4 days Time Seen by Provider: 08/24/21 03:34 History of Present Illness HPI narrative: 36-year-old woman with history of multiple sclerosis, chronic pain related to that with both benzodiazepine and narcotic regular use and cyclic vomiting episodes. She is currently 4 days into a cyclic vomiting episode is unable to keep anything down. For the last 2 days she has been unable to keep her scheduled Vicodin and Ativan down and both narcotic and benzodiazepine withdrawal probably contributing to the severity of the cyclic vomiting she is currently experiencing. She describes abdominal wall and epigastric pain related to the vomiting itself but otherwise no abdominal pain. She gets diaphoretic with the emesis but does not describe specific fevers, no cough she has had low-grade headache. She is experiencing no diarrhea. Related Data Home Medications Medication Instructions Recorded Confirmed carisoprodol 350 mg tablet 350 mg PO BID PRN #0 02/16/17 01/29/19 alprazolam 0.5 mg tablet 0.25 mg PO BID PRN 11/01/18 11/01/18 eszopiclone 1 mg tablet 1 mg PO BEDTIME 11/01/18 01/29/19 fluconazole 150 mg tablet 150 mg PO .ONCE PRN 11/01/18 01/29/19 hydrocodone 10 mg-acetaminophen 1 tab PO Q4H PRN 11/01/18 01/29/19 325 mg tablet propranolol 10 mg tablet 10 mg PO BID 11/01/18 11/01/18 sertraline 100 mg tablet mg PO BEDTIME 11/01/18 11/01/18 trazodone 100 mg tablet 300 mg PO BEDTIME 11/01/18 01/29/19 clonidine HCl 0.1 mg tablet 0.1 mg PO DAILY 01/29/19 01/29/19 lactulose 10 gram/15 mL oral 01/29/19 solution rizatriptan 5 mg tablet 01/29/19 Previous Rx's Medication Instructions Recorded promethazine 25 mg tablet 25 mg PO Q4-6H PRN #20 tab 11/01/18 lorazepam 0.5 mg tablet (Ativan) 0.5 mg PO BID-TID PRN #7 tab 12/12/18 hydrocodone 5 mg-acetaminophen 325 1 tab PO Q4H PRN #10 tab 07/29/19 mg tablet (Jackson) ondansetron 4 mg disintegrating 4 mg PO Q8H PRN #14 tab 07/29/19 tablet pantoprazole 40 mg tablet,delayed 40 mg PO DAILY #30 tab 07/29/19 release (Protonix) ondansetron 4 mg disintegrating 4 mg PO Q8H PRN #10 tab 07/14/21 tablet Allergies Allergy/AdvReac Type Severity Reaction Status Date / Time aspirin [ASPIRIN] Allergy Severe THROAT Verified 08/31/19 14:39 SWELLING metoclopramide [From REGLAN] AdvReac Mild AGGITATION/ Verified 08/31/19 14:39 RESTLESSNES S Review of Systems Review of Systems Narrative: Remainder of complete review of systems is otherwise unremarkable except for that included in the HPI. Patient History Medical History (Updated 08/24/21 @ 05:29 by Courtney Morrissey MD) Anxiety Celiac disease Chronic narcotic use Cyclic vomiting syndrome Multiple sclerosis Surgical History Status post tubal ligation Social History Smoking Status: Current every day smoker substance use type: marijuana Smoking Status: Current every day smoker tobacco type: cigarettes alcohol intake frequency: 0-2 drinks per day Substance Use Type: does not use and other Exam Narrative Exam Narrative: General: Appears that she does not feel well with episodes of emesis but Able to give a complete and coherent history. Well-nourished well-developed HEENT: Dry mucous membranes, normal sclera with reactive pupils, Respiratory: Lungs are clear to auscultation, no wheezing no rales no rhonchi. Full and symmetrical air movement Cardiac: Regular rate and rhythm no murmurs no bruits Abdomen: Soft, mild epigastric tenderness without rebound or guarding good bowel tones, no flank pain Skin: Warm and dry, no rashes Neurologic: Grossly neurologically intact with no obvious asymmetries or abnormalities Extremities: No trauma, well perfused Psych: Cooperative, appropriate insight and affect Initial Vital Signs Initial Vital Signs: Vital Signs Temperature 97.8 F 08/24/21 03:49 Pulse Rate 56 L 08/24/21 03:49 Respiratory Rate 20 08/24/21 03:49 Blood Pressure 123/74 08/24/21 03:49 Pulse Oximetry 97 11/01/21 03:49 Course Orders Ordered: Discontinued Medications Diphenhydramine HCl (Diphenhydramine 50 Mg/Ml Vial) 50 mg IV NOW ONE Stop: 08/24/21 03:47 Last Admin: 08/24/21 03:57 Dose: 50 mg Documented by: NAM Haloperidol (Haloperidol 5 Mg/Ml Vial) 2 mg IV NOW ONE Stop: 08/24/21 03:47 Last Admin: 08/24/21 03:56 Dose: 2 mg Documented by: NAM Hydromorphone HCl (Hydromorphone 1 Mg Inj) 1 mg IV NOW ONE Stop: 08/24/21 03:50 Last Admin: 08/24/21 03:58 Dose: 1 mg Documented by: NAM Sodium Chloride (Normal Saline 0.9%) 1,000 mls @ 1,000 mls/hr IV BOLUS ONE Stop: 08/24/21 04:45 Last Admin: 08/24/21 03:55 Dose: 1,000 mls/hr Documented by: NAM Lorazepam (Lorazepam 2 Mg/Ml Inj) 0.5 mg IV NOW ONE Stop: 08/24/21 03:50 Last Admin: 08/24/21 03:58 Dose: 0.5 mg Documented by: NAM Vital Signs Vital signs: Vital Signs - 8 hr 08/24/21 03:49 Temperature 97.8 F Pulse Rate 56 L Respiratory Rate 20 Blood Pressure 123/74 Pulse Oximetry 97 Medical Decision Making MDM Narrative Medical decision making narrative: 36-year-old woman with history cyclic vomiting. She has not had any luck with her Zofran or Phenergan at home. An IV is started she is given a L of fluid and 2 mg of Haldol along with 25 mg of Benadryl which significantly improved her overall nausea. She is also given a mg of Dilaudid and half a mg of Ativan to help address the withdrawal symptoms associated with her narcotic and benzodiazepine dependence. After full L of fluid and medications administered she is feeling significantly better and able to keep down to glasses of water. There is no evidence for acute surgical abdomen, infection, or any type of gut obstruction. Has a follow-up appointment with her primary care doctor tomorrow and needs no additional prescriptions refilled. She is safe for home discharge Discharge Plan Departure Patient Disposition: Home Clinical Impression: Multiple sclerosis, Cyclic vomiting syndrome Instructions: DI for Vomiting -- Adult Activity Restrictions/Additional Instructions: Thank you for coming in today. You received a L of fluid, IV Haldol and Benadryl help control the nausea. You are also given IV Dilaudid and Ativan so that the withdrawal symptoms after being unable to take these medications for the last 48 hours are not contributing to your persistent nausea and vomiting. Please keep your appointment is scheduled with your primary care doctor tomorrow. I hope you feel better Prescriptions: No Action carisoprodol 350 MG tablet 350 mg PO BID PRN (Reason: spasm) Qty: 0 RF: 0 sertraline 100 mg tablet PO BEDTIME RF: 0 hydrocodone-acetaminophen 10-325 mg tablet 1 tab PO Q4H PRN (Reason: pain) RF: 0 alprazolam 0.5 mg tablet 0.25 mg PO BID PRN (Reason: Anxiety) RF: 0 eszopiclone 1 mg tablet 1 mg PO BEDTIME RF: 0 trazodone 100 MG tablet 300 mg PO BEDTIME RF: 0 propranolol 10 mg tablet 10 mg PO BID RF: 0 fluconazole 150 mg tablet 150 mg PO .ONCE PRN (Reason: unknown) RF: 0 promethazine 25 mg tablet 25 mg PO Q4-6H PRN (Reason: nausea and vomiting) Qty: 20 RF: 0 lorazepam [Ativan] 0.5 mg tablet 0.5 mg PO BID-TID PRN (Reason: anxiety) Qty: 7 RF: 0 clonidine HCl 0.1 mg tablet 0.1 mg PO DAILY RF: 0 rizatriptan 5 mg tablet RF: 0 lactulose [Constulose] 10 gram/15 mL solution RF: 0 ondansetron 4 mg tablet,disintegrating 4 mg PO Q8H PRN (Reason: nausea and vomiting) Qty: 10 RF: 0 pantoprazole [Protonix] 40 mg tablet,delayed release (DR/EC) 40 mg PO DAILY Qty: 30 RF: 0 ondansetron 4 mg tablet,disintegrating 4 mg PO Q8H PRN (Reason: nausea and vomiting) Qty: 14 RF: 0 hydrocodone-acetaminophen [Jackson] 5-325 mg tablet 1 tab PO Q4H PRN (Reason: pain) Qty: 10 RF: 0 Referrals: Malgorzata,Laura, MARTI, [employer] [Primary Care Provider] -
[2021-08-24] MEDS: SODIUM CHLORIDE 0.9% 1,000 ML 1000 ML IV (03:55)
[2021-08-24] MEDS: HALOPERIDOL 5 MG/ML VIAL 2 MG IV (03:56)
[2021-08-24] MEDS: diphenhydrAMINE 50 MG/ML VIAL IV (03:57)
[2021-08-24] MEDS: HYDROMORPHONE 1 MG INJ IV (03:58)
[2021-08-24] MEDS: LORazepam 2 MG/ML INJ 0.5 MG IV (03:58)
== END 2021-08-24 05:47 | disposition home or self-care (01) ==
PROVIDERS: Emergency Provider Emergency Medicine; PCP Nurse Practitioner Family
DX: G35 Multiple sclerosis (principal); R11.15 Cyclical vomiting syndrome unrelated to migraine
CPT/HCPCS: 36415; 96361; 96374; 96375; 99284; J1170; J1200; J1630; J2060

== ENCOUNTER 2021-12-27 23:26 | Emergency (ER) | payer MEDICARE, MEDICAID, SELFPAY ==
[2021-12-27 23:34] VITALS: PULSE 50; RESP 24; TEMP 36.4; O2SAT 100
--- NOTE | 2021-12-27 23:43 | ED_ITS ---
HPI - Nausea/Vomiting/Diarrhea General Chief complaint: Nausea/Vomiting/Diarrhea Stated complaint: VOMITING Time Seen by Provider: 12/27/21 23:30 Source: patient Mode of arrival: Ambulatory History of Present Illness HPI Narrative: 28-year-old female who with a history of cyclic vomiting syndrome and chronic pain and MS. Is on chronic opioid and benzodiazepine. Is here for evaluation of 2 days of upper abdominal discomfort and nausea and vomiting consistent with her prior issues of cyclic vomiting syndrome. Related Data Home Medications Medication Instructions Recorded Confirmed carisoprodol 350 mg tablet 350 mg PO BID PRN #0 02/16/17 01/29/19 alprazolam 0.5 mg tablet 0.25 mg PO BID PRN 11/01/18 11/01/18 eszopiclone 1 mg tablet 1 mg PO BEDTIME 11/01/18 01/29/19 fluconazole 150 mg tablet 150 mg PO .ONCE PRN 11/01/18 01/29/19 hydrocodone 10 mg-acetaminophen 1 tab PO Q4H PRN 11/01/18 01/29/19 325 mg tablet propranolol 10 mg tablet 10 mg PO BID 11/01/18 11/01/18 sertraline 100 mg tablet mg PO BEDTIME 11/01/18 11/01/18 trazodone 100 mg tablet 300 mg PO BEDTIME 11/01/18 01/29/19 clonidine HCl 0.1 mg tablet 0.1 mg PO DAILY 01/29/19 01/29/19 lactulose 10 gram/15 mL oral 01/29/19 solution rizatriptan 5 mg tablet 01/29/19 Previous Rx's Medication Instructions Recorded promethazine 25 mg tablet 25 mg PO Q4-6H PRN #20 tab 11/01/18 lorazepam 0.5 mg tablet (Ativan) 0.5 mg PO BID-TID PRN #7 tab 12/12/18 hydrocodone 5 mg-acetaminophen 325 1 tab PO Q4H PRN #10 tab 07/29/19 mg tablet ([place]) ondansetron 4 mg disintegrating 4 mg PO Q8H PRN #14 tab 07/29/19 tablet pantoprazole 40 mg tablet,delayed 40 mg PO DAILY #30 tab 07/29/19 release (Protonix) ondansetron 4 mg disintegrating 4 mg PO Q8H PRN #10 tab 07/14/21 tablet Allergies Allergy/AdvReac Type Severity Reaction Status Date / Time aspirin [ASPIRIN] Allergy Severe THROAT Verified 08/31/19 14:39 SWELLING metoclopramide [From REGLAN] AdvReac Mild AGGITATION/ Verified 08/31/19 14:39 RESTLESSNES S Review of Systems Cardiovascular Cardiovascular: Reports system reviewed and no additional complaints, except as documented Respiratory Respiratory: Reports system reviewed and no additional complaints, except as documented Gastrointestinal Gastrointestinal: Reports as per HPI, Reports system reviewed and no additional complaints, except as documented, Reports abdominal pain, Reports nausea and Reports vomiting Genitourinary Genitourinary: Reports system reviewed and no additional complaints, except as documented Hematologic/Lymphatic On Anticoagulants: No Patient History Medical History Anxiety Celiac disease Chronic narcotic use Cyclic vomiting syndrome Multiple sclerosis Surgical History Status post tubal ligation Social History Smoking Status: Current every day smoker substance use type: marijuana Smoking Status: Current every day smoker tobacco type: cigarettes alcohol intake frequency: 0-2 drinks per day Substance Use Type: does not use and other Exam Initial Vital Signs Initial Vital Signs: Vital Signs Temperature 97.5 F L 12/27/21 23:34 Pulse Rate 50 L 12/27/21 23:34 Respiratory Rate 24 12/27/21 23:34 Pulse Oximetry 100 12/27/21 23:34 HENMT Head: normal to inspection Resp Effort & Inspection: normal respiratory effort Auscultation: clear to auscultation bilaterally Cardio Rate: regular rate Rhythm: regular rhythm GI Inspection: normal to inspection Palpation: soft, No guarding and tender Skin General: no rashes or lesions noted Extrem General: normal to inspection Course Orders Ordered: ED Orders 12/27/21 23:40 Complete Blood Count AUTO DIFF Stat Comprehensive Metabolic Panel Stat Lipase Stat Test Serum,Qual Stat 12/28/21 00:00 HCG Quantitative /Beta subunit Stat Discontinued Medications Al Hydrox/Mg Hydrox/Simethicone 20 ml/ Lidocaine HCl 15 ml 0 ml PO NOW ONE Stop: 12/28/21 01:14 Last Admin: 12/28/21 02:25 Dose: Not Given Documented by: NAM Diphenhydramine HCl (Diphenhydramine 50 Mg/Ml Vial) 50 mg IV NOW ONE Stop: 12/27/21 23:45 Last Admin: 12/27/21 23:49 Dose: 50 mg Documented by: DASHAWN Haloperidol (Haloperidol 5 Mg/Ml Vial) 2 mg IV NOW ONE Stop: 12/27/21 23:45 Last Admin: 12/27/21 23:48 Dose: 2 mg Documented by: DASHAWN Sodium Chloride (Normal Saline 0.9%) 1,000 mls @ 1,000 mls/hr IV BOLUS ONE Stop: 12/28/21 00:34 Last Infusion: 12/28/21 01:41 Dose: 0 mls/hr Documented by: Admin: 12/27/21 23:45 Dose: 1,000 mls/hr Documented by: DASHAWN Sodium Chloride (Normal Saline 0.9%) 1,000 mls @ 1,000 mls/hr IV BOLUS ONE Stop: 12/28/21 02:38 Last Infusion: 12/28/21 02:24 Dose: 0 mls/hr Documented by: Admin: 12/28/21 01:41 Dose: 1,000 mls/hr Documented by: DASHAWN Ondansetron HCl (Ondansetron 4 Mg/2 Ml Inj) 4 mg IV NOW ONE Stop: 12/28/21 00:05 Last Admin: 12/28/21 00:07 Dose: 4 mg Documented by: NAM Ondansetron HCl (Ondansetron 4 Mg/2 Ml Inj) 4 mg IV NOW ONE Stop: 12/28/21 01:34 Last Admin: 12/28/21 01:37 Dose: 4 mg Documented by: DASHAWN Pantoprazole Sodium (Pantoprazole 40 Mg Vial) 40 mg IV NOW ONE Stop: 12/27/21 23:54 Last Admin: 12/28/21 00:00 Dose: 40 mg Documented by: NAM Vital Signs Vital signs: Vital Signs - 8 hr 12/27/21 23:34 12/28/21 00:16 12/28/21 00:25 Temperature 97.5 F L Pulse Rate 50 L 50 L 44 L Respiratory Rate 24 16 Blood Pressure 161/63 H Pulse Oximetry 100 97 100 12/28/21 00:30 12/28/21 01:00 12/28/21 01:11 Temperature Pulse Rate 46 L 43 L 41 L Respiratory Rate Blood Pressure 116/72 Pulse Oximetry 100 100 100 12/28/21 01:30 12/28/21 01:31 12/28/21 02:00 Temperature Pulse Rate 41 L 42 L 44 L Respiratory Rate Blood Pressure 123/77 110/70 Pulse Oximetry 100 100 100 12/28/21 02:09 Temperature Pulse Rate 57 L Respiratory Rate Blood Pressure Pulse Oximetry 100 MDM - Nausea/Vomiting/Diarrhea Lab Data Attestation: I reviewed the patient's lab results. Result diagrams: 12/27/21 23:40 12/27/21 23:40 Labs: Lab Results 12/27/21 12/27/21 12/27/21 Range/Units 23:40 23:40 23:40 WBC 10.1 (4.5-11.0) X10^3/uL RBC 4.82 (4.0-5.2) X10^6/uL Hgb 14.8 (12.0-16.0) g/dL Hct 44.0 (36-46) % MCV 91.4 (80-100) fL MCH 30.6 (26-34) PG MCHC 33.5 (30-36) % RDW 13.8 (11.6-14.8) % Plt Count 188 (150-400) X10^3/uL Neut % (Auto) 87.2 H (50-75) % Lymph % (Auto) 10.2 L (25-40) % Duc[place]ne % (Auto) 1.9 L (3-14) % Eos % (Auto) 0.4 L (2-4) % Baso % (Auto) 0.3 (0-2) % Neut # (Auto) 8800 H (8106-3290) /uL Lymph # (Auto) 1000 L (5743-3391) /uL Duc[place]ne # (Auto) 200 (0-900) /uL Eos # (Auto) 0 (0-450) /uL Baso # (Auto) 0 (0-100) /uL Sodium 140 (137-145) mmol/L Potassium 3.5 (3.4-5.1) mmol/L Chloride 107 (98-107) mmol/L Carbon Dioxide 28 (22-32) mmol/L BUN 16 (7-17) mg/dL Creatinine 0.87 (0.52-1.04) mg/dL Estimated GFR > 60.0 (>60) mL/min BUN/Creatinine Ratio 18.4 (6-22) Glucose 181 H (70-100) mg/dL Calcium 9.9 (8.4-10.2) mg/dL Total Bilirubin 0.4 (0.2-1.3) mg/dL AST 20 (14-36) IU/L ALT 12 (<35) IU/L Alkaline Phosphatase 57 (38-126) U/L Total Protein 8.1 (6.3-8.2) g/dL Albumin 5.0 (3.5-5.0) g/dL Globulin 3.1 (1.7-4.1) g/dL Albumin/Globulin Ratio 1.6 (1.0-2.8) Lipase 114 (23-300) U/L HCG, Quant mIU/mL Serum , Qual Negative (Negative) 12/27/21 Range/Units 23:40 WBC (4.5-11.0) X10^3/uL RBC (4.0-5.2) X10^6/uL Hgb (12.0-16.0) g/dL Hct (36-46) % MCV (80-100) fL MCH (26-34) PG MCHC (30-36) % RDW (11.6-14.8) % Plt Count (150-400) X10^3/uL Neut % (Auto) (50-75) % Lymph % (Auto) (25-40) % Duc[place]ne % (Auto) (3-14) % Eos % (Auto) (2-4) % Baso % (Auto) (0-2) % Neut # (Auto) (8076-2680) /uL Lymph # (Auto) (1563-2662) /uL Duc[place]ne # (Auto) (0-900) /uL Eos # (Auto) (0-450) /uL Baso # (Auto) (0-100) /uL Sodium (137-145) mmol/L Potassium (3.4-5.1) mmol/L Chloride (98-107) mmol/L Carbon Dioxide (22-32) mmol/L BUN (7-17) mg/dL Creatinine (0.52-1.04) mg/dL Estimated GFR (>60) mL/min BUN/Creatinine Ratio (6-22) Glucose (70-100) mg/dL Calcium (8.4-10.2) mg/dL Total Bilirubin (0.2-1.3) mg/dL AST (14-36) IU/L ALT (<35) IU/L Alkaline Phosphatase (38-126) U/L Total Protein (6.3-8.2) g/dL Albumin (3.5-5.0) g/dL Globulin (1.7-4.1) g/dL Albumin/Globulin Ratio (1.0-2.8) Lipase (23-300) U/L HCG, Quant 4.9 mIU/mL Serum , Qual (Negative) MDM Narrative Medical decision making narrative: Labs are reassuring. test negative. LFTs unremarkable. Patient received 2 L fluid. Patient has to be discharged home. Will have her continue to take all of her normal medications. Discharge Plan Departure Patient Disposition: Home Clinical Impression: Cyclic vomiting syndrome, Abdominal pain Instructions: Nausea and Vomiting-Adult Activity Restrictions/Additional Instructions: Your labs here in the emergency department were unremarkable. Continue to take all of your medications as directed. Contact your primary doctor for a follow- up and return to the emergency department for any new or worsening symptoms. Prescriptions: No Action carisoprodol 350 MG tablet 350 mg PO BID PRN (Reason: spasm) Qty: 0 0RF sertraline 100 mg tablet PO BEDTIME 0RF hydrocodone-acetaminophen 10-325 mg tablet 1 tab PO Q4H PRN (Reason: pain) 0RF alprazolam 0.5 mg tablet 0.25 mg PO BID PRN (Reason: Anxiety) 0RF eszopiclone 1 mg tablet 1 mg PO BEDTIME 0RF trazodone 100 MG tablet 300 mg PO BEDTIME 0RF propranolol 10 mg tablet 10 mg PO BID 0RF fluconazole 150 mg tablet 150 mg PO .ONCE PRN (Reason: unknown) 0RF promethazine 25 mg tablet 25 mg PO Q4-6H PRN (Reason: nausea and vomiting) Qty: 20 0RF lorazepam [Ativan] 0.5 mg tablet 0.5 mg PO BID-TID PRN (Reason: anxiety) Qty: 7 0RF clonidine HCl 0.1 mg tablet 0.1 mg PO DAILY 0RF rizatriptan 5 mg tablet 0RF lactulose [Constulose] 10 gram/15 mL solution 0RF ondansetron 4 mg tablet,disintegrating 4 mg PO Q8H PRN (Reason: nausea and vomiting) Qty: 10 0RF pantoprazole [Protonix] 40 mg tablet,delayed release (DR/EC) 40 mg PO DAILY Qty: 30 0RF ondansetron 4 mg tablet,disintegrating 4 mg PO Q8H PRN (Reason: nausea and vomiting) Qty: 14 0RF hydrocodone-acetaminophen [[place]] 5-325 mg tablet 1 tab PO Q4H PRN (Reason: pain) Qty: 10 0RF Referrals: Laura Mcgarry, MARTI, [facility] [Primary Care Provider] -
[2021-12-27] MEDS: SODIUM CHLORIDE 0.9% 1,000 ML 1000 ML IV (23:45)
[2021-12-27 23:48] LABS: Add Manual Diff / Slide Review NO; Basophils Absolute Auto 0 /uL (0-100); Basophils Percent Auto 0.3 % (0-2); Eosinophils Absolute Auto 0 /uL (0-450); Eosinophils Percent Auto 0.4 % (2-4); Hemoglobin 14.8 g/dL (12.0-16.0); Lymphocytes Absolute Auto 1000 /uL (1100-4500); Lymphocytes Percent Auto 10.2 % (25-40); Mean Corpuscular HGB Conc 33.5 % (30-36); Mean Corpuscular Hemoglobin 30.6 PG (26-34); Mean Corpuscular Volume 91.4 fL (80-100); Monocytes Absolute Auto 200 /uL (0-900); Monocytes Percent Auto 1.9 % (3-14); Neutrophils Absolute Auto 8800 /uL (1500-7000); Neutrophils Percent Auto 87.2 % (50-75); Platelet Count 188 X10^3/uL (150-400); Red Blood Cell Count 4.82 X10^6/uL (4.0-5.2); Red Cell Distribution Width 13.8 % (11.6-14.8); White Blood Cell Count 10.1 X10^3/uL (4.5-11.0)
[2021-12-27] MEDS: HALOPERIDOL 5 MG/ML VIAL 2 MG IV (23:48)
[2021-12-27] MEDS: diphenhydrAMINE 50 MG/ML VIAL IV (23:49)
--- NOTE | 2021-12-27 23:51 | PC.NURSE ---
pt has hx of cyclic vomiting she states the difference this time is the upper abd pain pt is not actively vomiting at this time
[2021-12-27 23:57] LABS: Alanine Aminotransferase 12 IU/L (<35); Albumin Globulin Ratio 1.6 (1.0-2.8); Alkaline Phosphatase 57 U/L (38-126); Aspartate Aminotransferase 20 IU/L (14-36); BUN Creatinine Ratio 18.4 (6-22); Bilirubin Total 0.4 mg/dL (0.2-1.3); Blood Urea Nitrogen 16 mg/dL (7-17); Calcium 9.9 mg/dL (8.4-10.2); Carbon Dioxide 28 mmol/L (22-32); Chloride 107 mmol/L (98-107); Estimated Glomerular Filt Rate > 60.0 mL/min (>60); Globulin 3.1 g/dL (1.7-4.1); Glucose 181 mg/dL (70-100); HEMOLYSIS < 15 (0-50); Lipase 114 U/L (23-300); Potassium 3.5 mmol/L (3.4-5.1); Sodium 140 mmol/L (137-145); Total Protein 8.1 g/dL (6.3-8.2)
[2021-12-28] VITALS (9 sets, daily range): BP systolic 110–161; BP diastolic 63–77; PULSE 41–57; RESP 16; O2SAT 97–100
[2021-12-28] MEDS: PANTOPRAZOLE 40 MG VIAL IV
[2021-12-28] MEDS: ONDANSETRON 4 MG/2 ML INJ IV ×2 (00:07→01:37)
[2021-12-28 00:42] LABS: HCG Quantitative /Beta subunit 4.9 mIU/mL
[2021-12-28 00:43] LABS: Pregnancy Test Serum,Qual Negative (Negative)
[2021-12-28] MEDS: SODIUM CHLORIDE 0.9% 1,000 ML 1000 ML IV (01:41)
== END 2021-12-28 02:20 | disposition home or self-care (01) ==
PROVIDERS: Emergency Provider Emergency Medicine; PCP Nurse Practitioner Family
DX: R11.15 Cyclical vomiting syndrome unrelated to migraine (principal); R10.10 Upper abdominal pain, unspecified; Z79.891 Long term (current) use of opiate analgesic; F17.210 Nicotine dependence, cigarettes, uncomplicated
CPT/HCPCS: 36415; 80053; 83690; 84702; 84703; 85025; 96361; 96374; 96375; 96376; 99284; C9113; J1200; J1630; J2405

== ENCOUNTER → 2022-01-02 08:37 | Outpatient (CLI) | payer MEDICARE, MEDICAID, SELFPAY ==
--- NOTE | 2022-01-02 | DI.MRI.S_ITS ---
PROCEDURE: MR CERVICAL SPINE WO/W CON INDICATIONS: MULTIPLE SCLEROSIS TECHNIQUE: Noncontrast sagittal T1 spin echo and T2 fast spin echo, sagittal STIR, sagittal PD fast spin echo, foraminal oblique sagittal T2 fast spin echo, axial gradient echo or T2 fast spin echo through the cervical spine. After the administration of contrast, sagittal and axial T1 spin echo with fat saturation through the cervical spine. COMPARISON: [facility], MR, MR CERVICAL SPINE WO/W CON, 01/08/2021, 8:48. FINDINGS: Image quality: Excellent. Alignment and curvature: There is normal bony alignment. Marrow: Marrow demonstrates normal overall signal. Spinal cord: Visualized spinal cord is normal in size, without white matter lesions. No suspicious intramedullary enhancement. No cerebellar tonsillar herniation. Paraspinous soft tissues: No paravertebral masses or suspicious enhancement. C2-C3: Normal appearance. C3-C4: Normal appearance. C4-C5: Normal appearance. C5-C6: Mild desiccation consistent with degeneration. Mild diffuse disc bulge with a small central protrusion. No significant foraminal or central canal stenosis. C6-C7: Mild desiccation consistent with degeneration. Mild diffuse disc bulge with a small central protrusion. No significant foraminal or central canal stenosis. C7-T1: Normal appearance. IMPRESSION: 1. No abnormal T2/FLAIR signal to suggest demyelinating disease/multiple sclerosis. 2. No abnormal post contrast enhancement. 3. C5-6 and C6-7 degenerative disc disease. Dictated by: Hever Mccabe M.D. on 01/04/2022 at 8:34 Approved by: Hever Mccabe M.D. on 01/04/2022 at 8:39
--- NOTE | 2022-01-02 | DI.MRI.S_ITS ---
PROCEDURE: MR HEAD/BRAIN WO/W CON INDICATIONS: MULTIPLE SCLEROSIS TECHNIQUE: Noncontrast sagittal and axial FLAIR, axial and coronal T2 fast spin echo, axial VIBE, axial gradient echo, axial diffusion and ADC through the brain. After the administration of contrast, axial and coronal VIBE with fat saturation through the brain. COMPARISON: , , MR HEAD/BRAIN WO/W CON, 01/08/2021, 8:30. FINDINGS: Image quality: Excellent. CSF spaces: Ventricles are normal in size and shape. Basal cisterns are patent. No extra-axial fluid collections. Brain: Multiple foci of hyperintense T2/FLAIR signal in the corpus close low periventricular, subcortical, and juxta cortical white matter most with a perpendicular orientation to the ventricles consistent with demyelinating disease are seen consistent with history of multiple sclerosis, these findings are unchanged compared to the prior MRI on 01/08/2021. No intracranial bleeds or mass effects. Hernandez-white matter interface appears intact. No suspicious white matter lesions. No abnormal intracranial enhancement. Diffusion weighted images show no acute ischemic insults. Brainstem appears normal. Normal intravascular flow voids are present. Postcontrast images demonstrate no active enhancing lesions. Skull and face: Calvarial marrow signal is normal. Orbits appear normal. Sinuses: A mucosal retention cyst versus polyp in the left frontal sinus is unchanged. Otherwise the paranasal sinuses and mastoids are clear. IMPRESSION: 1. Multiple hyperintense T2 white matter lesions are unchanged in size and appearance compared to the prior MRI on 01/08/2021. 2. No active enhancing lesions identified. Dictated by: Hever cMcabe M.D. on 01/04/2022 at 8:24 Approved by: Hever Mccabe M.D. on 01/04/2022 at 8:34
== END ==
PROVIDERS: PCP Nurse Practitioner Family; Referring Provider Psychiatry & Neurology Neurology; Visit Provider Psychiatry & Neurology Neurology
DX: G35 Multiple sclerosis (principal); M50.322 Other cervical disc degeneration at C5-C6 level
CPT/HCPCS: 70553; 72156; A9579

== ENCOUNTER 2022-01-03 19:38 | Emergency (ER) | payer MEDICARE, MEDICAID, SELFPAY ==
[2022-01-03] VITALS (7 sets, daily range): BP systolic 109–113; BP diastolic 56–73; PULSE 53–89; RESP 14–18; TEMP 37.1; O2SAT 93–99; BMI 23.3
--- NOTE | 2022-01-03 20:07 | PC.NURSE ---
patient states that she hasn't peed in two days
[2022-01-03 20:17] LABS: Add Manual Diff / Slide Review NO; Basophils Absolute Auto 0 /uL (0-100); Basophils Percent Auto 0.2 % (0-2); Eosinophils Absolute Auto 0 /uL (0-450); Hematocrit 42.2 % (36-46); Lymphocytes Absolute Auto 800 /uL (1100-4500); Lymphocytes Percent Auto 9.4 % (25-40); Mean Corpuscular HGB Conc 33.2 % (30-36); Mean Corpuscular Hemoglobin 30.4 PG (26-34); Mean Corpuscular Volume 91.6 fL (80-100); Monocytes Absolute Auto 200 /uL (0-900); Neutrophils Absolute Auto 7900 /uL (1500-7000); Neutrophils Percent Auto 88.4 % (50-75); Platelet Count 186 X10^3/uL (150-400); Red Blood Cell Count 4.61 X10^6/uL (4.0-5.2); Red Cell Distribution Width 13.6 % (11.6-14.8); White Blood Cell Count 8.9 X10^3/uL (4.5-11.0)
[2022-01-03 20:23] LABS: Alanine Aminotransferase 14 IU/L (<35); Albumin 4.8 g/dL (3.5-5.0); Albumin Globulin Ratio 1.7 (1.0-2.8); Alkaline Phosphatase 53 U/L (38-126); Aspartate Aminotransferase 17 IU/L (14-36); BUN Creatinine Ratio 20.3 (6-22); Bilirubin Total 0.5 mg/dL (0.2-1.3); Blood Urea Nitrogen 13 mg/dL (7-17); Calcium 9.7 mg/dL (8.4-10.2); Carbon Dioxide 28 mmol/L (22-32); Chloride 107 mmol/L (98-107); Estimated Glomerular Filt Rate > 60.0 mL/min (>60); Globulin 2.8 g/dL (1.7-4.1); Glucose 118 mg/dL (70-100); HEMOLYSIS < 15 (0-50); Lipase 41 U/L (23-300); Potassium 3.5 mmol/L (3.4-5.1); Sodium 141 mmol/L (137-145); Total Protein 7.6 g/dL (6.3-8.2)
[2022-01-03] MEDS: diphenhydrAMINE 50 MG/ML VIAL IV (20:23)
[2022-01-03] MEDS: SODIUM CHLORIDE 0.9% 1,000 ML 1000 ML IV (20:23)
--- NOTE | 2022-01-03 20:48 | ED.NAVMDI ---
HPI - Nausea/Vomiting/Diarrhea General Chief complaint: Nausea/Vomiting/Diarrhea Stated complaint: Constant chest pain/n&V intermitt. x7days Time Seen by Provider: 01/03/22 20:08 Source: patient, RN notes reviewed and old records reviewed Mode of arrival: Ambulatory Limitations: no limitations History of Present Illness HPI Narrative: This is a 36-year-old female with history of multiple sclerosis, pain both on benzodiazepine and narcotics and cyclic vomiting episodes. Patient states she was seen here last Tuesday, 7 days ago had improvement for several days and then started having symptoms again yesterday and into today. Patient states she is not able to keep anything down. She denies fevers but has been chilled. She states she has epigastric pain which is atypical for her. It is noted in her prior visits. Patient states she has had some diarrhea. She did notice some blood in her emesis. She has not appreciate any melena or bright red blood in her stools. She denies new chest pain or shortness of breath. No dysuria, urgency or frequency. No new vaginal bleeding or discharge. She states she has not been able to take her medications including her [place] and [place] so she is not able to control her pain well. She notes she has had a tubal, ablation as well as cholecystectomy. She is allergic to aspirin she uses tobacco, denies alcohol, she uses THC but denies other illicit. Related Data Home Medications Medication Instructions Recorded Confirmed carisoprodol 350 mg tablet 350 mg PO BID PRN #0 02/16/17 01/29/19 alprazolam 0.5 mg tablet 0.25 mg PO BID PRN 11/01/18 11/01/18 eszopiclone 1 mg tablet 1 mg PO BEDTIME 11/01/18 01/29/19 fluconazole 150 mg tablet 150 mg PO .ONCE PRN 11/01/18 01/29/19 hydrocodone 10 mg-acetaminophen 1 tab PO Q4H PRN 11/01/18 01/29/19 325 mg tablet propranolol 10 mg tablet 10 mg PO BID 11/01/18 11/01/18 sertraline 100 mg tablet mg PO BEDTIME 11/01/18 11/01/18 trazodone 100 mg tablet 300 mg PO BEDTIME 11/01/18 01/29/19 clonidine HCl 0.1 mg tablet 0.1 mg PO DAILY 01/29/19 01/29/19 lactulose 10 gram/15 mL oral 01/29/19 solution rizatriptan 5 mg tablet 01/29/19 Previous Rx's Medication Instructions Recorded promethazine 25 mg tablet 25 mg PO Q4-6H PRN #20 tab 11/01/18 lorazepam 0.5 mg tablet (Ativan) 0.5 mg PO BID-TID PRN #7 tab 12/12/18 hydrocodone 5 mg-acetaminophen 325 1 tab PO Q4H PRN #10 tab 07/29/19 mg tablet ([place]) ondansetron 4 mg disintegrating 4 mg PO Q8H PRN #14 tab 07/29/19 tablet pantoprazole 40 mg tablet,delayed 40 mg PO DAILY #30 tab 07/29/19 release (Protonix) ondansetron 4 mg disintegrating 4 mg PO Q8H PRN #10 tab 07/14/21 tablet Allergies Allergy/AdvReac Type Severity Reaction Status Date / Time aspirin [ASPIRIN] Allergy Severe THROAT Verified 08/31/19 14:39 SWELLING metoclopramide [From REGLAN] AdvReac Mild AGGITATION/ Verified 08/31/19 14:39 RESTLESSNES S Review of Systems Review of Systems ROS Unobtainable: All systems reviewed & are unremarkable except as noted in HPI and below Patient History Medical History (Updated 01/03/22 @ 21:38 by Monse Mendoza DO) Anxiety Celiac disease Chronic narcotic use Cyclic vomiting syndrome Multiple sclerosis Surgical History Status post tubal ligation Social History Smoking Status: Current every day smoker substance use type: marijuana Smoking Status: Current every day smoker tobacco type: cigarettes alcohol intake frequency: 0-2 drinks per day Substance Use Type: does not use and other Exam Narrative Exam Narrative: GENERAL: Alert and oriented x three, female in [id number] distress. HEENT: Head normocephalic, atraumatic, EOMI, pupils reactive, face symmetric, moist mucous membranes NECK: Supple, full range of motion CARDIOVASCULAR: Regular rate and rhythm without murmurs, rubs or gallops. RESPIRATORY: Breath sounds equal bilaterally, no wheezes rales or rhonchi. ABDOMEN: Soft, positive for epigastric tenderness. Nondistended. Bowel sounds all 4 quadrants. No guarding or rebound, rigidity, no mass : No CVA tenderness EXTREMITIES: Normal range of motion, no clubbing or edema. Neurovascularly intact. Movement of all 4 extremities. NEUROLOGICAL: Cranial nerves II through XII grossly intact. Moving all extremities SKIN: Warm, dry, no petechiae, no rashes or lesions. Initial Vital Signs Initial Vital Signs: Vital Signs Temperature 98.7 F 01/03/22 19:43 Pulse Rate 85 01/03/22 19:43 Respiratory Rate 18 01/03/22 19:43 Blood Pressure 109/56 L 01/03/22 19:43 Pulse Oximetry 97 01/03/22 19:43 Course Orders Ordered: ED Orders 01/03/22 20:03 Complete Blood Count AUTO DIFF Stat Comprehensive Metabolic Panel Stat Lipase Stat 01/03/22 20:53 Urine Culture Stat Urine Microscopic Stat Discontinued Medications Hydrocodone Bitart/Acetaminophen (Hydrocodone/Acet 5/325 Prepack) 1 bottle MISC SEEINSTR ONE Stop: 01/03/22 23:05 Last Admin: 01/03/22 23:12 Dose: 1 bottle Documented by: SARAH Diphenhydramine HCl (Diphenhydramine 50 Mg/Ml Vial) 50 mg IV NOW ONE Stop: 01/03/22 20:10 Last Admin: 01/03/22 20:23 Dose: 50 mg Documented by: YRIS Haloperidol (Haloperidol 5 Mg/Ml Vial) 2 mg IV NOW ONE Stop: 01/03/22 20:11 Last Admin: 01/03/22 20:49 Dose: 2 mg Documented by: YRIS Hydromorphone HCl (Hydromorphone 1 Mg Inj) 1 mg IV NOW ONE Stop: 01/03/22 21:34 Last Admin: 01/03/22 22:03 Dose: 1 mg Documented by: SARAH Sodium Chloride (Normal Saline 0.9%) 1,000 mls @ 1,000 mls/hr IV BOLUS ONE Stop: 01/03/22 21:08 Last Admin: 01/03/22 20:23 Dose: 1,000 mls/hr Documented by: YRIS Ondansetron HCl (Ondansetron 4 Mg Odt Prepack) 1 bottle MISC SEEINSTR ONE Stop: 01/03/22 23:05 Last Admin: 01/03/22 23:12 Dose: 1 bottle Documented by: SARAH Reevaluation(s) Reevaluation #1: Patient feels much improved after 2nd dose of medication. She has not had any additional vomiting. Plan to send her with a prepack of Zofran as she states she has many antinausea medications but thinks they might be out of date. She also states she has run out of her prescription pain medication was given a prepack of [place]. She is to follow up with her primary care physician to refill her medications. Time: 23:06 Vital Signs Vital signs: Vital Signs - 8 hr 01/03/22 19:43 01/03/22 20:52 01/03/22 21:00 Temperature 98.7 F Pulse Rate 85 56 L 69 Respiratory Rate 18 Blood Pressure 109/56 L Pulse Oximetry 97 99 98 01/03/22 21:01 01/03/22 22:05 01/03/22 22:30 Temperature Pulse Rate 73 68 53 L Respiratory Rate Blood Pressure 113/73 Pulse Oximetry 98 97 93 01/03/22 23:17 Temperature Pulse Rate 89 Respiratory Rate 14 Blood Pressure 111/69 Pulse Oximetry 98 MDM - Nausea/Vomiting/Diarrhea Lab Data Result diagrams: 01/03/22 20:03 01/03/22 20:03 Labs: Lab Results 01/03/22 01/03/22 01/03/22 Range/Units 20:03 20:03 20:03 WBC 8.9 (4.5-11.0) X10^3/uL RBC 4.61 (4.0-5.2) X10^6/uL Hgb 14.0 (12.0-16.0) g/dL Hct 42.2 (36-46) % MCV 91.6 (80-100) fL MCH 30.4 (26-34) PG MCHC 33.2 (30-36) % RDW 13.6 (11.6-14.8) % Plt Count 186 (150-400) X10^3/uL Neut % (Auto) 88.4 H (50-75) % Lymph % (Auto) 9.4 L (25-40) % [place] % (Auto) 2.0 L (3-14) % Eos % (Auto) 0.0 L (2-4) % Baso % (Auto) 0.2 (0-2) % Neut # (Auto) 7900 H (8160-8443) /uL Lymph # (Auto) 800 L (1149-4430) /uL [place] # (Auto) 200 (0-900) /uL Eos # (Auto) 0 (0-450) /uL Baso # (Auto) 0 (0-100) /uL Sodium 141 (137-145) mmol/L Potassium 3.5 (3.4-5.1) mmol/L Chloride 107 (98-107) mmol/L Carbon Dioxide 28 (22-32) mmol/L BUN 13 (7-17) mg/dL Creatinine 0.64 (0.52-1.04) mg/dL Estimated GFR > 60.0 (>60) mL/min BUN/Creatinine Ratio 20.3 (6-22) Glucose 118 H (70-100) mg/dL Calcium 9.7 (8.4-10.2) mg/dL Total Bilirubin 0.5 (0.2-1.3) mg/dL AST 17 (14-36) IU/L ALT 14 (<35) IU/L Alkaline Phosphatase 53 (38-126) U/L Total Protein 7.6 (6.3-8.2) g/dL Albumin 4.8 (3.5-5.0) g/dL Globulin 2.8 (1.7-4.1) g/dL Albumin/Globulin Ratio 1.7 (1.0-2.8) Lipase 41 D (23-300) U/L Urine RBC (0-5/HPF) Urine WBC (0-5/HPF) Ur Squamous Epith Cells (0-5/HPF) Amorphous Sediment Urine Bacteria (None) Urine Mucus (Negative) Ur Culture Indicated? 01/03/22 Range/Units 20:53 WBC (4.5-11.0) X10^3/uL RBC (4.0-5.2) X10^6/uL Hgb (12.0-16.0) g/dL Hct (36-46) % MCV (80-100) fL MCH (26-34) PG MCHC (30-36) % RDW (11.6-14.8) % Plt Count (150-400) X10^3/uL Neut % (Auto) (50-75) % Lymph % (Auto) (25-40) % [place] % (Auto) (3-14) % Eos % (Auto) (2-4) % Baso % (Auto) (0-2) % Neut # (Auto) (7082-2002) /uL Lymph # (Auto) (1738-8431) /uL [place] # (Auto) (0-900) /uL Eos # (Auto) (0-450) /uL Baso # (Auto) (0-100) /uL Sodium (137-145) mmol/L Potassium (3.4-5.1) mmol/L Chloride (98-107) mmol/L Carbon Dioxide (22-32) mmol/L BUN (7-17) mg/dL Creatinine (0.52-1.04) mg/dL Estimated GFR (>60) mL/min BUN/Creatinine Ratio (6-22) Glucose (70-100) mg/dL Calcium (8.4-10.2) mg/dL Total Bilirubin (0.2-1.3) mg/dL AST (14-36) IU/L ALT (<35) IU/L Alkaline Phosphatase (38-126) U/L Total Protein (6.3-8.2) g/dL Albumin (3.5-5.0) g/dL Globulin (1.7-4.1) g/dL Albumin/Globulin Ratio (1.0-2.8) Lipase (23-300) U/L Urine RBC 0-1/hpf (0-5/HPF) Urine WBC 0-1/hpf (0-5/HPF) Ur Squamous Epith Cells 1-5 /hpf (0-5/HPF) Amorphous Sediment 1+ Urine Bacteria Few (2-10) H (None) Urine Mucus 2+ H (Negative) Ur Culture Indicated? Culture not indicate Point of Care Testing Test Results Negative Urine Dip Bedside Urine Glucose Negative Bedside Urine Bilirubin - Negative Bedside Urine Ketone - Negative Urine Specific Dol[place] 1.010 Bedside Urine Occult Blood - Negative Bedside Urine pH 8.5 Bedside Urine Protein + 30 Bedside Urine Urobilinogen - Negative Bedside Urine Nitrite - Negative Bedside Urine Leukocytes - Negative Esterase ECG Data Attestation: I personally reviewed and interpreted this ECG as follows: Prior ECG tracings: available for review Interpretation: Sinus bradycardia rate of 40 9p are 114 QRS is 74 and QTC of 393. No acute ST changes appreciated. Patient has prior from 02/16/2021 and 12/01/2019 with nonspecific change. [facility] Narrative Medical decision making narrative: This is a 36-year-old female with known MS who comes in with reported cyclic vomiting syndrome per patient. Patient has been here several times in the past with similar symptoms. She has sometimes responded well to Haldol and Benadryl. Patient states her vomiting has resolved but she still has epigastric pain. Her labs are reassuring. No sign of infection. is negative. Patient has symptoms consistent with her past visits so imaging has been deferred. Additional dose of pain medication was provided. Patient feels much better. Suspect that there is a bit of a combination of cyclic vomiting as well as withdrawal patient notes that she is out of her narcotic pain medication as well and this may have precipitated her vomiting potentially. Discharge Plan Departure Patient Disposition: Home Clinical Impression: Cyclic vomiting syndrome Instructions: DI for Vomiting -- Adult Activity Restrictions/Additional Instructions: Follow-up with your physician for recheck and to refill your home medications. You may take antinausea medicine as prescribed. You may take 1 tablet every 6 hours as needed. You may take pain medication 1 tablet every 6 hours. This medication can make you sleepy do not drive, perform hazardous activities or make any major decisions while taking it. This medication will make you constipated please take a stool softener once to twice daily until stools are soft and regular. Please return for fevers, persistent vomiting, diarrhea, black or bloody stools, new or worsening abdominal pain, lightheadedness or passing or other new or concerning symptoms. Prescriptions: No Action carisoprodol 350 MG tablet 350 mg PO BID PRN (Reason: spasm) Qty: 0 0RF sertraline 100 mg tablet PO BEDTIME 0RF hydrocodone-acetaminophen 10-325 mg tablet 1 tab PO Q4H PRN (Reason: pain) 0RF alprazolam 0.5 mg tablet 0.25 mg PO BID PRN (Reason: Anxiety) 0RF eszopiclone 1 mg tablet 1 mg PO BEDTIME 0RF trazodone 100 MG tablet 300 mg PO BEDTIME 0RF propranolol 10 mg tablet 10 mg PO BID 0RF fluconazole 150 mg tablet 150 mg PO .ONCE PRN (Reason: unknown) 0RF promethazine 25 mg tablet 25 mg PO Q4-6H PRN (Reason: nausea and vomiting) Qty: 20 0RF lorazepam [Ativan] 0.5 mg tablet 0.5 mg PO BID-TID PRN (Reason: anxiety) Qty: 7 0RF clonidine HCl 0.1 mg tablet 0.1 mg PO DAILY 0RF rizatriptan 5 mg tablet 0RF lactulose [Constulose] 10 gram/15 mL solution 0RF ondansetron 4 mg tablet,disintegrating 4 mg PO Q8H PRN (Reason: nausea and vomiting) Qty: 10 0RF pantoprazole [Protonix] 40 mg tablet,delayed release (DR/EC) 40 mg PO DAILY Qty: 30 0RF ondansetron 4 mg tablet,disintegrating 4 mg PO Q8H PRN (Reason: nausea and vomiting) Qty: 14 0RF hydrocodone-acetaminophen [[place]] 5-325 mg tablet 1 tab PO Q4H PRN (Reason: pain) Qty: 10 0RF Referrals: Laura Mcgarry ARNP, [employer] [Primary Care Provider] -
[2022-01-03] MEDS: HALOPERIDOL 5 MG/ML VIAL 2 MG IV (20:49)
[2022-01-03 21:01] LABS: Amorphous Sediment Urine 1+; Bacteria Urine Few (2-10); Mucus Urine 2+ (Negative); RBC Urine 0-1/HPF (0-5/HPF); Squamous Epithelial Cell Urine 1-5 /HPF (0-5/HPF); WBC Urine 0-1/HPF (0-5/HPF)
[2022-01-03] MEDS: HYDROMORPHONE 1 MG INJ IV (22:03)
[2022-01-03] MEDS: ONDANSETRON 4 MG ODT PREPACK 1 BOTTLE MISC (23:12)
[2022-01-03] MEDS: HYDROCODONE/ACET 5/325 PREPACK 1 BOTTLE MISC (23:12)
== END 2022-01-03 23:17 | disposition home or self-care (01) ==
PROVIDERS: Emergency Provider Emergency Medicine; PCP Nurse Practitioner Family
DX: R11.15 Cyclical vomiting syndrome unrelated to migraine (principal); R19.7 Diarrhea, unspecified; R00.1 Bradycardia, unspecified
CPT/HCPCS: 36415; 80053; 81003; 81015; 81025; 83690; 85025; 87086; 93005; 93010; 96374; 96375; 99284; J1170; J1200; J1630

== ENCOUNTER → 2022-01-06 08:17 | Outpatient (CLI) | payer MEDICARE, MEDICAID, SELFPAY ==
--- NOTE | 2022-01-06 | DI.MG.S_ITS ---
BILATERAL DIGITAL SCREENING MAMMOGRAM 3D/2D WITH CAD: 01/06/2022 CLINICAL: Routine screening. Family history of breast cancer. No prior exams were available for comparison. The tissue of both breasts is heterogeneously dense. This may lower the sensitivity of mammography. Current study was also evaluated with a Computer Aided Detection (CAD) system. No significant masses, calcifications, or other findings are seen in either breast. IMPRESSION: NEGATIVE There is no mammographic evidence of malignancy. A 1 year screening mammogram is recommended. This exam was interpreted at Station ID: [id number]. NOTE: For mammograms, a report in lay terms will be sent to the patient. Approximately 15% of breast malignancies will not be visualized mammographically. In the management of a palpable breast mass, a negative mammogram must not discourage biopsy of a clinically suspicious lesion. Electronically Signed By: Sergio jeronimo/hardik:01/06/2022 09:28:49 letter sent: Normal Exam ACR BI-RADS Category 1: Negative 3341F
== END ==
PROVIDERS: PCP Nurse Practitioner Family; Referring Provider Psychiatry & Neurology Neurology; Visit Provider Psychiatry & Neurology Neurology
DX: Z12.31 Encounter for screening mammogram for malignant neoplasm of breast (principal)
CPT/HCPCS: 77063; 77067

== ENCOUNTER 2022-04-25 13:24 | Emergency (ER) | payer MEDICARE, MEDICAID, SELFPAY ==
[2022-04-25 13:38] VITALS: BP 111/72; PULSE 105; RESP 16; TEMP 36.3; O2SAT 97; BMI 22.1
--- NOTE | 2022-04-25 14:14 | ED_ITS ---
HPI - Extremity Problem General Chief complaint: Extremity Problem,Nontraumatic Stated complaint: Leg pain- has MS Time Seen by Provider: 04/25/22 14:06 Source: patient Mode of arrival: Ambulatory Limitations: no limitations History of Present Illness HPI Narrative: Patient is a 37-year-old female. Has reported history of MS and also has been seen multiple times for abdominal pain secondary to cyclic vomiting syndrome. 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 Two days ago she started to have pain in the front of both of her legs. She is pain in this area normally however it has just increased over this time. She does not know any specific reason as to why it start hurting. She denies any rashes. No trauma. Did not fall. No other joint or muscle pain. No urinary symptoms. No change in bowel habits. She did contact her crayon painter who added Naprosyn onto her current regiment but she states this is not helping. She is been taking the rest of her medications at home as directed. Related Data Home Medications Medication Instructions Recorded Confirmed carisoprodol 350 mg tablet 350 mg PO BID PRN spasm ##0 02/16/17 03/05/22 alprazolam 0.5 mg tablet 0.25 mg PO BID PRN Anxiety 11/01/18 03/05/22 eszopiclone 1 mg tablet 1 mg PO BEDTIME 11/01/18 03/05/22 fluconazole 150 mg tablet 150 mg PO .ONCE PRN unknown 11/01/18 03/05/22 hydrocodone 10 mg-acetaminophen 1 tab PO Q4H PRN pain 11/01/18 03/05/22 325 mg tablet propranolol 10 mg tablet 10 mg PO BID 11/01/18 03/05/22 sertraline 100 mg tablet mg PO BEDTIME 11/01/18 03/05/22 trazodone 100 mg tablet 300 mg PO BEDTIME 11/01/18 03/05/22 clonidine HCl 0.1 mg tablet 0.1 mg PO DAILY 01/29/19 03/05/22 lactulose 10 gram/15 mL oral 01/29/19 03/05/22 solution rizatriptan 5 mg tablet 01/29/19 03/05/22 Previous Rx's Medication Instructions Recorded promethazine 25 mg tablet 25 mg PO Q4-6H PRN nausea and 11/01/18 vomiting #20 tabs lorazepam 0.5 mg tablet (Ativan) 0.5 mg PO BID-TID PRN anxiety #7 12/12/18 tabs hydrocodone 5 mg-acetaminophen 325 1 tab PO Q4H PRN pain #10 tabs 07/29/19 mg tablet ([place]) ondansetron 4 mg disintegrating 4 mg PO Q8H PRN nausea and 07/29/19 tablet vomiting #14 tabs pantoprazole 40 mg tablet,delayed 40 mg PO DAILY #30 tabs 07/29/19 release (Protonix) ondansetron 4 mg disintegrating 4 mg PO Q8H PRN nausea and 07/14/21 tablet vomiting #10 tabs hydrocodone 5 mg-acetaminophen 325 1 tab PO Q8H PRN pain #7 tabs 04/25/22 mg tablet Allergies Allergy/AdvReac Type Severity Reaction Status Date / Time aspirin [ASPIRIN] Allergy Severe THROAT Verified 03/05/22 15:40 SWELLING metoclopramide [From REGLAN] AdvReac Mild AGGITATION/ Verified 03/05/22 15:40 RESTLESSNES S Review of Systems Gastrointestinal Gastrointestinal: Reports system reviewed and no additional complaints, except as documented Genitourinary Genitourinary: Reports system reviewed and no additional complaints, except as documented Musculoskeletal Musculoskeletal: Reports system reviewed and no additional complaints, except as documented Integumentary/Breasts Skin/Breast: Reports system reviewed and no additional complaints, except as documented Neurologic Neurologic: Reports system reviewed and no additional complaints, except as documented Hematologic/Lymphatic On Anticoagulants: No Patient History Medical History (Updated 04/25/22 @ 15:06 by Dorian Hurt DO) Anxiety Celiac disease Chronic narcotic use Cyclic vomiting syndrome Multiple sclerosis Surgical History Status post tubal ligation Social History Smoking Status: Current every day smoker substance use type: marijuana Smoking Status: Current every day smoker tobacco type: cigarettes alcohol intake frequency: 0-2 drinks per day Substance Use Type: does not use and other Exam Initial Vital Signs Initial Vital Signs: Vital Signs Temperature 97.4 F L 04/25/22 13:38 Pulse Rate 105 H 04/25/22 13:38 Respiratory Rate 16 04/25/22 13:38 Blood Pressure 111/72 04/25/22 13:38 Pulse Oximetry 97 04/25/22 13:38 Oxygen Delivery Method 04/25/22 13:38 [facility] Head: normal to inspection Resp Effort & Inspection: normal respiratory effort Cardio Rate: regular rate Skin General: no rashes or lesions noted Neuro General: patient alert and patient awake Extrem Other: Tenderness to palpation bilateral anterior thighs. Course Orders Ordered: Discontinued Medications Hydromorphone HCl (Hydromorphone 1 Mg Inj) 1 mg IM NOW ONE Stop: 04/25/22 14:16 Last Admin: 04/25/22 14:19 Dose: 1 mg Documented By: AT Vital Signs Vital signs: Vital Signs - 8 hr 04/25/22 13:38 Temperature 97.4 F L Pulse Rate 105 H Respiratory Rate 16 Blood Pressure 111/72 Pulse Oximetry 97 Oxygen Delivery Method Room Air MDM - Extremity (Nontraumatic) MDM Narrative Medical decision making narrative: She is not having any other GI complaints she is had in the past. She states she does feel better after medications. She states she is out of her Vicodin and will not get any more until Tuesday when she sees her primary provider. I will refill this for 1 day. No further workup required out of the emergency department. Discharge Plan Departure Patient Disposition: Home Clinical Impression: Bilateral leg pain Activity Restrictions/Additional Instructions: It is important that you keep all of your scheduled medical appointments because further pain management will need to come by either your crayon painter or your primary doctor. A prescription was sent to [facility] [place]. Prescriptions: New hydrocodone-acetaminophen 5-325 mg tablet 1 tab PO Q8H PRN (Reason: pain) Qty: 7 0RF No Action carisoprodol 350 MG tablet 350 mg PO BID PRN (Reason: spasm) Qty: 0 sertraline 100 mg tablet PO BEDTIME hydrocodone-acetaminophen 10-325 mg tablet 1 tab PO Q4H PRN (Reason: pain) alprazolam 0.5 mg tablet 0.25 mg PO BID PRN (Reason: Anxiety) eszopiclone 1 mg tablet 1 mg PO BEDTIME trazodone 100 MG tablet 300 mg PO BEDTIME propranolol 10 mg tablet 10 mg PO BID fluconazole 150 mg tablet 150 mg PO .ONCE PRN (Reason: unknown) promethazine 25 mg tablet 25 mg PO Q4-6H PRN (Reason: nausea and vomiting) Qty: 20 0RF lorazepam [Ativan] 0.5 mg tablet 0.5 mg PO BID-TID PRN (Reason: anxiety) Qty: 7 0RF clonidine HCl 0.1 mg tablet 0.1 mg PO DAILY rizatriptan 5 mg tablet lactulose [Constulose] 10 gram/15 mL solution ondansetron 4 mg tablet,disintegrating 4 mg PO Q8H PRN (Reason: nausea and vomiting) Qty: 10 0RF pantoprazole [Protonix] 40 mg tablet,delayed release (DR/EC) 40 mg PO DAILY Qty: 30 0RF ondansetron 4 mg tablet,disintegrating 4 mg PO Q8H PRN (Reason: nausea and vomiting) Qty: 14 0RF hydrocodone-acetaminophen [[place]] 5-325 mg tablet 1 tab PO Q4H PRN (Reason: pain) Qty: 10 0RF Referrals: Laura Mcgarry, MARTI, [employer] [Primary Care Provider] -
[2022-04-25] MEDS: HYDROMORPHONE 1 MG INJ IM (14:19)
[2022-04-25 15:14] VITALS: BP 108/74; PULSE 94; RESP 16; O2SAT 99
== END 2022-04-25 15:12 | disposition home or self-care (01) ==
PROVIDERS: Emergency Provider Emergency Medicine; PCP Nurse Practitioner Family
DX: M79.605 Pain in left leg (principal); M79.604 Pain in right leg
CPT/HCPCS: 96372; 99283; J1170

== ENCOUNTER 2022-04-26 15:26 | Emergency (ER) | payer MEDICARE, MEDICAID, SELFPAY ==
[2022-04-26 15:32] VITALS: BP 109/72; PULSE 98; RESP 18; TEMP 36.3; O2SAT 99; BMI 21.4
[2022-04-26 16:14] LABS: COVID19 -Nasal RAPID POSITIVE (Negative)
--- NOTE | 2022-04-26 17:35 | ED.EXTPRO ---
HPI - Extremity Problem General Chief complaint: Extremity Problem,Nontraumatic Stated complaint: COVID + PAIN IN KIDNEYS AND LEGS Time Seen by Provider: 04/26/22 17:07 Source: patient Mode of arrival: Ambulatory Related Data Home Medications Medication Instructions Recorded Confirmed carisoprodol 350 mg tablet 350 mg PO BID PRN spasm ##0 02/16/17 03/05/22 alprazolam 0.5 mg tablet 0.25 mg PO BID PRN Anxiety 11/01/18 03/05/22 eszopiclone 1 mg tablet 1 mg PO BEDTIME 11/01/18 03/05/22 fluconazole 150 mg tablet 150 mg PO .ONCE PRN unknown 11/01/18 03/05/22 hydrocodone 10 mg-acetaminophen 1 tab PO Q4H PRN pain 11/01/18 03/05/22 325 mg tablet propranolol 10 mg tablet 10 mg PO BID 11/01/18 03/05/22 sertraline 100 mg tablet mg PO BEDTIME 11/01/18 03/05/22 trazodone 100 mg tablet 300 mg PO BEDTIME 11/01/18 03/05/22 clonidine HCl 0.1 mg tablet 0.1 mg PO DAILY 01/29/19 03/05/22 lactulose 10 gram/15 mL oral 01/29/19 03/05/22 solution rizatriptan 5 mg tablet 01/29/19 03/05/22 Previous Rx's Medication Instructions Recorded promethazine 25 mg tablet 25 mg PO Q4-6H PRN nausea and 11/01/18 vomiting #20 tabs lorazepam 0.5 mg tablet (Ativan) 0.5 mg PO BID-TID PRN anxiety #7 12/12/18 tabs hydrocodone 5 mg-acetaminophen 325 1 tab PO Q4H PRN pain #10 tabs 07/29/19 mg tablet ([place]) ondansetron 4 mg disintegrating 4 mg PO Q8H PRN nausea and 07/29/19 tablet vomiting #14 tabs pantoprazole 40 mg tablet,delayed 40 mg PO DAILY #30 tabs 07/29/19 release (Protonix) ondansetron 4 mg disintegrating 4 mg PO Q8H PRN nausea and 07/14/21 tablet vomiting #10 tabs hydrocodone 5 mg-acetaminophen 325 1 tab PO Q8H PRN pain #7 tabs 04/25/22 mg tablet Allergies Allergy/AdvReac Type Severity Reaction Status Date / Time aspirin [ASPIRIN] Allergy Severe THROAT Verified 04/26/22 15:38 SWELLING metoclopramide [From REGLAN] AdvReac Mild AGGITATION/ Verified 04/26/22 15:38 RESTLESSNES S Patient History Medical History (Updated 04/25/22 @ 15:06 by Dorian Hurt DO) Anxiety Celiac disease Chronic narcotic use Cyclic vomiting syndrome Multiple sclerosis Surgical History Status post tubal ligation Social History Smoking Status: Current every day smoker substance use type: marijuana Smoking Status: Current every day smoker tobacco type: cigarettes alcohol intake frequency: 0-2 drinks per day Substance Use Type: marijuana and other Exam Initial Vital Signs Initial Vital Signs: Vital Signs Temperature 97.4 F L 04/26/22 15:32 Pulse Rate 98 H 04/26/22 15:32 Respiratory Rate 18 04/26/22 15:32 Blood Pressure 109/72 04/26/22 15:32 Pulse Oximetry 99 04/26/22 15:32 Oxygen Delivery Method 04/26/22 15:32 Course Orders Ordered: ED Orders 04/26/22 15:40 COVID19 -Nasal RAPID/Pre-Proc Stat Vital Signs Vital signs: Vital Signs - 8 hr 04/26/22 15:32 Temperature 97.4 F L Pulse Rate 98 H Respiratory Rate 18 Blood Pressure 109/72 Pulse Oximetry 99 Oxygen Delivery Method Room Air MDM - Extremity (Nontraumatic) Lab Data Labs: Lab Results 04/26/22 Range/Units 15:40 SARS-CoV-2 (PCR) Positive H (Negative) Discharge Plan Departure Prescriptions: No Action carisoprodol 350 MG tablet 350 mg PO BID PRN (Reason: spasm) Qty: 0 sertraline 100 mg tablet PO BEDTIME hydrocodone-acetaminophen 10-325 mg tablet 1 tab PO Q4H PRN (Reason: pain) alprazolam 0.5 mg tablet 0.25 mg PO BID PRN (Reason: Anxiety) eszopiclone 1 mg tablet 1 mg PO BEDTIME trazodone 100 MG tablet 300 mg PO BEDTIME propranolol 10 mg tablet 10 mg PO BID fluconazole 150 mg tablet 150 mg PO .ONCE PRN (Reason: unknown) promethazine 25 mg tablet 25 mg PO Q4-6H PRN (Reason: nausea and vomiting) Qty: 20 0RF lorazepam [Ativan] 0.5 mg tablet 0.5 mg PO BID-TID PRN (Reason: anxiety) Qty: 7 0RF clonidine HCl 0.1 mg tablet 0.1 mg PO DAILY rizatriptan 5 mg tablet lactulose [Constulose] 10 gram/15 mL solution ondansetron 4 mg tablet,disintegrating 4 mg PO Q8H PRN (Reason: nausea and vomiting) Qty: 10 0RF hydrocodone-acetaminophen 5-325 mg tablet 1 tab PO Q8H PRN (Reason: pain) Qty: 7 0RF pantoprazole [Protonix] 40 mg tablet,delayed release (DR/EC) 40 mg PO DAILY Qty: 30 0RF ondansetron 4 mg tablet,disintegrating 4 mg PO Q8H PRN (Reason: nausea and vomiting) Qty: 14 0RF hydrocodone-acetaminophen [[place]] 5-325 mg tablet 1 tab PO Q4H PRN (Reason: pain) Qty: 10 0RF Referrals: Laura Mcgarry, MARTI, [employer]ACH[employer] [facility] [Primary Care Provider] -
--- NOTE | 2022-04-26 18:01 | ED_ITS ---
HPI - Extremity Problem General Chief complaint: Extremity Problem,Nontraumatic Stated complaint: COVID + PAIN IN KIDNEYS AND LEGS Time Seen by Provider: 04/26/22 18:00 Source: patient Mode of arrival: Ambulatory History of Present Illness HPI Narrative: 37-year-old female smoker with history cyclic vomiting, MS and chronic pain presents with a chief complaint of widespread symptoms and a recent COVID diagnosis. She complains of nasal congestion and runny nose as well as sore throat and dry hacking cough. She denies the production of any sputum and states she has not particularly short of breath. She is achy all over and states that her current pain regimen is not helping. She is nauseated but denies any vomiting and has no diarrhea. She was not vaccinated against COVID Related Data Home Medications Medication Instructions Recorded Confirmed carisoprodol 350 mg tablet 350 mg PO BID PRN spasm ##0 02/16/17 03/05/22 alprazolam 0.5 mg tablet 0.25 mg PO BID PRN Anxiety 11/01/18 03/05/22 eszopiclone 1 mg tablet 1 mg PO BEDTIME 11/01/18 03/05/22 fluconazole 150 mg tablet 150 mg PO .ONCE PRN unknown 11/01/18 03/05/22 hydrocodone 10 mg-acetaminophen 1 tab PO Q4H PRN pain 11/01/18 03/05/22 325 mg tablet propranolol 10 mg tablet 10 mg PO BID 11/01/18 03/05/22 sertraline 100 mg tablet mg PO BEDTIME 11/01/18 03/05/22 trazodone 100 mg tablet 300 mg PO BEDTIME 11/01/18 03/05/22 clonidine HCl 0.1 mg tablet 0.1 mg PO DAILY 01/29/19 03/05/22 lactulose 10 gram/15 mL oral 01/29/19 03/05/22 solution rizatriptan 5 mg tablet 01/29/19 03/05/22 Previous Rx's Medication Instructions Recorded promethazine 25 mg tablet 25 mg PO Q4-6H PRN nausea and 11/01/18 vomiting #20 tabs lorazepam 0.5 mg tablet (Ativan) 0.5 mg PO BID-TID PRN anxiety #7 12/12/18 tabs hydrocodone 5 mg-acetaminophen 325 1 tab PO Q4H PRN pain #10 tabs 07/29/19 mg tablet ([place]) ondansetron 4 mg disintegrating 4 mg PO Q8H PRN nausea and 07/29/19 tablet vomiting #14 tabs pantoprazole 40 mg tablet,delayed 40 mg PO DAILY #30 tabs 07/29/19 release (Protonix) ondansetron 4 mg disintegrating 4 mg PO Q8H PRN nausea and 07/14/21 tablet vomiting #10 tabs hydrocodone 5 mg-acetaminophen 325 1 tab PO Q8H PRN pain #7 tabs 04/25/22 mg tablet Allergies Allergy/AdvReac Type Severity Reaction Status Date / Time aspirin [ASPIRIN] Allergy Severe THROAT Verified 04/26/22 15:38 SWELLING metoclopramide [From REGLAN] AdvReac Mild AGGITATION/ Verified 04/26/22 15:38 RESTLESSNES S Review of Systems Review of Systems Narrative: GENERAL: See HPI HEENT: See HPI RESPIRATORY: See HPI. CARDIOVASCULAR: Denies chest pain, palpitations, orthopnea, edema, GASTROINTESTINAL: Denies nausea, vomiting, abdominal pain, diarrhea, constipation, melena. : Denies dysuria, frequency, incontinence, hematuria, urinary retention. MUSCULOSKELETAL: See HPI SKIN: Denies rash, skin lesions, or other NEUROLOGIC: Denies weakness, headache, numbness, change in speech, confusion, seizures, incoordination. PSYCHIATRIC: No concerning psychosocial issues. 12 point review of systems is negative except for those stated above Patient History Medical History Anxiety Celiac disease Chronic narcotic use Cyclic vomiting syndrome Multiple sclerosis Surgical History Status post tubal ligation Social History Smoking Status: Current every day smoker substance use type: marijuana Smoking Status: Current every day smoker tobacco type: cigarettes alcohol intake frequency: 0-2 drinks per day Substance Use Type: marijuana and other Exam Narrative Exam Narrative: GENERAL: [37] year old patient appears stated age. Well-developed patient, in mild distress. Anxious, tearful HEAD: Atraumatic. Normocephalic. EYES: Pupils equal round and reactive. Extraocular motions intact. No scleral icterus. No injection or drainage. ENT: Nose without bleeding, purulent drainage. Throat without erythema, tonsillar hypertrophy or exudate. Airway patent. NECK: Trachea midline. Non tender CARDIOVASCULAR: Regular rate and rhythm without murmurs, gallops, or rubs. RESPIRATORY: Clear to auscultation. Breath sounds equal bilaterally. No wheezes, rales, or rhonchi. GASTROINTESTINAL: Abdomen soft, non-tender, nondistended. EXTREMITIES: No edema or joint tenderness. BACK: Nontender without deformity or crepitance. No flank tenderness. NEURO: AOx3. SKIN: No rash or erythema of visible areas Initial Vital Signs Initial Vital Signs: Vital Signs Temperature 97.4 F L 04/26/22 15:32 Pulse Rate 98 H 04/26/22 15:32 Respiratory Rate 18 04/26/22 15:32 Blood Pressure 109/72 04/26/22 15:32 Pulse Oximetry 99 04/26/22 15:32 Oxygen Delivery Method 04/26/22 15:32 Course Orders Ordered: ED Orders 04/26/22 15:40 COVID19 -Nasal RAPID/Pre-Proc Stat 04/26/22 17:52 Ictotest Urine Stat Urine Microscopic Stat Vital Signs Vital signs: Vital Signs - 8 hr 04/26/22 15:32 Temperature 97.4 F L Pulse Rate 98 H Respiratory Rate 18 Blood Pressure 109/72 Pulse Oximetry 99 Oxygen Delivery Method Room Air MDM - Extremity (Nontraumatic) Lab Data Labs: Lab Results 04/26/22 04/26/22 04/26/22 Range/Units 15:40 17:52 17:52 Ur Bilirubin Confirm Negative (Negative) Urine RBC 1-5/hpf (0-5/HPF) Urine WBC 1-5/hpf (0-5/HPF) Ur Squamous Epith Cells 1-5 /hpf (0-5/HPF) Urine Bacteria Few (2-10) H (None) Urine Yeast 1-5/hpf H (None) Ur Culture Indicated? Cult not indicated SARS-CoV-2 (PCR) Positive H (Negative) Point of Care Testing Test Results Negative Urine Dip Bedside Urine Glucose Negative Bedside Urine Bilirubin + 1 Bedside Urine Ketone - Negative Urine Specific [place] 1.02 Bedside Urine Occult Blood +++ Bedside Urine pH 6.0 Bedside Urine Urobilinogen 1+ 2mg Bedside Urine Nitrite - Negative Bedside Urine Leukocytes - Negative Esterase Discharge Plan Departure Patient Disposition: Home Clinical Impression: COVID-19 Instructions: DI for COVID-19 (Suspected or Confirmed ) Activity Restrictions/Additional Instructions: *You have been diagnosed with [ COVID-19] *What to do: ?* per recommendations from the CDC and the [facility] Department of Health ?* stay home except to get medical care. ?Restrict activities outside your home, except for getting medical care. ?Do not go to work, school, or public areas. ?Avoid using public transportation, ride sharing, or taxis. ?* separate yourself from other people in your home. ?* call ahead before visiting your doctor ?* Wear a facemask ?* Cover your coughs and sneezes ?* Clean your hands often ?* Avoid sharing household items ?* Clean all high-touch services every day ?* Monitor your symptoms and seek prompt medical attention if your illness is worsening, particularly with difficulty in breathing. You may discontinue your isolation when: ?1. You have been fever-free for at least 24 hours without the use of fever reducing medication, AND ?2. Your symptoms are getting better, AND ?3. At least 5 days have passed since symptoms first appeared ?4. If you have fever, continue to stay home until fever resolves Individuals with laboratory confirmed COVID-19 who have not had any symptoms may discontinue home isolation when at least 5 days have passed since the date of their first COVID-19 diagnostic test and have had no subsequent illness You should notifiy any friends and family that have been in close contact *If up to date on COVID Vaccines, then they do not need to quarantine unless s ymptoms develop. Get tested on day 5 (or sooner if symptoms develop). Take precautions and watch for symptoms until day 10 *If NOT up to date on COVID Vaccines, then CDC recommends quarantine for at least 5 full days. Wear a well fitted mask at home if you must be around others. If they ?develop symptoms they should get tested. If they remain asymptomatic they should get tested on day 5. They should take precautions and monitor for symptoms until day 10. Prescriptions: No Action carisoprodol 350 MG tablet 350 mg PO BID PRN (Reason: spasm) Qty: 0 sertraline 100 mg tablet PO BEDTIME hydrocodone-acetaminophen 10-325 mg tablet 1 tab PO Q4H PRN (Reason: pain) alprazolam 0.5 mg tablet 0.25 mg PO BID PRN (Reason: Anxiety) eszopiclone 1 mg tablet 1 mg PO BEDTIME trazodone 100 MG tablet 300 mg PO BEDTIME propranolol 10 mg tablet 10 mg PO BID fluconazole 150 mg tablet 150 mg PO .ONCE PRN (Reason: unknown) promethazine 25 mg tablet 25 mg PO Q4-6H PRN (Reason: nausea and vomiting) Qty: 20 0RF lorazepam [Ativan] 0.5 mg tablet 0.5 mg PO BID-TID PRN (Reason: anxiety) Qty: 7 0RF clonidine HCl 0.1 mg tablet 0.1 mg PO DAILY rizatriptan 5 mg tablet lactulose [Constulose] 10 gram/15 mL solution ondansetron 4 mg tablet,disintegrating 4 mg PO Q8H PRN (Reason: nausea and vomiting) Qty: 10 0RF hydrocodone-acetaminophen 5-325 mg tablet 1 tab PO Q8H PRN (Reason: pain) Qty: 7 0RF pantoprazole [Protonix] 40 mg tablet,delayed release (DR/EC) 40 mg PO DAILY Qty: 30 0RF ondansetron 4 mg tablet,disintegrating 4 mg PO Q8H PRN (Reason: nausea and vomiting) Qty: 14 0RF hydrocodone-acetaminophen [[place]] 5-325 mg tablet 1 tab PO Q4H PRN (Reason: pain) Qty: 10 0RF Referrals: Laura Mcgarry, MARTI, VP-C [Primary Care Provider] - Visit Report Forms: Patient Portal/API
[2022-04-26 18:22] LABS: Bacteria Urine Few (2-10); RBC Urine 1-5/HPF (0-5/HPF); Squamous Epithelial Cell Urine 1-5 /HPF (0-5/HPF); WBC Urine 1-5/HPF (0-5/HPF)
[2022-04-26 18:23] LABS: Culture Indicated Urine Cult Not Indicated; Ictotest Urine Negative (Negative)
== END 2022-04-26 18:15 | disposition home or self-care (01) ==
PROVIDERS: Emergency Medicine; Emergency Provider Emergency Medicine; PCP Nurse Practitioner Family
DX: U07.1 COVID-19 (principal)
CPT/HCPCS: 81003; 81015; 81025; 87635; 99282; C9803

== ENCOUNTER → 2022-12-21 12:07 | Outpatient (CLI) | payer MEDICARE, MEDICAID, SELFPAY ==
--- NOTE | 2022-12-21 | DI.US.S_ITS ---
PROCEDURE: US PELVIC COMPLETE INDICATIONS: Abnormal uterine and vaginal bleeding, unspecified. Left adnexal pain. TECHNIQUE: Real-time scanning was performed of the pelvic organs, with image documentation. Additional endovaginal scanning was necessary due to incomplete visualization of the adnexal and endometrial structures by transabdominal scanning. COMPARISON: [facility], US, PELVIC COMPLETE, 12/19/2017, 7:33. FINDINGS: Uterus: Uterus is anteverted and normal in size at 6.6 x 3.3 x 5.0 cm. The myometrium is homogeneous. The endometrium measures 8 mm combined thickness. Homogeneous, anechoic cystic structure within the endometrium measuring 5 mm. Ovaries: The right ovary measures 1.7 x 3.1 x 1.5 cm, with a calculated ovarian volume of 4 cc. The left ovary measures 2.2 x 0.7 x 2.6 cm, with a calculated ovarian volume of 2 cc. The ovaries have a normal sonographic appearance. Less than 12 follicles can be seen in each ovary. There is a hypoechoic follicle in the right ovary measuring 1.4 x 1.1 x 1.1 cm. There appears to be internal hypoechoic echogenicity with a peripheral rim of isoechoic tissue. Other: No pathologic free abdominal or pelvic fluid. IMPRESSION: 5 mm cystic structure within the endometrium. Early gestational sac is not entirely excluded. Correlate with beta HCG. Complex right ovarian follicle, probably a hemorrhagic corpus luteum. Recommend follow-up in 6-12 weeks with ultrasound to ensure resolution. We strive to produce accurate, complete, and clear reports of imaging services. To assist us in improving patient care, this report was composed using standard report templates and voice recognition software. Therefore, it may contain abnormal punctuation, insertions and/or omissions. Occasional wrong-word or sound-alike substitutions may occur. Though we review the report and make efforts to correct it, we do recommend that the report be read carefully in proper context to recognize any text inaccuracies. Dictated by: Vicente Alan M.D. on 12/21/2022 at 13:33 Approved by: Vicente Alan M.D. on 12/21/2022 at 13:39
== END ==
PROVIDERS: PCP Nurse Practitioner Family; Referring Provider Student in an Organized Health Care Education/Training Program; Visit Provider Student in an Organized Health Care Education/Training Program
DX: N93.9 Abnormal uterine and vaginal bleeding, unspecified (principal); Z98.890 Other specified postprocedural states
CPT/HCPCS: 76830; 76856

== ENCOUNTER → 2023-03-27 15:07 | Outpatient (CLI) | payer MEDICARE, SELFPAY ==
--- NOTE | 2023-03-27 | DI.MRI.S_ITS ---
PROCEDURE: MR HEAD/BRAIN WO/W CON INDICATIONS: Multiple sclerosis TECHNIQUE: Noncontrast axial T1 spin echo, axial T2 fast spin echo, sagittal and axial FLAIR, coronal T2 fast spin echo, axial gradient echo, axial diffusion and ADC through the brain. After the administration of contrast, axial and coronal and sagittal 3D VIBE or T1 spin echo with fat saturation through the brain. COMPARISON: [facility], , MR HEAD/BRAIN WO/W CON, 01/02/2022, 8:50. FINDINGS: Cerebellum, Cerebrum and Brainstem: There are numerous rounded and ovoid white matter lesions some of which are oriented perpendicular to the ventricular surface. There is involvement of the subcortical and periventricular deep white matter. No involvement of cerebellar hemispheres or brainstem or T1 hypointense lesions. Detailed comparison with the prior scan shows no new lesions. No evidence of lesion enhancement. No cerebral or cerebellar volume loss noted. The diffusion sequence is normal without evidence of acute infarct. No abnormal enhancement present on postcontrast images. No cerebral edema, hemorrhage or midline shift. Basal cisterns are clear. Skull Base: The bony sella, pituitary gland and infundibulum unremarkable. Visualized portions of the seventh and eighth cranial nerve complexes and internal auditory canals are within normal limits. Ventricles: Appropriate in size and position. No hydrocephalus. Scalp and Calvarium: The scalp as unremarkable. Appropriate calvarial marrow signal noted. Paranasal sinuses: Stable left frontal retention cyst Mastoids: Unremarkable as visualized. No mastoid effusion. Orbits: The orbits, globes and ocular muscles unremarkable. Optic nerves appropriate in size without enhancement. IMPRESSION: Stable multiple sclerosis. No new or enhancing lesions Approved by: Nahum Miranda M.D. on 03/28/2023 at 11:14
--- NOTE | 2023-03-27 | DI.MRI.S_ITS ---
PROCEDURE: MR CERVICAL SPINE WO/W CON INDICATIONS: Multiple sclerosis TECHNIQUE: Noncontrast sagittal T1 spin echo and T2 fast spin echo, sagittal STIR, foraminal oblique sagittal T2 fast spin echo, axial gradient echo or T2 fast spin echo through the cervical spine. After the administration of contrast, axial and sagittal T1 spin echo with fat saturation through the cervical spine. COMPARISON: [facility], MR, MR CERVICAL SPINE WO/W CON, 01/02/2022, 8:50. FINDINGS: Image quality: Excellent. Alignment and curvature: There is normal bony alignment. Marrow: Marrow is normal in overall signal, without suspicious enhancement. Spinal cord: New from the prior exam, there is a 3 mm hyperintensity in the right raghavendra cord at the level of C5. No enhancement or T1 hypointensity Paraspinous soft tissues: No paravertebral masses or suspicious enhancement. At the disc levels, there is no evidence of disc bulge, central or foraminal stenosis. IMPRESSION: New small focal white matter hyperintensity in the right raghavendra cord at the level of C5, consistent with demyelinating lesion and history of multiple sclerosis. Approved by: Nahum Miranda M.D. on 03/28/2023 at 12:05
== END ==
PROVIDERS: PCP Nurse Practitioner Family; Referring Provider Psychiatry & Neurology Neurology; Visit Provider Psychiatry & Neurology Neurology
DX: G35 Multiple sclerosis (principal)
CPT/HCPCS: 70553; 72156; A9579

== ENCOUNTER → 2024-02-28 10:40 | Outpatient (CLI) | payer MEDICARE, SELFPAY ==
--- NOTE | 2024-02-28 | DI.MRI.S_ITS ---
PROCEDURE: MR CERVICAL SPINE WO/W CON INDICATIONS: MS TECHNIQUE: Noncontrast sagittal T1 spin echo and T2 fast spin echo, sagittal STIR, sagittal PD fast spin echo, foraminal oblique sagittal T2 fast spin echo, axial gradient echo or T2 fast spin echo through the cervical spine. After the administration of contrast, sagittal and axial T1 spin echo with fat saturation through the cervical spine. COMPARISON: [facility], , MR CERVICAL SPINE WO/W CON, 01/02/2022, 8:50. [facility], MR, MR CERVICAL SPINE WO/W CON, 01/08/2021, 8:48. [facility], MR, MR CERVICAL SPINE WO CON, 06/01/2019, 17:13. [facility], MR, MR CERVICAL SPINE WO/W CON, 08/30/2018, 9:17. [facility], MR, C-SPINE WITHOUT CONTRAST, 02/15/2013, 8:10. [facility], MR, MR HEAD/BRAIN WO/W CON, 02/28/2024, 10:47. [facility], , MR CERVICAL SPINE WO/W CON, 03/27/2023, 15:24. FINDINGS: Image quality: This examination is limited by involuntary motion artifact. Alignment and curvature: There is normal bony alignment. Marrow: Marrow demonstrates normal overall signal. Spinal cord: There is faint visualization of a T2 hyperintense lesion along the right aspect of the spinal cord at the C5 level. This is better demonstrated on the prior examination. No new lesions are seen. No suspicious intramedullary enhancement. No cerebellar tonsillar herniation. Paraspinous soft tissues: No paravertebral masses or suspicious enhancement. C2-C3: Normal appearance. C3-C4: The disc height and disk signal are well-preserved. Mild to moderate disc osteophyte complex is seen, which is eccentric to the right. Moderate facet joint hypertrophy is seen. There is moderate right-sided and no left-sided neural foraminal narrowing. No central canal narrowing is seen. These imaging findings have progressed compared to the prior study. C4-C5: The disc height and disk signal are well-preserved. A mild degree of generalized disc osteophyte complex is seen. Moderate facet joint hypertrophy is seen. No neural foraminal narrowing is seen. No central canal narrowing is seen. When comparison is made with the prior images, these findings are similar. C5-C6: Mild loss of disc height is seen. Loss of disc signal is seen. Moderate generalized disc osteophyte complex is seen. There is a central disc osteophyte protrusion. Mild to moderate facet hypertrophy is seen. There is minimal left-sided and no right-sided neural foraminal narrowing. Mild central canal narrowing is seen. These imaging findings have progressed compared to the prior study. C6-C7: The disc height and disk signal are well-preserved. Mild to moderate disc osteophyte complex is seen, with a central/right disc osteophyte protrusion, as on series 3, images 35 and 36. Mild facet joint hypertrophy is seen. No neural foraminal narrowing is seen. Moderate central canal narrowing is seen. The disc osteophyte protrusion is new compared to the prior examination. C7-T1: Normal appearance. IMPRESSION: On the prior examination, there was seen a T2 hyperintense lesion along the right aspect of the cervical cord at the C5 level. This is not well seen on the current study, most likely secondary to motion artifact on the current images. No new lesions are seen. No abnormal enhancement is seen. This patient has multiple levels of cervical spine degenerative change, which have progressed at several levels compared to the prior images. Notably, at C6-C7, there is a central/right disc osteophyte protrusion, which is new compared to 2022. Dictated by: Jeffrey Saeed M.D. on 02/28/2024 at 13:06 Approved by: Jeffrey Saeed M.D. on 02/28/2024 at 13:15
--- NOTE | 2024-02-28 10:41 | DI.MRI.S_ITS ---
PROCEDURE: MR HEAD/BRAIN WO/W CON INDICATIONS: MULTIPLE SCLEROSIS TECHNIQUE: Noncontrast sagittal and axial FLAIR, axial and coronal T2 fast spin echo, axial VIBE, axial gradient echo, axial diffusion and ADC through the brain. After the administration of contrast, axial and coronal and sagittal VIBE with fat saturation through the brain. COMPARISON: [facility], , MR HEAD/BRAIN WO/W CON, 11/14/2019, 11:02. [facility], , MR HEAD/BRAIN WO/W CON, 04/16/2019, 12:11. [facility], MR, MR HEAD/BRAIN WO/W CON, 08/30/2018, 8:52. [facility], MR, MR HEAD/BRAIN WO/W CON, 01/02/2022, 8:50. [facility], , MR HEAD/BRAIN WO/W CON, 01/08/2021, 8:30. [facility], , MR CERVICAL SPINE WO/W CON, 02/28/2024, 10:47. [facility], , MR CERVICAL SPINE WO/W CON, 03/27/2023, 15:24. [facility], MR, MR HEAD/BRAIN WO/W CON, 03/27/2023, 15:24. FINDINGS: Image quality: Excellent. CSF spaces: Ventricles are normal in size and shape. Basal cisterns are patent. No extra-axial fluid collections. Brain: Several foci of T2 weighted hyperintensity can be seen within the periventricular and deep white matter. A few of the periventricular lesions demonstrate perpendicular appearance to the lateral ventricles. There is involvement of the corpus callosum. There are a few peripheral lesions seen, including at least 1 juxtacortical lesion. No definite involvement of the brainstem can be seen. Cerebellar lesions are not seen. These lesions do not enhance. When compared to the prior MRI, the burden of white matter lesions has not definitely progressed. No intracranial bleeds or mass effects. Hernandez-white matter interface appears intact. No abnormal intracranial enhancement. Diffusion weighted images show no acute ischemic insults. Brainstem appears normal. Normal intravascular flow voids are present. Skull and face: Calvarial marrow signal is normal. Orbits appear normal. Sinuses: Focal mucosal thickening can be seen involving the left frontal sinus. Sinuses and mastoids are otherwise relatively clear. IMPRESSION: Multiple foci of T2 weighted hyperintensity can be seen within the white matter, which are highly characteristic of the given clinical history of multiple sclerosis. These lesions do not enhance. No significant progression compared to the prior MRI. Dictated by: Jeffrey Saeed M.D. on 02/28/2024 at 12:59 Approved by: Jeffrey Saeed M.D. on 02/28/2024 at 13:05
== END ==
LOC: MRI 10:41
PROVIDERS: PCP Nurse Practitioner Family; Referring Provider Psychiatry & Neurology Neurology; Visit Provider Psychiatry & Neurology Neurology
DX: G35 Multiple sclerosis (principal)
CPT/HCPCS: 70553; 72156; A9579

== ENCOUNTER 2024-07-04 15:40 | Emergency (ER) | payer MEDICARE, SELFPAY ==
[2024-07-04 15:44] VITALS: BP 103/61; PULSE 81; RESP 16; TEMP 36.9; O2SAT 98; BMI 22.3
--- NOTE | 2024-07-04 15:53 | DI.RAD.S_ITS ---
PROCEDURE: XR CHEST 1V INDICATIONS: chest pain TECHNIQUE: One view of the chest was acquired. COMPARISON: None. FINDINGS: Surgical changes and devices: None. Lungs and pleura: Lungs are clear. No pleural effusions or pneumothorax. Mediastinum: Mediastinal contours appear normal. Heart size is normal. Bones and chest wall: No suspicious bony lesions. Overlying soft tissues appear unremarkable. IMPRESSION: No acute cardiopulmonary abnormality is seen. Dictated by: Vicente Alan M.D. on 07/04/2024 at 16:51 Approved by: Vicente Alan M.D. on 07/04/2024 at 16:51
--- NOTE | 2024-07-04 15:59 | EKG_ITS ---
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
[2024-07-04 16:18] LABS: Add Manual Diff / Slide Review NO; Basophils Absolute Auto 100 /uL (0-100); Basophils Percent Auto 0.8 % (0-2); Eosinophils Absolute Auto 100 /uL (0-450); Eosinophils Percent Auto 1.3 % (2-4); Hemoglobin 14.1 g/dL (12.0-16.0); Lymphocytes Absolute Auto 1500 /uL (1100-4500); Lymphocytes Percent Auto 25.9 % (25-40); Mean Corpuscular HGB Conc 33.6 % (30-36); Mean Corpuscular Hemoglobin 30.7 PG (26-34); Mean Corpuscular Volume 91.4 fL (80-100); Monocytes Absolute Auto 300 /uL (0-900); Monocytes Percent Auto 5.7 % (3-14); Neutrophils Absolute Auto 4000 /uL (1500-7000); Neutrophils Percent Auto 66.3 % (50-75); Platelet Count 220 X10^3/uL (150-400); Red Blood Cell Count 4.59 X10^6/uL (4.0-5.2); Red Cell Distribution Width 13.8 % (11.6-14.8)
[2024-07-04 16:23] LABS: Prothrombin Time 11.7 SECONDS (9.4-12.5)
[2024-07-04 16:25] LABS: PTT Partial Thromboplastin Tim 35 SECONDS (25.1-36.5)
[2024-07-04 16:28] LABS: Alanine Aminotransferase 11 IU/L (<35); Albumin 4.9 g/dL (3.5-5.0); Albumin Globulin Ratio 1.9 (1.0-2.8); Alkaline Phosphatase 64 U/L (38-126); Aspartate Aminotransferase 21 IU/L (14-36); BUN Creatinine Ratio 11.9 (6-22); Bilirubin Total 0.6 mg/dL (0.2-1.3); Blood Urea Nitrogen 8 mg/dL (7-17); Calcium 9.5 mg/dL (8.4-10.2); Carbon Dioxide 24 mmol/L (22-32); Chloride 104 mmol/L (98-107); Creatine Kinase 57 U/L (30-135); Estimated Glomerular Filt Rate > 60 mL/min (>60); Globulin 2.6 g/dL (1.7-4.1); Glucose 103 mg/dL (70-100); HEMOLYSIS < 15 (0-50); Lipase 65 U/L (23-300); Magnesium 1.9 mg/dL (1.6-2.3); Potassium 3.2 mmol/L (3.4-5.1); Sodium 136 mmol/L (137-145); Total Protein 7.5 g/dL (6.3-8.2)
[2024-07-04 16:40] LABS: NT-proBNP (BNP-Adult 18+) 81 pg/mL (<125); Troponin I < 0.012 ng/mL (0.01-0.034)
[2024-07-04] MEDS: KETOROLAC 30 MG/ML VIAL 15 MG IV (16:53)
== END 2024-07-04 18:26 | disposition left against medical advice (07) ==
PROVIDERS: Emergency Provider Emergency Medicine; PCP Nurse Practitioner Family
DX: R07.9 Chest pain, unspecified (principal); R06.02 Shortness of breath
CPT/HCPCS: 36415; 71045; 80053; 82550; 83690; 83735; 83880; 84484; 85025; 85610; 85730; 93005; 99284; J1885

== ENCOUNTER 2025-03-03 00:08 | Emergency (ER) | payer MEDICARE, SELFPAY ==
[2025-03-03] VITALS (10 sets, daily range): BP systolic 119–120; BP diastolic 79–84; PULSE 52–89; RESP 16–23; TEMP 36.7; O2SAT 97–99; BMI 21.7
--- NOTE | 2025-03-03 00:16 | DI.CT.S_ITS ---
PROCEDURE: CT HEAD/BRAIN WO CON INDICATIONS: syncope, fall, cut head TECHNIQUE: Noncontrast 4.5 mm thick angled axial sections acquired from the foramen magnum to the vertex, with coronal and sagittal reformats. For radiation dose reduction, the following was used: automated exposure control, adjustment of mA and/or kV according to patient size. COMPARISON: [facility], CT, CT HEAD/BRAIN WO CON, 01/29/2019, 17:51. FINDINGS: Image quality: Diagnostic. CSF spaces: Basal cisterns are patent. No extra-axial fluid collections. Ventricles are normal in size and shape. Brain: No midline shift. No intracranial mass effect or hemorrhage. Hernandez-white matter interface is normal. Skull and face: Calvarium and visualized facial bones are intact, without suspicious lesions. Sinuses: Mucous retention cyst in the left frontal sinus. Visualized sinuses and mastoids are otherwise clear. IMPRESSION: No acute intracranial pathology. Approved by: Sergio Shore M.D. on 03/03/2025 at 1:19
--- NOTE | 2025-03-03 00:18 | DI.RAD.S_ITS ---
PROCEDURE: XR CHEST 1V INDICATIONS: chest pain, syncopal event TECHNIQUE: One view of the chest was acquired. COMPARISON: [facility], CR, XR CHEST 1V, 07/04/2024, 16:04. [facility], CR, XR CHEST 1V, 01/29/2019, 17:51. FINDINGS: Surgical changes and devices: None. Lungs and pleura: Lungs are clear. No pleural effusions or pneumothorax. Mediastinum: Mediastinal contours appear normal. Heart size is normal. Bones and chest wall: No suspicious bony lesions. Overlying soft tissues appear unremarkable. IMPRESSION: No acute cardiopulmonary abnormality is seen. Approved by: Sergio Shore M.D. on 03/03/2025 at 1:16
--- NOTE | 2025-03-03 00:19 | EKG_ITS ---
[address] [address] Test Date: 2025-03-03 Pat Name: Imani Bowen Department: [facility] Room: Gender: Female [employer] Crew Leader: EVRE SHANNON : 1985 Requested By: Order Number: [id number] Reading MD: Avi Arteaga MD Measurements Intervals [place] Rate: 83 P: 68 MD: 134 QRS: 52 QRSD: 78 T: 57 QT: 350 QTc: 411 Interpretive Statements Normal sinus rhythm Electronically Signed On 03-03-2025 8:43:34 PDT by Avi Arteaga MD
[2025-03-03 00:28] LABS: Add Manual Diff / Slide Review NO; Basophils Absolute Auto 0 /uL (0-100); Basophils Percent Auto 0.4 % (0-2); Eosinophils Absolute Auto 100 /uL (0-450); Eosinophils Percent Auto 1.7 % (2-4); Hematocrit 39.7 % (36-46); Hemoglobin 13.3 g/dL (12.0-16.0); Lymphocytes Absolute Auto 900 /uL (1100-4500); Lymphocytes Percent Auto 16.9 % (25-40); Mean Corpuscular HGB Conc 33.5 % (30-36); Mean Corpuscular Hemoglobin 30.8 PG (26-34); Mean Corpuscular Volume 92.1 fL (80-100); Monocytes Absolute Auto 300 /uL (0-900); Monocytes Percent Auto 6.5 % (3-14); Neutrophils Absolute Auto 4000 /uL (1500-7000); Neutrophils Percent Auto 74.5 % (50-75); Platelet Count 153 X10^3/uL (150-400); Red Blood Cell Count 4.31 X10^6/uL (4.0-5.2); Red Cell Distribution Width 13.2 % (11.6-14.8); White Blood Cell Count 5.4 X10^3/uL (4.5-11.0)
[2025-03-03 00:40] LABS: Alanine Aminotransferase 23 IU/L (<35); Albumin 4.2 g/dL (3.5-5.0); Albumin Globulin Ratio 1.8 (1.0-2.8); Alkaline Phosphatase 53 U/L (38-126); Aspartate Aminotransferase 38 IU/L (14-36); BUN Creatinine Ratio 21.7 (6-22); Bilirubin Total 0.4 mg/dL (0.2-1.3); Blood Urea Nitrogen 15 mg/dL (7-17); Calcium 9.6 mg/dL (8.4-10.2); Carbon Dioxide 22 mmol/L (22-32); Chloride 108 mmol/L (98-107); Creatine Kinase 82 U/L (30-135); Estimated Glomerular Filt Rate > 60 mL/min (>60); Globulin 2.3 g/dL (1.7-4.1); Glucose 108 mg/dL (70-99); HEMOLYSIS < 15 (0-50); Lipase 110 U/L (23-300); Potassium 3.4 mmol/L (3.4-5.1); Sodium 139 mmol/L (137-145); Total Protein 6.5 g/dL (6.3-8.2)
[2025-03-03 00:52] LABS: Troponin I < 0.012 ng/mL (0.01-0.034)
--- NOTE | 2025-03-03 01:37 | ED.GENADULT ---
HPI - General Adult General Chief complaint: Syncope Stated complaint: GLF vs Syncope Time Seen by Provider: 03/03/25 00:15 Source: patient and EMS Mode of arrival: EMS History of Present Illness HPI narrative: 40-year-old female with history of multiple sclerosis, single prior seizure in the past felt to be heat related when they lived in [place], not taking any seizure medications, followed by Neurology at [facility], last evening was in kitchen area at home, when in other room heard a crash, patient woke up in the ambulance, does not recall the fall. Apparently patient was agitated and combative with EMS during transport, which she can not recall. She has injury laceration to her upper periorbital area. Last tetanus about a year ago. She has not recall any recent illnesses, no fevers, no antecedent shortness of breath or chest pain. No palpitation or heart beating fast sensation. Has right facial pain after her fall, has some bruising to her knees apparently related to thrashing about with EMS during transport. Related Data Home Medications Medication Instructions Recorded Confirmed carisoprodol 350 mg tablet 350 mg PO BID PRN spasm ##0 02/16/17 03/05/22 alprazolam 0.5 mg tablet 0.25 mg PO BID PRN Anxiety 11/01/18 03/05/22 eszopiclone 1 mg tablet 1 mg PO BEDTIME 11/01/18 03/05/22 fluconazole 150 mg tablet 150 mg PO .ONCE PRN unknown 11/01/18 03/05/22 hydrocodone 10 mg-acetaminophen 1 tab PO Q4H PRN pain 11/01/18 03/05/22 325 mg tablet propranolol 10 mg tablet 10 mg PO BID 11/01/18 03/05/22 sertraline 100 mg tablet mg PO BEDTIME 11/01/18 03/05/22 trazodone 100 mg tablet 300 mg PO BEDTIME 11/01/18 03/05/22 clonidine HCl 0.1 mg tablet 0.1 mg PO DAILY 01/29/19 03/05/22 lactulose 10 gram/15 mL oral 01/29/19 03/05/22 solution rizatriptan 5 mg tablet 01/29/19 03/05/22 ofatumumab 20 mg/0.4 mL mg SUBCUT 07/04/24 subcutaneous pen injector (Kesimpta Pen) Previous Rx's Medication Instructions Recorded promethazine 25 mg tablet 25 mg PO Q4-6H PRN nausea and 11/01/18 vomiting #20 tabs lorazepam 0.5 mg tablet (Ativan) 0.5 mg PO BID-TID PRN anxiety #7 12/12/18 tabs hydrocodone 5 mg-acetaminophen 325 1 tab PO Q4H PRN pain #10 tabs 07/29/19 mg tablet ([place]) ondansetron 4 mg disintegrating 4 mg PO Q8H PRN nausea and 07/29/19 tablet vomiting #14 tabs pantoprazole 40 mg tablet,delayed 40 mg PO DAILY #30 tabs 07/29/19 release (Protonix) ondansetron 4 mg disintegrating 4 mg PO Q8H PRN nausea and 07/14/21 tablet vomiting #10 tabs hydrocodone 5 mg-acetaminophen 325 1 tab PO Q8H PRN pain #7 tabs 04/25/22 mg tablet Allergies Allergy/AdvReac Type Severity Reaction Status Date / Time aspirin [ASPIRIN] Allergy Severe THROAT Verified 04/26/22 15:38 SWELLING metoclopramide [From REGLAN] AdvReac Mild AGGITATION/ Verified 04/26/22 15:38 RESTLESSNES S Patient History Medical History (Updated 03/03/25 @ 03:52 by Hollis Koch MD) Chronic narcotic use Celiac disease Cyclic vomiting syndrome Anxiety Multiple sclerosis Surgical History Status post tubal ligation Social History Smoking Status: Current every day smoker substance use type: marijuana Smoking Status: Current every day smoker tobacco type: cigarettes alcohol intake frequency: 0-2 drinks per day Exam Narrative Exam Narrative: GENERAL: Well-developed patient, in mild distress. HEAD: Right periorbital superior laceration 1.5 cm, with swelling over the ipsilateral zygoma. EYES: Pupils equal round and reactive. Extraocular motions intact. No scleral icterus. No injection or drainage. Conjugate gaze. ENT: Nose without bleeding, purulent drainage. Throat without erythema, tonsillar hypertrophy or exudate. Airway patent. Right upper tooth implant base intact. Bruising and swelling to the right zygoma and periorbital region. No crepitance. Slight nasal bridge swelling. No blood at alae. NECK: Trachea midline. Non tender. CARDIOVASCULAR: Regular rate and rhythm without murmurs, gallops, or rubs. RESPIRATORY: Clear to auscultation. Breath sounds equal bilaterally. No wheezes, rales, or rhonchi. GASTROINTESTINAL: Abdomen soft, non-tender, nondistended. EXTREMITIES: No edema or joint tenderness. Small areas of bruising to anterior knees and foreleg, no gross deformities, moves hips and knees well. BACK: Nontender without deformity or crepitance. No flank tenderness. NEURO: AOx3. Motor functions grossly nonfocal SKIN: No rash or erythema of visible areas Initial Vital Signs Initial Vital Signs: Vital Signs Pulse Rate 88 03/03/25 00:13 Pulse Oximetry 99 03/03/25 00:13 Procedures Laceration Repair Laceration 1: Time of procedure: 03:43 Site: face Side (If applicable): right Size (cm): 1.5 Description: linear Depth: simple, single layer Local Anesthetic: lidocaine 1% and with epi Amount of anesthesia used (mL): 4 Pre-repair: irrigated extensively Skin layer closed with: nylon Skin layer suture size: 5-0 Number of sutures: 5 Technique: simple, interrupted Course Orders Ordered: ED Orders 03/03/25 00:09 EKG-12 Lead Stat 03/03/25 00:16 CT head/brain wo con Stat 03/03/25 00:18 XR chest 1V Stat Complete Blood Count AUTO DIFF Stat Comprehensive Metabolic Panel Stat Lipase Stat Troponin & CK Cardiac Panel Stat EKG-12 Lead Stat 03/03/25 01:51 CT facial bones wo con Stat 03/03/25 02:36 Urine Drug Screen, Rapid Stat 03/03/25 03:00 Troponin I Stat Discontinued Medications Bacitracin (Bacitracin Oint 0.9 Gm Pckt) 1 applic TOP NOW ONE Stop: 03/03/25 03:44 Last Admin: 03/03/25 04:04 Dose: 1 applic Documented By: VALENTINO Hydromorphone HCl (Hydromorphone 0.5 Mg Inj) 0.5 mg IV NOW ONE Stop: 03/03/25 02:56 Last Admin: 03/03/25 03:14 Dose: 0.5 mg Documented By: VALENTINO Lidocaine/Epinephrine (Lidocaine 2% W/Epi Inj 10 Ml Vial) 10 ml INJ NOW ONE Stop: 03/03/25 02:36 Last Admin: 03/03/25 02:43 Dose: 10 ml Documented By: VALENTINO Vital Signs Vital signs: Vital Signs - 8 hr 03/03/25 00:13 03/03/25 00:18 03/03/25 00:30 Temperature 98.1 F Pulse Rate 88 89 72 Respiratory Rate 16 23 Blood Pressure 119/79 Pulse Oximetry 99 99 99 Oxygen Delivery Method Room Air 03/03/25 01:00 03/03/25 01:30 03/03/25 02:00 Temperature Pulse Rate 56 L 52 L 53 L Respiratory Rate 17 18 18 Blood Pressure Pulse Oximetry 97 98 97 Oxygen Delivery Method 03/03/25 02:37 03/03/25 03:00 03/03/25 03:30 Temperature Pulse Rate 61 65 55 L Respiratory Rate 23 16 Blood Pressure Pulse Oximetry 99 98 98 Oxygen Delivery Method 03/03/25 04:00 03/03/25 04:00 Temperature Pulse Rate 58 L Respiratory Rate 21 Blood Pressure 120/84 Pulse Oximetry 98 Oxygen Delivery Method Medical Decision Making Lab Data Lab results reviewed: Yes I reviewed the patient's lab results. Lab results narrative: White blood cell count 5400, hemoglobin 13.3, platelets adequate. Glucose 108. Normal renal function. Electrolytes unremarkable. Serum CO2 22. ALT slight elevation, other liver functions normal. Lipase normal. Troponin negative/unmeasurable. 03/03/25 00:18 03/03/25 00:18 Labs: Lab Results 03/03/25 03/03/25 03/03/25 Range/Units 00:18 02:36 03:00 WBC 5.4 (4.5-11.0) X10^3/uL RBC 4.31 (4.0-5.2) X10^6/uL Hgb 13.3 (12.0-16.0) g/dL Hct 39.7 (36-46) % MCV 92.1 (80-100) fL MCH 30.8 (26-34) PG MCHC 33.5 (30-36) % RDW 13.2 (11.6-14.8) % Plt Count 153 (150-400) X10^3/uL Neut % (Auto) 74.5 (50-75) % Lymph % (Auto) 16.9 L (25-40) % [place] % (Auto) 6.5 (3-14) % Eos % (Auto) 1.7 L (2-4) % Baso % (Auto) 0.4 (0-2) % Neut # (Auto) 4000 (2055-5256) /uL Lymph # (Auto) 900 L (5507-1257) /uL [place] # (Auto) 300 (0-900) /uL Eos # (Auto) 100 (0-450) /uL Baso # (Auto) 0 (0-100) /uL Sodium 139 (137-145) mmol/L Potassium 3.4 (3.4-5.1) mmol/L Chloride 108 H (98-107) mmol/L Carbon Dioxide 22 (22-32) mmol/L BUN 15 (7-17) mg/dL Creatinine 0.69 (0.52-1.04) mg/dL Estimated GFR > 60 (>60) mL/min BUN/Creatinine Ratio 21.7 (6-22) Glucose 108 H (70-99) mg/dL Calcium 9.6 (8.4-10.2) mg/dL Total Bilirubin 0.4 (0.2-1.3) mg/dL AST 38 H (14-36) IU/L ALT 23 (<35) IU/L Alkaline Phosphatase 53 (38-126) U/L Total Creatine Kinase 82 (30-135) U/L Troponin I < 0.012 < 0.012 (0.01-0.034) ng/mL Total Protein 6.5 (6.3-8.2) g/dL Albumin 4.2 (3.5-5.0) g/dL Globulin 2.3 (1.7-4.1) g/dL Albumin/Globulin Ratio 1.8 (1.0-2.8) Lipase 110 (23-300) U/L U Opiates 300ng/mL cut Positive H (Negative) Ur Oxycodone Screen Negative (Negative) Urine Methadone Screen Negative (Negative) Ur Barbiturates Screen Negative (Negative) U Tricyclic Antidepress Negative (Negative) Ur Phencyclidine Scrn Negative (Negative) Ur Amphetamines Screen Negative (Negative) U Methamphetamines Scrn Negative (Negative) Ur MDMA Scrn (Ecstasy) Negative (Negative) U Benzodiazepines Scrn Negative (Negative) Urine Cocaine Screen Negative (Negative) U Marijuana (THC) Screen Positive H (Negative) Urine pH Normal (Normal) Urine Specific [place] Normal (Normal) Ur Creatinine Normal (Normal) Imaging Data CT scan - head: Radiologist's Impression: [address] [address] [address] Scan Report Signed Patient: Imani Bowen MR#: [id number] : 1985 Acct:[id number] Age/Sex: 40 / F Date of Service: 03/03/25 Loc: ED Accession Number: [id number] Procedure: CT head/brain wo con Ordering Provider: Hollis Koch MD PROCEDURE: CT HEAD/BRAIN WO CON INDICATIONS: syncope, fall, cut head TECHNIQUE: Noncontrast 4.5 mm thick angled axial sections acquired from the foramen magnum to the vertex, with coronal and sagittal reformats. For radiation dose reduction, the following was used: automated exposure control, adjustment of mA and/or kV according to patient size. COMPARISON: [facility], CT, CT HEAD/BRAIN WO CON, 01/29/2019, 17:51. FINDINGS: Image quality: Diagnostic. CSF spaces: Basal cisterns are patent. No extra-axial fluid collections. Ventricles are normal in size and shape. Brain: No midline shift. No intracranial mass effect or hemorrhage. Hernandez-white matter interface is normal. Skull and face: Calvarium and visualized facial bones are intact, without suspicious lesions. Sinuses: Mucous retention cyst in the left frontal sinus. Visualized sinuses and mastoids are otherwise clear. IMPRESSION: No acute intracranial pathology. Approved by: eSrgio Shore M.D. on 03/03/2025 at 1:19 Chest x-ray: Radiologist's Impression: [address] [address] XRay Report Signed Patient: Imani Bowen MR#: [id number] : 1985 Acct:[id number] Age/Sex: 40 / F Date of Service: 03/03/25 Loc: ED Accession Number: [id number] Procedure: XR chest 1V Ordering Provider: Hollis Koch MD PROCEDURE: XR CHEST 1V INDICATIONS: chest pain, syncopal event TECHNIQUE: One view of the chest was acquired. COMPARISON: [facility], CR, XR CHEST 1V, 07/04/2024, 16:04. [facility], CR, XR CHEST 1V, 01/29/2019, 17:51. FINDINGS: Surgical changes and devices: None. Lungs and pleura: Lungs are clear. No pleural effusions or pneumothorax. Mediastinum: Mediastinal contours appear normal. Heart size is normal. Bones and chest wall: No suspicious bony lesions. Overlying soft tissues appear unremarkable. IMPRESSION: No acute cardiopulmonary abnormality is seen. Approved by: Sergio Shore M.D. on 03/03/2025 at 1:16 ECG Data Attestation: I personally reviewed and interpreted this ECG as follows: Interpretation: Normal sinus rhythm with rate of 83, no obvious ST segment elevation or depression changes. [place] 134, QRS 78, QTC 411. MDM Narrative Medical decision making narrative: Ground level fall unwitnessed, possible syncope, amnestic to the event, concussive versus syncopal. History of prior single seizure while living in [place] felt to be heat related. History of multiple sclerosis, followed by [facility] neurologist. No neck pain with fall. Right periorbital superior eyelid area laceration 1.5 cm, primarily closed, see separate procedure note. CT head noncontrast, no acute changes, see radiology report. Chest x-ray no acute changes, see radiology report. EKG showed normal sinus rhythm. Troponin negative, we will repeat interval study. CT maxillofacial. Impressions: ?No acute fracture and maxillofacial CT. Mild right periorbital swelling. Swelling and hematoma of the right malar fat. ? See tele radiology report Repeat troponin also negative/unmeasurable. Unclear cause of syncopal episode if she had syncopized. Consider seizure, bradycardia, tachyarrhythmia, other. Follow up advised with her [facility] neurologist. We will not start antiseizure medications for now but advised not to drive until cleared by Neurology. Consider cardiac ambulatory monitoring. Face suture removal likely 5 days with PCP. Consider wound check in the next couple of days with PCP. Return precautions discussed. Discharged home with family. Discharge Plan Departure Patient Disposition: Home Clinical Impression: Fall from ground level, Episode of syncope, History of multiple sclerosis, Contusion of face, Eyelid laceration, right Instructions: DI for Syncope in Adults (Fainting) Activity Restrictions/Additional Instructions: Unwitnessed fall from ground level. Possible syncopal episode. Possible unwitnessed seizure. Sequelae of the fall included bruising and swelling to the predominant right side of the face. Also laceration over the right eyelid area. CT brain skull imaging negative. CT facial bones negative. EKG and blood testing not suggestive of heart attack. Cardiac monitoring normal while on the surveillance system monitor. Blood pressure normal. Unclear cause of the fall. Consider further workup with your neurologist. Consider avoiding driving until cleared by your neurologist. Consider ambulatory cardiac monitoring, discuss this with your primary care provider. Further workup as an outpatient for now. Wound check consider with your regular doctor in the next couple of days, and likely suture removal at about 5 days for facial laceration repairs. Continue your chronic oral medications for now. Return earlier to this/nearest emergency department for any change worsening symptoms or any concerns prior. Prescriptions: No Action carisoprodol 350 MG tablet 350 mg PO BID PRN (Reason: spasm) Qty: 0 sertraline 100 mg tablet PO BEDTIME hydrocodone-acetaminophen 10-325 mg tablet 1 tab PO Q4H PRN (Reason: pain) alprazolam 0.5 mg tablet 0.25 mg PO BID PRN (Reason: Anxiety) eszopiclone 1 mg tablet 1 mg PO BEDTIME trazodone 100 MG tablet 300 mg PO BEDTIME propranolol 10 mg tablet 10 mg PO BID fluconazole 150 mg tablet 150 mg PO .ONCE PRN (Reason: unknown) promethazine 25 mg tablet 25 mg PO Q4-6H PRN (Reason: nausea and vomiting) Qty: 20 0RF lorazepam [Ativan] 0.5 mg tablet 0.5 mg PO BID-TID PRN (Reason: anxiety) Qty: 7 0RF clonidine HCl 0.1 mg tablet 0.1 mg PO DAILY rizatriptan 5 mg tablet lactulose [Constulose] 10 gram/15 mL solution ondansetron 4 mg tablet,disintegrating 4 mg PO Q8H PRN (Reason: nausea and vomiting) Qty: 10 0RF hydrocodone-acetaminophen 5-325 mg tablet 1 tab PO Q8H PRN (Reason: pain) Qty: 7 0RF pantoprazole [Protonix] 40 mg tablet,delayed release (DR/EC) 40 mg PO DAILY Qty: 30 0RF ondansetron 4 mg tablet,disintegrating 4 mg PO Q8H PRN (Reason: nausea and vomiting) Qty: 14 0RF hydrocodone-acetaminophen [[place]] 5-325 mg tablet 1 tab PO Q4H PRN (Reason: pain) Qty: 10 0RF Kesimpta Pen 20 mg/0.4 mL pen injector SUBCUT Patient Comments: [NO ORIGINAL SIG] Referrals: Laura Mcgarry, MARTI, TELEPHONE SERVICE REPRESENTATIVE-C [Primary Care Provider] - Stand Alone Forms: Patient Portal/API/Survey
--- NOTE | 2025-03-03 01:51 | DI.CT.S_ITS ---
PROCEDURE: CT FACIAL BONES WO CON INDICATIONS: right facial lac/swelling TECHNIQUE: Noncontrast 2.5 mm thick axial images acquired from the mandible through the frontal sinuses, with coronal and sagittal reformatting. For radiation dose reduction, the following was used: automated exposure control, adjustment of mA and/or kV according to patient size. COMPARISON: None. FINDINGS: Image quality: Excellent. Bones and teeth: Orbital graham are intact. Sinus graham show no fracture or deformity. Nasal bones and septum are intact. Visualized portions of the mandible demonstrate no fractures or subluxation. Zygomatic arches are intact. Pterygoid plates are intact. Visualized portions of the skull base and auditory canals are intact. Sinuses: Paranasal sinuses are aerated, without fluid levels, mucosal thickening, or mucoceles. Opacification of one frontal sinus air cell. No other frontal sinus fluid collections. Mastoid air cells are aerated. Soft tissues: Minor right periorbital soft tissue swelling. Prominent soft tissue thickening and subcutaneous fat stranding in the infraorbital and malar fat. No radiodense foreign bodies or visible debris. No focal fluid collection. Soft tissues of the right orbit are normal. No enlarged lymph nodes. Vascular: Visualized vascular structures appear normal in the absence of contrast. Bony vascular foramina and canals are intact. IMPRESSION: No facial bone fracture. Right periorbital and right malar soft tissue swelling and probable small hematoma. Final interpretation is concordant with preliminary report. Dictated by: Radha Bragg M.D. on 03/03/2025 at 6:52 Approved by: Radha Bragg M.D. on 03/03/2025 at 6:56
[2025-03-03] MEDS: LIDOCAINE 2% W/EPI INJ 10 ML VIAL INJ (02:43)
[2025-03-03 03:14] LABS: UR Morphine/Opiate cutoff 300 Positive (Negative); Ur Creatinine Normal (Normal); Ur Specific Gravity Normal (Normal); Urine Amphetamines Negative (Negative); Urine Barbiturates Negative (Negative); Urine Benzodiazepines Negative (Negative); Urine Cocaine Negative (Negative); Urine MDMA Negative (Negative); Urine Methadone Negative (Negative); Urine Methamphetamines Negative (Negative); Urine Oxycodone Negative (Negative); Urine Phencyclidine Negative (Negative); Urine Tetrahydrocannabinol Positive (Negative); Urine Tricyclic Antidepressant Negative (Negative); Urine pH Normal (Normal)
[2025-03-03] MEDS: HYDROMORPHONE 0.5 MG INJ IV (03:14)
[2025-03-03 03:34] LABS: Troponin I < 0.012 ng/mL (0.01-0.034)
[2025-03-03] MEDS: BACITRACIN OINT 0.9 GM PCKT 1 APPLIC TOP (04:04)
== END 2025-03-03 04:15 | disposition home or self-care (01) ==
PROVIDERS: Emergency Provider Emergency Medicine; PCP Nurse Practitioner Family
DX: S01.111A Laceration without foreign body of right eyelid and periocular area, initial encounter (principal); R55 Syncope and collapse; G35 Multiple sclerosis; W18.30XA Fall on same level, unspecified, initial encounter
CPT/HCPCS: 12011; 36415; 70450; 70486; 71045; 80053; 80305; 82550; 83690; 84484; 85025; 93005; 93010; 96374; 99284; J1171

== ENCOUNTER → 2025-03-28 14:27 | Outpatient (CLI) | payer MEDICARE, SELFPAY ==
[2025-03-28 15:41] LABS: HEMOLYSIS < 15 (0-50); Iron 86 ug/dL (37-170)
[2025-03-28 15:50] LABS: C-Reactive Protein Quant < 0.5 mg/dL (<1.0)
[2025-03-28 15:53] LABS: Percent Iron Saturation 29 % (15-50); Total Iron Binding Capacity 298 ug/dL (265-497); Transferrin 263 mg/dL (206-381)
[2025-03-28 16:15] LABS: TSH w/ Reflex to FT4 4.49 uIU/mL (0.47-4.68)
[2025-03-28 16:22] LABS: Follicle Stimulating Hormone 92.5 mIU/mL; Progesterone, Total 0.14 ng/mL
[2025-03-28 16:38] LABS: Estradiol, Total 20.2 pg/mL
[2025-03-28 16:51] LABS: Folate 8.5 ng/mL (2.76-20.0); Vitamin B12 719 pg/mL (239-931)
[2025-04-04 17:10] LABS: Testosterone % Fr + Wkly bound 9.8 % (3.0-18.0); Testosterone Fr+Wkly bound 1.2 ng/dL (0.0-9.5); Testosterone, Total 11.9 ng/dL (.)
== END ==
PROVIDERS: PCP Nurse Practitioner Family; Referring Provider Nurse Practitioner Family; Visit Provider Nurse Practitioner Family
DX: R90.89 Other abnormal findings on diagnostic imaging of central nervous system (principal); G35 Multiple sclerosis; R23.2 Flushing; R55 Syncope and collapse; R76.8 Other specified abnormal immunological findings in serum; R71.8 Other abnormality of red blood cells
CPT/HCPCS: 36415; 82607; 82670; 82746; 83001; 83002; 83540; 83550; 84144; 84403; 84443; 86140

== ENCOUNTER → 2025-04-10 10:46 | Outpatient (CLI) | payer MEDICARE, SELFPAY ==
--- NOTE | 2025-04-10 10:48 | DI.MRI.S_ITS ---
PROCEDURE: MR HEAD/BRAIN WO/W CON INDICATIONS: MULTIPLE SCLEROSIS TECHNIQUE: Noncontrast sagittal and axial FLAIR, axial and coronal T2 fast spin echo, axial VIBE, axial gradient echo, axial diffusion and ADC through the brain. After the administration of contrast, axial and coronal and sagittal VIBE with fat saturation through the brain. COMPARISON: [facility], , MR HEAD/BRAIN WO/W CON, 02/28/2024, 10:47. FINDINGS: Image quality: Excellent. CSF spaces: Ventricles are normal in size and shape. Basal cisterns are patent. No extra-axial fluid collections. Brain: Stable foci of T2 hyperintense signal within the periventricular and deep white matter. No intracranial bleeds or mass effects. Hernandez-white matter interface appears intact. No abnormal intracranial enhancement. Diffusion weighted images show no acute ischemic insults. Brainstem appears normal. Normal intravascular flow voids are present. Skull and face: Calvarial marrow signal is normal. Orbits appear normal. Sinuses: Shape and sulcal mucosal thickening of the left frontal sinus. Sinuses and mastoids are otherwise clear. IMPRESSION: Stable appearance of multiple lesions consistent with multiple sclerosis. No new or enhancing lesions are identified. Dictated by: Jose Schwab M.D. on 04/10/2025 at 18:37 Approved by: Jose Schwab M.D. on 04/10/2025 at 18:42
--- NOTE | 2025-04-10 10:48 | DI.MRI.S_ITS ---
PROCEDURE: MR CERVICAL SPINE WO/W CON INDICATIONS: MULTIPLE SCLEROSIS TECHNIQUE: Noncontrast sagittal T1 spin echo and T2 fast spin echo, sagittal STIR, sagittal PD fast spin echo, foraminal oblique sagittal T2 fast spin echo, axial gradient echo or T2 fast spin echo through the cervical spine. After the administration of contrast, sagittal and axial T1 spin echo with fat saturation through the cervical spine. COMPARISON: [facility], MR, MR CERVICAL SPINE WO/W CON, 02/28/2024, 10:47. FINDINGS: Image quality: Excellent. Alignment and curvature: Straightening of the normal cervical lordosis. Marrow: Marrow demonstrates normal overall signal. Spinal cord: Stable focus of T2 hyperintense signal within the right aspect of the cervical cord at C5. No definite lesions are identified No suspicious intramedullary enhancement. No cerebellar tonsillar herniation. Paraspinous soft tissues: No paravertebral masses or suspicious enhancement. C2-C3: Normal appearance. C3-C4: Mild facet uncovertebral arthropathy. Mild right neural foraminal stenosis. No central canal or left neural foraminal stenosis. C4-C5: No central canal or neural foraminal stenosis. C5-C6: Disc desiccation and posterior disc osteophyte complex. Mild central canal stenosis. No significant neural foraminal stenosis. C6-C7: Posterior disc osteophyte complex asymmetric to the right. Mild central canal stenosis. No neural foraminal stenosis. C7-T1: Normal appearance. IMPRESSION: Stable lesion within the cord at C5. No new or enhancing lesions. Stable degenerative changes as described above. Dictated by: Jose Schwab M.D. on 04/10/2025 at 18:42 Approved by: Jose Schwab M.D. on 04/10/2025 at 18:48
--- NOTE | 2025-04-10 12:32 | DI.MRI.S_ITS ---
PROCEDURE: MR THORACIC SPINE WO/W CON INDICATIONS: MULTIPLE SCLEROSIS TECHNIQUE: Noncontrast sagittal T1 spin echo and T2 fast spin echo, sagittal STIR, axial T1 and T2 fast spin echo through the thoracic spine. After the administration of contrast, axial and sagittal T1 spin echo with fat saturation through the thoracic spine. COMPARISON: None. FINDINGS: Image quality: Excellent. Alignment and curvature: There is normal bony alignment. Marrow: Marrow is of normal overall signal. No acute vertebral body compression fractures. Spinal cord: Visualized spinal cord is of normal signal and size, without abnormal enhancement. Paraspinous soft tissues: No paravertebral masses or abnormal enhancement. Miscellaneous: Central canal and foramina appear widely patent at all scanned levels. IMPRESSION: The thoracic spinal cord is normal in size and signal intensity throughout. No abnormal enhancement. Dictated by: Jose Schwab M.D. on 04/10/2025 at 18:48 Approved by: Jose Schwab M.D. on 04/10/2025 at 18:51
== END ==
PROVIDERS: PCP Nurse Practitioner Family; Referring Provider Physician Assistant; Visit Provider Physician Assistant
DX: G35 Multiple sclerosis (principal); M47.812 Spondylosis without myelopathy or radiculopathy, cervical region
CPT/HCPCS: 70553; 72156; 72157; A9579

== ENCOUNTER → 2025-07-12 09:21 | Outpatient (CLI) | payer MEDICARE, SELFPAY ==
[2025-07-16 06:40] LABS: Lamotrigine Lamictal <1.0 ug/mL (2.0-20.0)
== END ==
PROVIDERS: PCP Nurse Practitioner Family; Referring Provider Nurse Practitioner Family; Visit Provider Psychiatry & Neurology Neurology
DX: R56.9 Unspecified convulsions (principal); Z51.81 Encounter for therapeutic drug level monitoring
CPT/HCPCS: 36415; 80175

== ENCOUNTER → 2025-07-16 08:56 | Outpatient (CLI) | payer MEDICARE, SELFPAY | PROVIDERS: PCP Nurse Practitioner Family; Referring Provider Psychiatry & Neurology Neurology; Visit Provider Psychiatry & Neurology Neurology | DX: Z51.81 Encounter for therapeutic drug level monitoring (principal); R53.83 Other fatigue; R56.9 Unspecified convulsions | CPT/HCPCS: 36415; 83921 ==